=== PATIENT | male | born 1955 | race Caucasian/White ===

== ENCOUNTER → 2018-03-03 | Outpatient (CLI) | payer OTHER ==
[2013-07-25 18:42] VITALS: BP 174/81
[~2018-03-03] MED LIST: AMLO10TA6 PO; ASCO100T4 PO; CARV12.52 PO; EPOE20002 IJ; HYDR-2868 PO; INSU100C4 SQ; INSU100V8 SQ; LEVO300T2 PO; LOSA100T2 PO
--- NOTE | 2018-03-04 12:01 | RAD ---
Three-phase bone scan, 03/03/2018: HISTORY: Left great toe wound Imaging of the feet was performed following IV injection of 24.5 mCi of technetium 99m MDP. The image presentation's are suboptimal due to technical difficulties. The dynamic flow study was not recorded properly. The blood pool image does demonstrate mild hyperemia at the level of the left great toe. The delayed images do not demonstrate significant abnormal left great toe activity to suggest osteomyelitis. The delayed images do demonstrate abnormal activity in the region of the right second toe and MTP joint. This is a nonspecific appearance which could be due to trauma, arthritis or infection. Correlation with right foot radiographs is suggested, if clinically indicated. IMPRESSION: 1. Mild hyperemia at the level of the left great toe without evidence of osteomyelitis. 2. Abnormal findings at the level of the right second toe as described above. Electronically signed by: Ganesh Castro MD (03/04/2018 11:58 AM) [facility]
== END | disposition home or self-care (01) ==
LOC: NM 09:38
PROVIDERS: ATTEND Family Medicine
DX: R68.89 Other general symptoms and signs (principal); R93.6 Abnormal findings on diagnostic imaging of limbs
CPT/HCPCS: 78315; 96374; A9503

== ENCOUNTER 2018-10-19 15:31 | Inpatient (IN) | payer MEDICARE, OTHER ==
[~2018-10-19] VITALS: Ht 188 cm; Wt 86.2 kg
[~2018-10-19 15:31] MED LIST changes: -AMLO10TA6 PO; +AMLO10TA8 PO; +CARV12.511 PO; -CARV12.52 PO
[2018-10-19] MEDS ORDERED: PIP/TAZO PER PHARMACY MC PRN (15:45)
[2018-10-19] MEDS ORDERED: IV NORMAL SALINE 250ML 250 ML IV ONE (15:45)
[2018-10-19] MEDS ORDERED: ACETAMINOPHEN 500 MG TABLET PO ONE (15:45)
--- NOTE | 2018-10-19 15:53 | PHYS DOC ---
Past Medical History Past Medical History: Diabetes-Type II, Renal Failure Adult General Chief Complaint Chief Complaint: FEVER HPI HPI Patient is a 62-year-old male who presents to the emergency department via EMS. He states he just hasn't felt well for the past 2 days and was noted to be running a fever at dialysis today. He states he had what he thinks is a full dialysis session. He states that he thinks he took off too much fluid because he feels weak and fatigued when too much fluid is taken off. He has not had any shortness of breath, but reports a mild cough at times. He has not had any fevers or chills. There are no alleviating or exacerbating factors to his symptoms. Review of Systems Review of Systems Constitutional: Reports fever[] Eyes: Denies change in visual acuity, redness, or eye pain [] HENT: Denies nasal congestion or sore throat [] Respiratory: Denies shortness of breath [] Cardiovascular: No additional information not addressed in HPI [] GI: Denies abdominal pain, nausea, vomiting, bloody stools or diarrhea [] : Patient does not make any urine[] Musculoskeletal: Denies back pain or joint pain [] Integument: Denies rash or skin lesions [] Neurologic: Denies headache, focal weakness or sensory changes [] Endocrine: Denies polyuria or polydipsia [] All other systems were reviewed and found to be within normal limits, except as documented in this note. Current Medications Current Medications Current Medications Medications (Trade) Dose Ordered Sig/Diana Start Time Stop Time Status Last Admin Dose Admin Acetaminophen (Tylenol) 500 mg PRN Q6HRS PRN 10/19/18 17:15 Acetaminophen/ Codeine Phosphate (Tylenol #3) 1 tab PRN Q6HRS PRN 10/19/18 17:15 Amlodipine Besylate (Norvasc) 10 mg HS 10/19/18 21:00 Ascorbic Acid (Vitamin C) 500 mg DAILY 10/20/18 09:00 UNV Carvedilol (Coreg) 12.5 mg BIDWMEALS 10/19/18 17:00 Clonidine HCl (Catapres) 0.1 mg PRN Q1HR PRN 10/19/18 17:15 Dextrose (Dextrose 50%-Water Syringe) 12.5 gm PRN Q15MIN PRN 10/19/18 17:15 Hydralazine HCl (Apresoline) 25 mg TID 10/19/18 21:00 UNV Insulin Human Lispro (HumaLOG) 0-9 UNITS TIDWMEALS 10/20/18 08:00 UNV Non-Formulary Medication (Epoetin Huang (Epogen)) 3X/WEEK 10/21/18 09:00 UNV Non-Formulary Medication (Insulin Glargine,Hum.rec.anlog (Lantus)) 16 unit HS 10/19/18 21:00 UNV Non-Formulary Medication (Levothyroxine Sodium (Synthroid)) 300 mcg DAILY 10/20/18 09:00 UNV Non-Formulary Medication (Losartan Potassium (Cozaar)) 100 mg DAILY06 10/20/18 06:00 UNV Piperacillin Sod/ Tazobactam Sod (Zosyn Per Pharmacy) 1 each PRN DAILY PRN 10/19/18 15:45 UNV Piperacillin Sod/ Tazobactam Sod 2.25 gm/Sodium Chloride 50 ml @ 100 mls/hr 1X ONCE 10/19/18 16:00 10/19/18 16:29 DC 10/19/18 16:18 100 MLS/HR Sodium Chloride 250 ml @ 250 mls/hr 1X ONCE 10/19/18 15:45 10/19/18 16:44 DC 10/19/18 16:15 250 MLS/HR Vancomycin HCl (Vanco Per Pharmacy) 1 each PRN DAILY PRN 10/19/18 15:45 UNV Vancomycin HCl 2 gm/Sodium Chloride 500 ml @ 250 mls/hr 1X ONCE 10/19/18 16:15 10/19/18 18:14 Allergies Allergies Allergies Coded Allergies Type Severity Reaction Last Updated Verified influenza virus vaccine, specific Allergy Intermediate UNKWOWN 03/03/18 Yes levofloxacin Allergy Intermediate Unknown 03/03/18 Yes pneumococcal 23-jovanni p-sac vac Allergy Intermediate UNKWOWN 03/03/18 Yes urokinase Allergy Intermediate rash 10/19/18 Yes NSAIDS (Non-Steroidal Anti-Inflamma Adverse Reaction Intermediate 03/03/18 Yes Physical Exam Physical Exam PHYSICAL EXAM: CONSTITUTIONAL: Weak appearing HEENT: PERRL, EOMI. Conjunctivae normal color, sclerae non-icteric; moist mucous membranes. NECK: Supple, non-tender; no meningismus. LUNGS: Lungs CTA, breathing even and unlabored. Normal air movement. HEART: Regular rate and rhythm, no murmur CHEST: No deformity; non-tender ABDOMEN: The abdomen is soft, and non-tender, no masses or bruits. EXTREM: Normal ROM; no deformity, no calf tenderness. Normal pulses palpable in all extremities. There is no pedal edema. There is an AV fistula in the left upp er extremity. There is a small ulcer on the lateral aspect of the left foot, without any surrounding erythema, or any exudate. There is, however, a foul smell at the wound. SKIN: No rash; no diaphoresis NEURO: Alert; normal speech and cognition; CN's grossly intact; strength grossly intact without focal deficit. BACK: No CVA TTP. Current Patient Data Vital Signs Vital Signs Date Time Temp Pulse Resp B/P (MAP) Pulse Ox O2 Delivery O2 Flow Rate FiO2 10/19/18 16:40 86 18 163/72 (102) 89 Room Air 10/19/18 15:31 101.4 101.4 Lab Values Laboratory Tests Test 10/19/18 15:45 White Blood Count 2.6 x10^3/uL (4.0-11.0) L Red Blood Count 2.30 x10^6/uL (4.30-5.70) L Hemoglobin 7.8 g/dL (13.0-17.5) L Hematocrit 23.8 % (39.0-53.0) L Mean Corpuscular Volume 104 fL (79-100) H Mean Corpuscular Hemoglobin 34 pg (25-35) Mean Corpuscular Hemoglobin Concent 33 g/dL (31-37) Red Cell Distribution Width 15.3 % (11.5-14.5) H Platelet Count 134 x10^3/uL (140-400) L Neutrophils (%) (Auto) 91 % (31-73) H Lymphocytes (%) (Auto) 5 % (24-48) L Monocytes (%) (Auto) 1 % (0-9) Eosinophils (%) (Auto) 3 % (0-3) Basophils (%) (Auto) 0 % (0-3) Neutrophils # (Auto) 2.4 x10^3uL (1.8-7.7) Lymphocytes # (Auto) 0.1 x10^3/uL (1.0-4.8) L Monocytes # (Auto) 0.0 x10^3/uL (0.0-1.1) Eosinophils # (Auto) 0.1 x10^3/uL (0.0-0.7) Basophils # (Auto) 0.0 x10^3/uL (0.0-0.2) Platelet Estimate Pending Prothrombin Time 15.4 SEC (11.7-14.0) H Prothrombin Time INR 1.3 (0.8-1.1) H Sodium Level 139 mmol/L (136-145) Potassium Level 3.9 mmol/L (3.5-5.1) Chloride Level 104 mmol/L (98-107) Carbon Dioxide Level 23 mmol/L (21-32) Anion Gap 12 (6-14) Blood Urea Nitrogen 23 mg/dL (8-26) Creatinine 2.7 mg/dL (0.7-1.3) H Estimated GFR (Cockcroft-Gault) 24.0 BUN/Creatinine Ratio 9 (6-20) Glucose Level 100 mg/dL (70-99) H Lactic Acid Level 1.1 mmol/L (0.4-2.0) Calcium Level 8.9 mg/dL (8.5-10.1) Total Bilirubin 0.8 mg/dL (0.2-1.0) Aspartate Amino Transferase (AST) 25 U/L (15-37) Alanine Aminotransferase (ALT) 20 U/L (16-63) Alkaline Phosphatase 153 U/L (46-116) H Troponin I Quantitative 0.055 ng/mL (0.000-0.055) Total Protein 7.4 g/dL (6.4-8.2) Albumin 3.4 g/dL (3.4-5.0) Albumin/Globulin Ratio 0.9 (1.0-1.7) L Laboratory Tests 10/19/18 15:45 Laboratory Tests 10/19/18 15:45 EKG EKG Normal sinus rhythm at a rate of 92 beats for minute, left axis deviation, normal intervals, lateral T wave inversion without acute ischemic ST/T change s.[] Radiology/Procedures Radiology/Procedures [PROCEDURE: PORTABLE CHEST 1V PORTABLE CHEST 1V History: Fever Comparison: November 30, 2016 Findings: Single view of the chest is submitted. Pericardial cardiac silhouette is again enlarged. There is atherosclerotic calcification near aortic arch. Tip of the left costophrenic sulcus was not entirely included on this exam, otherwise no significant pleural fluid identified. There is no pneumothorax. There is no new lobar consolidation. Impression: 1. There is no lobar consolidation. Pericardial cardiac silhouette is again enlarged. ] Course & Med Decision Making Course & Med Decision Making Pertinent Labs and Imaging studies reviewed. (See chart for details) [] 5:10 PM:The patient's condition remains stable. I spoke with the hospitalist, who accepted the patient to the hospital for further evaluation and treatment. Dragon Disclaimer Dragon Disclaimer This electronic medical record was generated, in whole or in part, using a voice recognition dictation system. Departure Departure Impression: Primary Impression: Fever Additional Impressions: Weakness ESRD (end stage renal disease) Disposition: 09 ADMITTED INPATIENT Condition: STABLE Referrals: KAILYN SMITH MD (PCP) Problem Qualifiers BRITTNEY SEARS MD October 19, 2018 15:53
[2018-10-19] MEDS ORDERED: PIPERACILLIN/TAZOBACTAM 2.25 GM in IV NORMAL SALINE 50ML 50 ML IV ONE (16:00)
[2018-10-19 16:04] LABS: BASO % 0 % (0-3); EOS # 0.1 x10^3/uL (0.0-0.7); EOS % 3 % (0-3); HEMATOCRIT 23.8 % (39.0-53.0); HEMOGLOBIN 7.8 g/dL (13.0-17.5); LYMPH # 0.1 x10^3/uL (1.0-4.8); LYMPH % 5 % (24-48); MEAN CORPUSCULAR HEMOGLOBIN 34 pg (25-35); MEAN CORPUSCULAR HGB CONC 33 g/dL (31-37); MEAN CORPUSCULAR VOLUME 104 fL (79-100); MONO % 1 % (0-9); NEUT # 2.4 x10^3uL (1.8-7.7); NEUT % 91 % (31-73); PLATELET COUNT 134 x10^3/uL (140-400); RED CELL DISTRIBUTION WIDTH 15.3 % (11.5-14.5); WHITE BLOOD COUNT 2.6 x10^3/uL (4.0-11.0)
--- NOTE | 2018-10-19 16:10 | RAD ---
PORTABLE CHEST 1V History: Fever Comparison: November 30, 2016 Findings: Single view of the chest is submitted. Pericardial cardiac silhouette is again enlarged. There is atherosclerotic calcification near aortic arch. Tip of the left costophrenic sulcus was not entirely included on this exam, otherwise no significant pleural fluid identified. There is no pneumothorax. There is no new lobar consolidation. Impression: 1. There is no lobar consolidation. Pericardial cardiac silhouette is again enlarged. Electronically signed by: Christiano Cleveland MD (10/19/2018 4:07 PM) [id number]
[2018-10-19 16:12] LABS: PROTHROMBIN TIME PATIENT 15.4 SEC (11.7-14.0)
[2018-10-19 16:13] LABS: CALCIUM 8.9 mg/dL (8.5-10.1); CREATININE 2.7 mg/dL (0.7-1.3); POTASSIUM 3.9 mmol/L (3.5-5.1)
[2018-10-19] MEDS ORDERED: VANCOMYCIN 2 GM in IV NORMAL SALINE 500ML BAG 500 ML IV ONE (16:15)
--- NOTE | 2018-10-19 16:16 | EKG ---
[facility] [address] [place] [address] Test Date: 2018-10-19 Test Time: 15:38:22 Pat Name: MARY FLORES Department: Room: Gender: M Instructional Design Specialist: : [id number] Requested By: BRITTNEY SEARS Order Number: [id number] Reading MD: Measurements Intervals [place] Rate: 92 P: 0 MA: 166 QRS: -15 QRSD: 104 T: 134 QT: 344 QTc: 430 Interpretive Statements SINUS RHYTHM LEFTWARD AXIS LVH WITH REPOLARIZATION ABNORMALITY QRS(T) CONTOUR ABNORMALITY CONSIDER ANTEROSEPTAL MYOCARDIAL DAMAGE ABNORMAL ECG RI6.01 Unconfirmed report No previous ECG available for comparison
[2018-10-19 16:26] LABS: ALBUMIN 3.4 g/dL (3.4-5.0); ALBUMIN/GLOBULIN RATIO 0.9 (1.0-1.7); TOTAL BILIRUBIN 0.8 mg/dL (0.2-1.0); TOTAL PROTEIN 7.4 g/dL (6.4-8.2)
[2018-10-19] MEDS: CARVEDILOL 12.5 MG TABLET. PO SCH (17:00)
[2018-10-19] MEDS ORDERED: cloNIDine HCL 0.1 MG TABLET PO PRN (17:15)
[2018-10-19] MEDS ORDERED: ACETAMINOPHEN 500 MG TABLET PO PRN (17:15)
[2018-10-19] MEDS ORDERED: ACETAMINOPHEN/CODEINE 300/30MG TABLET. PO PRN (17:15)
--- NOTE | 2018-10-19 17:19 | PDOC1 ---
History and Physical Date of Admission Date of Admission DATE: 10/19/18 TIME: 17:14 Identification/Chief Complaint Chief Complaint Fevers at home Source Source: Caregiver, Chart review, Patient History of Present Illness History of Present Illness Pt is a very poor historian, he is alone at the ER. 61 yo white male came from home, lives at home with , came in via EMS. Generalized weakness for a while went to dialysis today and he felt "they took too much fluid off". Lethargic but alert and denies diarrhea, chest pain, abdominal pain or flulike symptoms or URI symptoms. Chest x-ray is actually read as normal. Febrile 101.4 with high blood pressure. With creatinine 2.7, WBC 2.6 with hemoglobin 7.8 and platelets 134. Got blood cultures, empiric vancomycin. We will consult ID regarding this fever with unknown source. Cannot get a urine sample-anuric Does not know his NovoLog mealtime dose Full code He denies any body rash, denies recent travel or sick contacts He has a left AV fistula and no external catheters Past Medical History Cardiovascular: HTN Endocrine: Diabetes, Hypothyroidism Past Surgical History Past Surgical History: Other (AV fistulam, left arm) Family History Family History: Family History Unknown Social History Smoke: No ALCOHOL: none Drugs: None Current Medications Current Medications Current Medications Sodium Chloride 250 ml @ 250 mls/hr 1X ONCE IV Last administered on 10/19/18at 16:15; Start 10/19/18 at 15:45; Stop 10/19/18 at 16:44; Status DC Acetaminophen (Tylenol) 1,000 mg 1X ONCE PO Last administered on 10/19/18at 16:12; Start 10/19/18 at 15:45; Stop 10/19/18 at 15:50; Status DC Piperacillin Sod/ Tazobactam Sod (Zosyn Per Pharmacy) 1 each PRN DAILY PRN MC SEE COMMENTS; Start 10/19/18 at 15:45; Status UNV Vancomycin HCl (Vanco Per Pharmacy) 1 each PRN DAILY PRN MC SEE COMMENTS; Start 10/19/18 at 15:45; Status UNV Piperacillin Sod/ Tazobactam Sod 2.25 gm/Sodium Chloride 50 ml @ 100 mls/hr 1X ONCE IV Last administered on 10/19/18at 16:18; Start 10/19/18 at 16:00; Stop at 16:29; Status DC Vancomycin HCl 2 gm/Sodium Chloride 500 ml @ 250 mls/hr 1X ONCE IV ; Start 10/19/18 at 16:15; Stop 10/19/18 at 18:14 Acetaminophen (Tylenol) 500 mg PRN Q6HRS PRN PO MILD PAIN / TEMP; Start 10/19/18 at 17:15 Acetaminophen/ Codeine Phosphate (Tylenol #3) 1 tab PRN Q6HRS PRN PO MODERATE PAIN; Start 10/19/18 at 17:15 Amlodipine Besylate (Norvasc) 10 mg HS PO ; Start 10/19/18 at 21:00 Carvedilol (Coreg) 12.5 mg BIDWMEALS PO ; Start 10/19/18 at 17:00 Non-Formulary Medication (Ascorbic Acid (Vitamin C)) 100 mg DAILY PO ; Start 10/20/18 at 09:00; Status UNV Non-Formulary Medication (Epoetin Huang (Epogen)) 3X/WEEK IJ ; Start 10/21/18 at 09:00; Status UNV Non-Formulary Medication (Hydralazine Hcl ) 25 mg TID PO ; Start 10/19/18 at 21: 00; Status UNV Non-Formulary Medication (Insulin Glargine,Hum.rec.anlog (Lantus)) 16 unit HS SQ ; Start 10/19/18 at 21:00; Status UNV Non-Formulary Medication (Levothyroxine Sodium (Synthroid)) 300 mcg DAILY PO ; Start 10/20/18 at 09:00; Status UNV Non-Formulary Medication (Losartan Potassium (Cozaar)) 100 mg DAILY06 PO ; Start 10/20/18 at 06:00; Status UNV Insulin Human Lispro (HumaLOG) 0-9 UNITS TIDWMEALS SQ ; Start 10/20/18 at 08:00; Status UNV Dextrose (Dextrose 50%-Water Syringe) 12.5 gm PRN Q15MIN PRN IV SEE COMMENTS; Start 10/19/18 at 17:15 Clonidine HCl (Catapres) 0.1 mg PRN Q1HR PRN PO HYPERTENSION; Start 10/19/18 at 17:15; Status UNV Active Scripts Active Reported Epogen (Epoetin Huang) 2,000 Unit/1 Ml Vial 0 IJ 3X/WEEK Vitamin C (Ascorbic Acid) 100 Mg Tablet 100 Mg PO DAILY Novolog (Insulin Aspart) 100 Unit/1 Ml Cartridge 0 SQ 5XDAY Lantus (Insulin Glargine,Hum.rec.anlog) 100 Unit/1 Ml Vial 16 Unit SQ HS Amlodipine Besylate 10 Mg Tablet 10 Mg PO HS Synthroid (Levothyroxine Sodium) 300 Mcg Tablet 300 Mcg PO DAILY Hydralazine Hcl 25 Mg Tablet 25 Mg PO TID Carvedilol (Carvedilol) 12.5 Mg Tablet 12.5 Mg PO BID Cozaar (Losartan Potassium) 100 Mg Tablet 100 Mg PO DAILY06 Allergies Allergies: Coded Allergies: influenza virus vaccine, specific (Verified Allergy, Intermediate, UNKWOWN, 03/03/18) levofloxacin (Verified Allergy, Intermediate, Unknown, 03/03/18) pneumococcal 23-jovanni p-sac vac (Verified Allergy, Intermediate, UNKWOWN, 03/03/18) urokinase (Verified Allergy, Intermediate, rash, 10/19/18) NSAIDS (Non-Steroidal Anti-Inflamma (Verified Adverse Reaction, Intermediate, 03/03/18) RAGE ROS Review of System As per history of present illness, the rest of ROS 14 point negative although poor historian, he doses off to sleep Physical Exam General: Alert, Oriented X3, Cooperative, No acute distress HEENT: Atraumatic, PERRLA, EOMI Lungs: Clear to auscultation, Normal air movement Heart: S1S2, RRR, no thrills, no rubs, no gallops, no murmurs Cardiovascular: S1, S2 Abdomen: Normal bowel sounds, Soft, No tenderness, No hepatosplenomegaly, No masses Male Genitals Exam: normal genitalia, normal prostate Rectal Exam: not examined PELVIC: Nml ext genitalia Extremities: No clubbing, No cyanosis, No edema, Normal pulses, No tenderness/swelling Skin: No rashes, No breakdown, No significant lesion, Other (AV fistula with good bruit, distant pulses palpable good plus 2) Neuro: Normal gait, Normal speech, Strength at 5/5 X4 ext, Normal tone, Sensation intact, Cranial nerves 3-12 NL, Reflexes 2+ Psych/Mental Status: Mental status NL, Mood NL Vitals Vitals Vital Signs Date Time Temp Pulse Resp B/P (MAP) Pulse Ox O2 Delivery O2 Flow Rate FiO2 10/19/18 16:40 86 18 163/72 (102) 89 Room Air 10/19/18 15:31 101.4 101.4 Labs Labs Laboratory Tests Test 10/19/18 15:45 White Blood Count 2.6 x10^3/uL (4.0-11.0) Red Blood Count 2.30 x10^6/uL (4.30-5.70) Hemoglobin 7.8 g/dL (13.0-17.5) Hematocrit 23.8 % (39.0-53.0) Mean Corpuscular Volume 104 fL (79-100) Mean Corpuscular Hemoglobin 34 pg (25-35) Mean Corpuscular Hemoglobin Concent 33 g/dL (31-37) Red Cell Distribution Width 15.3 % (11.5-14.5) Platelet Count 134 x10^3/uL (140-400) Neutrophils (%) (Auto) 91 % (31-73) Lymphocytes (%) (Auto) 5 % (24-48) Monocytes (%) (Auto) 1 % (0-9) Eosinophils (%) (Auto) 3 % (0-3) Basophils (%) (Auto) 0 % (0-3) Neutrophils # (Auto) 2.4 x10^3uL (1.8-7.7) Lymphocytes # (Auto) 0.1 x10^3/uL (1.0-4.8) Monocytes # (Auto) 0.0 x10^3/uL (0.0-1.1) Eosinophils # (Auto) 0.1 x10^3/uL (0.0-0.7) Basophils # (Auto) 0.0 x10^3/uL (0.0-0.2) Prothrombin Time 15.4 SEC (11.7-14.0) Prothromb Time International Ratio 1.3 (0.8-1.1) Sodium Level 139 mmol/L (136-145) Potassium Level 3.9 mmol/L (3.5-5.1) Chloride Level 104 mmol/L (98-107) Carbon Dioxide Level 23 mmol/L (21-32) Anion Gap 12 (6-14) Blood Urea Nitrogen 23 mg/dL (8-26) Creatinine 2.7 mg/dL (0.7-1.3) Estimated GFR (Cockcroft-Gault) 24.0 BUN/Creatinine Ratio 9 (6-20) Glucose Level 100 mg/dL (70-99) Lactic Acid Level 1.1 mmol/L (0.4-2.0) Calcium Level 8.9 mg/dL (8.5-10.1) Total Bilirubin 0.8 mg/dL (0.2-1.0) Aspartate Amino Transf (AST/SGOT) 25 U/L (15-37) Alanine Aminotransferase (ALT/SGPT) 20 U/L (16-63) Alkaline Phosphatase 153 U/L (46-116) Troponin I Quantitative 0.055 ng/mL (0.000-0.055) Total Protein 7.4 g/dL (6.4-8.2) Albumin 3.4 g/dL (3.4-5.0) Albumin/Globulin Ratio 0.9 (1.0-1.7) Laboratory Tests Test 10/19/18 15:45 White Blood Count 2.6 x10^3/uL (4.0-11.0) Red Blood Count 2.30 x10^6/uL (4.30-5.70) Hemoglobin 7.8 g/dL (13.0-17.5) Hematocrit 23.8 % (39.0-53.0) Mean Corpuscular Volume 104 fL (79-100) Mean Corpuscular Hemoglobin 34 pg (25-35) Mean Corpuscular Hemoglobin Concent 33 g/dL (31-37) Red Cell Distribution Width 15.3 % (11.5-14.5) Platelet Count 134 x10^3/uL (140-400) Neutrophils (%) (Auto) 91 % (31-73) Lymphocytes (%) (Auto) 5 % (24-48) Monocytes (%) (Auto) 1 % (0-9) Eosinophils (%) (Auto) 3 % (0-3) Basophils (%) (Auto) 0 % (0-3) Neutrophils # (Auto) 2.4 x10^3uL (1.8-7.7) Lymphocytes # (Auto) 0.1 x10^3/uL (1.0-4.8) Monocytes # (Auto) 0.0 x10^3/uL (0.0-1.1) Eosinophils # (Auto) 0.1 x10^3/uL (0.0-0.7) Basophils # (Auto) 0.0 x10^3/uL (0.0-0.2) Prothrombin Time 15.4 SEC (11.7-14.0) Prothromb Time International Ratio 1.3 (0.8-1.1) Sodium Level 139 mmol/L (136-145) Potassium Level 3.9 mmol/L (3.5-5.1) Chloride Level 104 mmol/L (98-107) Carbon Dioxide Level 23 mmol/L (21-32) Anion Gap 12 (6-14) Blood Urea Nitrogen 23 mg/dL (8-26) Creatinine 2.7 mg/dL (0.7-1.3) Estimated GFR (Cockcroft-Gault) 24.0 BUN/Creatinine Ratio 9 (6-20) Glucose Level 100 mg/dL (70-99) Lactic Acid Level 1.1 mmol/L (0.4-2.0) Calcium Level 8.9 mg/dL (8.5-10.1) Total Bilirubin 0.8 mg/dL (0.2-1.0) Aspartate Amino Transf (AST/SGOT) 25 U/L (15-37) Alanine Aminotransferase (ALT/SGPT) 20 U/L (16-63) Alkaline Phosphatase 153 U/L (46-116) Troponin I Quantitative 0.055 ng/mL (0.000-0.055) Total Protein 7.4 g/dL (6.4-8.2) Albumin 3.4 g/dL (3.4-5.0) Albumin/Globulin Ratio 0.9 (1.0-1.7) VTE Prophylaxis Ordered VTE Prophylaxis Devices: Yes VTE Pharmacological Prophylaxi: Yes Assessment/Plan Assessment/Plan Fevers with unknown source ESRD on dialysis Anemia of ESRD Hypothyroidism on Synthroid Hypertension-accelerated POA Thrombocytopenia, platelets 134 Leukopenia WBC 2.6 This is not sepsis for now as these are his baseline numbers Plan: admit 2 MN, got blood cultures empiric vanc Zosyn by ER Consult ID regarding fevers, unknown source Anuric No external catheters Consult renal regarding dialysis I ahve reconciled home meds PT OT FUll code Other supportive meds SSI Seen at ER ANGY KAPOOR MD October 19, 2018 17:19
[2018-10-19 17:53] LABS: % BANDS 11 % (0-9); % BASOS 1 % (0-3); % EOS 4 % (0-5); % LYMPHS 5 % (24-48); % MONOS 2 % (0-10); % SEGS 77 % (35-66); PLT ESTIMATE ADEQUATE (ADEQUATE)
[2018-10-19] MEDS: VANCOMYCIN PER PHARMACY MC PRN (18:43)
[2018-10-19] MEDS: DEXTROSE 50% 25 GM / 50ML DISP.SYRIN. IV PRN (19:42)
[2018-10-19 20:29] VITALS: BP 121/35
[2018-10-19] MEDS: hydrALAZINE 25 MG TABLET PO SCH (21:00)
[2018-10-19] MEDS: amLODIPine BESYLATE 10 MG TABLET PO SCH (21:00)
[2018-10-19] MEDS: INSULIN GLARGINE 300 UNITS/3 ML INSULN.PEN. SQ SCH (21:00)
--- NOTE | 2018-10-19 22:16 | NUR ---
The patient, MARY FLORES, 62 y/o, M admitted by ANGY KAPOOR MD, was given written information regarding hospital policies, unit procedures and contact persons. Valuables were checked and left with patient.
--- NOTE | 2018-10-19 22:17 | NUR ---
At 1899 pt was in ER with a blood sugar of 58, gave 3 apple juice. At 1934 BS was 59. ER nurse gave dextrose. When pt arrived on the unit at 1957 pt BS was 93. At 2129 BS was 89, holding lantus due to pts BS being low.
[2018-10-19] MEDS: PIPERACILLIN/TAZOBACTAM 2.25 GM in IV NORMAL SALINE 50ML 50 ML IV SCH (22:37)
[2018-10-19] MEDS ORDERED: IV NORMAL SALINE 1000ML BAG 1,000 ML IV ONE (23:15)
[2018-10-19 23:45] VITALS: BP 109/34
[2018-10-20 03:42] VITALS: BP 148/49
[2018-10-20] MEDS: LEVOTHYROXINE 150 MCG TABLET PO SCH (05:54)
[2018-10-20] MEDS: PIPERACILLIN/TAZOBACTAM 2.25 GM in IV NORMAL SALINE 50ML 50 ML IV SCH (06:17)
[2018-10-20 07:55] VITALS: BP 156/52
[2018-10-20] MEDS: INSULIN LISPRO 300 UNITS/3 ML INSULN.PEN. SQ SCH ×3 (08:00→17:21)
[2018-10-20] MEDS: hydrALAZINE 25 MG TABLET PO SCH ×3 (09:00→22:01)
[2018-10-20] MEDS: CARVEDILOL 12.5 MG TABLET. PO SCH ×2 (09:23→16:24)
[2018-10-20] MEDS: LOSARTAN POTASSIUM 50 MG TABLET. PO SCH (09:24)
[2018-10-20] MEDS: ASCORBIC ACID 500 MG TABLET PO SCH (09:24)
[2018-10-20 11:29] VITALS: BP 130/34
--- NOTE | 2018-10-20 11:49 | PDOC ---
[employer] PROGRESS NOTE Chief Complaint Chief Complaint Fevers with unknown source ESRD on dialysis Anemia of ESRD Hypothyroidism on Synthroid Hypertension-accelerated POA Thrombocytopenia, platelets 134 Leukopenia WBC 2.6 History of Present Illness History of Present Illness Patient seen and examined this morning He appears septic and is tachypneic Discussed with RN and sure enough he has 2 out 2 blood culture bottles coming back positive I told her was consult infectious disease and give him IV antibiotics Patient also has a left leg lesion were checking for clot Overall the patient appears quite ill Vitals Vitals Vital Signs Date Time Temp Pulse Resp B/P (MAP) Pulse Ox O2 Delivery O2 Flow Rate FiO2 10/20/18 11:29 98.5 67 20 130/34 (66) 97 Room Air 98.5 Physical Exam General: moderate distress Heart: Other (tachycardic) Lungs: Wheezing Abdomen: Normal bowel sounds, Soft, No tenderness, No hepatosplenomegaly, No masses Skin: Other (AV fistula with good bruit, distant pulses palpable good plus 2) Labs Labs: Laboratory Tests Test 10/19/18 15:45 10/19/18 19:00 10/19/18 19:35 10/19/18 19:58 White Blood Count 2.6 x10^3/uL (4.0-11.0) Red Blood Count 2.30 x10^6/uL (4.30-5.70) Hemoglobin 7.8 g/dL (13.0-17.5) Hematocrit 23.8 % (39.0-53.0) Mean Corpuscular Volume 104 fL (79-100) Mean Corpuscular Hemoglobin 34 pg (25-35) Mean Corpuscular Hemoglobin Concent 33 g/dL (31-37) Red Cell Distribution Width 15.3 % (11.5-14.5) Platelet Count 134 x10^3/uL (140-400) Neutrophils (%) (Auto) 91 % (31-73) Lymphocytes (%) (Auto) 5 % (24-48) Monocytes (%) (Auto) 1 % (0-9) Eosinophils (%) (Auto) 3 % (0-3) Basophils (%) (Auto) 0 % (0-3) Neutrophils # (Auto) 2.4 x10^3uL (1.8-7.7) Lymphocytes # (Auto) 0.1 x10^3/uL (1.0-4.8) Monocytes # (Auto) 0.0 x10^3/uL (0.0-1.1) Eosinophils # (Auto) 0.1 x10^3/uL (0.0-0.7) Basophils # (Auto) 0.0 x10^3/uL (0.0-0.2) Segmented Neutrophils % 77 % (35-66) Band Neutrophils % 11 % (0-9) Lymphocytes % 5 % (24-48) Monocytes % 2 % (0-10) Eosinophils % 4 % (0-5) Basophils % 1 % (0-3) Platelet Estimate Adequate (ADEQUATE) Erythrocyte Sedimentation Rate 22 (0-15) Prothrombin Time 15.4 SEC (11.7-14.0) Prothromb Time International Ratio 1.3 (0.8-1.1) Sodium Level 139 mmol/L (136-145) Potassium Level 3.9 mmol/L (3.5-5.1) Chloride Level 104 mmol/L (98-107) Carbon Dioxide Level 23 mmol/L (21-32) Anion Gap 12 (6-14) Blood Urea Nitrogen 23 mg/dL (8-26) Creatinine 2.7 mg/dL (0.7-1.3) Estimated GFR (Cockcroft-Gault) 24.0 BUN/Creatinine Ratio 9 (6-20) Glucose Level 100 mg/dL (70-99) Lactic Acid Level 1.1 mmol/L (0.4-2.0) Calcium Level 8.9 mg/dL (8.5-10.1) Total Bilirubin 0.8 mg/dL (0.2-1.0) Aspartate Amino Transf (AST/SGOT) 25 U/L (15-37) Alanine Aminotransferase (ALT/SGPT) 20 U/L (16-63) Alkaline Phosphatase 153 U/L (46-116) Troponin I Quantitative 0.055 ng/mL (0.000-0.055) Total Protein 7.4 g/dL (6.4-8.2) Albumin 3.4 g/dL (3.4-5.0) Albumin/Globulin Ratio 0.9 (1.0-1.7) Glucose (Fingerstick) 58 mg/dL (70-99) 59 mg/dL (70-99) 93 mg/dL (70-99) Test 5/29/19 21:30 10/20/18 07:53 Glucose (Fingerstick) 89 mg/dL (70-99) 114 mg/dL (70-99) Review of Systems Review of Systems Complains of left leg pain Complains of tachypnea Complains of severe weakness Assessment and Plan Assessmemt and Plan Problems Medical Problems: (1) ESRD (end stage renal disease) Status: Acute (2) Fever Status: Acute (3) Weakness Status: Acute Fevers with unknown source ESRD on dialysis Anemia of ESRD Hypothyroidism on Synthroid Hypertension-accelerated POA Thrombocytopenia, platelets 134 Leukopenia WBC 2.6 Plan Left lower extremities ultrasound to rule out DVT IV hydration Consult infectious disease When necessary Tylenol Home meds Frequent labs PT OT if possible Total time 33 minutes Comment Review of Relevant I have reviewed the following items kit (where applicable) has been applied. Labs Laboratory Tests Test 10/19/18 15:45 10/19/18 19:00 10/19/18 19:35 10/19/18 19:58 White Blood Count 2.6 x10^3/uL (4.0-11.0) Red Blood Count 2.30 x10^6/uL (4.30-5.70) Hemoglobin 7.8 g/dL (13.0-17.5) Hematocrit 23.8 % (39.0-53.0) Mean Corpuscular Volume 104 fL (79-100) Mean Corpuscular Hemoglobin 34 pg (25-35) Mean Corpuscular Hemoglobin Concent 33 g/dL (31-37) Red Cell Distribution Width 15.3 % (11.5-14.5) Platelet Count 134 x10^3/uL (140-400) Neutrophils (%) (Auto) 91 % (31-73) Lymphocytes (%) (Auto) 5 % (24-48) Monocytes (%) (Auto) 1 % (0-9) Eosinophils (%) (Auto) 3 % (0-3) Basophils (%) (Auto) 0 % (0-3) Neutrophils # (Auto) 2.4 x10^3uL (1.8-7.7) Lymphocytes # (Auto) 0.1 x10^3/uL (1.0-4.8) Monocytes # (Auto) 0.0 x10^3/uL (0.0-1.1) Eosinophils # (Auto) 0.1 x10^3/uL (0.0-0.7) Basophils # (Auto) 0.0 x10^3/uL (0.0-0.2) Segmented Neutrophils % 77 % (35-66) Band Neutrophils % 11 % (0-9) Lymphocytes % 5 % (24-48) Monocytes % 2 % (0-10) Eosinophils % 4 % (0-5) Basophils % 1 % (0-3) Platelet Estimate Adequate (ADEQUATE) Erythrocyte Sedimentation Rate 22 (0-15) Prothrombin Time 15.4 SEC (11.7-14.0) Prothromb Time International Ratio 1.3 (0.8-1.1) Sodium Level 139 mmol/L (136-145) Potassium Level 3.9 mmol/L (3.5-5.1) Chloride Level 104 mmol/L (98-107) Carbon Dioxide Level 23 mmol/L (21-32) Anion Gap 12 (6-14) Blood Urea Nitrogen 23 mg/dL (8-26) Creatinine 2.7 mg/dL (0.7-1.3) Estimated GFR (Cockcroft-Gault) 24.0 BUN/Creatinine Ratio 9 (6-20) Glucose Level 100 mg/dL (70-99) Lactic Acid Level 1.1 mmol/L (0.4-2.0) Calcium Level 8.9 mg/dL (8.5-10.1) Total Bilirubin 0.8 mg/dL (0.2-1.0) Aspartate Amino Transf (AST/SGOT) 25 U/L (15-37) Alanine Aminotransferase (ALT/SGPT) 20 U/L (16-63) Alkaline Phosphatase 153 U/L (46-116) Troponin I Quantitative 0.055 ng/mL (0.000-0.055) Total Protein 7.4 g/dL (6.4-8.2) Albumin 3.4 g/dL (3.4-5.0) Albumin/Globulin Ratio 0.9 (1.0-1.7) Glucose (Fingerstick) 58 mg/dL (70-99) 59 mg/dL (70-99) 93 mg/dL (70-99) Test 10/19/18 21:30 10/20/18 07:53 Glucose (Fingerstick) 89 mg/dL (70-99) 114 mg/dL (70-99) Laboratory Tests Test 10/19/18 15:45 10/19/18 19:00 10/19/18 19:35 10/19/18 19:58 White Blood Count 2.6 x10^3/uL (4.0-11.0) Red Blood Count 2.30 x10^6/uL (4.30-5.70) Hemoglobin 7.8 g/dL (13.0-17.5) Hematocrit 23.8 % (39.0-53.0) Mean Corpuscular Volume 104 fL (79-100) Mean Corpuscular Hemoglobin 34 pg (25-35) Mean Corpuscular Hemoglobin Concent 33 g/dL (31-37) Red Cell Distribution Width 15.3 % (11.5-14.5) Platelet Count 134 x10^3/uL (140-400) Neutrophils (%) (Auto) 91 % (31-73) Lymphocytes (%) (Auto) 5 % (24-48) Monocytes (%) (Auto) 1 % (0-9) Eosinophils (%) (Auto) 3 % (0-3) Basophils (%) (Auto) 0 % (0-3) Neutrophils # (Auto) 2.4 x10^3uL (1.8-7.7) Lymphocytes # (Auto) 0.1 x10^3/uL (1.0-4.8) Monocytes # (Auto) 0.0 x10^3/uL (0.0-1.1) Eosinophils # (Auto) 0.1 x10^3/uL (0.0-0.7) Basophils # (Auto) 0.0 x10^3/uL (0.0-0.2) Segmented Neutrophils % 77 % (35-66) Band Neutrophils % 11 % (0-9) Lymphocytes % 5 % (24-48) Monocytes % 2 % (0-10) Eosinophils % 4 % (0-5) Basophils % 1 % (0-3) Platelet Estimate Adequate (ADEQUATE) Erythrocyte Sedimentation Rate 22 (0-15) Prothrombin Time 15.4 SEC (11.7-14.0) Prothromb Time International Ratio 1.3 (0.8-1.1) Sodium Level 139 mmol/L (136-145) Potassium Level 3.9 mmol/L (3.5-5.1) Chloride Level 104 mmol/L (98-107) Carbon Dioxide Level 23 mmol/L (21-32) Anion Gap 12 (6-14) Blood Urea Nitrogen 23 mg/dL (8-26) Creatinine 2.7 mg/dL (0.7-1.3) Estimated GFR (Cockcroft-Gault) 24.0 BUN/Creatinine Ratio 9 (6-20) Glucose Level 100 mg/dL (70-99) Lactic Acid Level 1.1 mmol/L (0.4-2.0) Calcium Level 8.9 mg/dL (8.5-10.1) Total Bilirubin 0.8 mg/dL (0.2-1.0) Aspartate Amino Transf (AST/SGOT) 25 U/L (15-37) Alanine Aminotransferase (ALT/SGPT) 20 U/L (16-63) Alkaline Phosphatase 153 U/L (46-116) Troponin I Quantitative 0.055 ng/mL (0.000-0.055) Total Protein 7.4 g/dL (6.4-8.2) Albumin 3.4 g/dL (3.4-5.0) Albumin/Globulin Ratio 0.9 (1.0-1.7) Glucose (Fingerstick) 58 mg/dL (70-99) 59 mg/dL (70-99) 93 mg/dL (70-99) Test 10/19/18 21:30 10/20/18 07:53 Glucose (Fingerstick) 89 mg/dL (70-99) 114 mg/dL (70-99) Microbiology 10/19/18 Blood Culture - Final, Complete Medications Current Medications Sodium Chloride 250 ml @ 250 mls/hr 1X ONCE IV Last administered on 10/19/18at 16:15; Start 10/19/18 at 15:45; Stop 10/19/18 at 16:44; Status DC Acetaminophen (Tylenol) 1,000 mg 1X ONCE PO Last administered on 10/19/18at 16:12; Start 10/19/18 at 15:45; Stop 10/19/18 at 15:50; Status DC Piperacillin Sod/ Tazobactam Sod (Zosyn Per Pharmacy) 1 each PRN DAILY PRN MC SEE COMMENTS; Start 10/19/18 at 15:45 Vancomycin HCl (Vanco Per Pharmacy) 1 each PRN DAILY PRN MC SEE COMMENTS Last administered on 10/19/18at 18:43; Start 10/19/18 at 15:45 Piperacillin Sod/ Tazobactam Sod 2.25 gm/Sodium Chloride 50 ml @ 100 mls/hr 1X ONCE IV Last administered on 10/19/18at 16:18; Start 10/19/18 at 16:00; Stop 10/19/18 at 16:29; Status DC Vancomycin HCl 2 gm/Sodium Chloride 500 ml @ 250 mls/hr 1X ONCE IV Last administered on 10/19/18at 17:21; Start 10/19/18 at 16:15; Stop 10/19/18 at 18:14; Status DC Acetaminophen (Tylenol) 500 mg PRN Q6HRS PRN PO MILD PAIN / TEMP; Start 10/19/18 at 17:15 Acetaminophen/ Codeine Phosphate (Tylenol #3) 1 tab PRN Q6HRS PRN PO MODERATE PAIN; Start 10/19/18 at 17:15 Amlodipine Besylate (Norvasc) 10 mg HS PO ; Start 10/19/18 at 21:00 Carvedilol (Coreg) 12.5 mg BIDWMEALS PO Last administered on 10/20/18at 09:23; Start 10/19/18 at 17:00 Ascorbic Acid (Vitamin C) 500 mg DAILY PO Last administered on 10/20/18at 09:24; Start 10/20/18 at 09:00 Darbepoetin Huang (Aranesp) 25 mcg WEEKLYHS SQ ; Start 10/21/18 at 21:00 Hydralazine HCl (Apresoline) 25 mg TID PO ; Start 10/19/18 at 21:00 Insulin Glargine (Lantus) 16 units QHS SQ ; Start 10/19/18 at 21:00 Levothyroxine Sodium (Synthroid) 300 mcg DAILY06 PO Last administered on 10/20/18at 05:54; Start 10/20/18 at 06:00 Losartan Potassium (Cozaar) 100 mg DAILY PO Last administered on 10/20/18at 09:24; Start 10/20/18 at 09:00 Insulin Human Lispro (HumaLOG) 0-9 UNITS TIDWMEALS SQ ; Start 10/20/18 at 08:00 Dextrose (Dextrose 50%-Water Syringe) 12.5 gm PRN Q15MIN PRN IV SEE COMMENTS Last administered on 10/19/18at 19:42; Start 10/19/18 at 17:15 Clonidine HCl (Catapres) 0.1 mg PRN Q1HR PRN PO HYPERTENSION; Start 10/19/18 at 17:15 Piperacillin Sod/ Tazobactam Sod 2.25 gm/Sodium Chloride 50 ml @ 100 mls/hr Q8HRS IV Last administered on 10/20/18at 06:17; Start 10/19/18 at 22:00 Vancomycin HCl (Vancomycin Random Level) 1 each 1X ONCE MC ; Start 10/21/18 at 06:00; Stop 10/21/18 at 06:01 Sodium Chloride 1,000 ml @ 100 mls/hr 1X ONCE IV Last administered on 10/19/18at 23:15; Start 10/19/18 at 23:15; Stop 10/20/18 at 09:14; Status DC Multivitamins (Thera M Plus) 1 tab DAILY PO ; Start 10/20/18 at 12:00 Active Scripts Active Reported Epogen (Epoetin Huang) 2,000 Unit/1 Ml Vial 0 IJ 3X/WEEK Vitamin C (Ascorbic Acid) 100 Mg Tablet 100 Mg PO DAILY Novolog (Insulin Aspart) 100 Unit/1 Ml Cartridge 0 SQ 5XDAY Lantus (Insulin Glargine,Hum.rec.anlog) 100 Unit/1 Ml Vial 16 Unit SQ HS Amlodipine Besylate 10 Mg Tablet 10 Mg PO HS Synthroid (Levothyroxine Sodium) 300 Mcg Tablet 300 Mcg PO DAILY Hydralazine Hcl 25 Mg Tablet 25 Mg PO TID Carvedilol (Carvedilol) 12.5 Mg Tablet 12.5 Mg PO BID Cozaar (Losartan Potassium) 100 Mg Tablet 100 Mg PO DAILY06 Vitals/I & O Vital Sign - Last 24 Hours 10/19/18 10/19/18 10/19/18 10/19/18 15:31 16:10 16:40 17:10 Temp 101.4 101.4 Pulse 93 88 86 84 Resp 20 18 18 18 B/P (MAP) 195/82 (119) 166/71 (102) 163/72 (102) 142/63 (89) Pulse Ox 94 91 89 89 O2 Delivery Room Air Room Air Room Air Room Air 10/19/18 10/19/18 10/19/18 10/19/18 17:40 18:40 19:10 19:22 Temp 100.0 100.0 Pulse 82 82 80 Resp 18 B/P (MAP) 141/63 (89) 153/68 (96) 155/71 (99) Pulse Ox 88 95 92 O2 Delivery Room Air Room Air Room Air 10/19/18 10/19/18 10/20/18 10/20/18 20:29 23:45 02:19 03:42 Temp 99.8 98.6 98.4 99.8 98.6 98.4 Pulse 77 69 69 Resp 16 16 16 B/P (MAP) 121/35 (63) 109/34 (59) 148/49 (82) Pulse Ox 92 95 94 O2 Delivery Room Air Room Air Room Air Room Air 10/20/18 10/20/18 10/20/18 10/20/18 07:55 09:23 09:24 11:29 Temp 98.7 98.5 98.7 98.5 Pulse 68 68 68 67 Resp 22 20 B/P (MAP) 156/52 (86) 156/52 156/52 130/34 (66) Pulse Ox 93 97 O2 Delivery Room Air Room Air Intake and Output 10/19/18 10/19/18 10/20/18 15:00 23:00 07:00 Intake Total 350 ml 340 ml Balance 350 ml 340 ml MADDY TINOCO K III DO October 20, 2018 11:49
--- NOTE | 2018-10-20 11:50 | PDOC2 ---
CONSULT Date of Consult Date of Consult DATE: 10/20/18 TIME: 11:43 Reason for Consult Reason for Consult: ESRD Referring Physician Referring Physician: ANTWON Identification/Chief Complaint Chief Complaint FEVERS AND WEAKNESS Source Source: Chart review, Patient History of Present Illness Reason for Visit: THIS IS A 62 YR OLD WITH ESRD AND ON OP HD ON MWF. LAST WENT YESTERDAY AND STATES THAT HE FELT VERY TIRED AFTERWARDS AND ALSO FELT FEVERISH AND HAD SOME CHILLS. ADMITTED AND NOTED TO HAVE PANCYTOPENIA WHICH APPEARS TO BE CHRONIC AND POSSIBLY MDS. STATES THAT THEY HAVE BEEN TRYING TO LOWER HIS DW AT THE DIALYSIS [facility]IT AND THAT HE FEELS BETTER WITH A HIGHER DW. ESRD IS DUE TO HTN AND DM II. HE WAS ON PD INITIALLY FOR SEVERAL YEARS AND NOW FOR THE PAST 10 YEARS HAS BEEN ON HD. HE HAS A LEFT ARM BC AVF WHICH HAS BEEN FUNCTIONING WELL. NO ERYTHEMA, WARMTH OR DRAINAGE FROM HIS AVF SITE NOTED. LABS ARE C/W HIS ESRD STATUS Past Medical History Cardiovascular: HTN GI: Constipation Heme/Onc: Anemia NOS Renal/: Chronic renal failure Endocrine: Diabetes, Hypothyroidism Past Surgical History Past Surgical History HX OF PD CATHETER AND REMOVAL IN THE PAST. HX OF LEFT ARM BRACHIO-CEPHALIC AVF Past Surgical History: Other (AV fistulam, left arm) Family History Family History: Hypertension, Family History Unknown Social History No ALCOHOL: none Drugs: None Current Problem List Problem List Problems Medical Problems: (1) ESRD (end stage renal disease) Status: Acute (2) Fever Status: Acute (3) Weakness Status: Acute Current Medications Current Medications Current Medications Sodium Chloride 250 ml @ 250 mls/hr 1X ONCE IV Last administered on 10/19/18at 16:15; Start 10/19/18 at 15:45; Stop 10/19/18 at 16:44; Status DC Acetaminophen (Tylenol) 1,000 mg 1X ONCE PO Last administered on 10/19/18at 16:12; Start 10/19/18 at 15:45; Stop 10/19/18 at 15:50; Status DC Piperacillin Sod/ Tazobactam Sod (Zosyn Per Pharmacy) 1 each PRN DAILY PRN MC SEE COMMENTS; Start 10/19/18 at 15:45 Vancomycin HCl (Vanco Per Pharmacy) 1 each PRN DAILY PRN MC SEE COMMENTS Last administered on 10/19/18at 18:43; Start 10/19/18 at 15:45 Piperacillin Sod/ Tazobactam Sod 2.25 gm/Sodium Chloride 50 ml @ 100 mls/hr 1X ONCE IV Last administered on 10/19/18at 16:18; Start 10/19/18 at 16:00; Stop 10/19/18 at 16:29; Status DC Vancomycin HCl 2 gm/Sodium Chloride 500 ml @ 250 mls/hr 1X ONCE IV Last administered on 10/19/18at 17:21; Start 10/19/18 at 16:15; Stop 10/19/18 at 18:14; Status DC Acetaminophen (Tylenol) 500 mg PRN Q6HRS PRN PO MILD PAIN / TEMP; Start 10/19/18 at 17:15 Acetaminophen/ Codeine Phosphate (Tylenol #3) 1 tab PRN Q6HRS PRN PO MODERATE PAIN; Start 10/19/18 at 17:15 Amlodipine Besylate (Norvasc) 10 mg HS PO ; Start 10/19/18 at 21:00 Carvedilol (Coreg) 12.5 mg BIDWMEALS PO Last administered on 10/20/18at 09:23; Start 10/19/18 at 17:00 Ascorbic Acid (Vitamin C) 500 mg DAILY PO Last administered on 10/20/18at 09:24; Start 10/20/18 at 09:00 Darbepoetin Huang (Aranesp) 25 mcg WEEKLYHS SQ ; Start 10/21/18 at 21:00 Hydralazine HCl (Apresoline) 25 mg TID PO ; Start 10/19/18 at 21:00 Insulin Glargine (Lantus) 16 units QHS SQ ; Start 10/19/18 at 21:00 Levothyroxine Sodium (Synthroid) 300 mcg DAILY06 PO Last administered on 10/20/18at 05:54; Start 10/20/18 at 06:00 Losartan Potassium (Cozaar) 100 mg DAILY PO Last administered on 10/20/18at 09:24; Start 10/20/18 at 09:00 Insulin Human Lispro (HumaLOG) 0-9 UNITS TIDWMEALS SQ ; Start 10/20/18 at 08:00 Dextrose (Dextrose 50%-Water Syringe) 12.5 gm PRN Q15MIN PRN IV SEE COMMENTS Last administered on 10/19/18at 19:42; Start 10/19/18 at 17:15 Clonidine HCl (Catapres) 0.1 mg PRN Q1HR PRN PO HYPERTENSION; Start 10/19/18 at 17:15 Piperacillin Sod/ Tazobactam Sod 2.25 gm/Sodium Chloride 50 ml @ 100 mls/hr Q8HRS IV Last administered on 10/20/18at 06:17; Start 10/19/18 at 22:00 Vancomycin HCl (Vancomycin Random Level) 1 each 1X ONCE MC ; Start 10/21/18 at 06:00; Stop 10/21/18 at 06:01 Sodium Chloride 1,000 ml @ 100 mls/hr 1X ONCE IV Last administered on 10/19/18at 23:15; Start 10/19/18 at 23:15; Stop 10/20/18 at 09:14; Status DC Multivitamins (Thera M Plus) 1 tab DAILY PO ; Start 10/20/18 at 12:00 Active Scripts Active Reported Epogen (Epoetin Huang) 2,000 Unit/1 Ml Vial 0 IJ 3X/WEEK Vitamin C (Ascorbic Acid) 100 Mg Tablet 100 Mg PO DAILY Novolog (Insulin Aspart) 100 Unit/1 Ml Cartridge 0 SQ 5XDAY Lantus (Insulin Glargine,Hum.rec.anlog) 100 Unit/1 Ml Vial 16 Unit SQ HS Amlodipine Besylate 10 Mg Tablet 10 Mg PO HS Synthroid (Levothyroxine Sodium) 300 Mcg Tablet 300 Mcg PO DAILY Hydralazine Hcl 25 Mg Tablet 25 Mg PO TID Carvedilol (Carvedilol) 12.5 Mg Tablet 12.5 Mg PO BID Cozaar (Losartan Potassium) 100 Mg Tablet 100 Mg PO DAILY06 Allergies Allergies: Coded Allergies: influenza virus vaccine, specific (Verified Allergy, Intermediate, UNKWOWN, 03/03/18) levofloxacin (Verified Allergy, Intermediate, Unknown, 03/03/18) pneumococcal 23-jovanni p-sac vac (Verified Allergy, Intermediate, UNKWOWN, 03/03/18) urokinase (Verified Allergy, Intermediate, rash, 10/19/18) NSAIDS (Non-Steroidal Anti-Inflamma (Verified Adverse Reaction, Intermediate, 03/03/18) RAGE ROS General: YES: Chills, Fatigue PSYCHOLOGICAL ROS: YES: Anxiety Eyes: Yes Decreased vision HEENT: YES: Heacaches ALLERGY AND IMMUNOLOGY: YES: Seasonal Allergies Respiratory: YES: Cough, Shortness of breath Gastrointestinal: Yes Constipation Genitourinary: YES Other (ANURIA) Musculoskeletal: Yes Muscular Weakness Neurological: Yes Weakness Skin: Yes Dry Skin Physical Exam Physical Exam LEFT ARM AVF WITH A GOOD THRILL AND BRUIT BUT SLIGHTLY PULSATILE General: Alert, Oriented X3, Cooperative, No acute distress HEENT: Atraumatic, PERRLA Lungs: Clear to auscultation Heart: Regular rate, Normal S1, Normal S2 Abdomen: Normal bowel sounds, Soft, No tenderness Extremities: No clubbing, No cyanosis Skin: No breakdown Neuro: Normal speech, Sensation intact Psych/Mental Status: Mental status NL, Mood NL MUSCULOSKELETAL: No joint tenderness, No deformity Vitals VITALS Vital Signs Date Time Temp Pulse Resp B/P (MAP) Pulse Ox O2 Delivery O2 Flow Rate FiO2 10/20/18 11:29 98.5 67 20 130/34 (66) 97 Room Air 98.5 Labs Labs Laboratory Tests Test 10/19/18 15:45 10/19/18 19:00 10/19/18 19:35 10/19/18 19:58 White Blood Count 2.6 x10^3/uL (4.0-11.0) Red Blood Count 2.30 x10^6/uL (4.30-5.70) Hemoglobin 7.8 g/dL (13.0-17.5) Hematocrit 23.8 % (39.0-53.0) Mean Corpuscular Volume 104 fL (79-100) Mean Corpuscular Hemoglobin 34 pg (25-35) Mean Corpuscular Hemoglobin Concent 33 g/dL (31-37) Red Cell Distribution Width 15.3 % (11.5-14.5) Platelet Count 134 x10^3/uL (140-400) Neutrophils (%) (Auto) 91 % (31-73) Lymphocytes (%) (Auto) 5 % (24-48) Monocytes (%) (Auto) 1 % (0-9) Eosinophils (%) (Auto) 3 % (0-3) Basophils (%) (Auto) 0 % (0-3) Neutrophils # (Auto) 2.4 x10^3uL (1.8-7.7) Lymphocytes # (Auto) 0.1 x10^3/uL (1.0-4.8) Monocytes # (Auto) 0.0 x10^3/uL (0.0-1.1) Eosinophils # (Auto) 0.1 x10^3/uL (0.0-0.7) Basophils # (Auto) 0.0 x10^3/uL (0.0-0.2) Segmented Neutrophils % 77 % (35-66) Band Neutrophils % 11 % (0-9) Lymphocytes % 5 % (24-48) Monocytes % 2 % (0-10) Eosinophils % 4 % (0-5) Basophils % 1 % (0-3) Platelet Estimate Adequate (ADEQUATE) Erythrocyte Sedimentation Rate 22 (0-15) Prothrombin Time 15.4 SEC (11.7-14.0) Prothromb Time International Ratio 1.3 (0.8-1.1) Sodium Level 139 mmol/L (136-145) Potassium Level 3.9 mmol/L (3.5-5.1) Chloride Level 104 mmol/L (98-107) Carbon Dioxide Level 23 mmol/L (21-32) Anion Gap 12 (6-14) Blood Urea Nitrogen 23 mg/dL (8-26) Creatinine 2.7 mg/dL (0.7-1.3) Estimated GFR (Cockcroft-Gault) 24.0 BUN/Creatinine Ratio 9 (6-20) Glucose Level 100 mg/dL (70-99) Lactic Acid Level 1.1 mmol/L (0.4-2.0) Calcium Level 8.9 mg/dL (8.5-10.1) Total Bilirubin 0.8 mg/dL (0.2-1.0) Aspartate Amino Transf (AST/SGOT) 25 U/L (15-37) Alanine Aminotransferase (ALT/SGPT) 20 U/L (16-63) Alkaline Phosphatase 153 U/L (46-116) Troponin I Quantitative 0.055 ng/mL (0.000-0.055) Total Protein 7.4 g/dL (6.4-8.2) Albumin 3.4 g/dL (3.4-5.0) Albumin/Globulin Ratio 0.9 (1.0-1.7) Glucose (Fingerstick) 58 mg/dL (70-99) 59 mg/dL (70-99) 93 mg/dL (70-99) Test 10/19/18 21:30 10/20/18 07:53 Glucose (Fingerstick) 89 mg/dL (70-99) 114 mg/dL (70-99) Laboratory Tests Test 10/19/18 15:45 10/19/18 19:00 10/19/18 19:35 10/19/18 19:58 White Blood Count 2.6 x10^3/uL (4.0-11.0) Red Blood Count 2.30 x10^6/uL (4.30-5.70) Hemoglobin 7.8 g/dL (13.0-17.5) Hematocrit 23.8 % (39.0-53.0) Mean Corpuscular Volume 104 fL (79-100) Mean Corpuscular Hemoglobin 34 pg (25-35) Mean Corpuscular Hemoglobin Concent 33 g/dL (31-37) Red Cell Distribution Width 15.3 % (11.5-14.5) Platelet Count 134 x10^3/uL (140-400) Neutrophils (%) (Auto) 91 % (31-73) Lymphocytes (%) (Auto) 5 % (24-48) Monocytes (%) (Auto) 1 % (0-9) Eosinophils (%) (Auto) 3 % (0-3) Basophils (%) (Auto) 0 % (0-3) Neutrophils # (Auto) 2.4 x10^3uL (1.8-7.7) Lymphocytes # (Auto) 0.1 x10^3/uL (1.0-4.8) Monocytes # (Auto) 0.0 x10^3/uL (0.0-1.1) Eosinophils # (Auto) 0.1 x10^3/uL (0.0-0.7) Basophils # (Auto) 0.0 x10^3/uL (0.0-0.2) Segmented Neutrophils % 77 % (35-66) Band Neutrophils % 11 % (0-9) Lymphocytes % 5 % (24-48) Monocytes % 2 % (0-10) Eosinophils % 4 % (0-5) Basophils % 1 % (0-3) Platelet Estimate Adequate (ADEQUATE) Erythrocyte Sedimentation Rate 22 (0-15) Prothrombin Time 15.4 SEC (11.7-14.0) Prothromb Time International Ratio 1.3 (0.8-1.1) Sodium Level 139 mmol/L (136-145) Potassium Level 3.9 mmol/L (3.5-5.1) Chloride Level 104 mmol/L (98-107) Carbon Dioxide Level 23 mmol/L (21-32) Anion Gap 12 (6-14) Blood Urea Nitrogen 23 mg/dL (8-26) Creatinine 2.7 mg/dL (0.7-1.3) Estimated GFR (Cockcroft-Gault) 24.0 BUN/Creatinine Ratio 9 (6-20) Glucose Level 100 mg/dL (70-99) Lactic Acid Level 1.1 mmol/L (0.4-2.0) Calcium Level 8.9 mg/dL (8.5-10.1) Total Bilirubin 0.8 mg/dL (0.2-1.0) Aspartate Amino Transf (AST/SGOT) 25 U/L (15-37) Alanine Aminotransferase (ALT/SGPT) 20 U/L (16-63) Alkaline Phosphatase 153 U/L (46-116) Troponin I Quantitative 0.055 ng/mL (0.000-0.055) Total Protein 7.4 g/dL (6.4-8.2) Albumin 3.4 g/dL (3.4-5.0) Albumin/Globulin Ratio 0.9 (1.0-1.7) Glucose (Fingerstick) 58 mg/dL (70-99) 59 mg/dL (70-99) 93 mg/dL (70-99) Test 10/19/18 21:30 10/20/18 07:53 Glucose (Fingerstick) 89 mg/dL (70-99) 114 mg/dL (70-99) Assessment/Plan Assessment/Plan IMP FEVERS POSSIBLE SEPSIS ESRD-MWF VIA LEFT ARM AVF HTN HX DM II PANCYTOPENIA PLAN ANTIBIOTICS ID EVAL AND TX HD MWF ABELINO WADDELL MD October 20, 2018 11:49
[2018-10-20] MEDS: MULTIVITAMIN with MINERAL TABLET. PO SCH (12:00)
--- NOTE | 2018-10-20 12:31 | PDOC ---
Infectious Disease Note Vital Signs: Vital Signs Vital Signs Date Time Temp Pulse Resp B/P (MAP) Pulse Ox O2 Delivery O2 Flow Rate FiO2 10/20/18 11:29 98.5 67 20 130/34 (66) 97 Room Air 98.5 Medications: Inpatient Meds: Current Medications Medications (Trade) Dose Ordered Sig/Diana Start Time Stop Time Status Last Admin Dose Admin Acetaminophen (Tylenol) 500 mg PRN Q6HRS PRN 10/19/18 17:15 Acetaminophen/ Codeine Phosphate (Tylenol #3) 1 tab PRN Q6HRS PRN 10/19/18 17:15 Amlodipine Besylate (Norvasc) 10 mg HS 10/19/18 21:00 Ascorbic Acid (Vitamin C) 500 mg DAILY 10/20/18 09:00 10/20/18 09:24 500 MG Carvedilol (Coreg) 12.5 mg BIDWMEALS 10/19/18 17:00 10/20/18 09:23 12.5 MG Clonidine HCl (Catapres) 0.1 mg PRN Q1HR PRN 10/19/18 17:15 Darbepoetin Huang (Aranesp) 60 mcg WEEKLYHS 10/20/18 21:00 Dextrose (Dextrose 50%-Water Syringe) 12.5 gm PRN Q15MIN PRN 10/19/18 17:15 10/19/18 19:42 12.5 GM Hydralazine HCl (Apresoline) 25 mg TID 10/19/18 21:00 Insulin Glargine (Lantus) 16 units QHS 10/19/18 21:00 Insulin Human Lispro (HumaLOG) 0-9 UNITS TIDWMEALS 10/20/18 08:00 Levothyroxine Sodium (Synthroid) 300 mcg DAILY06 10/20/18 06:00 10/20/18 05:54 300 MCG Losartan Potassium (Cozaar) 100 mg DAILY 10/20/18 09:00 10/20/18 09:24 100 MG Multivitamins (Thera M Plus) 1 tab DAILY 10/20/18 12:00 Piperacillin Sod/ Tazobactam Sod (Zosyn Per Pharmacy) 1 each PRN DAILY PRN 10/19/18 15:45 Piperacillin Sod/ Tazobactam Sod 2.25 gm/Sodium Chloride 50 ml @ 100 mls/hr Q8HRS 10/19/18 22:00 10/20/18 06:17 100 MLS/HR Sodium Chloride 1,000 ml @ 100 mls/hr 1X ONCE 10/19/18 23:15 10/20/18 09:14 DC 10/19/18 23:15 100 MLS/HR Vancomycin HCl (Vanco Per Pharmacy) 1 each PRN DAILY PRN 10/19/18 15:45 10/19/18 18:43 1 EACH Vancomycin HCl (Vancomycin Random Level) 1 each 1X ONCE 10/21/18 06:00 10/21/18 06:01 Vancomycin HCl 2 gm/Sodium Chloride 500 ml @ 250 mls/hr 1X ONCE 10/19/18 16:15 10/19/18 18:14 DC 10/19/18 17:21 250 MLS/HR Labs: Lab Laboratory Tests Test 10/19/18 15:45 10/19/18 19:00 10/19/18 19:35 10/19/18 19:58 White Blood Count 2.6 x10^3/uL (4.0-11.0) Red Blood Count 2.30 x10^6/uL (4.30-5.70) Hemoglobin 7.8 g/dL (13.0-17.5) Hematocrit 23.8 % (39.0-53.0) Mean Corpuscular Volume 104 fL (79-100) Mean Corpuscular Hemoglobin 34 pg (25-35) Mean Corpuscular Hemoglobin Concent 33 g/dL (31-37) Red Cell Distribution Width 15.3 % (11.5-14.5) Platelet Count 134 x10^3/uL (140-400) Neutrophils (%) (Auto) 91 % (31-73) Lymphocytes (%) (Auto) 5 % (24-48) Monocytes (%) (Auto) 1 % (0-9) Eosinophils (%) (Auto) 3 % (0-3) Basophils (%) (Auto) 0 % (0-3) Neutrophils # (Auto) 2.4 x10^3uL (1.8-7.7) Lymphocytes # (Auto) 0.1 x10^3/uL (1.0-4.8) Monocytes # (Auto) 0.0 x10^3/uL (0.0-1.1) Eosinophils # (Auto) 0.1 x10^3/uL (0.0-0.7) Basophils # (Auto) 0.0 x10^3/uL (0.0-0.2) Segmented Neutrophils % 77 % (35-66) Band Neutrophils % 11 % (0-9) Lymphocytes % 5 % (24-48) Monocytes % 2 % (0-10) Eosinophils % 4 % (0-5) Basophils % 1 % (0-3) Platelet Estimate Adequate (ADEQUATE) Erythrocyte Sedimentation Rate 22 (0-15) Prothrombin Time 15.4 SEC (11.7-14.0) Prothromb Time International Ratio 1.3 (0.8-1.1) Sodium Level 139 mmol/L (136-145) Potassium Level 3.9 mmol/L (3.5-5.1) Chloride Level 104 mmol/L (98-107) Carbon Dioxide Level 23 mmol/L (21-32) Anion Gap 12 (6-14) Blood Urea Nitrogen 23 mg/dL (8-26) Creatinine 2.7 mg/dL (0.7-1.3) Estimated GFR (Cockcroft-Gault) 24.0 BUN/Creatinine Ratio 9 (6-20) Glucose Level 100 mg/dL (70-99) Lactic Acid Level 1.1 mmol/L (0.4-2.0) Calcium Level 8.9 mg/dL (8.5-10.1) Total Bilirubin 0.8 mg/dL (0.2-1.0) Aspartate Amino Transf (AST/SGOT) 25 U/L (15-37) Alanine Aminotransferase (ALT/SGPT) 20 U/L (16-63) Alkaline Phosphatase 153 U/L (46-116) Troponin I Quantitative 0.055 ng/mL (0.000-0.055) Total Protein 7.4 g/dL (6.4-8.2) Albumin 3.4 g/dL (3.4-5.0) Albumin/Globulin Ratio 0.9 (1.0-1.7) Glucose (Fingerstick) 58 mg/dL (70-99) 59 mg/dL (70-99) 93 mg/dL (70-99) Test 10/19/18 21:30 10/20/18 07:53 10/20/18 11:41 Glucose (Fingerstick) 89 mg/dL (70-99) 114 mg/dL (70-99) 147 mg/dL (70-99) Objective: Assessment: fever gram neg sepsis leucopenia mild thrombocytopenia esrd on hd nausea and vomiting Plan: Plan of Care merrem f/u flu screen repeat bc f/u if of gnr in bc f/u labs in am and cults d/w rn thank you [phone] NORTH BATRES MD October 20, 2018 12:31
--- NOTE | 2018-10-20 12:39 | NUR ---
Wound Care: Consult to eval and treat multiple DFUs to L foot. Maria Antonia Huang APRN at bedside for consultation. PENNY to L foot 0.71. Pt states he is receiving wound care through [facility] wound clinic. See detailed assessments. Wounds are well granulated with minimal drainage, periwound skin healthy and intact. Skin prep to periwounds, xeroform and telfa island dressings applied. No other open areas noted on head to toe assessment. Pt educated on pressure ulcer prevention. No concerns. Follow up 10/26/18 Addendum: 10/20/18 at 1244 by TRU LOZANO RN Hematoma noted to buttocks from reported fall. Swelling, warmth and bruising noted to posterior L thigh. Per pt he was told his hamstring is bruised. Maria Antonia Huang APRN recommending U/S of L post. thigh to r/o DVT. Notified HAKAN Mccray
--- NOTE | 2018-10-20 12:42 | RAD ---
Left lower extremity venous ultrasound, 10/20/2018 : History: Leg pain Duplex evaluation including grayscale, color flow and spectral Doppler analysis was performed. The femoral and popliteal veins show no filling defects to suggest DVT. The visualized calf veins are unremarkable. An enlarged lymph node is noted at the left groin measuring 3.7 x 1.5 cm. IMPRESSION: 1. There is no sonographic evidence of deep vein thrombosis in the left lower extremity. 2. Mildly enlarged lymph node at the left groin. Electronically signed by: Ganesh Castro MD (10/20/2018 12:39 PM) [facility]
--- NOTE | 2018-10-20 13:19 | PDOC ---
Progress Note-Wound Care SUBJECTIVE Wound care consult due to left foot DFUs. Pt with 30+ year hx of DM, insulin dependent, and 10+ years of BLE neuropathy with associated foot-drop. Pt states current wounds occurred due to brace in shoe and old diabetic footwear and have been present for several months. Wounds have been followed by [facility] prior to admission. Brace removed and shoes adapted. Pt states most recent wound orders included Santyl. Pt states hx of DFUs, including osteomyelitis in both great toes. Pt estimates left foot osteomyelitis 7 years ago, successfully treated with IV abx and aggressive wound care. OBJECTIVE Vital Signs Vital Signs Date Time Temp Pulse Resp B/P (MAP) Pulse Ox O2 Delivery O2 Flow Rate FiO2 10/19/18 15:31 101.4 93 20 195/82 (119) 94 Room Air 101.4 Vital Signs Date Time Temp Pulse Resp B/P (MAP) Pulse Ox O2 Delivery O2 Flow Rate FiO2 10/20/18 11:29 98.5 67 20 130/34 (66) 97 Room Air 98.5 Physical Exam: Pt awake and alert. NAD. VSS. Afebrile. Resp even and unlabored. Pt on RA, not requiring supplemental O2. Abdomen soft, nondistended, and nontender. BLE without edema. Eccymosis noted to right buttock and right posterior thigh. Right posterior thigh with mild erythema and warmth, no overlying eccymosis. Left great toe with open ulceration. Measurements and pictures documented by nursing staff. Wound bed pink and moist, shallow. Edges attached and not rolling. Surrounding tissue without edema or erythema. Left lateral foot with open ulceration. Wound bed pink and moist, shallow. Edges attached and not rolling. Surrounding tissue without edema or erythema. No drainage present. No odor present. ASSESSMENT PENNY Left: 0.71 PLAN Sepsis - PCP and ID following pt DFU, left great toe - [place] 0.71 - Followed by [facility] prior to admission - Appears non infected at this time, however has hx, 6yo, of osteomyelitis of the affected toe - Cleanse and pat dry, apply skin prep to surrounding tissue, apply Xeroform and cover with bordered gauze. Change every other day or prn - Ensure area is offloaded. Shoes have been cut out to ensure offloading with ambulation. DFU, left lateral foot - [place] 0.71 - Followed by [facility] prior to admission - Appears non infected at this time. - Cleanse and pat dry, apply skin prep to surrounding tissue, apply Xeroform and cover with bordered gauze. Change every other day or prn - Ensure area is offloaded. Brace for foot-drop has been removed. Our wound care team will continue to follow the pt throughout the patients [facility] team DREW GUEVARA APRN October 20, 2018 13:19
--- NOTE | 2018-10-20 13:49 | RAD ---
CT Abdomen and Pelvis without contrast History: Gram-negative sepsis Technique: Noncontrast CT imaging was performed of the abdomen and pelvis. Multiplanar images are reviewed. Exposure: One or more of the following individualized dose reduction techniques were utilized for this examination: 1. Automated exposure control 2. Adjustment of the mA and/or kV according to patient size 3. Use of iterative reconstruction technique. Comparison: None Findings: There is trace right pleural fluid. Heart is somewhat enlarged. There is some mitral annular calcification and coronary calcification. There is diffuse prominent body wall edema. Gallbladder is distended likely with degree of mild pericholecystic fluid without obvious intraluminal abnormality by CT. Accurate evaluation of the abdominal visceral organs is limited without intravenous contrast, no obvious focal abnormality of the liver. Pancreas is poorly distinguished. There is a focus of hypodensity in expected region of pancreatic head about 3 cm transverse by 2.4 cm AP, possible density about region of expected pancreatic body although otherwise difficult to distinguish as there appears to be some nonorganized fluid type density. There is also diffuse mesenteric edema. There is mild the scattered free fluid. There is no hydronephrosis of either kidney. There is no renal calculus. Despite no contrast given for this exam, there is apparently some enhancement of lateral kidneys. There is no adrenal nodularity. Evaluation of bowel is limited due to the paucity of intra-abdominal and intrapelvic fat in combination with lack of oral contrast. There is a greater degree of stool distention of the rectosigmoid colon. Small bowel is not significantly dilated. Bowel wall thickening cannot be accurately assessed on this exam. Appendix cannot be clearly identified. No obvious free air is identified. There is scattered calcified plaque of abdominal aorta, also some plaque of iliac arteries. There is advanced degenerative disc disease L3-4, to lesser degree other levels other than L1-2. There is also degenerative disc disease of visualized thoracic levels. There is multilevel facet degenerative change. There is mild S-shaped scoliosis of the lumbar spine. There is mild left lateral subluxation L3 relative to L4 and mild right lateral subluxation L2 relative to L3. Impression: 1. There is diffuse anasarca and mesenteric edema. Evaluation of bowel is very limited. There is very minimal scattered free fluid. 2. There is a hypodense cystic lesion in the region of the head pancreas concerning for pancreatic fluid collection or cystic mass, poor definition of the pancreas. There could be a degree of inflammatory change about the pancreas as may be seen with pancreatitis in the appropriate clinical setting although otherwise difficult to characterize. There is distention of the gallbladder with mild pericholecystic fluid. 3. There is appearance enhance of the renal parenchyma although no contrast given at this facility recently. 4. There is mild enlargement of heart. There is some coronary calcification. Electronically signed by: Christiano Cleveland MD (10/20/2018 1:46 PM) [id number]
[2018-10-20] MEDS: VANCOMYCIN PER PHARMACY MC PRN ×2 (14:37→21:41)
--- NOTE | 2018-10-20 16:13 | NUR ---
SW following pt for anticipated dc needs. Chart reviewed and DW RN. Pt lives at home with spouse and has OP HD at [facility] on MWF. Discussed with pt's regarding PT/OT recommendation for rehab and pt's reported she wants to see if pt will get better first as this is not his baseline. She reported pt is independent at home and would not want to go to rehab. SW provided contact information incase she changes her mind. RN aware.
[2018-10-20 19:49] VITALS: BP 170/68
[2018-10-20] MEDS ORDERED: DARBEPOETIN ALFA 60 MCG/0.3 ML DISP.SYRIN. SQ SCH (21:00)
[2018-10-20] MEDS: LACTOBACILLUS RHAMNOSUS GG 1 CAPSULE. PO SCH (21:57)
[2018-10-20] MEDS: amLODIPine BESYLATE 10 MG TABLET PO SCH (22:00)
[2018-10-20] MEDS: INSULIN GLARGINE 300 UNITS/3 ML INSULN.PEN. SQ SCH (22:07)
[2018-10-20 23:51] VITALS: BP 154/63
[2018-10-21 03:51] VITALS: BP 115/49
[2018-10-21] MEDS ORDERED: VANCOMYCIN RANDOM LEVEL. MC ONE (05:00)
--- NOTE | 2018-10-21 05:20 | CONS ---
DATE OF CONSULTATION: 10/20/2018 REFERRING PHYSICIAN: Dr. Roper. REASON FOR CONSULTATION: Gram-negative sepsis. HISTORY OF PRESENT ILLNESS: A 62-year-old male with end-stage renal disease on hemodialysis, presented to the ER on 10/19/2018 with not feeling well 2 days prior to admission with him running a fever at dialysis session yesterday. He has been feeling very weak, tired, some cough, some shortness of breath, some nausea and vomiting. No abdominal pain. Denies any recent antibiotic treatment. We had blood cultures done, 2/2 bottles are positive for Gram-negative rods. ID and KIANA is pending at this time. His white count was low, which is attributed to him having chronic low blood count due to possible MDS. Lactate was normal at 1.1. Platelet was 134, hemoglobin of 7.8, ESR was 22. He had a chest x-ray done, which showed no lobar consolidation. The patient has lower extremity ultrasound, which is pending at this time. Influenza screen is pending. ID consult has been requested for antibiotic management. PAST MEDICAL HISTORY: Pseudoaneurysm of femoral artery, obesity, hypothyroidism, end-stage renal disease on dialysis, coronary artery disease, ANDER, hyperlipidemia, retinopathy, depression, COPD, gastroparesis, Charcot neuroarthropathy, peripheral neuropathy, peripheral venous insufficiency, footdrop syndrome. CURRENT MEDICATIONS: Zosyn. Other medications reviewed in medication list. ALLERGIES: INFLUENZA VIRUS, LEVOFLOXACIN, PNEUMOCOCCAL VACCINE, NONSTEROIDALS. REVIEW OF SYSTEMS: Negative except for above in HPI. The patient has fatigue, malaise, fevers, chills, nausea, cough, anuric. SOCIAL HISTORY: No alcohol. No EtOH. No illicit drug use. , lives with . FAMILY HISTORY: As per HPI. PHYSICAL EXAMINATION: VITAL SIGNS: Temperature 98.5, T-max 101.4, pulse 67, respiratory rate 20, blood pressure 130/34, oxygen saturation 97% on room air. GENERAL: Alert, awake, lethargic male, lying in bed, slow in answering questions, cooperative, in no acute distress. HEENT: Normocephalic, atraumatic, anicteric. No thrush. Oral mucosa moist. NECK: Supple. No JVD. LUNGS: Clear bilaterally. No wheezing. HEART: S1, S2. No gallops or murmurs. ABDOMEN: Soft, nontender, nondistended. No rebound, no guarding. EXTREMITIES: No edema, no cyanosis. Wears braces for both legs. NEUROLOGIC: Alert and oriented. MUSCULOSKELETAL: No joint swelling, no decreased range of motion. DERMATOLOGIC: Warm, dry. No generalized rash. LABORATORY DATA: WBC 2.6, hemoglobin 7.8, hematocrit 23.8, platelets 134, segments 77, bands 11. Sodium 135, potassium 4.0, chloride 102, bicarbonate 23, BUN 31, creatinine 4.3, glucose 122, calcium 9.0. IMPRESSION: 1. Febrile illness. 2. Gram-negative sepsis, source unclear, likely gastrointestinal or genitourinary. 3. End-stage renal disease, on hemodialysis via left arm arteriovenous fistula. 4. Hypertension. 5. Diabetes. 6. Pancytopenia. 7. Coronary artery disease. 8. History of chronic obstructive pulmonary disease. 9. History of peripheral neuropathy with footdrop syndrome. RECOMMENDATIONS: 1. Discontinue Zosyn. 2. Start Merrem. 3. Follow up influenza screen. 4. Obtain a CT abdomen and pelvis without. 5. Follow up blood cultures and lab. 6. Repeat blood cultures. 7. Continue supportive care. 8. Discussed with RN. Thank you for consulting Infectious Disease to participate in this patient's care. If you have any questions, do not hesitate to contact me. NORTH BATRES MD DR: ANA/bernardo JOB#: [id number] / [id number] TIMI
[2018-10-21] MEDS: LEVOTHYROXINE 150 MCG TABLET PO SCH (06:17)
[2018-10-21 06:42] LABS: HEMATOCRIT 23.7 % (39.0-53.0); HEMOGLOBIN 7.9 g/dL (13.0-17.5); RED BLOOD COUNT 2.28 x10^6/uL (4.30-5.70); RED CELL DISTRIBUTION WIDTH 15.5 % (11.5-14.5)
[2018-10-21 06:56] LABS: CALCIUM 8.7 mg/dL (8.5-10.1); CREATININE 4.5 mg/dL (0.7-1.3); GFR 13.3; POTASSIUM 4.9 mmol/L (3.5-5.1)
[2018-10-21 07:00] VITALS: BP 125/47
[2018-10-21] MEDS: DEXTROSE 50% 25 GM / 50ML DISP.SYRIN. IV PRN (07:07)
[2018-10-21] MEDS: CARVEDILOL 12.5 MG TABLET. PO SCH ×2 (08:00→16:58)
[2018-10-21] MEDS: INSULIN LISPRO 300 UNITS/3 ML INSULN.PEN. SQ SCH ×3 (08:00→16:52)
[2018-10-21] MEDS: VANCOMYCIN PER PHARMACY MC PRN (08:48)
--- NOTE | 2018-10-21 08:48 | NUR ---
Pharmacy Vancomycin Dosing Note S:Consulted to monitor and dose vancomycin started 10/19/18. O:MARY FLORES is a 62 year old M with Bacteremia Sepsis Empiric FEVER . Height: 6 feet, 2 inches Weight: 102.806947 kg [place] Body Weight: 82.20 Adjusted Body Weight: 90.32 Dosing Weight: Actual Other Antibiotics: MEROPENEM LABS: Last BUN: 54 Last Creatinine: 2.5 HD Creatinine Clearance: MD MWF mL/min Last WBC: 15 Last Procalcitonin: Tmax (past 24 hours): 98.7 Microbiology: 10/19 BLOOD: GNR 2 OF 4 I/O: 1018/2 Drug Levels: Last Random level: 12.3 on 10/21/18 at 0555 Last dose given 10/19/18 at 1721 Vancomycin Dosing: Loading Dose: 750 mg x1 Dosing Weight: Actual Target Trough: 15-20 A: Based on: TROUGH GOAL/SEVERITY OF ILLNESS, HD SCHEDULE, P: 1. GIVE 750 MG VANCOMYCIN IV AFTER HD SESSION TODAY THEN Vancomycin 500 mg IV AFTER HD SESSIONS MWF THEREAFTER 2. Follow up Random level NEEDED 3. Pharmacy will continue to monitor, follow and adjust therapy as needed. HOLLY MULLIGAN RPH, 10/21/18 0845
[2018-10-21] MEDS ORDERED: MEROPENEM 1 GM in IV NORMAL SALINE 100ML 100 ML IV SCH (09:00)
[2018-10-21] MEDS: hydrALAZINE 25 MG TABLET PO SCH ×3 (09:00→21:04)
[2018-10-21] MEDS: LACTOBACILLUS RHAMNOSUS GG 1 CAPSULE. PO SCH ×2 (09:00→21:04)
--- NOTE | 2018-10-21 09:50 | PDOC ---
Infectious Disease Note Subjective: Subjective pt had attack of hypoglycemia this a.m. Now feels much better. walking with PT in the hallway denies any fever, chills, nausea, vomiting, diarrhea ROS: ROS Negative except for above. Vital Signs: Vital Signs Vital Signs Date Time Temp Pulse Resp B/P (MAP) Pulse Ox O2 Delivery O2 Flow Rate FiO2 10/21/18 07:00 98.5 56 15 125/47 (73) 97 Room Air 98.5 Physical Exam: PHYSICAL EXAM GENERAL: Alert, awake, male, x3 cooperative, in no acute distress. HEENT: Normocephalic, atraumatic, anicteric. No thrush. Oral mucosa moist. NECK: Supple. No JVD. LUNGS: Clear bilaterally. No wheezing. HEART: S1, S2. No gallops or murmurs. ABDOMEN: Soft, nontender, nondistended. No rebound, no guarding. EXTREMITIES: No edema, no cyanosis. Wears braces for both legs. NEUROLOGIC: Alert and oriented. MUSCULOSKELETAL: No joint swelling, no decreased range of motion. DERMATOLOGIC: Warm, dry. No generalized rash. Medications: Inpatient Meds: Current Medications Medications (Trade) Dose Ordered Sig/Diana Start Time Stop Time Status Last Admin Dose Admin Acetaminophen (Tylenol) 500 mg PRN Q6HRS PRN 10/19/18 17:15 Acetaminophen/ Codeine Phosphate (Tylenol #3) 1 tab PRN Q6HRS PRN 10/19/18 17:15 Amlodipine Besylate (Norvasc) 10 mg HS 10/19/18 21:00 10/20/18 22:00 10 MG Ascorbic Acid (Vitamin C) 500 mg DAILY 10/20/18 09:00 10/20/18 09:24 500 MG Carvedilol (Coreg) 12.5 mg BIDWMEALS 10/19/18 17:00 10/20/18 09:23 12.5 MG Clonidine HCl (Catapres) 0.1 mg PRN Q1HR PRN 10/19/18 17:15 Darbepoetin Huang (Aranesp) 60 mcg WEEKLYHS 10/20/18 21:00 10/21/18 00:06 60 MCG Dextrose (Dextrose 50%-Water Syringe) 12.5 gm PRN Q15MIN PRN 10/19/18 17:15 10/21/18 07:07 25 GM Hydralazine HCl (Apresoline) 25 mg TID 10/19/18 21:00 10/20/18 22:01 25 MG Insulin Glargine (Lantus) 16 units QHS 10/19/18 21:00 10/20/18 22:07 16 UNITS Insulin Human Lispro (HumaLOG) 0-9 UNITS TIDWMEALS 10/20/18 08:00 10/20/18 17:21 3 UNITS Lactobacillus Rhamnosus (Culturelle) 1 cap BID 10/20/18 21:00 10/20/18 21:57 1 CAP Levothyroxine Sodium (Synthroid) 300 mcg DAILY06 10/20/18 06:00 10/21/18 06:17 300 MCG Losartan Potassium (Cozaar) 100 mg DAILY 10/20/18 09:00 10/20/18 09:24 100 MG Meropenem 1 gm/ Sodium Chloride 100 ml @ 200 mls/hr DAILY 10/21/18 09:00 Multivitamins (Thera M Plus) 1 tab DAILY 10/20/18 12:00 Piperacillin Sod/ Tazobactam Sod (Zosyn Per Pharmacy) 1 each PRN DAILY PRN 10/19/18 15:45 10/20/18 14:34 DC Piperacillin Sod/ Tazobactam Sod 2.25 gm/Sodium Chloride 50 ml @ 100 mls/hr Q8HRS 10/19/18 22:00 10/20/18 12:31 DC 10/20/18 06:17 100 MLS/HR Sodium Chloride 1,000 ml @ 100 mls/hr 1X ONCE 10/19/18 23:15 10/20/18 09:14 DC 10/19/18 23:15 100 MLS/HR Vancomycin HCl (Vanco Per Pharmacy) 1 each PRN DAILY PRN 10/19/18 15:45 10/21/18 09:30 DC 10/21/18 08:48 1 EACH Vancomycin HCl (Vancomycin Random Level) 1 each 1X ONCE 10/21/18 05:00 10/21/18 05:01 DC 10/21/18 05:00 1 EACH Vancomycin HCl 500 mg/Sodium Chloride 100 ml @ 100 mls/hr QMWF 10/24/18 16:00 10/24/18 16:00 DC Vancomycin HCl 750 mg/Sodium Chloride 250 ml @ 250 mls/hr ONCE ONCE 10/21/18 16:00 10/21/18 16:59 Cancel Vancomycin HCl 2 gm/Sodium Chloride 500 ml @ 250 mls/hr 1X ONCE 10/19/18 16:15 10/19/18 18:14 DC 10/19/18 17:21 250 MLS/HR Labs: Lab Laboratory Tests Test 10/20/18 11:41 10/20/18 15:12 10/20/18 16:59 10/20/18 21:57 Glucose (Fingerstick) 147 mg/dL (70-99) 164 mg/dL (70-99) 229 mg/dL (70-99) 195 mg/dL (70-99) Test 10/21/18 05:55 10/21/18 06:39 10/21/18 07:03 10/21/18 07:19 White Blood Count 15.0 x10^3/uL (4.0-11.0) Red Blood Count 2.28 x10^6/uL (4.30-5.70) Hemoglobin 7.9 g/dL (13.0-17.5) Hematocrit 23.7 % (39.0-53.0) Mean Corpuscular Volume 104 fL (79-100) Mean Corpuscular Hemoglobin 35 pg (25-35) Mean Corpuscular Hemoglobin Concent 33 g/dL (31-37) Red Cell Distribution Width 15.5 % (11.5-14.5) Platelet Count 147 x10^3/uL (140-400) Sodium Level 137 mmol/L (136-145) Potassium Level 4.9 mmol/L (3.5-5.1) Chloride Level 103 mmol/L (98-107) Carbon Dioxide Level 21 mmol/L (21-32) Anion Gap 13 (6-14) Blood Urea Nitrogen 54 mg/dL (8-26) Creatinine 4.5 mg/dL (0.7-1.3) Estimated GFR (Cockcroft-Gault) 13.3 Glucose Level 53 mg/dL (70-99) Calcium Level 8.7 mg/dL (8.5-10.1) Random Vancomycin Level 12.3 mcg/mL Glucose (Fingerstick) 32 mg/dL (70-99) 34 mg/dL (70-99) 43 mg/dL (70-99) Test 10/21/18 07:28 10/21/18 08:00 Glucose (Fingerstick) 48 mg/dL (70-99) 61 mg/dL (70-99) Objective: Assessment: fever gram neg sepsis source GI leucopenia mild thrombocytopenia esrd on hd hypoglycemia this am nausea and vomiting resolved Hypertension. Diabetes. Coronary artery disease. history of chronic obstructive pulmonary disease. History of peripheral neuropathy with footdrop syndrome. Plan: Plan of Care Merrem. Follow up blood cultures and lab. Continue supportive care. Discussed with HAKAN. NORTH BATRES MD October 21, 2018 09:50
[2018-10-21] MEDS ORDERED: IV NORMAL SALINE 1000ML BAG 1,000 ML IV PRN ×2 (10:02)
[2018-10-21] MEDS ORDERED: DIALYSIS PATIENT. MC PRN (10:15)
[2018-10-21] MEDS ORDERED: diphenhydrAMINE 50 MG/ML VIAL IV PRN ×2 (10:15)
--- NOTE | 2018-10-21 10:23 | PDOC ---
[employer] PROGRESS NOTE Chief Complaint Chief Complaint Severe sepsis Fevers with unknown source ESRD on dialysis Anemia of ESRD Hypothyroidism on Synthroid Hypertension-accelerated POA Thrombocytopenia, platelets 134 Leukopenia WBC 2.6 History of Present Illness History of Present Illness Patient seen and examined this morning He is resting with no apparent distress appears well-controlled and yesterday I woke him He doesn't really open his eyes but he does talk Discussed with RN Vitals Vitals Vital Signs Date Time Temp Pulse Resp B/P (MAP) Pulse Ox O2 Delivery O2 Flow Rate FiO2 10/21/18 07:00 98.5 56 15 125/47 (73) 97 Room Air 98.5 Physical Exam Physical Exam GENERAL: Sleeping but awakens HEENT: Normocephalic, atraumatic, anicteric. No thrush. Oral mucosa moist. NECK: Supple. No JVD. LUNGS: Clear bilaterally. No wheezing. HEART: S1, S2. No gallops or murmurs. ABDOMEN: Soft, nontender, nondistended. No rebound, no guarding. EXTREMITIES: No edema, no cyanosis. Wears braces for both legs. NEUROLOGIC: Groggy MUSCULOSKELETAL: No joint swelling, no decreased range of motion. DERMATOLOGIC: Warm, dry. No generalized rash. General: Alert, Oriented X3, Cooperative, No acute distress Heart: Regular rate, Normal S1, Normal S2 Lungs: Wheezing Abdomen: Normal bowel sounds, Soft, No tenderness Extremities: No clubbing, No cyanosis Skin: No breakdown Labs Labs: Laboratory Tests Test 10/20/18 11:41 10/20/18 15:12 10/20/18 16:59 10/20/18 21:57 Glucose (Fingerstick) 147 mg/dL (70-99) 164 mg/dL (70-99) 229 mg/dL (70-99) 195 mg/dL (70-99) Test 10/21/18 05:55 10/21/18 06:39 10/21/18 07:03 10/21/18 07:19 White Blood Count 15.0 x10^3/uL (4.0-11.0) Red Blood Count 2.28 x10^6/uL (4.30-5.70) Hemoglobin 7.9 g/dL (13.0-17.5) Hematocrit 23.7 % (39.0-53.0) Mean Corpuscular Volume 104 fL (79-100) Mean Corpuscular Hemoglobin 35 pg (25-35) Mean Corpuscular Hemoglobin Concent 33 g/dL (31-37) Red Cell Distribution Width 15.5 % (11.5-14.5) Platelet Count 147 x10^3/uL (140-400) Sodium Level 137 mmol/L (136-145) Potassium Level 4.9 mmol/L (3.5-5.1) Chloride Level 103 mmol/L (98-107) Carbon Dioxide Level 21 mmol/L (21-32) Anion Gap 13 (6-14) Blood Urea Nitrogen 54 mg/dL (8-26) Creatinine 4.5 mg/dL (0.7-1.3) Estimated GFR (Cockcroft-Gault) 13.3 Glucose Level 53 mg/dL (70-99) Calcium Level 8.7 mg/dL (8.5-10.1) Random Vancomycin Level 12.3 mcg/mL Glucose (Fingerstick) 32 mg/dL (70-99) 34 mg/dL (70-99) 43 mg/dL (70-99) Test 10/21/18 07:28 10/21/18 08:00 Glucose (Fingerstick) 48 mg/dL (70-99) 61 mg/dL (70-99) Review of Systems Review of Systems Complains of weakness Complains of leg pain Assessment and Plan Assessmemt and Plan Problems Medical Problems: (1) ESRD (end stage renal disease) Status: Acute (2) Fever Status: Acute (3) Weakness Status: Acute Severe sepsis Fevers with unknown source ESRD on dialysis Anemia of ESRD Hypothyroidism on Synthroid Hypertension-accelerated POA Thrombocytopenia, platelets 134 Leukopenia WBC 2.6 Plan IV antibiotics IV fluids Wednesday dialysis Home meds Frequent labs Await further subspecialist input Comment Review of Relevant I have reviewed the following items kit (where applicable) has been applied. Labs Laboratory Tests Test 10/19/18 15:45 10/19/18 19:00 10/19/18 19:35 10/19/18 19:58 White Blood Count 2.6 x10^3/uL (4.0-11.0) Red Blood Count 2.30 x10^6/uL (4.30-5.70) Hemoglobin 7.8 g/dL (13.0-17.5) Hematocrit 23.8 % (39.0-53.0) Mean Corpuscular Volume 104 fL (79-100) Mean Corpuscular Hemoglobin 34 pg (25-35) Mean Corpuscular Hemoglobin Concent 33 g/dL (31-37) Red Cell Distribution Width 15.3 % (11.5-14.5) Platelet Count 134 x10^3/uL (140-400) Neutrophils (%) (Auto) 91 % (31-73) Lymphocytes (%) (Auto) 5 % (24-48) Monocytes (%) (Auto) 1 % (0-9) Eosinophils (%) (Auto) 3 % (0-3) Basophils (%) (Auto) 0 % (0-3) Neutrophils # (Auto) 2.4 x10^3uL (1.8-7.7) Lymphocytes # (Auto) 0.1 x10^3/uL (1.0-4.8) Monocytes # (Auto) 0.0 x10^3/uL (0.0-1.1) Eosinophils # (Auto) 0.1 x10^3/uL (0.0-0.7) Basophils # (Auto) 0.0 x10^3/uL (0.0-0.2) Segmented Neutrophils % 77 % (35-66) Band Neutrophils % 11 % (0-9) Lymphocytes % 5 % (24-48) Monocytes % 2 % (0-10) Eosinophils % 4 % (0-5) Basophils % 1 % (0-3) Platelet Estimate Adequate (ADEQUATE) Erythrocyte Sedimentation Rate 22 (0-15) Prothrombin Time 15.4 SEC (11.7-14.0) Prothromb Time International Ratio 1.3 (0.8-1.1) Sodium Level 139 mmol/L (136-145) Potassium Level 3.9 mmol/L (3.5-5.1) Chloride Level 104 mmol/L (98-107) Carbon Dioxide Level 23 mmol/L (21-32) Anion Gap 12 (6-14) Blood Urea Nitrogen 23 mg/dL (8-26) Creatinine 2.7 mg/dL (0.7-1.3) Estimated GFR (Cockcroft-Gault) 24.0 BUN/Creatinine Ratio 9 (6-20) Glucose Level 100 mg/dL (70-99) Lactic Acid Level 1.1 mmol/L (0.4-2.0) Calcium Level 8.9 mg/dL (8.5-10.1) Total Bilirubin 0.8 mg/dL (0.2-1.0) Aspartate Amino Transf (AST/SGOT) 25 U/L (15-37) Alanine Aminotransferase (ALT/SGPT) 20 U/L (16-63) Alkaline Phosphatase 153 U/L (46-116) Troponin I Quantitative 0.055 ng/mL (0.000-0.055) Total Protein 7.4 g/dL (6.4-8.2) Albumin 3.4 g/dL (3.4-5.0) Albumin/Globulin Ratio 0.9 (1.0-1.7) Glucose (Fingerstick) 58 mg/dL (70-99) 59 mg/dL (70-99) 93 mg/dL (70-99) Test 10/19/18 21:30 10/20/18 07:53 10/20/18 11:41 10/20/18 15:12 Glucose (Fingerstick) 89 mg/dL (70-99) 114 mg/dL (70-99) 147 mg/dL (70-99) 164 mg/dL (70-99) Test 10/20/18 16:59 10/20/18 21:57 10/21/18 05:55 10/21/18 06:39 Glucose (Fingerstick) 229 mg/dL (70-99) 195 mg/dL (70-99) 32 mg/dL (70-99) White Blood Count 15.0 x10^3/uL (4.0-11.0) Red Blood Count 2.28 x10^6/uL (4.30-5.70) Hemoglobin 7.9 g/dL (13.0-17.5) Hematocrit 23.7 % (39.0-53.0) Mean Corpuscular Volume 104 fL (79-100) Mean Corpuscular Hemoglobin 35 pg (25-35) Mean Corpuscular Hemoglobin Concent 33 g/dL (31-37) Red Cell Distribution Width 15.5 % (11.5-14.5) Platelet Count 147 x10^3/uL (140-400) Sodium Level 137 mmol/L (136-145) Potassium Level 4.9 mmol/L (3.5-5.1) Chloride Level 103 mmol/L (98-107) Carbon Dioxide Level 21 mmol/L (21-32) Anion Gap 13 (6-14) Blood Urea Nitrogen 54 mg/dL (8-26) Creatinine 4.5 mg/dL (0.7-1.3) Estimated GFR (Cockcroft-Gault) 13.3 Glucose Level 53 mg/dL (70-99) Calcium Level 8.7 mg/dL (8.5-10.1) Random Vancomycin Level 12.3 mcg/mL Test 10/21/18 07:03 10/21/18 07:19 10/21/18 07:28 10/21/18 08:00 Glucose (Fingerstick) 34 mg/dL (70-99) 43 mg/dL (70-99) 48 mg/dL (70-99) 61 mg/dL (70-99) Laboratory Tests Test 10/20/18 11:41 10/20/18 15:12 10/20/18 16:59 10/20/18 21:57 Glucose (Fingerstick) 147 mg/dL (70-99) 164 mg/dL (70-99) 229 mg/dL (70-99) 195 mg/dL (70-99) Test 10/21/18 05:55 10/21/18 06:39 10/21/18 07:03 10/21/18 07:19 White Blood Count 15.0 x10^3/uL (4.0-11.0) Red Blood Count 2.28 x10^6/uL (4.30-5.70) Hemoglobin 7.9 g/dL (13.0-17.5) Hematocrit 23.7 % (39.0-53.0) Mean Corpuscular Volume 104 fL (79-100) Mean Corpuscular Hemoglobin 35 pg (25-35) Mean Corpuscular Hemoglobin Concent 33 g/dL (31-37) Red Cell Distribution Width 15.5 % (11.5-14.5) Platelet Count 147 x10^3/uL (140-400) Sodium Level 137 mmol/L (136-145) Potassium Level 4.9 mmol/L (3.5-5.1) Chloride Level 103 mmol/L (98-107) Carbon Dioxide Level 21 mmol/L (21-32) Anion Gap 13 (6-14) Blood Urea Nitrogen 54 mg/dL (8-26) Creatinine 4.5 mg/dL (0.7-1.3) Estimated GFR (Cockcroft-Gault) 13.3 Glucose Level 53 mg/dL (70-99) Calcium Level 8.7 mg/dL (8.5-10.1) Random Vancomycin Level 12.3 mcg/mL Glucose (Fingerstick) 32 mg/dL (70-99) 34 mg/dL (70-99) 43 mg/dL (70-99) Test 10/21/18 07:28 10/21/18 08:00 Glucose (Fingerstick) 48 mg/dL (70-99) 61 mg/dL (70-99) Microbiology 10/19/18 Blood Culture - Preliminary, Resulted NO GROWTH AFTER 1 DAY 10/19/18 Anaerobic/Aerobic Culture, Resulted Pending 10/19/18 Anaerobic Culture Result 1 (KIANA), Resulted Pending 10/19/18 Aerobic Culture, Resulted Pending 10/19/18 Aerobic Culture Result 1 (KIANA), Resulted Pending 10/19/18 Gram Stain - Final, Resulted 10/19/18 Gram Stain Result 1 (KIANA) - Final, Resulted 10/19/18 Gram Stain Result 2 (KIANA) - Final, Resulted Medications Current Medications Sodium Chloride 250 ml @ 250 mls/hr 1X ONCE IV Last administered on 10/19/18at 16:15; Start 10/19/18 at 15:45; Stop 10/19/18 at 16:44; Status DC Acetaminophen (Tylenol) 1,000 mg 1X ONCE PO Last administered on 10/19/18at 16:12; Start 10/19/18 at 15:45; Stop 10/19/18 at 15:50; Status DC Piperacillin Sod/ Tazobactam Sod (Zosyn Per Pharmacy) 1 each PRN DAILY PRN MC SEE COMMENTS; Start 10/19/18 at 15:45; Stop 10/20/18 at 14:34; Status DC Vancomycin HCl (Vanco Per Pharmacy) 1 each PRN DAILY PRN MC SEE COMMENTS Last administered on 10/21/18at 08:48; Start 10/19/18 at 15:45; Stop 10/21/18 at 09 :30; Status DC Piperacillin Sod/ Tazobactam Sod 2.25 gm/Sodium Chloride 50 ml @ 100 mls/hr 1X ONCE IV Last administered on 10/19/18at 16:18; Start 10/19/18 at 16:00; Stop 10/19/18 at 16:29; Status DC Vancomycin HCl 2 gm/Sodium Chloride 500 ml @ 250 mls/hr 1X ONCE IV Last administered on 10/19/18at 17:21; Start 10/19/18 at 16:15; Stop 10/19/18 at 18:14; Status DC Acetaminophen (Tylenol) 500 mg PRN Q6HRS PRN PO MILD PAIN / TEMP; Start 10/19/18 at 17:15 Acetaminophen/ Codeine Phosphate (Tylenol #3) 1 tab PRN Q6HRS PRN PO MODERATE PAIN; Start 10/19/18 at 17:15 Amlodipine Besylate (Norvasc) 10 mg HS PO Last administered on 10/20/18at 22:00; Start 10/19/18 at 21:00 Carvedilol (Coreg) 12.5 mg BIDWMEALS PO Last administered on 10/20/18at 09:23; Start 10/19/18 at 17:00 Ascorbic Acid (Vitamin C) 500 mg DAILY PO Last administered on 10/20/18at 09:24; Start 10/20/18 at 09:00 Darbepoetin Huang (Aranesp) 25 mcg WEEKLYHS SQ ; Start 10/21/18 at 21:00; Stop 10/21/18 at 21:00; Status DC Hydralazine HCl (Apresoline) 25 mg TID PO Last administered on 10/20/18at 22:01; Start 10/19/18 at 21:00 Insulin Glargine (Lantus) 16 units QHS SQ Last administered on 10/20/18at 22:07; Start 10/19/18 at 21:00 Levothyroxine Sodium (Synthroid) 300 mcg DAILY06 PO Last administered on 09/23 06:17; Start 10/20/18 at 06:00 Losartan Potassium (Cozaar) 100 mg DAILY PO Last administered on 10/20/18at 09:24; Start 10/20/18 at 09:00 Insulin Human Lispro (HumaLOG) 0-9 UNITS TIDWMEALS SQ Last administered on 10/20/18at 17:21; Start 10/20/18 at 08:00 Dextrose (Dextrose 50%-Water Syringe) 12.5 gm PRN Q15MIN PRN IV SEE COMMENTS Last administered on 10/21/18at 07:07; Start 10/19/18 at 17:15 Clonidine HCl (Catapres) 0.1 mg PRN Q1HR PRN PO HYPERTENSION; Start 10/19/18 at 17:15 Piperacillin Sod/ Tazobactam Sod 2.25 gm/Sodium Chloride 50 ml @ 100 mls/hr Q8HRS IV Last administered on 10/20/18at 06:17; Start 10/19/18 at 22:00; Stop 10/20/18 at 12:31; Status DC Vancomycin HCl (Vancomycin Random Level) 1 each 1X ONCE MC Last administered on 10/21/18at 05:00; Start 10/21/18 at 05:00; Stop 10/21/18 at 05:01; Status DC Sodium Chloride 1,000 ml @ 100 mls/hr 1X ONCE IV Last administered on 10/19/18at 23:15; Start 10/19/18 at 23:15; Stop 10/20/18 at 09:14; Status DC Multivitamins (Thera M Plus) 1 tab DAILY PO ; Start 10/20/18 at 12:00 Darbepoetin Huang (Aranesp) 60 mcg WEEKLYHS SQ Last administered on 10/21/18at 00:06; Start 10/20/18 at 21:00 Meropenem 1 gm/ Sodium Chloride 100 ml @ 200 mls/hr DAILY IV ; Start 10/21/18 at 09:00 Lactobacillus Rhamnosus (Culturelle) 1 cap BID PO Last administered on 10/20/18at 21:57; Start 10/20/18 at 21:00 Vancomycin HCl 750 mg/Sodium Chloride 250 ml @ 250 mls/hr ONCE ONCE IV ; Start 10/21/18 at 16:00; Stop 10/21/18 at 16:59; Status Cancel Vancomycin HCl 500 mg/Sodium Chloride 100 ml @ 100 mls/hr QMWF IV ; Start 10/24/18 at 16:00; Stop 10/24/18 at 16:00; Status DC Sodium Chloride 1,000 ml @ 1,000 mls/hr Q1H PRN IV hypotension; Start 10/21/18 at 10:02; Stop 10/21/18 at 16:01 Diphenhydramine HCl (Benadryl) 25 mg 1X PRN PRN IV ITCHING; Start 10/21/18 at 10:15; Stop 10/22/18 at 10:14 Diphenhydramine HCl (Benadryl) 25 mg 1X PRN PRN IV ITCHING; Start 10/21/18 at 10:15; Stop 10/22/18 at 10:14 Sodium Chloride 1,000 ml @ 400 mls/hr Q2H30M PRN IV PATENCY; Start 10/21/18 at 10:02; Stop 10/21/18 at 22:01 Info (PHARMACY MONITORING -- do not chart) 1 each PRN DAILY PRN MC SEE COMMENTS; Start 10/21/18 at 10:15 Active Scripts Active Reported Epogen (Epoetin Huang) 2,000 Unit/1 Ml Vial 0 IJ 3X/WEEK Vitamin C (Ascorbic Acid) 100 Mg Tablet 100 Mg PO DAILY Novolog (Insulin Aspart) 100 Unit/1 Ml Cartridge 0 SQ 5XDAY Lantus (Insulin Glargine,Hum.rec.anlog) 100 Unit/1 Ml Vial 16 Unit SQ HS Amlodipine Besylate 10 Mg Tablet 10 Mg PO HS Synthroid (Levothyroxine Sodium) 300 Mcg Tablet 300 Mcg PO DAILY Hydralazine Hcl 25 Mg Tablet 25 Mg PO TID Carvedilol (Carvedilol) 12.5 Mg Tablet 12.5 Mg PO BID Cozaar (Losartan Potassium) 100 Mg Tablet 100 Mg PO DAILY06 Vitals/I & O Vital Sign - Last 24 Hours 10/20/18 10/20/18 10/20/18 10/20/18 11:29 14:00 15:34 16:24 Temp 98.5 99.2 98.5 99.2 Pulse 67 65 65 62 Resp 20 18 B/P (MAP) 130/34 (66) 130/34 Pulse Ox 97 95 O2 Delivery Room Air Room Air 10/20/18 10/20/18 10/20/18 10/20/18 19:49 22:00 22:01 23:51 Temp 97.7 97.6 97.7 97.6 Pulse 67 75 67 69 Resp 18 B/P (MAP) 170/68 (102) 170/86 170/68 154/63 (93) Pulse Ox 99 99 O2 Delivery Room Air Room Air 10/21/18 10/21/18 03:51 07:00 Temp 97.7 98.5 97.7 98.5 Pulse 61 56 Resp 20 15 B/P (MAP) 115/49 (71) 125/47 (73) Pulse Ox 98 97 O2 Delivery Room Air Room Air Intake and Output 10/20/18 10/20/18 10/21/18 14:59 22:59 06:59 Intake Total 118 ml 700 ml 200 ml Balance 118 ml 700 ml 200 ml CAROL TINOCOL K III DO October 21, 2018 10:23
--- NOTE | 2018-10-21 12:06 | PDOC ---
Renal-Progress Notes Subjective Notes Notes FEELS COLD History of Present Illness Hx of present illness STABLE Vitals Vitals Vital Signs Date Time Temp Pulse Resp B/P (MAP) Pulse Ox O2 Delivery O2 Flow Rate FiO2 10/21/18 08:00 56 125/47 10/21/18 07:00 98.5 15 97 Room Air 98.5 Weight Weight [ ] I.O. Intake and Output Intake and Output 10/21/18 07:00 Intake Total 1018 ml Balance 1018 ml Intake Oral 1018 ml # Voids 2 # Bowel Movements 1 Labs Labs Laboratory Tests Test 10/20/18 15:12 10/20/18 16:59 10/20/18 21:57 10/21/18 05:55 Glucose (Fingerstick) 164 mg/dL (70-99) 229 mg/dL (70-99) 195 mg/dL (70-99) White Blood Count 15.0 x10^3/uL (4.0-11.0) Red Blood Count 2.28 x10^6/uL (4.30-5.70) Hemoglobin 7.9 g/dL (13.0-17.5) Hematocrit 23.7 % (39.0-53.0) Mean Corpuscular Volume 104 fL (79-100) Mean Corpuscular Hemoglobin 35 pg (25-35) Mean Corpuscular Hemoglobin Concent 33 g/dL (31-37) Red Cell Distribution Width 15.5 % (11.5-14.5) Platelet Count 147 x10^3/uL (140-400) Sodium Level 137 mmol/L (136-145) Potassium Level 4.9 mmol/L (3.5-5.1) Chloride Level 103 mmol/L (98-107) Carbon Dioxide Level 21 mmol/L (21-32) Anion Gap 13 (6-14) Blood Urea Nitrogen 54 mg/dL (8-26) Creatinine 4.5 mg/dL (0.7-1.3) Estimated GFR (Cockcroft-Gault) 13.3 Glucose Level 53 mg/dL (70-99) Calcium Level 8.7 mg/dL (8.5-10.1) Random Vancomycin Level 12.3 mcg/mL Test 10/21/18 06:39 10/21/18 07:03 10/21/18 07:19 10/21/18 07:28 Glucose (Fingerstick) 32 mg/dL (70-99) 34 mg/dL (70-99) 43 mg/dL (70-99) 48 mg/dL (70-99) Test 10/21/18 08:00 Glucose (Fingerstick) 61 mg/dL (70-99) Micro Micro Microbiology 10/19/18 Blood Culture - Preliminary, Resulted NO GROWTH AFTER 1 DAY 10/19/18 Anaerobic/Aerobic Culture, Resulted Pending 10/19/18 Anaerobic Culture Result 1 (KIAAN), Resulted Pending 10/19/18 Aerobic Culture, Resulted Pending 10/19/18 Aerobic Culture Result 1 (KIANA), Resulted Pending 10/19/18 Gram Stain - Final, Resulted 10/19/18 Gram Stain Result 1 (KIANA) - Final, Resulted 10/19/18 Gram Stain Result 2 (KIANA) - Final, Resulted Review of Systems Constitutional: yes: chills, fever, alert, oriented Ears/Nose/Throat: Yes: no symptom reported Eyes: Yes: no symptom reported Pulmonary: Yes no symptom reported Cardiovascular: Yes no symptom reported Gastrointestional: Yes: no symptom reported Genitourinary: Yes: no symptom reported Musculoskeletal: Yes: no symptom reported Skin: Yes no symptom reported Psychiatric/Neurological: Yes: no symptom reported Endocrine: Yes: no symptom reported Physical Exam General Appearance: no apparent distress Skin: warm Respiratory: bilateral CTA Heart: S1S2 Abdomen: soft, bowel sounds present Genitourinary: bladder flat Extremities: pulses present Neurology: alert Assessment Assessment IMP FEVERS G NEG SEPSIS ESRD-MWF VIA LEFT ARM AVF HTN HX DM II PANCYTOPENIA PLAN ANTIBIOTICS ID EVAL AND TX HD TODAY UF TO ABELINO COOK MD October 21, 2018 12:06
[2018-10-21 15:00] VITALS: BP 178/57
[2018-10-21] MEDS ORDERED: VANCOMYCIN 750 MG in IV NORMAL SALINE 250ML 250 ML IV ONE (16:00)
[2018-10-21] MEDS: LOSARTAN POTASSIUM 50 MG TABLET. PO SCH (16:59)
[2018-10-21] MEDS: MULTIVITAMIN with MINERAL TABLET. PO SCH (17:00)
[2018-10-21] MEDS: ASCORBIC ACID 500 MG TABLET PO SCH (17:00)
[2018-10-21 19:05] VITALS: BP 140/49
--- NOTE | 2018-10-21 20:32 | NUR ---
Pt HS glucose is 228- pt requests no insulin at this time. Pt is brittle diabetic per - agreed via telephone to no insulin.
[2018-10-21] MEDS: INSULIN GLARGINE 300 UNITS/3 ML INSULN.PEN. SQ SCH (20:38)
[2018-10-21] MEDS ORDERED: DARBEPOETIN ALFA 25 MCG/0.42 ML DISP.SYRIN. SQ SCH (21:00)
[2018-10-21] MEDS: amLODIPine BESYLATE 10 MG TABLET PO SCH (21:04)
[2018-10-21 23:48] VITALS: BP 148/54
[2018-10-22 03:46] VITALS: BP 149/54
[2018-10-22] MEDS: LEVOTHYROXINE 150 MCG TABLET PO SCH (05:46)
[2018-10-22 07:00] VITALS: BP 129/41
--- NOTE | 2018-10-22 07:45 | NUR ---
Notified Dr. Kidd of blood sugar being 425. Discussed with Dr. Kidd at the bedside his recommendation of a one time dose of 20 units of humalog. Pt refused to do this, stated "that's a heavy shot doc" and patient then requested "recheck me in thirty minutes." Will continue to monitor.
[2018-10-22] MEDS: LACTOBACILLUS RHAMNOSUS GG 1 CAPSULE. PO SCH ×2 (08:16→21:23)
[2018-10-22] MEDS: ASCORBIC ACID 500 MG TABLET PO SCH (08:16)
[2018-10-22] MEDS: MULTIVITAMIN with MINERAL TABLET. PO SCH (08:16)
[2018-10-22] MEDS: LOSARTAN POTASSIUM 50 MG TABLET. PO SCH (08:16)
[2018-10-22] MEDS: CARVEDILOL 12.5 MG TABLET. PO SCH ×2 (08:17→17:23)
[2018-10-22] MEDS: hydrALAZINE 25 MG TABLET PO SCH ×3 (08:18→19:34)
[2018-10-22] MEDS: INSULIN LISPRO 300 UNITS/3 ML INSULN.PEN. SQ SCH ×3 (08:28→18:11)
--- NOTE | 2018-10-22 09:14 | PDOC ---
[employer] PROGRESS NOTE Chief Complaint Chief Complaint Severe sepsis Fevers with unknown source ESRD on dialysis Anemia of ESRD Hypothyroidism on Synthroid Hypertension-accelerated POA Thrombocytopenia, platelets 134 Leukopenia WBC 2.6 History of Present Illness History of Present Illness Patient seen and examined this morning He is resting on edge of the bed with no apparent distress. Glucose is high <400 but he is refusing the Novolog I recommended. Getting ready for a shower Discussed with RN Vitals Vitals Vital Signs Date Time Temp Pulse Resp B/P (MAP) Pulse Ox O2 Delivery O2 Flow Rate FiO2 10/22/18 08:18 63 129/41 10/22/18 07:00 98.1 16 92 Room Air 98.1 Physical Exam Physical Exam GENERAL: Awake HEENT: Normocephalic, atraumatic, anicteric. No thrush. Oral mucosa moist. NECK: Supple. No JVD. LUNGS: Clear bilaterally. No wheezing. HEART: S1, S2. No gallops or murmurs. ABDOMEN: Soft, nontender, nondistended. No rebound, no guarding. EXTREMITIES: No edema, no cyanosis. Wears braces for both legs. NEUROLOGIC: Approaching baseline MUSCULOSKELETAL: No joint swelling, no decreased range of motion. DERMATOLOGIC: Warm, dry. No generalized rash. General: Alert, Oriented X3, Cooperative, No acute distress Heart: Regular rate, Normal S1, Normal S2 Lungs: Wheezing Abdomen: Normal bowel sounds, Soft, No tenderness Extremities: No clubbing, No cyanosis Skin: No breakdown Labs Labs: Laboratory Tests Test 10/21/18 15:07 10/21/18 20:31 10/22/18 00:31 10/22/18 07:08 Glucose (Fingerstick) 107 mg/dL (70-99) 228 mg/dL (70-99) 303 mg/dL (70-99) 425 mg/dL (70-99) Test 10/22/18 08:53 Glucose (Fingerstick) 405 mg/dL (70-99) Review of Systems Review of Systems no new co Assessment and Plan Assessmemt and Plan Problems Medical Problems: (1) ESRD (end stage renal disease) Status: Acute (2) Fever Status: Acute (3) Weakness Status: Acute Severe sepsis Fevers with unknown source ESRD on dialysis Anemia of ESRD Hypothyroidism on Synthroid Hypertension-accelerated POA Thrombocytopenia, platelets 134 Leukopenia WBC 2.6 Plan I gave orders for Insulin, he refused IV antibx IV fluids Labs PTOT DVT proph Home meds Comment Review of Relevant I have reviewed the following items kit (where applicable) has been applied. Labs Laboratory Tests Test 10/20/18 11:41 10/20/18 15:12 10/20/18 16:59 10/20/18 21:57 Glucose (Fingerstick) 147 mg/dL (70-99) 164 mg/dL (70-99) 229 mg/dL (70-99) 195 mg/dL (70-99) Test 10/21/18 05:55 10/21/18 06:39 10/21/18 07:03 10/21/18 07:19 White Blood Count 15.0 x10^3/uL (4.0-11.0) Red Blood Count 2.28 x10^6/uL (4.30-5.70) Hemoglobin 7.9 g/dL (13.0-17.5) Hematocrit 23.7 % (39.0-53.0) Mean Corpuscular Volume 104 fL (79-100) Mean Corpuscular Hemoglobin 35 pg (25-35) Mean Corpuscular Hemoglobin Concent 33 g/dL (31-37) Red Cell Distribution Width 15.5 % (11.5-14.5) Platelet Count 147 x10^3/uL (140-400) Sodium Level 137 mmol/L (136-145) Potassium Level 4.9 mmol/L (3.5-5.1) Chloride Level 103 mmol/L (98-107) Carbon Dioxide Level 21 mmol/L (21-32) Anion Gap 13 (6-14) Blood Urea Nitrogen 54 mg/dL (8-26) Creatinine 4.5 mg/dL (0.7-1.3) Estimated GFR (Cockcroft-Gault) 13.3 Glucose Level 53 mg/dL (70-99) Calcium Level 8.7 mg/dL (8.5-10.1) Random Vancomycin Level 12.3 mcg/mL Glucose (Fingerstick) 32 mg/dL (70-99) 34 mg/dL (70-99) 43 mg/dL (70-99) Test 10/21/18 07:28 10/21/18 08:00 10/21/18 15:07 10/21/18 20:31 Glucose (Fingerstick) 48 mg/dL (70-99) 61 mg/dL (70-99) 107 mg/dL (70-99) 228 mg/dL (70-99) Test 10/22/18 00:31 10/22/18 07:08 10/22/18 08:53 Glucose (Fingerstick) 303 mg/dL (70-99) 425 mg/dL (70-99) 405 mg/dL (70-99) Laboratory Tests Test 10/21/18 15:07 10/21/18 20:31 10/22/18 00:31 10/22/18 07:08 Glucose (Fingerstick) 107 mg/dL (70-99) 228 mg/dL (70-99) 303 mg/dL (70-99) 425 mg/dL (70-99) Test 10/22/18 08:53 Glucose (Fingerstick) 405 mg/dL (70-99) Microbiology 10/21/18 Blood Culture - Preliminary, Resulted NO GROWTH AFTER 1 DAY 10/19/18 Anaerobic/Aerobic Culture, Resulted Pending 10/19/18 Anaerobic Culture Result 1 (KIANA), Resulted Pending 10/19/18 Aerobic Culture - Preliminary, Resulted 10/19/18 Aerobic Culture Result 1 (KIANA) - Preliminary, Resulted 10/19/18 Aerobic Culture Result 2 (KIANA) - Preliminary, Resulted 10/19/18 Gram Stain - Final, Resulted 10/19/18 Gram Stain Result 1 (KIANA) - Final, Resulted 10/19/18 Gram Stain Result 2 (KIANA) - Final, Resulted Medications Current Medications Sodium Chloride 250 ml @ 250 mls/hr 1X ONCE IV Last administered on 10/19/18at 16:15; Start 10/19/18 at 15:45; Stop 10/19/18 at 16:44; Status DC Acetaminophen (Tylenol) 1,000 mg 1X ONCE PO Last administered on 10/19/18at 16:12; Start 10/19/18 at 15:45; Stop 10/19/18 at 15:50; Status DC Piperacillin Sod/ Tazobactam Sod (Zosyn Per Pharmacy) 1 each PRN DAILY PRN MC SEE COMMENTS; Start 10/19/18 at 15:45; Stop 10/20/18 at 14:34; Status DC Vancomycin HCl (Vanco Per Pharmacy) 1 each PRN DAILY PRN MC SEE COMMENTS Last administered on 10/21/18at 08:48; Start 10/19/18 at 15:45; Stop 10/21/18 at 09:30; Status DC Piperacillin Sod/ Tazobactam Sod 2.25 gm/Sodium Chloride 50 ml @ 100 mls/hr 1X ONCE IV Last administered on 10/19/18at 16:18; Start 10/19/18 at 16:00; Stop 10/19/18 at 16:29; Status DC Vancomycin HCl 2 gm/Sodium Chloride 500 ml @ 250 mls/hr 1X ONCE IV Last administered on 10/19/18at 17:21; Start 10/19/18 at 16:15; Stop 10/19/18 at 18:14; Status DC Acetaminophen (Tylenol) 500 mg PRN Q6HRS PRN PO MILD PAIN / TEMP; Start 10/19/18 at 17:15 Acetaminophen/ Codeine Phosphate (Tylenol #3) 1 tab PRN Q6HRS PRN PO MODERATE PAIN; Start 10/19/18 at 17:15 Amlodipine Besylate (Norvasc) 10 mg HS PO Last administered on 10/21/18at 21:04; Start 10/19/18 at 21:00 Carvedilol (Coreg) 12.5 mg BIDWMEALS PO Last administered on 10/22/18at 08:17; Start 10/19/18 at 17:00 Ascorbic Acid (Vitamin C) 500 mg DAILY PO Last administered on 10/22/18at 08:16; Start 10/20/18 at 09:00 Darbepoetin Huang (Aranesp) 25 mcg WEEKLYHS SQ ; Start 10/21/18 at 21:00; Stop 10/21/18 at 21:00; Status DC Hydralazine HCl (Apresoline) 25 mg TID PO Last administered on 10/21/18at 21:04; Start 10/19/18 at 21:00 Insulin Glargine (Lantus) 16 units QHS SQ Last administered on 10/20/18at 22:07; Start 10/19/18 at 21:00 Levothyroxine Sodium (Synthroid) 300 mcg DAILY06 PO Last administered on 10/22/18at 05:46; Start 10/20/18 at 06:00 Losartan Potassium (Cozaar) 100 mg DAILY PO Last administered on 10/22/18 08:16; Start 10/20/18 at 09:00 Insulin Human Lispro (HumaLOG) 0-9 UNITS TIDWMEALS SQ Last administered on 10/22/18at 08:28; Start 10/20/18 at 08:00 Dextrose (Dextrose 50%-Water Syringe) 12.5 gm PRN Q15MIN PRN IV SEE COMMENTS Last administered on 10/21/18at 07:07; Start 10/19/18 at 17:15 Clonidine HCl (Catapres) 0.1 mg PRN Q1HR PRN PO HYPERTENSION; Start 10/19/18 at 17:15 Piperacillin Sod/ Tazobactam Sod 2.25 gm/Sodium Chloride 50 ml @ 100 mls/hr Q8HRS IV Last administered on 10/20/18at 06:17; Start 10/19/18 at 22:00; Stop 10/20/18 at 12:31; Status DC Vancomycin HCl (Vancomycin Random Level) 1 each 1X ONCE MC Last administered on 10/21/18at 05:00; Start 10/21/18 at 05:00; Stop 10/21/18 at 05:01; Status DC Sodium Chloride 1,000 ml @ 100 mls/hr 1X ONCE IV Last administered on 10/19/18at 23:15; Start 10/19/18 at 23:15; Stop 10/20/18 at 09:14; Status DC Multivitamins (Thera M Plus) 1 tab DAILY PO Last administered on 10/22/18at 08:16; Start 10/20/18 at 12:00 Darbepoetin Huang (Aranesp) 60 mcg WEEKLYHS SQ Last administered on 10/21/18at 00:06; Start 10/20/18 at 21:00 Meropenem 1 gm/ Sodium Chloride 100 ml @ 200 mls/hr DAILY IV Last administered on 10/21/18at 16:57; Start 10/21/18 at 09:00; Stop 10/21/18 at 19:25; Status DC Lactobacillus Rhamnosus (Culturelle) 1 cap BID PO Last administered on 10/22/18at 08:16; Start 10/20/18 at 21:00 Vancomycin HCl 750 mg/Sodium Chloride 250 ml @ 250 mls/hr ONCE ONCE IV ; Start 10/21/18 at 16:00; Stop 10/21/18 at 16:59; Status Cancel Vancomycin HCl 500 mg/Sodium Chloride 100 ml @ 100 mls/hr QMWF IV ; Start 10/24/18 at 16:00; Stop 10/24/18 at 16:00; Status DC Sodium Chloride 1,000 ml @ 1,000 mls/hr Q1H PRN IV hypotension; Start 10/21/18 at 10:02; Stop 10/21/18 at 16:01; Status DC Diphenhydramine HCl (Benadryl) 25 mg 1X PRN PRN IV ITCHING; Start 10/21/18 at 10:15; Stop 10/22/18 at 10:14 Diphenhydramine HCl (Benadryl) 25 mg 1X PRN PRN IV ITCHING; Start 10/21/18 at 10:15; Stop 10/22/18 at 10:14 Sodium Chloride 1,000 ml @ 400 mls/hr Q2H30M PRN IV PATENCY; Start 10/21/18 at 10:02; Stop 10/21/18 at 22:01; Status DC Info (PHARMACY MONITORING -- do not chart) 1 each PRN DAILY PRN MC SEE COMMENTS; Start 10/21/18 at 10:15 Meropenem 1 gm/ Sodium Chloride 100 ml @ 200 mls/hr Q24H IV ; Start 10/22/18 at 17:00 Active Scripts Active Reported Epogen (Epoetin Huang) 2,000 Unit/1 Ml Vial 0 IJ 3X/WEEK Vitamin C (Ascorbic Acid) 100 Mg Tablet 100 Mg PO DAILY Novolog (Insulin Aspart) 100 Unit/1 Ml Cartridge 0 SQ 5XDAY Lantus (Insulin Glargine,Hum.rec.anlog) 100 Unit/1 Ml Vial 16 Unit SQ HS Amlodipine Besylate 10 Mg Tablet 10 Mg PO HS Synthroid (Levothyroxine Sodium) 300 Mcg Tablet 300 Mcg PO DAILY Hydralazine Hcl 25 Mg Tablet 25 Mg PO TID Carvedilol (Carvedilol) 12.5 Mg Tablet 12.5 Mg PO BID Cozaar (Losartan Potassium) 100 Mg Tablet 100 Mg PO DAILY06 Vitals/I & O Vital Sign - Last 24 Hours 10/21/18 10/21/18 10/21/18 10/21/18 15:00 16:58 16:59 19:05 Temp 98.2 98.3 98.2 98.3 Pulse 65 65 65 64 Resp 21 16 B/P (MAP) 178/57 (97) 178/57 178/57 140/49 (79) Pulse Ox 96 96 O2 Delivery Room Air Room Air 10/21/18 10/21/18 10/21/18 10/21/18 20:00 21:04 21:04 23:48 Temp 98.9 98.9 Pulse 64 64 66 Resp 16 B/P (MAP) 140/49 140/49 148/54 (85) Pulse Ox 99 O2 Delivery Room Air Room Air 10/22/18 10/22/18 10/22/18 10/22/18 03:46 07:00 08:16 08:17 Temp 98.4 98.1 98.4 98.1 Pulse 59 63 63 63 Resp 16 16 B/P (MAP) 149/54 (85) 129/41 (70) 129/41 129/41 Pulse Ox 95 92 O2 Delivery Room Air Room Air 10/22/18 08:18 Pulse 63 B/P (MAP) 129/41 Intake and Output 10/21/18 10/21/18 10/22/18 14:59 22:59 06:59 Intake Total 0 ml 300 ml Output Total 0 ml 0 ml 0 ml Balance 0 ml 0 ml 300 ml MADDY TINOCO III DO Oct 22, 2018 09:14
[2018-10-22 11:00] VITALS: BP 168/70
[2018-10-22] MEDS ORDERED: INSULIN LISPRO 300 UNITS/3 ML INSULN.PEN. SQ ONE ×2 (11:00→14:45)
--- NOTE | 2018-10-22 11:45 | NUR ---
Rechecked patient blood sugar after giving 10 units humalog x1. Pt blood sugar 385. Pt only willing to take 6 units of humalog per sliding scale. Will continue to monitor.
--- NOTE | 2018-10-22 12:09 | PDOC ---
Infectious Disease Note Subjective Subjective Feeling alright No fevers last 24 hours Vital Sign Vital Signs Vital Signs Date Time Temp Pulse Resp B/P (MAP) Pulse Ox O2 Delivery O2 Flow Rate FiO2 10/22/18 11:00 97.5 65 16 168/70 (102) 99 Room Air 97.5 Physical Exam PHYSICAL EXAM GENERAL: Sitting in the chair, alert, joking HEENT: Pupils equal, oral mucosa moist. NECK: Supple. LUNGS: Clear bilaterally. No wheezing. HEART: S1, S2. + murmur ABDOMEN: Soft, nontender, nondistended. No rebound, no guarding. EXTREMITIES: No edema, no cyanosis. LUE-AVF unremarkable NEUROLOGIC: Alert, responding appropriately SKIN: Warm, dry. No generalized rash. Left great toe and left lateral foot wounds bandaged. Labs Lab Laboratory Tests Test 10/21/18 15:07 10/21/18 20:31 10/22/18 00:31 10/22/18 07:08 Glucose (Fingerstick) 107 mg/dL (70-99) 228 mg/dL (70-99) 303 mg/dL (70-99) 425 mg/dL (70-99) Test 10/22/18 08:53 10/22/18 10:43 Glucose (Fingerstick) 405 mg/dL (70-99) 416 mg/dL (70-99) Micro Acinetobacter baumannii 4+ AEROBIC RES 2 Preliminary Comment Coagulase negative Staphylococcus species. 1+ Based on susceptibility to oxacillin this isolate would be susceptible to: *Penicillinase-stable penicillins, such as: Cloxacillin, Dicloxacillin, Nafcillin *Beta-lactam combination agents, such as: Amoxicillin-clavulanic acid, Ampicillin-sulbactam, Piperacillin-tazobactam *Oral cephems, such as: Cefaclor, Cefdinir, Cefpodoxime, Cefprozil, Cefuroxime, Cephalexin, Loracarbef *Parenteral cephems, such as: Cefazolin, Cefepime, Cefotaxime, Cefotetan, Ceftaroline, Ceftizoxime, Ceftriaxone, Cefuroxime *Carbapenems, such as: Doripenem, Ertapenem, Imipenem, Meropenem CONTINUED ON NEXT PAGE RUN DATE: 10/22/18 PAGE 2 RUN TIME: 1417 [facility] [id number] [facility] [place] [address] Roderick Cody M.D., [employer] SPEC: [id number] PATIENT: MARY FLORES [id number] (Continued) --- Procedure Result Foot AEROBIC RES 3 Preliminary Gram negative rods 1+ ANTIMICROBIAL SUSCEPTIBILITY Preliminary Comment S = Susceptible; I = Intermediate; R = Resistant P = Positive; N = Negative MICS are expressed in micrograms per mL Antibiotic RSLT#1 RSLT#2 RSLT#3 RSLT#4 Ampicillin/Sulbactam S<=2 Cefepime S<=1 Cefotaxime S =4 Ceftazidime S<=1 Ceftriaxone S =8 Ciprofloxacin S<=0.25 S<=0.5 Clindamycin S<=0.25 Erythromycin S =0.5 Gentamicin S<=1 S<=0.5 Imipenem S<=1 Levofloxacin S<=0.12 S<=0.12 Meropenem S<=0.25 Oxacillin S<=0.25 Penicillin R>=0.5 Piperacillin S<=4 Rifampin S<=0.5 Tetracycline S<=1 S<=1 Tobramycin S<=1 Trimethoprim/Sulfa S<=20 S<=10 Vancomycin S =1 ANAEROBIC RES 1 PENDING AEROBIC RES 1 Preliminary Gram negative rods AEROBIC RES 2 Preliminary Staphylococcus species 10/19. BLOOD CULTURE Final GRAM NEGATIVE RODS IN 1 OF 4 BOTTLES (2 SETS COLLECTED). CALLED TO JAMAAL LITTLEJOHN ON 6S 10/20/18 AT 0832 BY Twyla CARRANZA. CULTURE HAS BEEN SENT TO [facility] FOR FURTHER IDENTIFCATION. AMENDED REPORT: BOTH BOTTLES OF THIS SET ARE NOW POSITIVE FOR GRAM NEGATIVE RODS. JUANITO SALAZAR NOTIFIED AT 1422 10/20/18 BY Twyla CARRANZA. 10/21. BLOOD CULTURE Preliminary NO GROWTH AFTER 1 DAY Objective Assessment Fever, better GNR sepsis POA, 10/19 ID pending Leucopenia now leukocytosis Left foot wounds lateral aspect and great toe - clean - charcot fooe Mild thrombocytopenia ESRD on HD via AV fistula Hypertension. Diabetes with peripheral neuropathy and footdrop syndrome. Coronary artery disease. History of chronic obstructive pulmonary disease. Plan Plan of Care Merrem Probiotics Follow up blood cultures and lab. CBC in am Continue supportive care Cont local wound care . D/w family Attending Co-Sign Attending Co-Sign The patient was seen and interviewed as well as examined at the bedside. The chart was reviewed. The case was discussed. Agree with the plan of care. JACOBY CURRIE APRN Oct 22, 2018 12:09 CLARISA RUIZ MD Oct 22, 2018 18:20
[2018-10-22 15:00] VITALS: BP 179/72
--- NOTE | 2018-10-22 16:11 | PDOC ---
SUBJECTIVE ROS No complaints OBJECTIVE Vital Signs Vital Signs Date Time Temp Pulse Resp B/P (MAP) Pulse Ox O2 Delivery O2 Flow Rate FiO2 10/22/18 11:00 97.5 65 16 168/70 (102) 99 Room Air 97.5 I & 0 Intake and Output 10/22/18 06:59 Intake Total 300 ml Output Total 0 ml Balance 300 ml Intake Oral 300 ml Output Urine Total 0 ml # Voids 1 PHYSICAL EXAM Physical Exam GENERAL: Sitting in the chair,NAD HEENT: oral mucosa moist. NECK: Supple. LUNGS: Clear bilaterally. Nonlabored HEART: S1, S2. + murmur ABDOMEN: Soft, nontender, EXTREMITIES: No edema, LUE-AVF unremarkable NEUROLOGIC: Alert, grossly normal SKIN: No rash. Left great toe and left lateral foot wounds bandaged. DIAGNOSIS/ASSESSMENT Assessment & Plan ESRD- MWF , was on PD for 3 years, On HD for 10 yrs per Pt Currently stable, No indication today, continue per schedule Access Lt AVF G neg sepsis- Per ID HTN - stable DM II Anemia- On MICHA COMMENT/RELEVANT DATA Meds Current Medications Medications (Trade) Dose Ordered Sig/Diana Start Time Stop Time Status Last Admin Dose Admin Acetaminophen (Tylenol) 500 mg PRN Q6HRS PRN 10/19/18 17:15 Acetaminophen/ Codeine Phosphate (Tylenol #3) 1 tab PRN Q6HRS PRN 10/19/18 17:15 Amlodipine Besylate (Norvasc) 10 mg HS 10/19/18 21:00 10/21/18 21:04 10 MG Ascorbic Acid (Vitamin C) 500 mg DAILY 10/20/18 09:00 10/22/18 08:16 500 MG Carvedilol (Coreg) 12.5 mg BIDWMEALS 10/19/18 17:00 10/22/18 08:17 12.5 MG Clonidine HCl (Catapres) 0.1 mg PRN Q1HR PRN 10/19/18 17:15 Darbepoetin Huang (Aranesp) 60 mcg WEEKLYHS 10/20/18 21:00 10/21/18 00:06 60 MCG Dextrose (Dextrose 50%-Water Syringe) 12.5 gm PRN Q15MIN PRN 10/19/18 17:15 10/21/18 07:07 25 GM Diphenhydramine HCl (Benadryl) 25 mg 1X PRN PRN 10/21/18 10:15 10/22/18 10:14 DC Hydralazine HCl (Apresoline) 25 mg TID 10/19/18 21:00 10/21/18 21:04 25 MG Info (PHARMACY MONITORING -- do not chart) 1 each PRN DAILY PRN 10/21/18 10:15 Insulin Glargine (Lantus) 16 units QHS 10/19/18 21:00 10/20/18 22:07 16 UNITS Insulin Human Lispro (HumaLOG) 6 units 1X ONCE 10/22/18 14:45 10/22/18 14:46 DC 10/22/18 14:50 6 UNITS Lactobacillus Rhamnosus (Culturelle) 1 cap BID 10/20/18 21:00 10/22/18 08:16 1 CAP Levothyroxine Sodium (Synthroid) 300 mcg DAILY06 10/20/18 06:00 10/22/18 05:46 300 MCG Losartan Potassium (Cozaar) 100 mg DAILY 10/20/18 09:00 10/22/18 08:16 100 MG Meropenem 1 gm/ Sodium Chloride 100 ml @ 200 mls/hr Q24H 10/22/18 17:00 Multivitamins (Thera M Plus) 1 tab DAILY 10/20/18 12:00 10/22/18 08:16 1 TAB Piperacillin Sod/ Tazobactam Sod (Zosyn Per Pharmacy) 1 each PRN DAILY PRN 10/19/18 15:45 10/20/18 14:34 DC Piperacillin Sod/ Tazobactam Sod 2.25 gm/Sodium Chloride 50 ml @ 100 mls/hr Q8HRS 10/19/18 22:00 10/20/18 12:31 DC 10/20/18 06:17 100 MLS/HR Sodium Chloride 1,000 ml @ 400 mls/hr Q2H30M PRN 10/21/18 10:02 10/21/18 22:01 DC Vancomycin HCl (Vanco Per Pharmacy) 1 each PRN DAILY PRN 10/19/18 15:45 10/21/18 09:30 DC 10/21/18 08:48 1 EACH Vancomycin HCl (Vancomycin Random Level) 1 each 1X ONCE 10/21/18 05:00 10/21/18 05:01 DC 10/21/18 05:00 1 EACH Vancomycin HCl 500 mg/Sodium Chloride 100 ml @ 100 mls/hr QMWF 10/24/18 16:00 10/24/18 16:00 DC Vancomycin HCl 750 mg/Sodium Chloride 250 ml @ 250 mls/hr ONCE ONCE 10/21/18 16:00 10/21/18 16:59 Cancel Vancomycin HCl 2 gm/Sodium Chloride 500 ml @ 250 mls/hr 1X ONCE 10/19/18 16:15 10/19/18 18:14 DC 10/19/18 17:21 250 MLS/HR Lab Laboratory Tests Test 10/21/18 20:31 10/22/18 00:31 10/22/18 07:08 10/22/18 08:53 Glucose (Fingerstick) 228 mg/dL (70-99) 303 mg/dL (70-99) 425 mg/dL (70-99) 405 mg/dL (70-99) Test 10/22/18 10:43 10/22/18 12:00 10/22/18 14:21 Glucose (Fingerstick) 416 mg/dL (70-99) 385 mg/dL (70-99) 328 mg/dL (70-99) Results All relevant outside records, renal labs, imaging studies, telemetry/EKG's were reviewed. GOLD WILKES MD Oct 22, 2018 16:11
--- NOTE | 2018-10-22 17:15 | NUR ---
Pt requested that he eat dinner and re-check blood sugar before giving sliding scale dose of insulin. Pt stated "I just don't want what happened the other night to happen again." Will continue to monitor. Addendum: 10/22/18 at 1741 by GEORGE CONRAD RN Pt refusing to take PRN clonidine for high BP. Patient states "Oh no, I take clonidine only when the upper number is above 200." "That will put me to sleep."
[2018-10-22] MEDS: MEROPENEM 1 GM in IV NORMAL SALINE 100ML 100 ML IV SCH ×2 (17:23→23:50)
[2018-10-22 19:15] VITALS: BP 133/76
[2018-10-22] MEDS: amLODIPine BESYLATE 10 MG TABLET PO SCH (21:23)
[2018-10-22] MEDS: INSULIN GLARGINE 300 UNITS/3 ML INSULN.PEN. SQ SCH (21:26)
[2018-10-22 23:40] VITALS: BP 145/64
[2018-10-23 03:50] VITALS: BP 149/72
[2018-10-23] MEDS: LEVOTHYROXINE 150 MCG TABLET PO SCH (05:46)
--- NOTE | 2018-10-23 05:50 | NUR ---
Pt requests frequent BG checks- last check at 0545 BG is 54- patient has/is refusing D50; says he drinks "dark pop" (coke) at home when he feels his sugar is low. Pt has consumed x1 can of coke- BG aroldo from 56 to 74 and is 54 on recheck an hour later. Pt states he will consume another can of coke at this time.
[2018-10-23 07:00] VITALS: BP 143/46
[2018-10-23] MEDS: INSULIN LISPRO 300 UNITS/3 ML INSULN.PEN. SQ SCH ×3 (08:00→17:49)
[2018-10-23] MEDS: CARVEDILOL 12.5 MG TABLET. PO SCH ×2 (08:00→17:00)
[2018-10-23 08:29] LABS: BASO # 0.1 x10^3/uL (0.0-0.2); BASO % 1 % (0-3); EOS # 0.4 x10^3/uL (0.0-0.7); EOS % 4 % (0-3); HEMATOCRIT 24.1 % (39.0-53.0); HEMOGLOBIN 7.9 g/dL (13.0-17.5); LYMPH # 0.9 x10^3/uL (1.0-4.8); LYMPH % 10 % (24-48); MEAN CORPUSCULAR HEMOGLOBIN 34 pg (25-35); MEAN CORPUSCULAR HGB CONC 33 g/dL (31-37); MEAN CORPUSCULAR VOLUME 104 fL (79-100); MONO # 0.7 x10^3/uL (0.0-1.1); MONO % 8 % (0-9); NEUT # 6.7 x10^3uL (1.8-7.7); NEUT % 76 % (31-73); PLATELET COUNT 156 x10^3/uL (140-400); RED BLOOD COUNT 2.32 x10^6/uL (4.30-5.70); RED CELL DISTRIBUTION WIDTH 15.1 % (11.5-14.5); WHITE BLOOD COUNT 8.8 x10^3/uL (4.0-11.0)
[2018-10-23] MEDS: hydrALAZINE 25 MG TABLET PO SCH ×3 (08:33→21:27)
[2018-10-23] MEDS: LACTOBACILLUS RHAMNOSUS GG 1 CAPSULE. PO SCH ×2 (08:33→21:27)
[2018-10-23] MEDS: ASCORBIC ACID 500 MG TABLET PO SCH (08:33)
[2018-10-23] MEDS: MULTIVITAMIN with MINERAL TABLET. PO SCH (08:33)
[2018-10-23] MEDS: LOSARTAN POTASSIUM 50 MG TABLET. PO SCH (08:33)
--- NOTE | 2018-10-23 09:00 | NUR ---
Pt refusing to take hydralazine PO. Pt states that "I only take that as needed, not scheduled." Will continue to monitor.
[2018-10-23 11:00] VITALS: BP 103/67
--- NOTE | 2018-10-23 11:15 | NUR ---
Pt stated he only takes clonidine when his pressure is "above 200." Also stated that clonidine "will put me to sleep." Pt stated he takes minoxidil 0.1mg as needed for his blood pressure at home. This medication was not on his home medication list, and this RN called his preferred pharmacy and they do not have this medication on file. Pt stated his will bring the bottle of medication when she visits so this RN can verify it. Pt also stated "my pressure isn't in the 200's, I'm not gonna worry about it." Will continue to monitor.
--- NOTE | 2018-10-23 11:23 | PDOC ---
[facility] PROGRESS NOTE Chief Complaint Chief Complaint Severe sepsis Fevers with unknown source ESRD on dialysis Anemia of ESRD Hypothyroidism on Synthroid Hypertension-accelerated POA Thrombocytopenia, platelets 134 Leukopenia WBC 2.6 History of Present Illness History of Present Illness Patient seen and examined this morning He is resting on edge of the bed with no apparent distress. Neighbor is present Glucose is fluctuating between 50 and 400 , he is a brittle diabetic Discussed with RN Reviewed nephrology notes Vitals Vitals Vital Signs Date Time Temp Pulse Resp B/P (MAP) Pulse Ox O2 Delivery O2 Flow Rate FiO2 10/23/18 08:33 52 143/46 10/23/18 08:00 Room Air 10/23/18 07:00 97.9 20 96 97.9 Physical Exam Physical Exam GENERAL: Sitting in bed alert, joking HEENT: Pupils equal, oral mucosa moist. NECK: Supple. LUNGS: Clear bilaterally. No wheezing. HEART: S1, S2. + murmur ABDOMEN: Soft, nontender, nondistended. No rebound, no guarding. EXTREMITIES: No edema, no cyanosis. LUE-AVF unremarkable NEUROLOGIC: Alert, responding appropriately SKIN: Warm, dry. No generalized rash. Left great toe and left lateral foot wounds bandaged. General: Alert, Oriented X3, Cooperative, No acute distress Heart: Regular rate, Normal S1, Normal S2 Lungs: Wheezing Abdomen: Normal bowel sounds, Soft, No tenderness Extremities: No clubbing, No cyanosis Skin: No breakdown Labs Labs: Laboratory Tests Test 10/22/18 12:00 10/22/18 14:21 10/22/18 16:24 10/22/18 18:08 Glucose (Fingerstick) 385 mg/dL (70-99) 328 mg/dL (70-99) 232 mg/dL (70-99) 186 mg/dL (70-99) Test 10/22/18 20:53 10/22/18 23:48 10/23/18 03:36 10/23/18 04:00 Glucose (Fingerstick) 141 mg/dL (70-99) 106 mg/dL (70-99) 56 mg/dL (70-99) 74 mg/dL (70-99) Test 10/23/18 05:48 10/23/18 07:03 10/23/18 07:43 10/23/18 07:45 Glucose (Fingerstick) 54 mg/dL (70-99) 83 mg/dL (70-99) 81 mg/dL (70-99) White Blood Count 8.8 x10^3/uL (4.0-11.0) Red Blood Count 2.32 x10^6/uL (4.30-5.70) Hemoglobin 7.9 g/dL (13.0-17.5) Hematocrit 24.1 % (39.0-53.0) Mean Corpuscular Volume 104 fL (79-100) Mean Corpuscular Hemoglobin 34 pg (25-35) Mean Corpuscular Hemoglobin Concent 33 g/dL (31-37) Red Cell Distribution Width 15.1 % (11.5-14.5) Platelet Count 156 x10^3/uL (140-400) Neutrophils (%) (Auto) 76 % (31-73) Lymphocytes (%) (Auto) 10 % (24-48) Monocytes (%) (Auto) 8 % (0-9) Eosinophils (%) (Auto) 4 % (0-3) Basophils (%) (Auto) 1 % (0-3) Neutrophils # (Auto) 6.7 x10^3uL (1.8-7.7) Lymphocytes # (Auto) 0.9 x10^3/uL (1.0-4.8) Monocytes # (Auto) 0.7 x10^3/uL (0.0-1.1) Eosinophils # (Auto) 0.4 x10^3/uL (0.0-0.7) Basophils # (Auto) 0.1 x10^3/uL (0.0-0.2) Review of Systems Review of Systems Complains of weakness Complains of hunger Assessment and Plan Assessmemt and Plan Problems Medical Problems: (1) ESRD (end stage renal disease) Status: Acute (2) Fever Status: Acute (3) Weakness Status: Acute Severe sepsis Fevers with unknown source ESRD on dialysis Anemia of ESRD Hypothyroidism on Synthroid Hypertension-accelerated POA Thrombocytopenia, platelets 134 Leukopenia WBC 2.6 ESRD- MWF , was on PD for 3 years, On HD for 10 yrs per Pt Currently stable, No indication today, continue per schedule Access Lt AVF G neg sepsis- Per ID HTN - stable DM II, sliding scale insulin Anemia- On MICHA DVT prophylaxis Full code Home meds Hope to discharge the next day or 2 Comment Review of Relevant I have reviewed the following items kit (where applicable) has been applied. Labs Laboratory Tests Test 10/21/18 15:07 10/21/18 20:31 10/22/18 00:31 10/22/18 07:08 Glucose (Fingerstick) 107 mg/dL (70-99) 228 mg/dL (70-99) 303 mg/dL (70-99) 425 mg/dL (70-99) Test 10/22/18 08:53 10/22/18 10:43 10/22/18 12:00 10/22/18 14:21 Glucose (Fingerstick) 405 mg/dL (70-99) 416 mg/dL (70-99) 385 mg/dL (70-99) 328 mg/dL (70-99) Test 10/22/18 16:24 10/22/18 18:08 10/22/18 20:53 10/22/18 23:48 Glucose (Fingerstick) 232 mg/dL (70-99) 186 mg/dL (70-99) 141 mg/dL (70-99) 106 mg/dL (70-99) Test 10/23/18 03:36 10/23/18 04:00 10/23/18 05:48 10/23/18 07:03 Glucose (Fingerstick) 56 mg/dL (70-99) 74 mg/dL (70-99) 54 mg/dL (70-99) 83 mg/dL (70-99) Test 10/23/18 07:43 10/23/18 07:45 Glucose (Fingerstick) 81 mg/dL (70-99) White Blood Count 8.8 x10^3/uL (4.0-11.0) Red Blood Count 2.32 x10^6/uL (4.30-5.70) Hemoglobin 7.9 g/dL (13.0-17.5) Hematocrit 24.1 % (39.0-53.0) Mean Corpuscular Volume 104 fL (79-100) Mean Corpuscular Hemoglobin 34 pg (25-35) Mean Corpuscular Hemoglobin Concent 33 g/dL (31-37) Red Cell Distribution Width 15.1 % (11.5-14.5) Platelet Count 156 x10^3/uL (140-400) Neutrophils (%) (Auto) 76 % (31-73) Lymphocytes (%) (Auto) 10 % (24-48) Monocytes (%) (Auto) 8 % (0-9) Eosinophils (%) (Auto) 4 % (0-3) Basophils (%) (Auto) 1 % (0-3) Neutrophils # (Auto) 6.7 x10^3uL (1.8-7.7) Lymphocytes # (Auto) 0.9 x10^3/uL (1.0-4.8) Monocytes # (Auto) 0.7 x10^3/uL (0.0-1.1) Eosinophils # (Auto) 0.4 x10^3/uL (0.0-0.7) Basophils # (Auto) 0.1 x10^3/uL (0.0-0.2) Laboratory Tests Test 10/22/18 12:00 10/22/18 14:21 10/22/18 16:24 10/22/18 18:08 Glucose (Fingerstick) 385 mg/dL (70-99) 328 mg/dL (70-99) 232 mg/dL (70-99) 186 mg/dL (70-99) Test 10/22/18 20:53 10/22/18 23:48 10/23/18 03:36 10/23/18 04:00 Glucose (Fingerstick) 141 mg/dL (70-99) 106 mg/dL (70-99) 56 mg/dL (70-99) 74 mg/dL (70-99) Test 10/23/18 05:48 10/23/18 07:03 10/23/18 07:43 10/23/18 07:45 Glucose (Fingerstick) 54 mg/dL (70-99) 83 mg/dL (70-99) 81 mg/dL (70-99) White Blood Count 8.8 x10^3/uL (4.0-11.0) Red Blood Count 2.32 x10^6/uL (4.30-5.70) Hemoglobin 7.9 g/dL (13.0-17.5) Hematocrit 24.1 % (39.0-53.0) Mean Corpuscular Volume 104 fL (79-100) Mean Corpuscular Hemoglobin 34 pg (25-35) Mean Corpuscular Hemoglobin Concent 33 g/dL (31-37) Red Cell Distribution Width 15.1 % (11.5-14.5) Platelet Count 156 x10^3/uL (140-400) Neutrophils (%) (Auto) 76 % (31-73) Lymphocytes (%) (Auto) 10 % (24-48) Monocytes (%) (Auto) 8 % (0-9) Eosinophils (%) (Auto) 4 % (0-3) Basophils (%) (Auto) 1 % (0-3) Neutrophils # (Auto) 6.7 x10^3uL (1.8-7.7) Lymphocytes # (Auto) 0.9 x10^3/uL (1.0-4.8) Monocytes # (Auto) 0.7 x10^3/uL (0.0-1.1) Eosinophils # (Auto) 0.4 x10^3/uL (0.0-0.7) Basophils # (Auto) 0.1 x10^3/uL (0.0-0.2) Microbiology 10/21/18 Blood Culture - Preliminary, Resulted NO GROWTH AFTER 2 DAYS 10/19/18 Anaerobic/Aerobic Culture, Resulted Pending 10/19/18 Anaerobic Culture Result 1 (KIANA), Resulted Pending 10/19/18 Aerobic Culture - Preliminary, Resulted 10/19/18 Aerobic Culture Result 1 (KIANA) - Preliminary, Resulted 10/19/18 Aerobic Culture Result 2 (KIANA) - Preliminary, Resulted 10/19/18 Aerobic Culture Result 3 (KIANA) - Preliminary, Resulted 10/19/18 Antimicrobic Susceptibility - Preliminary, Resulted 10/19/18 Gram Stain - Final, Resulted 10/19/18 Gram Stain Result 1 (KIANA) - Final, Resulted 10/19/18 Gram Stain Result 2 (KIANA) - Final, Resulted Medications Current Medications Sodium Chloride 250 ml @ 250 mls/hr 1X ONCE IV Last administered on 10/19/18at 16:15; Start 10/19/18 at 15:45; Stop 10/19/18 at 16:44; Status DC Acetaminophen (Tylenol) 1,000 mg 1X ONCE PO Last administered on 10/19/18at 16:12; Start 10/19/18 at 15:45; Stop 10/19/18 at 15:50; Status DC Piperacillin Sod/ Tazobactam Sod (Zosyn Per Pharmacy) 1 each PRN DAILY PRN MC SEE COMMENTS; Start 10/19/18 at 15:45; Stop 10/20/18 at 14:34; Status DC Vancomycin HCl (Vanco Per Pharmacy) 1 each PRN DAILY PRN MC SEE COMMENTS Last administered on 10/21/18at 08:48; Start 10/19/18 at 15:45; Stop 10/21/18 at 09:30; Status DC Piperacillin Sod/ Tazobactam Sod 2.25 gm/Sodium Chloride 50 ml @ 100 mls/hr 1X ONCE IV Last administered on 10/19/18at 16:18; Start 10/19/18 at 16:00; Stop 10/19/18 at 16:29; Status DC Vancomycin HCl 2 gm/Sodium Chloride 500 ml @ 250 mls/hr 1X ONCE IV Last administered on 10/19/18at 17:21; Start 10/19/18 at 16:15; Stop 10/19/18 at 18:14; Status DC Acetaminophen (Tylenol) 500 mg PRN Q6HRS PRN PO MILD PAIN / TEMP; Start 10/19/18 at 17:15 Acetaminophen/ Codeine Phosphate (Tylenol #3) 1 tab PRN Q6HRS PRN PO MODERATE PAIN; Start 10/19/18 at 17:15 Amlodipine Besylate (Norvasc) 10 mg HS PO Last administered on 10/22/18at 21:23; Start 10/19/18 at 21:00 Carvedilol (Coreg) 12.5 mg BIDWMEALS PO Last administered on 10/22/18at 17:23; Start 10/19/18 at 17:00 Ascorbic Acid (Vitamin C) 500 mg DAILY PO Last administered on 10/23/18at 08:33; Start 10/20/18 at 09:00 Darbepoetin Huang (Aranesp) 25 mcg WEEKLYHS SQ ; Start 10/21/18 at 21:00; Stop 10/21/18 at 21:00; Status DC Hydralazine HCl (Apresoline) 25 mg TID PO Last administered on 10/21/18at 21:04; Start 10/19/18 at 21:00 Insulin Glargine (Lantus) 16 units QHS SQ Last administered on 10/22/18 21:26; Start 10/19/18 at 21:00 Levothyroxine Sodium (Synthroid) 300 mcg DAILY06 PO Last administered on 10/23/18 05:46; Start 10/20/18 at 06:00 Losartan Potassium (Cozaar) 100 mg DAILY PO Last administered on 10/23/18 08:33; Start 10/20/18 at 09:00 Insulin Human Lispro (HumaLOG) 0-9 UNITS TIDWMEALS SQ Last administered on 18:11; Start 10/20/18 at 08:00 Dextrose (Dextrose 50%-Water Syringe) 12.5 gm PRN Q15MIN PRN IV SEE COMMENTS Last administered on 10/21/18at 07:07; Start 10/19/18 at 17:15 Clonidine HCl (Catapres) 0.1 mg PRN Q1HR PRN PO HYPERTENSION; Start 10/19/18 at 17:15 Piperacillin Sod/ Tazobactam Sod 2.25 gm/Sodium Chloride 50 ml @ 100 mls/hr Q8HRS IV Last administered on 10/20/18 06:17; Start 10/19/18 at 22:00; Stop 10/20/18 at 12:31; Status DC Vancomycin HCl (Vancomycin Random Level) 1 each 1X ONCE MC Last administered on 10/21/18 05:00; Start 10/21/18 at 05:00; Stop 10/21/18 at 05:01; Status DC Sodium Chloride 1,000 ml @ 100 mls/hr 1X ONCE IV Last administered on 10/19/18at 23:15; Start 10/19/18 at 23:15; Stop 10/20/18 at 09:14; Status DC Multivitamins (Thera M Plus) 1 tab DAILY PO Last administered on 10/23/18 08:33; Start 10/20/18 at 12:00 Darbepoetin Huang (Aranesp) 60 mcg WEEKLYHS SQ Last administered on 10/21/18at 00:06; Start 10/20/18 at 21:00 Meropenem 1 gm/ Sodium Chloride 100 ml @ 200 mls/hr DAILY IV Last administered on 10/21/18 16:57; Start 10/21/18 at 09:00; Stop 10/21/18 at 19:25; Status DC Lactobacillus Rhamnosus (Culturelle) 1 cap BID PO Last administered on 10/23/18at 08:33; Start 10/20/18 at 21:00 Vancomycin HCl 750 mg/Sodium Chloride 250 ml @ 250 mls/hr ONCE ONCE IV ; Start 10/21/18 at 16:00; Stop 10/21/18 at 16:59; Status Cancel Vancomycin HCl 500 mg/Sodium Chloride 100 ml @ 100 mls/hr QMWF IV ; Start 10/24/18 at 16:00; Stop 10/24/18 at 16:00; Status DC Sodium Chloride 1,000 ml @ 1,000 mls/hr Q1H PRN IV hypotension; Start 10/21/18 at 10:02; Stop 10/21/18 at 16:01; Status DC Diphenhydramine HCl (Benadryl) 25 mg 1X PRN PRN IV ITCHING; Start 10/21/18 at 10:15; Stop 10/22/18 at 10:14; Status DC Diphenhydramine HCl (Benadryl) 25 mg 1X PRN PRN IV ITCHING; Start 10/21/18 at 10:15; Stop 10/22/18 at 10:14; Status DC Sodium Chloride 1,000 ml @ 400 mls/hr Q2H30M PRN IV PATENCY; Start 10/21/18 at 10:02; Stop 10/21/18 at 22:01; Status DC Info (PHARMACY MONITORING -- do not chart) 1 each PRN DAILY PRN MC SEE COMMENTS; Start 10/21/18 at 10:15 Meropenem 1 gm/ Sodium Chloride 100 ml @ 200 mls/hr Q24H IV Last administered on 10/22/18at 17:23; Start 10/22/18 at 17:00 Insulin Human Lispro (HumaLOG) 10 units 1X ONCE SQ Last administered on 10/22/18at 11:10; Start 10/22/18 at 11:00; Stop 10/22/18 at 11:03; Status DC Insulin Human Lispro (HumaLOG) 6 units 1X ONCE SQ Last administered on 10/22/18at 14:50; Start 10/22/18 at 14:45; Stop 10/22/18 at 14:46; Status DC Active Scripts Active Reported Epogen (Epoetin Huang) 2,000 Unit/1 Ml Vial 0 IJ 3X/WEEK Vitamin C (Ascorbic Acid) 100 Mg Tablet 100 Mg PO DAILY Novolog (Insulin Aspart) 100 Unit/1 Ml Cartridge 0 SQ 5XDAY Lantus (Insulin Glargine,Hum.rec.anlog) 100 Unit/1 Ml Vial 16 Unit SQ HS Amlodipine Besylate 10 Mg Tablet 10 Mg PO HS Synthroid (Levothyroxine Sodium) 300 Mcg Tablet 300 Mcg PO DAILY Hydralazine Hcl 25 Mg Tablet 25 Mg PO TID Carvedilol (Carvedilol) 12.5 Mg Tablet 12.5 Mg PO BID Cozaar (Losartan Potassium) 100 Mg Tablet 100 Mg PO DAILY06 Vitals/I & O Vital Sign - Last 24 Hours 10/22/18 10/22/18 10/22/18 10/22/18 15:00 17:23 19:15 20:00 Temp 98.3 98.2 98.3 98.2 Pulse 61 61 63 Resp 16 18 B/P (MAP) 179/72 (107) 179/72 133/76 (95) Pulse Ox 99 96 O2 Delivery Room Air Room Air Room Air 10/22/18 10/22/18 10/23/18 10/23/18 21:23 23:40 03:50 07:00 Temp 98.1 98.0 97.9 98.1 98.0 97.9 Pulse 63 56 57 52 Resp 18 20 20 B/P (MAP) 133/76 145/64 (91) 149/72 (97) 143/46 (78) Pulse Ox 95 98 96 O2 Delivery Room Air Room Air Room Air 10/23/18 10/23/18 10/23/18 08:00 08:00 08:33 Pulse 52 52 B/P (MAP) 143/46 143/46 O2 Delivery Room Air Intake and Output 10/22/18 10/22/18 10/23/18 15:00 23:00 07:00 Intake Total 220 ml 250 ml 180 ml Balance 220 ml 250 ml 180 ml MADDY TINOCO III DO Oct 23, 2018 11:23
--- NOTE | 2018-10-23 11:53 | PDOC ---
Infectious Disease Note Subjective Subjective No complaints voiced Feeling pretty good Enjoying visit from a friend No F/C/pain/N/V/D/SOA ROS ROS per HPI Vital Sign Vital Signs Vital Signs Date Time Temp Pulse Resp B/P (MAP) Pulse Ox O2 Delivery O2 Flow Rate FiO2 10/23/18 08:33 52 143/46 10/23/18 08:00 Room Air 10/23/18 07:00 97.9 20 96 97.9 Physical Exam PHYSICAL EXAM GENERAL: Sitting on the side of the bed, alert, joking HEENT: Pupils equal, oral mucosa moist. NECK: Supple. LUNGS: Clear bilaterally. No wheezing. HEART: S1, S2. + murmur ABDOMEN: Soft, nontender EXTREMITIES: No edema, no cyanosis. LUE-AVF unremarkable NEUROLOGIC: Alert, responding appropriately SKIN: Warm, dry. No generalized rash. Left great toe and left lateral foot wounds, clean Labs Lab Laboratory Tests Test 10/22/18 12:00 10/22/18 14:21 10/22/18 16:24 10/22/18 18:08 Glucose (Fingerstick) 385 mg/dL (70-99) 328 mg/dL (70-99) 232 mg/dL (70-99) 186 mg/dL (70-99) Test 10/22/18 20:53 10/22/18 23:48 10/23/18 03:36 10/23/18 04:00 Glucose (Fingerstick) 141 mg/dL (70-99) 106 mg/dL (70-99) 56 mg/dL (70-99) 74 mg/dL (70-99) Test 10/23/18 05:48 10/23/18 07:03 10/23/18 07:43 10/23/18 07:45 Glucose (Fingerstick) 54 mg/dL (70-99) 83 mg/dL (70-99) 81 mg/dL (70-99) White Blood Count 8.8 x10^3/uL (4.0-11.0) Red Blood Count 2.32 x10^6/uL (4.30-5.70) Hemoglobin 7.9 g/dL (13.0-17.5) Hematocrit 24.1 % (39.0-53.0) Mean Corpuscular Volume 104 fL (79-100) Mean Corpuscular Hemoglobin 34 pg (25-35) Mean Corpuscular Hemoglobin Concent 33 g/dL (31-37) Red Cell Distribution Width 15.1 % (11.5-14.5) Platelet Count 156 x10^3/uL (140-400) Neutrophils (%) (Auto) 76 % (31-73) Lymphocytes (%) (Auto) 10 % (24-48) Monocytes (%) (Auto) 8 % (0-9) Eosinophils (%) (Auto) 4 % (0-3) Basophils (%) (Auto) 1 % (0-3) Neutrophils # (Auto) 6.7 x10^3uL (1.8-7.7) Lymphocytes # (Auto) 0.9 x10^3/uL (1.0-4.8) Monocytes # (Auto) 0.7 x10^3/uL (0.0-1.1) Eosinophils # (Auto) 0.4 x10^3/uL (0.0-0.7) Basophils # (Auto) 0.1 x10^3/uL (0.0-0.2) Micro AEROBIC RES 1 Preliminary Acinetobacter baumannii AEROBIC RES 2 Preliminary Coagulase negative Staphylococcus species. AEROBIC RES 3 Preliminary Gram negative rods MICS are expressed in micrograms per mL Antibiotic RSLT#1 RSLT#2 RSLT#3 Ampicillin/Sulbactam S<=2 Cefepime S<=1 Cefotaxime S =4 Ceftazidime S<=1 Ceftriaxone S =8 Ciprofloxacin S<=0.25 S<=0.5 Clindamycin S<=0.25 Erythromycin S =0.5 Gentamicin S<=1 S<=0.5 Imipenem S<=1 Levofloxacin S<=0.12 S<=0.12 Meropenem S<=0.25 Oxacillin S<=0.25 Penicillin R>=0.5 Piperacillin S<=4 Rifampin S<=0.5 Tetracycline S<=1 S<=1 Tobramycin S<=1 Trimethoprim/Sulfa S<=20 S<=10 Vancomycin S =1 10/19. BLOOD CULTURE Final GRAM NEGATIVE RODS IN 1 OF 4 BOTTLES (2 SETS COLLECTED). CALLED TO JAMAAL LITTLEJOHN ON 6S 10/20/18 AT 0832 BY Twyla CARRANZA. CULTURE HAS BEEN SENT TO [facility] FOR FURTHER IDENTIFCATION. AMENDED REPORT: BOTH BOTTLES OF THIS SET ARE NOW POSITIVE FOR GRAM NEGATIVE RODS. JUANITO SALAZAR NOTIFIED AT 1422 10/20/18 BY Twyla CARRANZA. 10/21. BLOOD CULTURE Preliminary NO GROWTH AFTER 1 DAY Objective Assessment Fever, better GNR sepsis POA, 10/19 ID pending Leucopenia now leukocytosis, better Left foot wounds lateral aspect and great toe - clean - Charcot foot; Acinetobacter (matias-S), MRSE and GNR Mild thrombocytopenia, better ESRD on HD via AV fistula Hypertension. Diabetes with peripheral neuropathy and footdrop syndrome. Coronary artery disease. History of chronic obstructive pulmonary disease. Plan Plan of Care Merrem Probiotics f/u cultures Cont local wound care . Attending Co-Sign Attending Co-Sign The patient was seen and interviewed as well as examined at the bedside. The chart was reviewed. The case was discussed. Agree with the plan of care. JACOBY CURRIE APRN Oct 23, 2018 11:53 CLARISA RUIZ MD Oct 23, 2018 15:12
[2018-10-23 15:00] VITALS: BP 178/59
[2018-10-23] MEDS ORDERED: MINO2.5T12 PO (15:20)
[2018-10-23] MEDS: MINOXIDIL 2.5 MG TABLET PO SCH ×2 (15:43→21:28)
--- NOTE | 2018-10-23 18:00 | NUR ---
Pt lost peripheral IV access, anesthesia was called to attempt to start a peripheral line due to swelling in R arm and being limited to that arm only because of fistula. Anesthesiologist was unsuccessful with starting a peripheral line and recommended a central or mid-line. Dr. Epstein notified, and he stated pt still needs IV merrem due to gram negative rods in blood, and he is okay with inserting a midline if it is cleared by nephrology. Dr. Acuna paged, and she stated that the patient needs to understand the risks and benefits of getting the line but she also understands the need for IV antibiotics and is leaving it up to the patient to decide. Patient discussed with over the phone. Pt agreed to continue on with the midline insertion. Will notify nursing equipment operator/laborer/supervisor.
[2018-10-23 19:11] LABS: CALCIUM 8.9 mg/dL (8.5-10.1); CREATININE 5.2 mg/dL (0.7-1.3); GFR 11.3; POTASSIUM 4.7 mmol/L (3.5-5.1)
[2018-10-23 19:15] VITALS: BP 159/55
[2018-10-23] MEDS: amLODIPine BESYLATE 10 MG TABLET PO SCH (21:28)
[2018-10-23] MEDS: INSULIN GLARGINE 300 UNITS/3 ML INSULN.PEN. SQ SCH (21:30)
[2018-10-23 23:29] VITALS: BP 152/46
[2018-10-24 03:52] VITALS: BP 142/47
[2018-10-24] MEDS: LEVOTHYROXINE 150 MCG TABLET PO SCH (06:00)
[2018-10-24] MEDS ORDERED: IV NORMAL SALINE 1000ML BAG 1,000 ML IV PRN ×2 (06:37)
[2018-10-24] MEDS ORDERED: DIALYSIS PATIENT. MC PRN (06:45)
[2018-10-24] MEDS ORDERED: diphenhydrAMINE 50 MG/ML VIAL IV PRN ×2 (06:45)
[2018-10-24] MEDS: CARVEDILOL 12.5 MG TABLET. PO SCH ×2 (07:28→17:00)
[2018-10-24] MEDS: INSULIN LISPRO 300 UNITS/3 ML INSULN.PEN. SQ SCH ×3 (07:28→17:53)
[2018-10-24] MEDS: MINOXIDIL 2.5 MG TABLET PO SCH ×3 (07:29→20:02)
[2018-10-24] MEDS: LOSARTAN POTASSIUM 50 MG TABLET. PO SCH (07:29)
[2018-10-24] MEDS: hydrALAZINE 25 MG TABLET PO SCH ×3 (07:29→20:00)
[2018-10-24] MEDS: LACTOBACILLUS RHAMNOSUS GG 1 CAPSULE. PO SCH ×2 (07:29→20:00)
[2018-10-24] MEDS: ASCORBIC ACID 500 MG TABLET PO SCH (07:30)
[2018-10-24] MEDS: MULTIVITAMIN with MINERAL TABLET. PO SCH (07:30)
--- NOTE | 2018-10-24 09:13 | PDOC ---
Infectious Disease Note Subjective Subjective No complaints voiced Feeling pretty good Enjoying visit from a friend No F/C/pain/N/V/D/SOA ROS ROS o/w neg Vital Sign Vital Signs Vital Signs Date Time Temp Pulse Resp B/P (MAP) Pulse Ox O2 Delivery O2 Flow Rate FiO2 10/24/18 07:28 54 10/24/18 03:52 98.4 18 142/47 (78) 97 Room Air 98.4 Physical Exam PHYSICAL EXAM GENERAL: In bed in HD, alert, joking HEENT: Pupils equal, oral mucosa moist. NECK: Supple. LUNGS: Clear bilaterally. No wheezing. HEART: S1, S2. + murmur ABDOMEN: Soft, nontender EXTREMITIES: No edema, no cyanosis. LUE-AVF unremarkable NEUROLOGIC: Alert, responding appropriately SKIN: Warm, dry. No generalized rash. Left great toe and left lateral foot wounds, clean with less erythema RUE midline is clean Labs Lab Laboratory Tests Test 10/23/18 12:06 10/23/18 16:47 10/23/18 18:55 10/23/18 20:47 Glucose (Fingerstick) 182 mg/dL (70-99) 288 mg/dL (70-99) 288 mg/dL (70-99) Sodium Level 129 mmol/L (136-145) Potassium Level 4.7 mmol/L (3.5-5.1) Chloride Level 95 mmol/L (98-107) Carbon Dioxide Level 23 mmol/L (21-32) Anion Gap 11 (6-14) Blood Urea Nitrogen 77 mg/dL (8-26) Creatinine 5.2 mg/dL (0.7-1.3) Estimated GFR (Cockcroft-Gault) 11.3 Glucose Level 350 mg/dL (70-99) Calcium Level 8.9 mg/dL (8.5-10.1) Test 10/24/18 02:59 10/24/18 06:03 Glucose (Fingerstick) 258 mg/dL (70-99) 263 mg/dL (70-99) Micro Acinetobacter baumannii 4+ AEROBIC RES 2 Preliminary Comment Coagulase negative Staphylococcus species. 1+ Based on susceptibility to oxacillin this isolate would be susceptible to: *Penicillinase-stable penicillins, such as: Cloxacillin, Dicloxacillin, Nafcillin *Beta-lactam combination agents, such as: Amoxicillin-clavulanic acid, Ampicillin-sulbactam, Piperacillin-tazobactam *Oral cephems, such as: Cefaclor, Cefdinir, Cefpodoxime, Cefprozil, Cefuroxime, Cephalexin, Loracarbef *Parenteral cephems, such as: Cefazolin, Cefepime, Cefotaxime, Cefotetan, Ceftaroline, Ceftizoxime, Ceftriaxone, Cefuroxime *Carbapenems, such as: Doripenem, Ertapenem, Imipenem, Meropenem CONTINUED ON NEXT PAGE RUN DATE: 10/22/18 PAGE 2 RUN TIME: 1417 [facility] [address] [place] [address] Roderick Cody M.D., Barn Worker SPEC: [id number] PATIENT: MARKMARY [id number] (Continued) -------- Procedure Result Foot AEROBIC RES 3 Preliminary Gram negative rods 1+ ANTIMICROBIAL SUSCEPTIBILITY Preliminary Comment S = Susceptible; I = Intermediate; R = Resistant P = Positive; N = Negative MICS are expressed in micrograms per mL Antibiotic RSLT#1 RSLT#2 RSLT#3 RSLT#4 Ampicillin/Sulbactam S<=2 Cefepime S<=1 Cefotaxime S =4 Ceftazidime S<=1 Ceftriaxone S =8 Ciprofloxacin S<=0.25 S<=0.5 Clindamycin S<=0.25 Erythromycin S =0.5 Gentamicin S<=1 S<=0.5 Imipenem S<=1 Levofloxacin S<=0.12 S<=0.12 Meropenem S<=0.25 Oxacillin S<=0.25 Penicillin R>=0.5 Piperacillin S<=4 Rifampin S<=0.5 Tetracycline S<=1 S<=1 Tobramycin S<=1 Trimethoprim/Sulfa S<=20 S<=10 Vancomycin S =1 ANAEROBIC RES 1 PENDING AEROBIC RES 1 Preliminary Gram negative rods AEROBIC RES 2 Preliminary Staphylococcus species 10/19. BLOOD CULTURE Final GRAM NEGATIVE RODS IN 1 OF 4 BOTTLES (2 SETS COLLECTED). CALLED TO JAMAAL LITTLEJOHN ON 6S 10/20/18 AT 0832 BY Twyla CARRANZA. CULTURE HAS BEEN SENT TO [facility] FOR FURTHER IDENTIFCATION. AMENDED REPORT: BOTH BOTTLES OF THIS SET ARE NOW POSITIVE FOR GRAM NEGATIVE RODS. JUANITO MARIE NOTIFIED AT 1422 10/20/18 BY Twyla CARRANZA. 10/21. BLOOD CULTURE Preliminary NO GROWTH AFTER 1 DAY Objective Assessment Fever, better Pastuerella sepsis POA, 10/19 ID pending Leukopenia now leukocytosis - improved Left foot wounds lateral aspect and great toe - clean - charcot foot - Acinetobacter/Enterobacter/MSSE Mild thrombocytopenia ESRD on HD via AV fistula Hypertension. Diabetes with peripheral neuropathy and footdrop syndrome. Coronary artery disease. History of chronic obstructive pulmonary disease. Plan Plan of Care Merrem since 10/20 previous Zosyn Load Gent today and then 130 mg with each HD starting 10/25 will next renal help last dose 610 Po Doxy at discharge rx written Probiotics f/u cultures Cont local wound care D/w nursing and Pharmacy CLARISA RUIZ MD Oct 24, 2018 09:13
--- NOTE | 2018-10-24 10:34 | PDOC ---
[employer] PROGRESS NOTE Chief Complaint Chief Complaint Severe sepsis Fevers with unknown source ESRD on dialysis Anemia of ESRD Hypothyroidism on Synthroid Hypertension-accelerated POA Thrombocytopenia, platelets 134 Leukopenia WBC 2.6 History of Present Illness History of Present Illness Patient seen and examined this morning He is currently on dialysis resting comfortably Discussed with RN Reviewed nephrology notes Vitals Vitals Vital Signs Date Time Temp Pulse Resp B/P (MAP) Pulse Ox O2 Delivery O2 Flow Rate FiO2 10/24/18 07:28 54 10/24/18 03:52 98.4 18 142/47 (78) 97 Room Air 98.4 Physical Exam Physical Exam GENERAL: On dialysis sleeping HEENT: Pupils equal, oral mucosa moist. NECK: Supple. LUNGS: Clear bilaterally. No wheezing. HEART: S1, S2. + murmur ABDOMEN: Soft, nontender EXTREMITIES: No edema, no cyanosis. LUE-AVF unremarkable NEUROLOGIC: Sleeping SKIN: Warm, dry. No generalized rash. Left great toe and left lateral foot wounds, clean General: Alert, Oriented X3, Cooperative, No acute distress Heart: Regular rate, Normal S1, Normal S2 Lungs: Wheezing Abdomen: Normal bowel sounds, Soft, No tenderness Extremities: No clubbing, No cyanosis Skin: No breakdown Labs Labs: Laboratory Tests Test 10/23/18 12:06 10/23/18 16:47 10/23/18 18:55 10/23/18 20:47 Glucose (Fingerstick) 182 mg/dL (70-99) 288 mg/dL (70-99) 288 mg/dL (70-99) Sodium Level 129 mmol/L (136-145) Potassium Level 4.7 mmol/L (3.5-5.1) Chloride Level 95 mmol/L (98-107) Carbon Dioxide Level 23 mmol/L (21-32) Anion Gap 11 (6-14) Blood Urea Nitrogen 77 mg/dL (8-26) Creatinine 5.2 mg/dL (0.7-1.3) Estimated GFR (Cockcroft-Gault) 11.3 Glucose Level 350 mg/dL (70-99) Calcium Level 8.9 mg/dL (8.5-10.1) Test 10/24/18 02:59 10/24/18 06:03 Glucose (Fingerstick) 258 mg/dL (70-99) 263 mg/dL (70-99) Assessment and Plan Assessmemt and Plan Problems Medical Problems: (1) ESRD (end stage renal disease) Status: Acute (2) Fever Status: Acute (3) Weakness Status: Acute Fevers with unknown source ESRD on dialysis Anemia of ESRD Hypothyroidism on Synthroid Hypertension-accelerated POA Thrombocytopenia, platelets 134 Leukopenia WBC 2.6 ESRD- MWF , was on PD for 3 years, On HD for 10 yrs per Pt Currently stable, No indication today, continue per schedule Access Lt AVF G neg sepsis- Per ID HTN - stable DM II, sliding scale insulin Anemia- On MICHA DVT prophylaxis Full code Home meds Hope to discharge the next day or 2 Comment Review of Relevant I have reviewed the following items kit (where applicable) has been applied. Labs Laboratory Tests Test 10/22/18 10:43 10/22/18 12:00 10/22/18 14:21 10/22/18 16:24 Glucose (Fingerstick) 416 mg/dL (70-99) 385 mg/dL (70-99) 328 mg/dL (70-99) 232 mg/dL (70-99) Test 10/22/18 18:08 10/22/18 20:53 10/22/18 23:48 10/23/18 03:36 Glucose (Fingerstick) 186 mg/dL (70-99) 141 mg/dL (70-99) 106 mg/dL (70-99) 56 mg/dL (70-99) Test 10/23/18 04:00 10/23/18 05:48 10/23/18 07:03 10/23/18 07:43 Glucose (Fingerstick) 74 mg/dL (70-99) 54 mg/dL (70-99) 83 mg/dL (70-99) 81 mg/dL (70-99) Test 10/23/18 07:45 10/23/18 12:06 10/23/18 16:47 10/23/18 18:55 White Blood Count 8.8 x10^3/uL (4.0-11.0) Red Blood Count 2.32 x10^6/uL (4.30-5.70) Hemoglobin 7.9 g/dL (13.0-17.5) Hematocrit 24.1 % (39.0-53.0) Mean Corpuscular Volume 104 fL (79-100) Mean Corpuscular Hemoglobin 34 pg (25-35) Mean Corpuscular Hemoglobin Concent 33 g/dL (31-37) Red Cell Distribution Width 15.1 % (11.5-14.5) Platelet Count 156 x10^3/uL (140-400) Neutrophils (%) (Auto) 76 % (31-73) Lymphocytes (%) (Auto) 10 % (24-48) Monocytes (%) (Auto) 8 % (0-9) Eosinophils (%) (Auto) 4 % (0-3) Basophils (%) (Auto) 1 % (0-3) Neutrophils # (Auto) 6.7 x10^3uL (1.8-7.7) Lymphocytes # (Auto) 0.9 x10^3/uL (1.0-4.8) Monocytes # (Auto) 0.7 x10^3/uL (0.0-1.1) Eosinophils # (Auto) 0.4 x10^3/uL (0.0-0.7) Basophils # (Auto) 0.1 x10^3/uL (0.0-0.2) Glucose (Fingerstick) 182 mg/dL (70-99) 288 mg/dL (70-99) Sodium Level 129 mmol/L (136-145) Potassium Level 4.7 mmol/L (3.5-5.1) Chloride Level 95 mmol/L (98-107) Carbon Dioxide Level 23 mmol/L (21-32) Anion Gap 11 (6-14) Blood Urea Nitrogen 77 mg/dL (8-26) Creatinine 5.2 mg/dL (0.7-1.3) Estimated GFR (Cockcroft-Gault) 11.3 Glucose Level 350 mg/dL (70-99) Calcium Level 8.9 mg/dL (8.5-10.1) Test 10/23/18 20:47 10/24/18 02:59 10/24/18 06:03 Glucose (Fingerstick) 288 mg/dL (70-99) 258 mg/dL (70-99) 263 mg/dL (70-99) Laboratory Tests Test 10/23/18 12:06 10/23/18 16:47 10/23/18 18:55 10/23/18 20:47 Glucose (Fingerstick) 182 mg/dL (70-99) 288 mg/dL (70-99) 288 mg/dL (70-99) Sodium Level 129 mmol/L (136-145) Potassium Level 4.7 mmol/L (3.5-5.1) Chloride Level 95 mmol/L (98-107) Carbon Dioxide Level 23 mmol/L (21-32) Anion Gap 11 (6-14) Blood Urea Nitrogen 77 mg/dL (8-26) Creatinine 5.2 mg/dL (0.7-1.3) Estimated GFR (Cockcroft-Gault) 11.3 Glucose Level 350 mg/dL (70-99) Calcium Level 8.9 mg/dL (8.5-10.1) Test 10/24/18 02:59 10/24/18 06:03 Glucose (Fingerstick) 258 mg/dL (70-99) 263 mg/dL (70-99) Microbiology 10/21/18 Blood Culture - Preliminary, Resulted NO GROWTH AFTER 3 DAYS 10/19/18 Anaerobic/Aerobic Culture, Resulted Pending 10/19/18 Anaerobic Culture Result 1 (KIANA), Resulted Pending 10/19/18 Aerobic Culture - Final, Resulted 10/19/18 Aerobic Culture Result 1 (KIANA) - Final, Resulted 10/19/18 Aerobic Culture Result 2 (KIANA) - Final, Resulted 10/19/18 Aerobic Culture Result 3 (KIANA) - Final, Resulted 10/19/18 Antimicrobic Susceptibility - Final, Resulted 10/19/18 Gram Stain - Final, Resulted 10/19/18 Gram Stain Result 1 (KIANA) - Final, Resulted 10/19/18 Gram Stain Result 2 (KIANA) - Final, Resulted Medications Current Medications Sodium Chloride 250 ml @ 250 mls/hr 1X ONCE IV Last administered on 10/19/18at 16:15; Start 10/19/18 at 15:45; Stop 10/19/18 at 16:44; Status DC Acetaminophen (Tylenol) 1,000 mg 1X ONCE PO Last administered on 10/19/18at 16:12; Start 10/19/18 at 15:45; Stop 10/19/18 at 15:50; Status DC Piperacillin Sod/ Tazobactam Sod (Zosyn Per Pharmacy) 1 each PRN DAILY PRN MC SEE COMMENTS; Start 10/19/18 at 15:45; Stop 10/20/18 at 14:34; Status DC Vancomycin HCl (Vanco Per Pharmacy) 1 each PRN DAILY PRN MC SEE COMMENTS Last administered on 10/21/18at 08:48; Start 10/19/18 at 15:45; Stop 10/21/18 at 09:30; Status DC Piperacillin Sod/ Tazobactam Sod 2.25 gm/Sodium Chloride 50 ml @ 100 mls/hr 1X ONCE IV Last administered on 10/19/18at 16:18; Start 10/19/18 at 16:00; Stop 10/19/18 at 16:29; Status DC Vancomycin HCl 2 gm/Sodium Chloride 500 ml @ 250 mls/hr 1X ONCE IV Last administered on 10/19/18at 17:21; Start 10/19/18 at 16:15; Stop 10/19/18 at 18:14; Status DC Acetaminophen (Tylenol) 500 mg PRN Q6HRS PRN PO MILD PAIN / TEMP; Start 10/19/18 at 17:15 Acetaminophen/ Codeine Phosphate (Tylenol #3) 1 tab PRN Q6HRS PRN PO MODERATE PAIN; Start 10/19/18 at 17:15 Amlodipine Besylate (Norvasc) 10 mg HS PO Last administered on 10/23/18 21:28; Start 10/19/18 at 21:00 Carvedilol (Coreg) 12.5 mg BIDWMEALS PO Last administered on 10/23/18at 17:00; Start 10/19/18 at 17:00 Ascorbic Acid (Vitamin C) 500 mg DAILY PO Last administered on 10/23/18at 08:33; Start 10/20/18 at 09:00 Darbepoetin Huang (Aranesp) 25 mcg WEEKLYHS SQ ; Start 10/21/18 at 21:00; Stop 10/21/18 at 21:00; Status DC Hydralazine HCl (Apresoline) 25 mg TID PO Last administered on 10/23/18 21:27; Start 10/19/18 at 21:00 Insulin Glargine (Lantus) 16 units QHS SQ Last administered on 10/23/18 21:30; Start 10/19/18 at 21:00 Levothyroxine Sodium (Synthroid) 300 mcg DAILY06 PO Last administered on 6/3/19at 06:00; Start 10/20/18 at 06:00 Losartan Potassium (Cozaar) 100 mg DAILY PO Last administered on 10/23/18at 08:33; Start 10/20/18 at 09:00 Insulin Human Lispro (HumaLOG) 0-9 UNITS TIDWMEALS SQ Last administered on 10/23/18at 17:49; Start 10/20/18 at 08:00 Dextrose (Dextrose 50%-Water Syringe) 12.5 gm PRN Q15MIN PRN IV SEE COMMENTS Last administered on 10/21/18at 07:07; Start 10/19/18 at 17:15 Clonidine HCl (Catapres) 0.1 mg PRN Q1HR PRN PO HYPERTENSION; Start 10/19/18 at 17:15 Piperacillin Sod/ Tazobactam Sod 2.25 gm/Sodium Chloride 50 ml @ 100 mls/hr Q8HRS IV Last administered on 10/20/18at 06:17; Start 10/19/18 at 22:00; Stop 10/20/18 at 12:31; Status DC Vancomycin HCl (Vancomycin Random Level) 1 each 1X ONCE MC Last administered on 10/21/18at 05:00; Start 10/21/18 at 05:00; Stop 10/21/18 at 05:01; Status DC Sodium Chloride 1,000 ml @ 100 mls/hr 1X ONCE IV Last administered on 10/19/18at 23:15; Start 10/19/18 at 23:15; Stop 10/20/18 at 09:14; Status DC Multivitamins (Thera M Plus) 1 tab DAILY PO Last administered on 10/23/18at 08:33; Start 10/20/18 at 12:00 Darbepoetin Huang (Aranesp) 60 mcg WEEKLYHS SQ Last administered on 10/21/18at 00:06; Start 10/20/18 at 21:00 Meropenem 1 gm/ Sodium Chloride 100 ml @ 200 mls/hr DAILY IV Last administered on 10/21/18at 16:57; Start 10/21/18 at 09:00; Stop 10/21/18 at 19:25; Status DC Lactobacillus Rhamnosus (Culturelle) 1 cap BID PO Last administered on 10/23/18at 21:27; Start 10/20/18 at 21:00 Vancomycin HCl 750 mg/Sodium Chloride 250 ml @ 250 mls/hr ONCE ONCE IV ; Start 10/21/18 at 16:00; Stop 10/21/18 at 16:59; Status Cancel Vancomycin HCl 500 mg/Sodium Chloride 100 ml @ 100 mls/hr QMWF IV ; Start 10/24/18 at 16:00; Stop 10/24/18 at 16:00; Status DC Sodium Chloride 1,000 ml @ 1,000 mls/hr Q1H PRN IV hypotension; Start 10/21/18 at 10:02; Stop 10/21/18 at 16:01; Status DC Diphenhydramine HCl (Benadryl) 25 mg 1X PRN PRN IV ITCHING; Start 10/21/18 at 10:15; Stop 10/22/18 at 10:14; Status DC Diphenhydramine HCl (Benadryl) 25 mg 1X PRN PRN IV ITCHING; Start 10/21/18 at 10:15; Stop 10/22/18 at 10:14; Status DC Sodium Chloride 1,000 ml @ 400 mls/hr Q2H30M PRN IV PATENCY; Start 10/21/18 at 10:02; Stop 10/21/18 at 22:01; Status DC Info (PHARMACY MONITORING -- do not chart) 1 each PRN DAILY PRN MC SEE COMMENTS; Start 10/21/18 at 10:15 Meropenem 1 gm/ Sodium Chloride 100 ml @ 200 mls/hr Q24H IV Last administered on 10/22/18at 23:50; Start 10/22/18 at 17:00 Insulin Human Lispro (HumaLOG) 10 units 1X ONCE SQ Last administered on 10/22/18at 11:10; Start 10/22/18 at 11:00; Stop 10/22/18 at 11:03; Status DC Insulin Human Lispro (HumaLOG) 6 units 1X ONCE SQ Last administered on 10/22/18at 14:50; Start 10/22/18 at 14:45; Stop 10/22/18 at 14:46; Status DC Minoxidil (Loniten) 5 mg TID PO Last administered on 10/23/18at 21:28; Start 10/23/18 at 15:30 Sodium Chloride 1,000 ml @ 1,000 mls/hr Q1H PRN IV hypotension; Start 10/24/18 at 06:37; Stop 10/24/18 at 12:36 Diphenhydramine HCl (Benadryl) 25 mg 1X PRN PRN IV ITCHING; Start 10/24/18 at 06:45; Stop 10/25/18 at 06:44 Diphenhydramine HCl (Benadryl) 25 mg 1X PRN PRN IV ITCHING; Start 10/24/18 at 06:45; Stop 10/25/18 at 06:44 Sodium Chloride 1,000 ml @ 400 mls/hr Q2H30M PRN IV PATENCY; Start 10/24/18 at 06:37; Stop 10/24/18 at 18:36 Info (PHARMACY MONITORING -- do not chart) 1 each PRN DAILY PRN MC SEE COMMENTS; Start 10/24/18 at 06:45 Active Scripts Active Reported Minoxidil 2.5 Mg Tablet 2 Tab PO TID Epogen (Epoetin Huang) 2,000 Unit/1 Ml Vial 0 IJ 3X/WEEK Vitamin C (Ascorbic Acid) 100 Mg Tablet 100 Mg PO DAILY Novolog (Insulin Aspart) 100 Unit/1 Ml Cartridge 0 SQ 5XDAY Lantus (Insulin Glargine,Hum.rec.anlog) 100 Unit/1 Ml Vial 16 Unit SQ HS Amlodipine Besylate 10 Mg Tablet 10 Mg PO HS Synthroid (Levothyroxine Sodium) 300 Mcg Tablet 300 Mcg PO DAILY Carvedilol (Carvedilol) 12.5 Mg Tablet 12.5 Mg PO BID Cozaar (Losartan Potassium) 100 Mg Tablet 100 Mg PO DAILY06 Vitals/I & O Vital Sign - Last 24 Hours 10/23/18 10/23/18 10/23/18 10/23/18 11:00 15:00 15:43 17:00 Temp 98.3 98.3 98.3 98.3 Pulse 59 61 61 61 Resp 20 20 B/P (MAP) 103/67 (79) 178/59 (98) 178/59 178/59 Pulse Ox 99 98 O2 Delivery Room Air Room Air 10/23/18 10/23/18 10/23/18 10/23/18 19:15 20:00 21:27 21:28 Temp 98.4 98.4 Pulse 61 61 61 Resp 16 B/P (MAP) 159/55 (89) 159/55 159/55 Pulse Ox 96 O2 Delivery Room Air Room Air 10/23/18 10/23/18 10/24/18 10/24/18 21:28 23:29 03:52 07:28 Temp 98.0 98.4 98.0 98.4 Pulse 61 55 56 54 Resp 18 18 B/P (MAP) 159/55 152/46 (81) 142/47 (78) Pulse Ox 96 97 O2 Delivery Room Air Room Air Intake and Output 10/23/18 10/23/18 10/24/18 14:59 22:59 06:59 Intake Total 400 ml 450 ml 450 ml Balance 400 ml 450 ml 450 ml MADDY TINOCO III DO Oct 24, 2018 10:34
[2018-10-24] MEDS ORDERED: GENTAMICIN PER PHARMACY. MC PRN (11:15)
--- NOTE | 2018-10-24 11:22 | NUR ---
SW following for discharge planning. Discussed with RN, pt is from home with . PT/OT recommending home health. SW contacted pt's , Alyssa Abel Shah advised SW to discuss with pt, pt currently in dialysis. SW to follow up. RN notified.
[2018-10-24] MEDS ORDERED: DEXTROSE 5% IV ONE (13:00)
[2018-10-24] MEDS ORDERED: GENTAMICIN SULFATE IV ONE (13:00)
[2018-10-24 13:40] VITALS: BP 189/79
--- NOTE | 2018-10-24 14:28 | PDOC ---
SUBJECTIVE ROS No complaints OBJECTIVE Vital Signs Vital Signs Date Time Temp Pulse Resp B/P (MAP) Pulse Ox O2 Delivery O2 Flow Rate FiO2 10/24/18 13:42 189/79 10/24/18 07:28 54 10/24/18 03:52 98.4 18 97 Room Air 98.4 I & 0 Intake and Output 10/24/18 07:00 Intake Total 1300 ml Balance 1300 ml Intake Oral 1300 ml PHYSICAL EXAM Physical Exam GENERAL: Sitting in the chair,NAD HEENT: oral mucosa moist. NECK: Supple. LUNGS: Clear bilaterally. Nonlabored HEART: S1, S2. + murmur ABDOMEN: Soft, nontender, EXTREMITIES: No edema, LUE-AVF unremarkable NEUROLOGIC: Alert, grossly normal SKIN: No rash. Left great toe and left lateral foot wounds bandaged. DIAGNOSIS/ASSESSMENT Assessment & Plan ESRD- MWF , was on PD for 3 years, On HD for 10 yrs per Pt Seen on HD , tolerating well, Continue as ordered , Minh DRdarby Access Lt AVF G neg sepsis- Per ID Mid line for Abx HTN - stable DM II Anemia- On MICHA COMMENT/RELEVANT DATA Meds Current Medications Medications (Trade) Dose Ordered Sig/Diana Start Time Stop Time Status Last Admin Dose Admin Acetaminophen (Tylenol) 500 mg PRN Q6HRS PRN 10/19/18 17:15 Acetaminophen/ Codeine Phosphate (Tylenol #3) 1 tab PRN Q6HRS PRN 10/19/18 17:15 Amlodipine Besylate (Norvasc) 10 mg HS 10/19/18 21:00 10/23/18 21:28 10 MG Ascorbic Acid (Vitamin C) 500 mg DAILY 10/20/18 09:00 10/23/18 08:33 500 MG Carvedilol (Coreg) 12.5 mg BIDWMEALS 10/19/18 17:00 10/23/18 17:00 12.5 MG Clonidine HCl (Catapres) 0.1 mg PRN Q1HR PRN 10/19/18 17:15 Darbepoetin Huang (Aranesp) 60 mcg WEEKLYHS 10/20/18 21:00 10/21/18 00:06 60 MCG Dextrose (Dextrose 50%-Water Syringe) 12.5 gm PRN Q15MIN PRN 10/19/18 17:15 10/21/18 07:07 25 GM Diphenhydramine HCl (Benadryl) 25 mg 1X PRN PRN 10/24/18 06:45 10/25/18 06:44 Gentamicin Sulfate 170 mg/ Dextrose 104.25 ml @ 104.25 mls/hr 1X ONCE 10/24/18 13:00 10/24/18 13:59 DC 10/24/18 13:42 104.25 MLS/HR Gentamicin Sulfate 1 each PRN DAILY PRN 10/24/18 11:15 Hydralazine HCl (Apresoline) 25 mg TID 10/19/18 21:00 10/24/18 13:42 25 MG Info (PHARMACY MONITORING -- do not chart) 1 each PRN DAILY PRN 10/24/18 06:45 Insulin Glargine (Lantus) 16 units QHS 10/19/18 21:00 10/23/18 21:30 16 UNITS Insulin Human Lispro (HumaLOG) 6 units 1X ONCE 10/22/18 14:45 10/22/18 14:46 DC 10/22/18 14:50 6 UNITS Lactobacillus Rhamnosus (Culturelle) 1 cap BID 10/20/18 21:00 10/23/18 21:27 1 CAP Levothyroxine Sodium (Synthroid) 300 mcg DAILY06 10/20/18 06:00 10/24/18 06:00 300 MCG Losartan Potassium (Cozaar) 100 mg DAILY 10/20/18 09:00 10/23/18 08:33 100 MG Meropenem 1 gm/ Sodium Chloride 100 ml @ 200 mls/hr Q24H 10/22/18 17:00 10/22/18 23:50 200 MLS/HR Minoxidil (Loniten) 5 mg TID 10/23/18 15:30 10/24/18 13:41 5 MG Multivitamins (Thera M Plus) 1 tab DAILY 10/20/18 12:00 10/23/18 08:33 1 TAB Piperacillin Sod/ Tazobactam Sod (Zosyn Per Pharmacy) 1 each PRN DAILY PRN 10/19/18 15:45 10/20/18 14:34 DC Piperacillin Sod/ Tazobactam Sod 2.25 gm/Sodium Chloride 50 ml @ 100 mls/hr Q8HRS 10/19/18 22:00 10/20/18 12:31 DC 10/20/18 06:17 100 MLS/HR Sodium Chloride 1,000 ml @ 400 mls/hr Q2H30M PRN 10/24/18 06:37 10/24/18 18:36 Vancomycin HCl (Vanco Per Pharmacy) 1 each PRN DAILY PRN 10/19/18 15:45 10/21/18 09:30 DC 10/21/18 08:48 1 EACH Vancomycin HCl (Vancomycin Random Level) 1 each 1X ONCE 10/21/18 05:00 10/21/18 05:01 DC 10/21/18 05:00 1 EACH Vancomycin HCl 500 mg/Sodium Chloride 100 ml @ 100 mls/hr QMWF 10/24/18 16:00 10/24/18 16:00 DC Vancomycin HCl 750 mg/Sodium Chloride 250 ml @ 250 mls/hr ONCE ONCE 10/21/18 16:00 10/21/18 16:59 Cancel Vancomycin HCl 2 gm/Sodium Chloride 500 ml @ 250 mls/hr 1X ONCE 10/19/18 16:15 10/19/18 18:14 DC 10/19/18 17:21 250 MLS/HR Lab Laboratory Tests Test 10/23/18 16:47 10/23/18 18:55 10/23/18 20:47 10/24/18 02:59 Glucose (Fingerstick) 288 mg/dL (70-99) 288 mg/dL (70-99) 258 mg/dL (70-99) Sodium Level 129 mmol/L (136-145) Potassium Level 4.7 mmol/L (3.5-5.1) Chloride Level 95 mmol/L (98-107) Carbon Dioxide Level 23 mmol/L (21-32) Anion Gap 11 (6-14) Blood Urea Nitrogen 77 mg/dL (8-26) Creatinine 5.2 mg/dL (0.7-1.3) Estimated GFR (Cockcroft-Gault) 11.3 Glucose Level 350 mg/dL (70-99) Calcium Level 8.9 mg/dL (8.5-10.1) Test 10/24/18 06:03 10/24/18 11:48 Glucose (Fingerstick) 263 mg/dL (70-99) 182 mg/dL (70-99) Results All relevant outside records, renal labs, imaging studies, telemetry/EKG's were reviewed. GOLD WILKES MD Oct 24, 2018 14:28
[2018-10-24 15:00] VITALS: BP 186/81
--- NOTE | 2018-10-24 15:33 | NUR ---
SW met with pt and pt's at bedside. Pt is not agreeable to SNU and does not want home health either. Pt was possibly agreeable to have the home health assessment but then changed his mind. Pt needing abx with dialysis three times a week. SW will continue to follow.
[2018-10-24] MEDS ORDERED: VANCOMYCIN 500 MG in IV NORMAL SALINE 100ML 100 ML IV SCH (16:00)
[2018-10-24] MEDS: MEROPENEM 1 GM in IV NORMAL SALINE 100ML 100 ML IV SCH (17:39)
[2018-10-24 19:00] VITALS: BP 188/66
[2018-10-24] MEDS: amLODIPine BESYLATE 10 MG TABLET PO SCH (20:02)
[2018-10-24] MEDS: INSULIN GLARGINE 300 UNITS/3 ML INSULN.PEN. SQ SCH (20:06)
[2018-10-24 22:56] VITALS: BP 132/59
[2018-10-25 02:59] VITALS: BP 101/58
[2018-10-25] MEDS: LEVOTHYROXINE 150 MCG TABLET PO SCH (06:23)
[2018-10-25 07:00] VITALS: BP 153/64
[2018-10-25] MEDS: INSULIN LISPRO 300 UNITS/3 ML INSULN.PEN. SQ SCH ×2 (08:00→12:30)
[2018-10-25] MEDS: LACTOBACILLUS RHAMNOSUS GG 1 CAPSULE. PO SCH (08:31)
[2018-10-25] MEDS: MINOXIDIL 2.5 MG TABLET PO SCH ×2 (08:32→14:47)
[2018-10-25] MEDS: MULTIVITAMIN with MINERAL TABLET. PO SCH (08:32)
[2018-10-25] MEDS: ASCORBIC ACID 500 MG TABLET PO SCH (08:32)
[2018-10-25] MEDS: CARVEDILOL 12.5 MG TABLET. PO SCH (08:33)
[2018-10-25] MEDS: LOSARTAN POTASSIUM 50 MG TABLET. PO SCH (08:34)
--- NOTE | 2018-10-25 08:47 | PDOC ---
Infectious Disease Note Subjective Subjective No complaints voiced- toelrating abx No F/C/pain/N/V/D/SOA ROS ROS o/w neg Vital Sign Vital Signs Vital Signs Date Time Temp Pulse Resp B/P (MAP) Pulse Ox O2 Delivery O2 Flow Rate FiO2 10/25/18 08:34 92 153/64 10/25/18 07:00 97.8 18 98 Room Air 97.8 Physical Exam PHYSICAL EXAM GENERAL: Sitting on side of bed, alert, joking HEENT: Pupils equal, oral mucosa moist. NECK: Supple. LUNGS: Clear bilaterally. No wheezing. HEART: S1, S2. + murmur ABDOMEN: Soft, nontender EXTREMITIES: No edema, no cyanosis. LUE-AVF unremarkable NEUROLOGIC: Alert, responding appropriately SKIN: Warm, dry. No generalized rash. Wounds are dressed RUE midline is clean Labs Lab Laboratory Tests Test 10/24/18 11:48 10/24/18 17:09 10/24/18 19:44 10/25/18 02:12 Glucose (Fingerstick) 182 mg/dL (70-99) 313 mg/dL (70-99) 282 mg/dL (70-99) 234 mg/dL (70-99) Micro Acinetobacter baumannii 4+ AEROBIC RES 2 Preliminary Comment Coagulase negative Staphylococcus species. 1+ Based on susceptibility to oxacillin this isolate would be susceptible to: *Penicillinase-stable penicillins, such as: Cloxacillin, Dicloxacillin, Nafcillin *Beta-lactam combination agents, such as: Amoxicillin-clavulanic acid, Ampicillin-sulbactam, Piperacillin-tazobactam *Oral cephems, such as: Cefaclor, Cefdinir, Cefpodoxime, Cefprozil, Cefuroxime, Cephalexin, Loracarbef *Parenteral cephems, such as: Cefazolin, Cefepime, Cefotaxime, Cefotetan, Ceftaroline, Ceftizoxime, Ceftriaxone, Cefuroxime *Carbapenems, such as: Doripenem, Ertapenem, Imipenem, Meropenem CONTINUED ON NEXT PAGE RUN DATE: 10/22/18 PAGE 2 RUN TIME: 1417 [facility] [address] [place] [address] Roderick Cody M.D., [employer] SPEC: [id number] PATIENT: MARY FLORES [id number] (Continued) Procedure Result Foot AEROBIC RES 3 Preliminary Gram negative rods 1+ ANTIMICROBIAL SUSCEPTIBILITY Preliminary Comment S = Susceptible; I = Intermediate; R = Resistant P = Positive; N = Negative MICS are expressed in micrograms per mL Antibiotic RSLT#1 RSLT#2 RSLT#3 RSLT#4 Ampicillin/Sulbactam S<=2 Cefepime S<=1 Cefotaxime S =4 Ceftazidime S<=1 Ceftriaxone S =8 Ciprofloxacin S<=0.25 S<=0.5 Clindamycin S<=0.25 Erythromycin S =0.5 Gentamicin S<=1 S<=0.5 Imipenem S<=1 Levofloxacin S<=0.12 S<=0.12 Meropenem S<=0.25 Oxacillin S<=0.25 Penicillin R>=0.5 Piperacillin S<=4 Rifampin S<=0.5 Tetracycline S<=1 S<=1 Tobramycin S<=1 Trimethoprim/Sulfa S<=20 S<=10 Vancomycin S =1 ANAEROBIC RES 1 PENDING AEROBIC RES 1 Preliminary Gram negative rods AEROBIC RES 2 Preliminary Staphylococcus species 10/19. BLOOD CULTURE Final GRAM NEGATIVE RODS IN 1 OF 4 BOTTLES (2 SETS COLLECTED). CALLED TO JAMAAL LITTLEJOHN ON 610/20/18 AT 0832 BY Twyla CARRANZA. CULTURE HAS BEEN SENT TO [facility] FOR FURTHER IDENTIFCATION. AMENDED REPORT: BOTH BOTTLES OF THIS SET ARE NOW POSITIVE FOR GRAM NEGATIVE RODS. JUANITO SALAZAR NOTIFIED AT 1422 10/20/18 BY Twyla CARRANZA. 10/21. BLOOD CULTURE Preliminary NO GROWTH AFTER 1 DAY Objective Assessment Fever, better Pastuerella sepsis POA, 10/19 ID pending Leukopenia now leukocytosis - improved Left foot wounds lateral aspect and great toe - clean - charcot foot - Acinetobacter/Enterobacter/MSSE Mild thrombocytopenia ESRD on HD via AV fistula Hypertension. Diabetes with peripheral neuropathy and footdrop syndrome. Coronary artery disease. History of chronic obstructive pulmonary disease. Plan Plan of Care Merrem since 10/20 will d/c after today Loaded Gent 10/24 and then [id number] mg with each HD starting 10/26 will need renal h elp last dose 10/31 Rx in chart Po Doxy at discharge rx written in chart Cont local wound care at Wound care D/w nursing this am and Pharmacy 10/24 CLARISA RUIZ MD Oct 25, 2018 08:47
[2018-10-25] MEDS: hydrALAZINE 25 MG TABLET PO SCH ×2 (09:00→14:46)
[2018-10-25] MEDS ORDERED: MEROPENEM 500 MG in IV NORMAL SALINE 50ML 50 ML IV ONE (10:00)
--- NOTE | 2018-10-25 10:31 | PDOC ---
[facility] PROGRESS NOTE Chief Complaint Chief Complaint Severe Pasteurella sepsis Fevers with unknown source ESRD on dialysis Anemia of ESRD Hypothyroidism on Synthroid Hypertension-accelerated POA Thrombocytopenia, platelets 134 Leukopenia WBC 2.6 History of Present Illness History of Present Illness Patient seen and examined this morning Seems to be at his baseline is requesting discharge I discussed the case with case management we hope to discharge on antibiotics as recommended by ID and he will be getting this while he is on dialysis as well as by mouth Doxy Discussed with RN Reviewed nephrology notes Vitals Vitals Vital Signs Date Time Temp Pulse Resp B/P (MAP) Pulse Ox O2 Delivery O2 Flow Rate FiO2 10/25/18 08:34 92 153/64 10/25/18 08:00 Room Air 10/25/18 07:00 97.8 18 98 97.8 Physical Exam Physical Exam GENERAL: Sitting on side of bed, alert, joking HEENT: Pupils equal, oral mucosa moist. NECK: Supple. LUNGS: Clear bilaterally. No wheezing. HEART: S1, S2. + murmur ABDOMEN: Soft, nontender EXTREMITIES: No edema, no cyanosis. LUE-AVF unremarkable NEUROLOGIC: Alert, responding appropriately SKIN: Warm, dry. No generalized rash. Wounds are dressed RUE midline is clean General: Alert, Oriented X3, Cooperative, No acute distress Heart: Regular rate, Normal S1, Normal S2 Lungs: Wheezing Abdomen: Normal bowel sounds, Soft, No tenderness Extremities: No clubbing, No cyanosis Skin: No breakdown Labs Labs: Laboratory Tests Test 10/24/18 11:48 10/24/18 17:09 10/24/18 19:44 10/25/18 02:12 Glucose (Fingerstick) 182 mg/dL (70-99) 313 mg/dL (70-99) 282 mg/dL (70-99) 234 mg/dL (70-99) Test 10/25/18 07:20 Glucose (Fingerstick) 172 mg/dL (70-99) Assessment and Plan Assessmemt and Plan Problems Medical Problems: (1) ESRD (end stage renal disease) Status: Acute (2) Fever Status: Acute (3) Weakness Status: Acute As per ID see below and see discharge dictation Fever, better Pastuerella sepsis POA, 10/19 ID pending Leukopenia now leukocytosis - improved Left foot wounds lateral aspect and great toe - clean - charcot foot - Acinetobacter/Enterobacter/MSSE Mild thrombocytopenia ESRD on HD via AV fistula Hypertension. Diabetes with peripheral neuropathy and footdrop syndrome. Coronary artery disease. History of chronic obstructive pulmonary disease. Plan Plan of Care Merrem since 10/20 will d/c after today Loaded Gent 10/24 and then mg with each HD starting 10/26 will need renal help last dose 10/31 Rx in chart Po Doxy at discharge rx written in chart Comment Review of Relevant I have reviewed the following items kit (where applicable) has been applied. Labs Laboratory Tests Test 10/23/18 12:06 10/23/18 16:47 10/23/18 18:55 10/23/18 20:47 Glucose (Fingerstick) 182 mg/dL (70-99) 288 mg/dL (70-99) 288 mg/dL (70-99) Sodium Level 129 mmol/L (136-145) Potassium Level 4.7 mmol/L (3.5-5.1) Chloride Level 95 mmol/L (98-107) Carbon Dioxide Level 23 mmol/L (21-32) Anion Gap 11 (6-14) Blood Urea Nitrogen 77 mg/dL (8-26) Creatinine 5.2 mg/dL (0.7-1.3) Estimated GFR (Cockcroft-Gault) 11.3 Glucose Level 350 mg/dL (70-99) Calcium Level 8.9 mg/dL (8.5-10.1) Test 10/24/18 02:59 10/24/18 06:03 10/24/18 11:48 10/24/18 17:09 Glucose (Fingerstick) 258 mg/dL (70-99) 263 mg/dL (70-99) 182 mg/dL (70-99) 313 mg/dL (70-99) Test 10/24/18 19:44 10/25/18 02:12 10/25/18 07:20 Glucose (Fingerstick) 282 mg/dL (70-99) 234 mg/dL (70-99) 172 mg/dL (70-99) Laboratory Tests Test 10/24/18 11:48 10/24/18 17:09 10/24/18 19:44 10/25/18 02:12 Glucose (Fingerstick) 182 mg/dL (70-99) 313 mg/dL (70-99) 282 mg/dL (70-99) 234 mg/dL (70-99) Test 10/25/18 07:20 Glucose (Fingerstick) 172 mg/dL (70-99) Microbiology 10/21/18 Blood Culture - Preliminary, Resulted NO GROWTH AFTER 4 DAYS 10/19/18 Anaerobic/Aerobic Culture - Final, Complete 10/19/18 Anaerobic Culture Result 1 (KIANA) - Final, Complete 10/19/18 Aerobic Culture - Final, Complete 10/19/18 Aerobic Culture Result 1 (KIANA) - Final, Complete 10/19/18 Aerobic Culture Result 2 (KIANA) - Final, Complete 10/19/18 Aerobic Culture Result 3 (KIANA) - Final, Complete 10/19/18 Antimicrobic Susceptibility - Final, Complete 10/19/18 Gram Stain - Final, Complete 10/19/18 Gram Stain Result 1 (KIANA) - Final, Complete 10/19/18 Gram Stain Result 2 (KIANA) - Final, Complete Medications Current Medications Sodium Chloride 250 ml @ 250 mls/hr 1X ONCE IV Last administered on 10/19/18at 16:15; Start 10/19/18 at 15:45; Stop 10/19/18 at 16:44; Status DC Acetaminophen (Tylenol) 1,000 mg 1X ONCE PO Last administered on 10/19/18at 16 :12; Start 10/19/18 at 15:45; Stop 10/19/18 at 15:50; Status DC Piperacillin Sod/ Tazobactam Sod (Zosyn Per Pharmacy) 1 each PRN DAILY PRN MC SEE COMMENTS; Start 10/19/18 at 15:45; Stop 10/20/18 at 14:34; Status DC Vancomycin HCl (Vanco Per Pharmacy) 1 each PRN DAILY PRN MC SEE COMMENTS Last administered on 10/21/18at 08:48; Start 10/19/18 at 15:45; Stop 10/21/18 at 09:30; Status DC Piperacillin Sod/ Tazobactam Sod 2.25 gm/Sodium Chloride 50 ml @ 100 mls/hr 1X ONCE IV Last administered on 10/19/18at 16:18; Start 10/19/18 at 16:00; Stop 10/19/18 at 16:29; Status DC Vancomycin HCl 2 gm/Sodium Chloride 500 ml @ 250 mls/hr 1X ONCE IV Last administered on 10/19/18 17:21; Start 10/19/18 at 16:15; Stop 10/19/18 at 18:14; Status DC Acetaminophen (Tylenol) 500 mg PRN Q6HRS PRN PO MILD PAIN / TEMP; Start 10/19/18 at 17:15 Acetaminophen/ Codeine Phosphate (Tylenol #3) 1 tab PRN Q6HRS PRN PO MODERATE PAIN; Start 10/19/18 at 17:15 Amlodipine Besylate (Norvasc) 10 mg HS PO Last administered on 10/24/18 20:02; Start 10/19/18 at 21:00 Carvedilol (Coreg) 12.5 mg BIDWMEALS PO Last administered on 10/25/18 08:33; Start 10/19/18 at 17:00 Ascorbic Acid (Vitamin C) 500 mg DAILY PO Last administered on 10/25/18 08:32; Start 10/20/18 at 09:00 Darbepoetin Huang (Aranesp) 25 mcg WEEKLYHS SQ ; Start 10/21/18 at 21:00; Stop 10/21/18 at 21:00; Status DC Hydralazine HCl (Apresoline) 25 mg TID PO Last administered on 10/24/18 20:00; Start 10/19/18 at 21:00 Insulin Glargine (Lantus) 16 units QHS SQ Last administered on 10/24/18 20:06; Start 10/19/18 at 21:00 Levothyroxine Sodium (Synthroid) 300 mcg DAILY06 PO Last administered on 10/25/18 06:23; Start 10/20/18 at 06:00 Losartan Potassium (Cozaar) 100 mg DAILY PO Last administered on 10/25/18 08:34; Start 10/20/18 at 09:00 Insulin Human Lispro (HumaLOG) 0-9 UNITS TIDWMEALS SQ Last administered on 10/24/18 17:53; Start 10/20/18 at 08:00 Dextrose (Dextrose 50%-Water Syringe) 12.5 gm PRN Q15MIN PRN IV SEE COMMENTS Last administered on 10/21/18 07:07; Start 10/19/18 at 17:15 Clonidine HCl (Catapres) 0.1 mg PRN Q1HR PRN PO HYPERTENSION; Start 10/19/18 at 17:15 Piperacillin Sod/ Tazobactam Sod 2.25 gm/Sodium Chloride 50 ml @ 100 mls/hr Q8HRS IV Last administered on 10/20/18at 06:17; Start 10/19/18 at 22:00; Stop 10/20/18 at 12:31; Status DC Vancomycin HCl (Vancomycin Random Level) 1 each 1X ONCE MC Last administered on 10/21/18at 05:00; Start 10/21/18 at 05:00; Stop 10/21/18 at 05:01; Status DC Sodium Chloride 1,000 ml @ 100 mls/hr 1X ONCE IV Last administered on 10/19/18at 23:15; Start 10/19/18 at 23:15; Stop 10/20/18 at 09:14; Status DC Multivitamins (Thera M Plus) 1 tab DAILY PO Last administered on 10/25/18at 08:32; Start 10/20/18 at 12:00 Darbepoetin Huang (Aranesp) 60 mcg WEEKLYHS SQ Last administered on 10/21/18at 00:06; Start 10/20/18 at 21:00 Meropenem 1 gm/ Sodium Chloride 100 ml @ 200 mls/hr DAILY IV Last administered on 10/21/18at 16:57; Start 10/21/18 at 09:00; Stop 10/21/18 at 19:25; Status DC Lactobacillus Rhamnosus (Culturelle) 1 cap BID PO Last administered on 10/25/18at 08:31; Start 10/20/18 at 21:00 Vancomycin HCl 750 mg/Sodium Chloride 250 ml @ 250 mls/hr ONCE ONCE IV ; Start 10/21/18 at 16:00; Stop 10/21/18 at 16:59; Status Cancel Vancomycin HCl 500 mg/Sodium Chloride 100 ml @ 100 mls/hr QMWF IV ; Start 10/24/18 at 16:00; Stop 10/24/18 at 16:00; Status DC Sodium Chloride 1,000 ml @ 1,000 mls/hr Q1H PRN IV hypotension; Start 10/21/18 at 10:02; Stop 10/21/18 at 16:01; Status DC Diphenhydramine HCl (Benadryl) 25 mg 1X PRN PRN IV ITCHING; Start 10/21/18 at 10:15; Stop 10/22/18 at 10:14; Status DC Diphenhydramine HCl (Benadryl) 25 mg 1X PRN PRN IV ITCHING; Start 10/21/18 at 10:15; Stop 10/22/18 at 10:14; Status DC Sodium Chloride 1,000 ml @ 400 mls/hr Q2H30M PRN IV PATENCY; Start 10/21/18 at 10:02; Stop 10/21/18 at 22:01; Status DC Info (PHARMACY MONITORING -- do not chart) 1 each PRN DAILY PRN MC SEE COMMENTS; Start 10/21/18 at 10:15; Stop 10/24/18 at 16:06; Status DC Meropenem 1 gm/ Sodium Chloride 100 ml @ 200 mls/hr Q24H IV Last administered on 10/24/18at 17:39; Start 10/22/18 at 17:00; Stop 10/25/18 at 09:23; Status DC Insulin Human Lispro (HumaLOG) 10 units 1X ONCE SQ Last administered on 10/22/18at 11:10; Start 10/22/18 at 11:00; Stop 10/22/18 at 11:03; Status DC Insulin Human Lispro (HumaLOG) 6 units 1X ONCE SQ Last administered on 10/22/18at 14:50; Start 10/22/18 at 14:45; Stop 10/22/18 at 14:46; Status DC Minoxidil (Loniten) 5 mg TID PO Last administered on 10/25/18at 08:32; Start 10/23/18 at 15:30 Sodium Chloride 1,000 ml @ 1,000 mls/hr Q1H PRN IV hypotension; Start 10/24/18 at 06:37; Stop 10/24/18 at 12:36; Status DC Diphenhydramine HCl (Benadryl) 25 mg 1X PRN PRN IV ITCHING; Start 10/24/18 at 06:45; Stop 10/25/18 at 06:44; Status DC Diphenhydramine HCl (Benadryl) 25 mg 1X PRN PRN IV ITCHING; Start 10/24/18 at 06:45; Stop 10/25/18 at 06:44; Status DC Sodium Chloride 1,000 ml @ 400 mls/hr Q2H30M PRN IV PATENCY; Start 10/24/18 at 06:37; Stop 10/24/18 at 18:36; Status DC Info (PHARMACY MONITORING -- do not chart) 1 each PRN DAILY PRN MC SEE COMMENTS; Start 10/24/18 at 06:45 Gentamicin Sulfate 1 each PRN DAILY PRN MC SEE COMMENTS; Start 10/24/18 at 11:15 Gentamicin Sulfate 170 mg/ Dextrose 104.25 ml @ 104.25 mls/hr 1X ONCE IV Last administered on 10/24/18at 13:42; Start 10/24/18 at 13:00; Stop 10/24/18 at 13:59; Status DC Gentamicin Sulfate 1 each 1X ONCE MC ; Start 10/26/18 at 08:00; Stop 10/26/18 at 08:01 Meropenem 500 mg/ Sodium Chloride 50 ml @ 100 mls/hr 1X ONCE IV ; Start 10/25/18 at 10:00; Stop 10/25/18 at 10:29 Active Scripts Active Reported Minoxidil 2.5 Mg Tablet 2 Tab PO TID Epogen (Epoetin Huang) 2,000 Unit/1 Ml Vial 0 IJ 3X/WEEK Vitamin C (Ascorbic Acid) 100 Mg Tablet 100 Mg PO DAILY Novolog (Insulin Aspart) 100 Unit/1 Ml Cartridge 0 SQ 5XDAY Lantus (Insulin Glargine,Hum.rec.anlog) 100 Unit/1 Ml Vial 16 Unit SQ HS Amlodipine Besylate 10 Mg Tablet 10 Mg PO HS Synthroid (Levothyroxine Sodium) 300 Mcg Tablet 300 Mcg PO DAILY Carvedilol (Carvedilol) 12.5 Mg Tablet 12.5 Mg PO BID Cozaar (Losartan Potassium) 100 Mg Tablet 100 Mg PO DAILY06 Vitals/I & O Vital Sign - Last 24 Hours 10/24/18 10/24/18 10/24/18 10/24/18 13:40 13:41 13:42 15:00 Temp 98.5 98.5 Pulse 61 Resp 20 B/P (MAP) 189/79 (115) 189/79 189/79 186/81 (116) O2 Delivery Room Air 10/24/18 10/24/18 10/24/18 10/24/18 17:00 19:00 20:00 20:02 Temp 98.2 98.2 Pulse 59 63 63 63 Resp 18 B/P (MAP) 188/66 (106) 188/66 188/66 Pulse Ox 96 O2 Delivery Room Air 10/24/18 10/24/18 10/24/18 10/25/18 20:02 20:05 22:56 02:59 Temp 98.1 98.3 98.1 98.3 Pulse 63 63 57 Resp 18 18 B/P (MAP) 188/66 132/59 (83) 101/58 (72) Pulse Ox 99 99 O2 Delivery Room Air Room Air Room Air 10/25/18 10/25/18 10/25/18 10/25/18 07:00 08:00 08:32 08:33 Temp 97.8 97.8 Pulse 92 92 92 Resp 18 B/P (MAP) 153/64 (93) 153/64 153/64 Pulse Ox 98 O2 Delivery Room Air Room Air 10/25/18 08:34 Pulse 92 B/P (MAP) 153/64 Intake and Output 10/24/18 10/24/18 10/25/18 15:00 23:00 07:00 Intake Total 250 ml 720 ml Balance 250 ml 720 ml MADDY ITNOCO III DO Oct 25, 2018 10:31
--- NOTE | 2018-10-25 10:35 | PDOC3 ---
[facility]-Dis[facility] Summary Date of Admission: Date of Admission: October 19, 2018 Date of Discharge: Date of Discharge: Oct 25, 2018 Admission Diagnosis: Admitting Diagnosis: Fevers with unknown source ESRD on dialysis Anemia of ESRD Hypothyroidism on Synthroid Hypertension-accelerated POA Thrombocytopenia, platelets 134 Leukopenia WBC 2.6 Discharge Diagnosis: Discharge Diagnosis: Severe pasteurella sepsis resolving Left foot wound ESRD on dialysis Anemia of ESRD Hypothyroidism Hypertension-accelerated POA Thrombocytopenia Consults: Consults: Infectious disease and nephrology Procedures: Procedures: Hemodialysis Hospital Course: Hospital Course: Patient is a pleasant elderly male who basically presented with severe sepsis Blood cultures eventually confirmed Pasteurella We did consult infectious disease and nephrology and we've been giving IV meropenem He had several dialysis treatments as well Today I saw and examined him his heart tones are normal his lungs were clear is requesting discharge I discussed case with case management Plan is to discharge him with outpatient IV Avelox on dialysis and by mouth doxycycline Disposition: Disposition/Orders: D/C to Home Activity: Activity: Resume previous activity Diet: Diet: Renal Medications: Home Meds Reported Medications Minoxidil (MINOXIDIL) 2.5 Mg Tablet, 2 TAB PO TID for HTN, #180 TAB 1 Refill 10/23/18 Epoetin Huang (EPOGEN) 2,000 Unit/1 Ml Vial, 0 IJ 3X/WEEK, VIAL 07/25/13 Ascorbic Acid (VITAMIN C) 100 Mg Tablet, 100 MG PO DAILY 07/25/13 Insulin Aspart (NOVOLOG) 100 Unit/1 Ml Cartridge, 0 SQ 5XDAY 07/25/13 Insulin Glargine,Hum.rec.anlog (LANTUS) 100 Unit/1 Ml Vial, 16 UNIT SQ HS, VIAL 07/25/13 Amlodipine Besylate (AMLODIPINE BESYLATE) 10 Mg Tablet, 10 MG PO HS 07/25/13 Levothyroxine Sodium (SYNTHROID) 300 Mcg Tablet, 300 MCG PO DAILY 07/25/13 Carvedilol (CARVEDILOL ) 12.5 Mg Tablet, 12.5 MG PO BID 07/25/13 Losartan Potassium (COZAAR) 100 Mg Tablet, 100 MG PO DAILY06 07/25/13 Scheduled Amlodipine Besylate (Amlodipine Besylate), 10 MG PO HS, (Reported) Ascorbic Acid (Vitamin C), 100 MG PO DAILY, (Reported) Carvedilol (Carvedilol ), 12.5 MG PO BID, (Reported) Epoetin Huang (Epogen), 0 IJ 3X/WEEK, (Reported) Insulin Aspart (Novolog), 0 SQ 5XDAY, (Reported) Insulin Glargine,Hum.rec.anlog (Lantus), 16 UNIT SQ HS, (Reported) Levothyroxine Sodium (Synthroid), 300 MCG PO DAILY, (Reported) Losartan Potassium (Cozaar), 100 MG PO DAILY06, (Reported) Minoxidil (Minoxidil), 2 TAB PO TID, (Reported) Total Time: Total Time: 31 minutes MADDY TINOCO III DO Oct 25, 2018 10:35
--- NOTE | 2018-10-25 10:36 | SNU/HH DC ---
DISCHARGE WITH HOME HEALTH DISCHARGE INFORMATION: Final Diagnosis: Problems Medical Problems: (1) ESRD (end stage renal disease) Status: Acute (2) Fever Status: Acute (3) Weakness Status: Acute Condition on Discharge: Stable CODE STATUS: Code Status: Full HOME HEALTH: Face to Face: I certify this patient is under my care and that I, or a nurse practitioner or physician's nutritional assistant working with me, had a face to face encounter that meets the physician face to face encounter requirements with this patient on []. Medical Complications: Other RN For Eval/Treatment: Yes Physical Therapy For: Evalulation/Treatment Occupational Therapy For: Evaluation/Treatment Home Health Aide For: Self-care [employer] For: Community Resources Pt Meets Homebound Status: Unsteady balance w/ amb, POST DISCHARGE ORDERS: DIET AFTER DISCHARGE: Renal CERTIFICATION STATEMENT: Certification Statement: Certification Statement: Based on the above finding, I certify that this patient is confined to the home and needs intermittent usp care, physical therapy and/or speech therapy, or continues to need occupational therapy.~ This patient is under my care, and I have initiated the establishment of the plan of care.~ This patient will be followed by myself or a community physician who will periodically review the plan of care. Home Meds Reported Medications Minoxidil (MINOXIDIL) 2.5 Mg Tablet, 2 TAB PO TID for HTN, #180 TAB 1 Refill 10/23/18 Epoetin Huang (EPOGEN) 2,000 Unit/1 Ml Vial, 0 IJ 3X/WEEK, VIAL 07/25/13 Ascorbic Acid (VITAMIN C) 100 Mg Tablet, 100 MG PO DAILY 07/25/13 Insulin Aspart (NOVOLOG) 100 Unit/1 Ml Cartridge, 0 SQ 5XDAY 07/25/13 Insulin Glargine,Hum.rec.anlog (LANTUS) 100 Unit/1 Ml Vial, 16 UNIT SQ HS, VIAL 07/25/13 Amlodipine Besylate (AMLODIPINE BESYLATE) 10 Mg Tablet, 10 MG PO HS 07/25/13 Levothyroxine Sodium (SYNTHROID) 300 Mcg Tablet, 300 MCG PO DAILY 07/25/13 Carvedilol (CARVEDILOL ) 12.5 Mg Tablet, 12.5 MG PO BID 07/25/13 Losartan Potassium (COZAAR) 100 Mg Tablet, 100 MG PO DAILY06 07/25/13 MADDY TINOCO III DO Oct 25, 2018 10:36
--- NOTE | 2018-10-25 11:00 | NUR ---
BHAVIN following Pt. BHAVIN faxed orders for IV abx orders to [facility] n[facility]ul. Awaiting on approval. Addendum: 10/25/18 at 1326 by TASHA DELCID BHAVIN spoke with Dahiana at [facility] and they are able to accommodate IV abx. Pt declined services and reported his is able to pick him. RN notified.
--- NOTE | 2018-10-25 11:03 | PDOC ---
SUBJECTIVE ROS No complaints, OBJECTIVE Vital Signs Vital Signs Date Time Temp Pulse Resp B/P (MAP) Pulse Ox O2 Delivery O2 Flow Rate FiO2 10/25/18 08:34 92 153/64 10/25/18 08:00 Room Air 10/25/18 07:00 97.8 18 98 97.8 I & 0 Intake and Output 10/25/18 07:00 Intake Total 970 ml Balance 970 ml Intake Oral 970 ml # Voids 3 PHYSICAL EXAM Physical Exam GENERAL: Sitting in the chair,NAD HEENT: oral mucosa moist. NECK: Supple. LUNGS: Clear bilaterally. Nonlabored HEART: S1, S2. + murmur ABDOMEN: Soft, nontender, EXTREMITIES: No edema, LUE-AVF unremarkable NEUROLOGIC: Alert, grossly normal SKIN: No rash. Left great toe and left lateral foot wounds bandaged. DIAGNOSIS/ASSESSMENT Assessment & Plan ESRD- MWF , was on PD for 3 years, On HD for 10 yrs per Pt No indication for HD currently Access Lt AVF G neg sepsis- Per ID Mid line was placed for Abx-per ID Loaded Gent 10/24 and then [id number] mg with each HD starting 10/26 and last dose 10/31 Po Doxy at discharge HTN - stable DM II Anemia- On MICHA COMMENT/RELEVANT DATA Meds Current Medications Medications (Trade) Dose Ordered Sig/Diana Start Time Stop Time Status Last Admin Dose Admin Acetaminophen (Tylenol) 500 mg PRN Q6HRS PRN 10/19/18 17:15 Acetaminophen/ Codeine Phosphate (Tylenol #3) 1 tab PRN Q6HRS PRN 10/19/18 17:15 Amlodipine Besylate (Norvasc) 10 mg HS 10/19/18 21:00 10/24/18 20:02 10 MG Ascorbic Acid (Vitamin C) 500 mg DAILY 10/20/18 09:00 10/25/18 08:32 500 MG Carvedilol (Coreg) 12.5 mg BIDWMEALS 10/19/18 17:00 10/25/18 08:33 12.5 MG Clonidine HCl (Catapres) 0.1 mg PRN Q1HR PRN 10/19/18 17:15 Darbepoetin Huang (Aranesp) 60 mcg WEEKLYHS 10/20/18 21:00 10/21/18 00:06 60 MCG Dextrose (Dextrose 50%-Water Syringe) 12.5 gm PRN Q15MIN PRN 10/19/18 17:15 10/21/18 07:07 25 GM Diphenhydramine HCl (Benadryl) 25 mg 1X PRN PRN 10/24/18 06:45 10/25/18 06:44 DC Gentamicin Sulfate 170 mg/ Dextrose 104.25 ml @ 104.25 mls/hr 1X ONCE 10/24/18 13:00 10/24/18 13:59 DC 10/24/18 13:42 104.25 MLS/HR Gentamicin Sulfate 1 each 1X ONCE 10/26/18 08:00 10/26/18 08:01 Hydralazine HCl (Apresoline) 25 mg TID 10/19/18 21:00 10/24/18 20:00 25 MG Info (PHARMACY MONITORING -- do not chart) 1 each PRN DAILY PRN 10/24/18 06:45 Insulin Glargine (Lantus) 16 units QHS 10/19/18 21:00 10/24/18 20:06 14 UNITS Insulin Human Lispro (HumaLOG) 6 units 1X ONCE 10/22/18 14:45 10/22/18 14:46 DC 10/22/18 14:50 6 UNITS Lactobacillus Rhamnosus (Culturelle) 1 cap BID 10/20/18 21:00 10/25/18 08:31 1 CAP Levothyroxine Sodium (Synthroid) 300 mcg DAILY06 10/20/18 06:00 10/25/18 06:23 300 MCG Losartan Potassium (Cozaar) 100 mg DAILY 10/20/18 09:00 10/25/18 08:34 100 MG Meropenem 1 gm/ Sodium Chloride 100 ml @ 200 mls/hr Q24H 10/22/18 17:00 10/25/18 09:23 DC 10/24/18 17:39 200 MLS/HR Meropenem 500 mg/ Sodium Chloride 50 ml @ 100 mls/hr 1X ONCE 10/25/18 10:00 10/25/18 10:29 DC 10/25/18 10:28 100 MLS/HR Minoxidil (Loniten) 5 mg TID 10/23/18 15:30 10/25/18 08:32 5 MG Multivitamins (Thera M Plus) 1 tab DAILY 10/20/18 12:00 10/25/18 08:32 1 TAB Piperacillin Sod/ Tazobactam Sod (Zosyn Per Pharmacy) 1 each PRN DAILY PRN 10/19/18 15:45 10/20/18 14:34 DC Piperacillin Sod/ Tazobactam Sod 2.25 gm/Sodium Chloride 50 ml @ 100 mls/hr Q8HRS 10/19/18 22:00 10/20/18 12:31 DC 10/20/18 06:17 100 MLS/HR Sodium Chloride 1,000 ml @ 400 mls/hr Q2H30M PRN 10/24/18 06:37 10/24/18 18:36 DC Vancomycin HCl (Vanco Per Pharmacy) 1 each PRN DAILY PRN 10/19/18 15:45 10/21/18 09:30 DC 10/21/18 08:48 1 EACH Vancomycin HCl (Vancomycin Random Level) 1 each 1X ONCE 10/21/18 05:00 10/21/18 05:01 DC 10/21/18 05:00 1 EACH Vancomycin HCl 500 mg/Sodium Chloride 100 ml @ 100 mls/hr QMWF 10/24/18 16:00 10/24/18 16:00 DC Vancomycin HCl 750 mg/Sodium Chloride 250 ml @ 250 mls/hr ONCE ONCE 10/21/18 16:00 10/21/18 16:59 Cancel Vancomycin HCl 2 gm/Sodium Chloride 500 ml @ 250 mls/hr 1X ONCE 10/19/18 16:15 10/19/18 18:14 DC 10/19/18 17:21 250 MLS/HR Lab Laboratory Tests Test 10/24/18 11:48 10/24/18 17:09 10/24/18 19:44 10/25/18 02:12 Glucose (Fingerstick) 182 mg/dL (70-99) 313 mg/dL (70-99) 282 mg/dL (70-99) 234 mg/dL (70-99) Test 10/25/18 07:20 Glucose (Fingerstick) 172 mg/dL (70-99) Results All relevant outside records, renal labs, imaging studies, telemetry/EKG's were reviewed. GOLD WILKES MD Oct 25, 2018 11:03
[2018-10-25 11:09] VITALS: BP 150/51
--- NOTE | 2018-10-25 12:40 | NUR ---
Patient's blood glucose prelunch was 249, 2 units of humalog given per patient request.
[2018-10-25 15:00] VITALS: BP 160/55
--- NOTE | 2018-10-25 16:43 | NUR ---
Discharge Note: MARY FLORES [address] Discharge instructions and discharge home medications reviewed with patient and a copy given. All questions have been answered and understanding verbalized. The following instructions and handouts were given: Hemodialysis tomorrow as scheduled. Patient to receive gentamicin antibiotic during dialysis with last dose on October 31. Patient to take doxycyline 100 mg Po 2x a day for 7 days. Called in prescription to [facility] pharmacy in [place]. Patient to follow up at wound care clinic ([facility]. Watch out for fever, N/V, worsening of symptoms. Diabetic foot care handout given. Discontinued lines and drains: midline catheter tip intact, patient tolerated removal, no complications noted. Patient discharged to home with self-care via wheelchair accompanied by family member at 1600.
[2018-10-26] MEDS ORDERED: GENTAMICIN TROUGH LEVEL. MC ONE (08:00)
[2018-10-26] MEDS ORDERED: GENTAMICIN RANDOM LEVEL. MC ONE (08:00)
== END 2018-10-25 16:00 | disposition home or self-care (01) | DRG 867 ==
LOC: ER 15:31 → 6 SOUTH 17:30
PROVIDERS: ADMIT Internal Medicine; ATTEND Internal Medicine
PROC: 5A1D70Z Performance of Urinary Filtration, Intermittent, Less than 6 Hours Per Day (ICD-10-PCS; principal; 2018-10-21)
PROC: 5A1D70Z Performance of Urinary Filtration, Intermittent, Less than 6 Hours Per Day (ICD-10-PCS; 2018-10-24)
PROC: 05HY33Z Insertion of Infusion Device into Upper Vein, Percutaneous Approach (ICD-10-PCS; 2018-10-24)
DX: A28.0 Pasteurellosis (principal); N18.6 End stage renal disease; R65.20 Severe sepsis without septic shock; I12.0 Hypertensive chronic kidney disease with stage 5 chronic kidney disease or end stage renal disease; D61.818 Other pancytopenia; D63.1 Anemia in chronic kidney disease; E11.22 Type 2 diabetes mellitus with diabetic chronic kidney disease; Z99.2 Dependence on renal dialysis; Z88.6 Allergy status to analgesic agent; Z88.1 Allergy status to other antibiotic agents; Z88.7 Allergy status to serum and vaccine; Z88.8 Allergy status to other drugs, medicaments and biological substances; E03.9 Hypothyroidism, unspecified; Z79.4 Long term (current) use of insulin; Z82.49 Family history of ischemic heart disease and other diseases of the circulatory system; I25.10 Atherosclerotic heart disease of native coronary artery without angina pectoris; G47.33 Obstructive sleep apnea (adult) (pediatric); E78.5 Hyperlipidemia, unspecified; E11.42 Type 2 diabetes mellitus with diabetic polyneuropathy; J44.9 Chronic obstructive pulmonary disease, unspecified; M21.379 Foot drop, unspecified foot; E11.649 Type 2 diabetes mellitus with hypoglycemia without coma; E11.610 Type 2 diabetes mellitus with diabetic neuropathic arthropathy; E11.319 Type 2 diabetes mellitus with unspecified diabetic retinopathy without macular edema; I87.2 Venous insufficiency (chronic) (peripheral)
CPT/HCPCS: 36415; 36569; 71045; 74176; 80048; 80053; 80202; 82962; 83605; 84484; 85007; 85025; 85027; 85610; 85651; 87040; 87071; 87075; 87077; 87186; 87205; 93005; 93971; 96365; 96367; 96375; J0881; J1580; J1815; J2185; J2543; J3370; J7030; J7040; J7042; J7050; 97116; 97530; 97535; 99285-25

== ENCOUNTER 2019-06-15 08:51 | Inpatient (IN) | payer MEDICARE, OTHER ==
[~2019-06-15] VITALS: Ht 188 cm; Wt 104.3 kg
[~2019-06-15 08:51] MED LIST changes: +MINO2.5T12 PO
[2019-06-15 09:30] VITALS: BP 170/64
--- NOTE | 2019-06-15 09:57 | NUR ---
Wound care Wound care assessment of patient this morning at [facility]. Left great toe is swollen, macerated, and blanched with necrotic area at tip of toe. Cleansed area and dressed with aquacel ag and foam, recommend to change daily and PRN for drainage. [facility] will follow up with Dr Dorantes for further assessment. No other wounds noted.
[2019-06-15] MEDS ORDERED: CALC667T4 PO (09:59)
[2019-06-15] MEDS ORDERED: ACET500T68 PO (09:59)
[2019-06-15] MEDS ORDERED: DULO30CA2 PO (10:07)
[2019-06-15] MEDS ORDERED: TRAM50TA PO (10:07)
[2019-06-15] MEDS ORDERED: ZOLP5TAB PO (10:07)
[2019-06-15] MEDS ORDERED: INSU100V6 SQ (10:07)
[2019-06-15] MEDS ORDERED: LACT1CAP19 PO (10:07)
--- NOTE | 2019-06-15 10:50 | PDOC ---
Infectious Disease Note Objective Assessment Left great toe infection CKD on HD Levofloxacin allergy - rash H/o Pasturella and Acinetobacter?Enterobacter DM COPD CAD Charcot foot Plan Plan of Care Vanc Meropenem Micafungin F/u labs and cults D/c MRSA screen as on Vanc for 2 days and will be irrelevant in neg Thank you # [id number] CLARISA RUIZ MD Jun 15, 2019 10:50
[2019-06-15 11:00] VITALS: BP 120/49
[2019-06-15] MEDS ORDERED: MEROPENEM 500 MG in IV NORMAL SALINE 50ML 50 ML IV SCH (11:00)
--- NOTE | 2019-06-15 11:07 | HP ---
ADMIT DATE: 06/15/2019 HISTORY OF PRESENT ILLNESS: The patient is a 63-year-old male patient who was admitted to [facility] with cellulitis of his right lower extremity and infected necrotic right big toe. CT scan did not show any sign of osteomyelitis, but just severe cellulitis. He apparently was initially admitted to [facility] where he was evaluated and has had a CT scan of the right lower extremity, which showed that there is shallow ulceration at the plantar aspect of the distal great toe subjacent to the distal phalanx measuring up to 5 mm in depth, no sinus tract is identified or soft tissue gas, no CT manifestation of osteomyelitis at this location or elsewhere. No acute fracture. He has marked subcutaneous edema throughout the foot extending up to the ankle and involving the visualized lower leg, this is nonspecific for bland edema or cellulitis would be better differentiated clinically, multifocal degenerative changes in the background of osteopenia and extensive vascular calcification. Given that he requires dialysis, wound care and IV antibiotic. A decision was made to transfer him to [facility] to consult the Nephrology team, Infectious Disease team and Wound care team. PAST MEDICAL HISTORY: Significant for longstanding type 2 diabetes mellitus with multiple complications including diabetic proliferative retinopathy, diabetic nephropathy and diabetic polyneuropathy. He has hypertension, hyperlipidemia, end-stage renal disease, for which he was on peritoneal dialysis for 3-1/2 years and switched to hemodialysis about 11 years ago. He has also generalized osteoarthritis. PAST SURGICAL HISTORY: Significant for bilateral cataract extraction and lens implant. He has a laser photocoagulation for both eyes. He actually underwent 70 laser treatments. He has had also tonsillectomy. Arteriovenous fistula, first one was in the left forearm that has failed. The second was in the left arm and has been successful. He has also a peritoneal dialysis catheter placement and colonoscopy. ALLERGIES: HE IS ALLERGIC TO NONSTEROIDAL ANTI-INFLAMMATORY MEDICATION, LEVOFLOXACIN AND FLU VACCINE. MEDICATIONS: He is currently on following medications: He is on minoxidil 2.5 mg twice a day, carvedilol 6.25 mg once a day and carvedilol 12.5 mg daily, amlodipine besylate 10 mg once a day, losartan potassium 100 mg once a day, duloxetine 30 mg once a day, calcium acetate 667 mg 3 times a day with meals. He is also on NovoLog insulin and insulin sliding scale before meals and Lantus 14 units at bedtime. FAMILY HISTORY: He has 4 older brothers, one of them is a 68-year-old and has multiple medical problems including coronary artery disease, COPD and multiple back surgeries. The others are seemingly healthy. His father at the age of 60 because of esophageal cancer. Mother at the age of 84 because of severe peripheral vascular disease. SOCIAL HISTORY: He is . He has 1 daughter and 2 sons. He is a former smoker, quit in 1980. He was also be heavy alcohol drinker, quit in 1984. He used to smoke marijuana at younger age. He has worked in multiple jobs including [employer] in [employer] department. He apparently was disabled since the age of 48 because of poor vision. REVIEW OF SYSTEMS: As per history of present illness. PHYSICAL EXAMINATION GENERAL: When I examined him, he looked somewhat pale, not jaundiced, cyanosis or thyromegaly. No jugular venous distention. Has mild bilateral limb edema, more so on the left than right. VITAL SIGNS: His heart rate was 62, blood pressure was 164/78, temperature was 98.1, respiratory rate 20, and oxygen saturation was 98%. HEAD, EYES, EARS, NOSE AND THROAT: Showed normocephalic, atraumatic. NECK: Supple. HEART: Showed normal first and second heart sounds. No gallop or murmur. CHEST: Clear to auscultation. No crepitation or rhonchi. ABDOMEN: Distended, soft, nontender. NEUROLOGIC: He is awake, alert, responding appropriately. All cranial nerves intact. EXTREMITIES: He moves extremities without difficulty. He has arteriovenous fistula on the left arm and his left foot is swollen and erythematous with the tip of the left big toe seems to be infected with purulent fluid under the skin. LABORATORY DATA: This morning done at [facility] showed a white cell count 7200, hemoglobin 10, hematocrit 32, MCV 105 and platelet count of 116,000. His chemistry showed a serum sodium 137, potassium 4.8, chloride 106, bicarbonate 20, anion gap of 11, BUN 45, creatinine 5.4, estimated GFR was 10.7. His blood glucose was 96, calcium was 8.2. IMPRESSION: In summary, this is a 63-year-old male patient who came in with infected left big toe and left lower extremity cellulitis and has multiple other medical problems including: A. Longstanding type 2 diabetes mellitus with triopathy. B. Hypertension. C. Hyperlipidemia. D. End-stage renal disease, on hemodialysis and generalized osteoarthritis. PLAN: To continue with IV vancomycin with the pharmacy to dose. Continue the hemodialysis as per Nephrology team. We will consult the Infectious Disease, Wound care team and Nephrology team. PIEDAD LAND MD DR: HOUST[place]/bernardo JOB#: [id number] / [id number]
--- NOTE | 2019-06-15 11:11 | CONS ---
DATE OF CONSULTATION: 06/15/2019 LOCATION: The patient's room is 46. REQUESTING PHYSICIAN: Dr. Florence REASON FOR CONSULTATION: Toe infection. HISTORY OF PRESENT ILLNESS: The patient is a pleasant 63-year-old gentleman with history of diabetes as well as chronic kidney disease. He did have a previous cellulitis in the past with Enterobacter as well as Acinetobacter and additionally had sepsis with Pasteurella. He states he had had a wound on his left great toe, but it had healed over and been doing fairly well. He does walk around his house without shoes, and his left great toe tends to bend forward causing him to catch his nail or his toe on the carpet sometimes and he ends up with a "trail of blood." This happened several days ago and his left toe began to swell. He presented to [facility]. At that time, on 06/13/2019, he had a white count of 10.3 with 85% segs and sedimentation rate was 18 with a CRP of 52.9. He was placed on IV vancomycin. His white blood cell count improved to 7.2 on 06/14/2019. Blood cultures obtained on 06/13/2019 thus far have been negative. He did undergo an x-ray that did not show any acute osteomyelitis, but he was transferred to [facility] for further care and evaluation. He has not had any fevers, chills, or sweats. He states that he has been eating okay. No headaches, sore throat, or cough. No nausea or vomiting. No diarrhea. He normally goes under dialysis on Wednesday, Wednesday, and Wednesday. Currently, we evaluated the wound with Dr. Dorantes and he did some debridement of a macerated area and removed the nailbed. He is status post debridement and the area underneath appeared to be clean with no gross pus. He did have some erythema tracking up his left leg, but appears to be improved based on the outline. PAST MEDICAL HISTORY: Positive for the Pasteurella sepsis in 07/2018. He had left foot wounds that were positive for Acinetobacter, Enterobacter, and MSSE. He has a history of leukopenia; thrombocytopenia; Charcot foot; chronic kidney disease, on hemodialysis; hypertension; and diabetes with peripheral neuropathy. He has foot drop, coronary artery disease, history of COPD, venous insufficiency, hypothyroidism, history of pseudoaneurysm of the femoral artery, and history of obesity. PAST SURGICAL HISTORY: Positive for cardiac catheterization and history of fistulous shunt placement in his left upper extremity. REVIEW OF SYSTEMS: Otherwise negative except for what is mentioned above. ALLERGIES: LISTED LEVAQUIN WHICH CAUSES A RASH, NSAIDS, INFLUENZA VACCINE, PNEUMOCOCCAL VACCINE, AND UROKINASE. SOCIAL HISTORY: No alcohol. He is . He does have a dog at home still. FAMILY HISTORY: Noncontributory. CURRENT MEDICATIONS: He had received vancomycin. He has received previously insulin and levothyroxine. Other meds per chart. PHYSICAL EXAMINATION: VITAL SIGNS: He is afebrile with temperature 98.4. Pulse 61, respirations 16, blood pressure 170/64, and satting 95% on room air. CONSTITUTIONAL: He is a pleasant gentleman. He is cooperative. He is sitting upright in bed. HEENT: Pupils are equal and reactive. Normal conjunctivae. Oral cavity, pharynx is clear. NECK: Supple. No JVD. LUNGS: Clear to auscultation bilaterally. HEART: S1, S2 with a soft murmur. ABDOMEN: Soft and nontender. No guarding or rebound. EXTREMITIES: Without clubbing or cyanosis. He has left upper extremity fistula that is unremarkable. Left great toe had an area of blanched macerated tissue that has now been removed at the bedside by wound care. Underlying tissue appeared to be healthy at the wound bed. There is a dark what appears to be more of a blood clot type thing. He does have a Charcot joint. SKIN: Warm to touch without generalized rash. He has a little bit of erythema just below his knee on the left side. NEUROLOGIC: He is alert and responding to questions appropriately. PSYCHIATRIC: Affect is pleasant. LABORATORY DATA: Laboratory values from [facility] reviewed in history of present illness. No new radiological studies. IMPRESSION: 1. Left great toe infection. 2. Chronic kidney disease, on hemodialysis. 3. Levofloxacin allergy, causes rash. 4. History of Pasteurella, Acinetobacter, and Enterobacter. 5. Diabetes. 6. Chronic obstructive pulmonary disease. 7. Coronary artery disease. 8. Charcot foot. RECOMMENDATIONS: At this point, we will continue vancomycin dose, meropenem, and micafungin. Follow up labs and cultures. We will discontinue the MRSA screen that has been ordered, as he has been on vancomycin for 2 days and will be irrelevant if negative. Thank you for opportunity to participate in this patient's care. If you have any questions, please do not hesitate to contact me. CLARISA RUIZ MD DR: Demar JOB#: [id number] / [id number] TIMI
--- NOTE | 2019-06-15 11:41 | PDOC2 ---
CONSULT Date of Consult Date of Consult DATE: 06/15/19 TIME: 11:27 Reason for Consult Reason for Consult: ESRD Source Source: Chart review, Patient History of Present Illness Reason for Visit: Pt is a a 63-year-old CM with history of diabetes , ESRD , past Hx of cellulitis admitted with c/o swelling of lt great toe (walks without footwear) He presented to [facility]. on 06/13/2019, and was started on IV vancomycin. Blood cultures obtained on 06/13/2019 have been negative. Denies any fevers, chills No headaches, sore throat, or cough. No nausea or vomiting. No diarrhea. He has been on HD on MWF under Dr. Metz's care but was switching to TTS today at [facility] under my care . He thinks his lastHD was on wednesday as he was making the switch today Past Medical History Cardiovascular: HTN GI: Constipation Heme/Onc: Anemia NOS Renal/: Chronic renal failure Endocrine: Diabetes, Hypothyroidism Past Surgical History Past Surgical History: Other Family History Family History FAMILY HISTORY: He has 4 older brothers, one of them is a 68-year-old and has multiple medical problems including coronary artery disease, COPD and multiple back surgeries. The others are seemingly healthy. His father at the age of 60 because of esophageal cancer. Mother at the age of 84 because of severe peripheral vascular disease. Family History: Hypertension, Family History Unknown Social History Social History He is . He has 1 daughter and 2 sons. He is a former smoker, quit in 1980. He was also be heavy alcohol drinker, quit in 1984. He used to smoke marijuana at younger age. 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 He apparently was disabled since the age of 48 because of poor vision. ALCOHOL: none Drugs: None Current Medications Current Medications Current Medications Meropenem 500 mg/ Sodium Chloride 50 ml @ 100 mls/hr DAILY IV ; Start 06/15/19 at 11:00; Stop 06/15/19 at 10:49; Status DC Vancomycin HCl (Vanco Per Pharmacy) 1 each PRN DAILY PRN MC SEE COMMENTS; Start 06/15/19 at 10:45 Micafungin Sodium 100 mg/Dextrose 100 ml @ 100 mls/hr Q24H IV ; Start 1/23/20 at 12:00 Meropenem 1000 mg/ Sodium Chloride 100 ml @ 200 mls/hr DAILY IV ; Start 06/15/19 at 10:45 Active Scripts Active Reported Tramadol Hcl 50 Mg Tablet 50 Mg PO PRN Q12HR PRN Ambien (Zolpidem Tartrate) 5 Mg Tablet 5 Mg PO PRN QHS PRN Culturelle (Lactobacillus Rhamnosus Gg) 1 Each Cap.sprink 1 Cap PO BID 30 Days Humalog (Insulin Lispro) 100 Unit/1 Ml Vial 0 SQ TIDAC Cymbalta (Duloxetine Hcl) 30 Mg Capsule.dr 1 Cap PO DAILY Calcium Acetate 667 Mg Tablet 1 Tab PO TID 30 Days Acetaminophen 500 Mg Tablet 1 Tab PO PRN Q6HRS PRN 15 Days Minoxidil 2.5 Mg Tablet 1 Tab PO BID Lantus (Insulin Glargine,Hum.rec.anlog) 100 Unit/1 Ml Vial 14 Unit SQ HS Amlodipine Besylate 10 Mg Tablet 10 Mg PO HS Carvedilol (Carvedilol) 12.5 Mg Tablet 12.5 Mg PO DAILY Cozaar (Losartan Potassium) 100 Mg Tablet 100 Mg PO DAILY06 Allergies Allergies: Coded Allergies: influenza virus vaccine, specific (Verified Allergy, Intermediate, UNKWOWN, 03/03/18) levofloxacin (Verified Allergy, Intermediate, Unknown, 03/03/18) pneumococcal 23-jovanni p-sac vac (Verified Allergy, Intermediate, UNKWOWN, 03/03/18) urokinase (Verified Allergy, Intermediate, rash, 10/19/18) NSAIDS (Non-Steroidal Anti-Inflamma (Verified Adverse Reaction, Intermediate, 03/03/18) RAGE ROS Review of System Per HPI Physical Exam Physical Exam General- sitting up in bed, NAD HEENT: OM moist, On RA NECK: Supple. LUNGS: Clear to auscultation bilaterally. HEART: S1, S2 with a soft murmur. ABDOMEN: Soft and nontender, obese EXTREMITIES: No clubbing or cyanosis. He has left upper extremity AVF with thrill/Bruit SKIN: No rash NEUROLOGIC: He is alert and responding to questions appropriately. PSYCHIATRIC: Affect is pleasant. No caceres, No CVA or SP tenderness Vital Signs Vital Signs Date Time Temp Pulse Resp B/P (MAP) Pulse Ox O2 Delivery O2 Flow Rate FiO2 06/15/19 10:36 Room Air 06/15/19 09:30 98.4 61 16 170/64 (99) 95 98.4 Assessment & Plan ESRD - Has been on HD MWF under Dr. Metz Was switching to TTS at [facility] today under my care (last HD 06/12) Dialysis today as ordered , Min[facility] , clinically stable and euvolemic He was on PD for 3 years, On HD for 10 yrs per Pt Access Lt AVF Left great toe infection Coronary artery disease. Charcot foot. HTN - Home antihypertensives DM II Anemia- On MICHA Labs Review All relevant outside records, renal labs, imaging studies, telemetry/EKG's were reviewed. GOLD WILKES MD Jun 15, 2019 11:41
[2019-06-15] MEDS ORDERED: IV NORMAL SALINE 1000ML BAG 1,000 ML IV PRN ×2 (11:46)
--- NOTE | 2019-06-15 11:56 | PDOC2 ---
CONSULT Date of Consult Date of Consult DATE: 06/15/19 TIME: 11:44 Reason for Consult Reason for Consult: Left great toe diabetic ulceration and wound Referring Physician Referring Physician: Dr. Florence Identification/Chief Complaint Chief Complaint Left great toe redness, swelling and discoloration demonstrating active infection requiring hospitalization Source Source: Chart review, Patient History of Present Illness Reason for Visit: This is a pleasant 63-year-old patient transferred from [facility] for care of the left forefoot diabetic ulceration. Patient describes a relatively chronic trauma due to toe drop. Recently he developed loss of toenail and clinical signs of infection. Evaluation at [facility] demonstrated a sedimentation rate of 18 and a CRP of 52.9. A CT performed 2 days ago demonstrated no evidence of osteomyelitis or soft tissue gas. Marked subcutaneous edema was noted. Patient describes long history of diabetic ulcerations sometimes requiring hospitalization. Past Medical History Cardiovascular: HTN GI: Constipation Heme/Onc: Anemia NOS Renal/: Chronic renal failure Endocrine: Diabetes, Hypothyroidism Past Surgical History Past Surgical History: Other (cardiac catheter and left upper extremity fistula placement) Family History Family History: Hypertension, Family History Unknown Social History ALCOHOL: none Drugs: None Current Problem List Problem List Diabetic ulcer of the left forefoot with active infection, chronic kidney disease currently on dialysis, COPD, coronary artery disease Current Medications Current Medications Current Medications Meropenem 500 mg/ Sodium Chloride 50 ml @ 100 mls/hr DAILY IV ; Start 06/15/19 at 11:00; Stop 06/15/19 at 10:49; Status DC Vancomycin HCl (Vanco Per Pharmacy) 1 each PRN DAILY PRN MC SEE COMMENTS; Start 06/15/19 at 10:45 Micafungin Sodium 100 mg/Dextrose 100 ml @ 100 mls/hr Q24H IV ; Start 06/15/19 at 12:00 Meropenem 1000 mg/ Sodium Chloride 100 ml @ 200 mls/hr DAILY IV ; Start 06/15/19 at 10:45 Darbepoetin Huang (ARANESP for DIALYSIS PTS) 60 mcg WEEKLYHS SQ ; Start 06/15/19 at 21:00 Active Scripts Active Reported Tramadol Hcl 50 Mg Tablet 50 Mg PO PRN Q12HR PRN Ambien (Zolpidem Tartrate) 5 Mg Tablet 5 Mg PO PRN QHS PRN Culturelle (Lactobacillus Rhamnosus Gg) 1 Each Cap.sprink 1 Cap PO BID 30 Days Humalog (Insulin Lispro) 100 Unit/1 Ml Vial 0 SQ TIDAC Cymbalta (Duloxetine Hcl) 30 Mg Capsule.dr 1 Cap PO DAILY Calcium Acetate 667 Mg Tablet 1 Tab PO TID 30 Days Acetaminophen 500 Mg Tablet 1 Tab PO PRN Q6HRS PRN 15 Days Minoxidil 2.5 Mg Tablet 1 Tab PO BID Lantus (Insulin Glargine,Hum.rec.anlog) 100 Unit/1 Ml Vial 14 Unit SQ HS Amlodipine Besylate 10 Mg Tablet 10 Mg PO HS Carvedilol (Carvedilol) 12.5 Mg Tablet 12.5 Mg PO DAILY Cozaar (Losartan Potassium) 100 Mg Tablet 100 Mg PO DAILY06 Allergies Allergies: Coded Allergies: influenza virus vaccine, specific (Verified Allergy, Intermediate, UNKWOWN, 03/03/18) levofloxacin (Verified Allergy, Intermediate, Unknown, 03/03/18) pneumococcal 23-jovanni p-sac vac (Verified Allergy, Intermediate, UNKWOWN, 03/03/18) urokinase (Verified Allergy, Intermediate, rash, 10/19/18) NSAIDS (Non-Steroidal Anti-Inflamma (Verified Adverse Reaction, Intermediate, 03/03/18) RAGE ROS Review of System Otherwise negative except as reported below Neurological: Yes Gait Disturbance, Yes Numbness/Tingling Skin: Yes Dry Skin Physical Exam General: Alert, Oriented X3, Cooperative HEENT: Atraumatic, PERRLA, EOMI Lungs: Clear to auscultation, Normal air movement Heart: Regular rate, Other (Quant of flow is 0.77) Abdomen: Soft, No tenderness Extremities: Other (moderate edema identified lower extremities with pedal edema evident on the left.) Skin: Other (left great toe demonstrating discoloration and loss of toenail. Dorsal ulcer is evident at the site of the nail bed. Superficially of the skin was elevated above at wrist tissue in the great toe. This underwent debridement and a diabetic ulcer with roughly 3 mm of depth was identified in the total surface area of roughly 20 cm.) Neuro: Normal speech, Other (filament testing identified loss of sensation over 5 points plantar surface) Psych/Mental Status: Mental status NL, Mood NL MUSCULOSKELETAL: Not examined Vitals VITALS Vital Signs Date Time Temp Pulse Resp B/P (MAP) Pulse Ox O2 Delivery O2 Flow Rate FiO2 06/15/19 10:36 Room Air 06/15/19 09:30 98.4 61 16 170/64 (14) [address] from [facility] was reviewed and as noted above Assessment/Plan Assessment/Plan diabetic Yang 3 ulceration left forefoot with evidence of muscle necrosis adding of soft tissue infection. We'll go ahead and request arterial Doppler based on Quant of flow measurement of 0.77. Wound care recommendations made. ANU SCOTT DO Jun 15, 2019 11:55
[2019-06-15] MEDS ORDERED: DIALYSIS PATIENT. MC PRN ×2 (12:00)
[2019-06-15] MEDS ORDERED: ALBUMIN HUMAN 25% 200 ML IV PRN (12:00)
[2019-06-15 12:44] LABS: BASO # 0.1 x10^3/uL (0.0-0.2); BASO % 2 % (0-3); EOS # 0.2 x10^3/uL (0.0-0.7); EOS % 4 % (0-3); HEMOGLOBIN 9.8 g/dL (13.0-17.5); LYMPH # 0.7 x10^3/uL (1.0-4.8); LYMPH % 13 % (24-48); MEAN CORPUSCULAR HEMOGLOBIN 34 pg (25-35); MEAN CORPUSCULAR HGB CONC 33 g/dL (31-37); MEAN CORPUSCULAR VOLUME 103 fL (79-100); MONO # 0.7 x10^3/uL (0.0-1.1); MONO % 13 % (0-9); NEUT # 3.6 x10^3/uL (1.8-7.7); NEUT % 69 % (31-73); PLATELET COUNT 115 x10^3/uL (140-400); RED BLOOD COUNT 2.91 x10^6/uL (4.30-5.70); RED CELL DISTRIBUTION WIDTH 15.6 % (11.5-14.5); WHITE BLOOD COUNT 5.2 x10^3/uL (4.0-11.0)
[2019-06-15 12:57] LABS: ALBUMIN 3.3 g/dL (3.4-5.0); ALBUMIN/GLOBULIN RATIO 0.9 (1.0-1.7); CALCIUM 8.7 mg/dL (8.5-10.1); TOTAL BILIRUBIN 0.6 mg/dL (0.2-1.0); TOTAL PROTEIN 6.8 g/dL (6.4-8.2)
[2019-06-15 12:59] LABS: POTASSIUM 6.2 mmol/L (3.5-5.1)
[2019-06-15 15:00] VITALS: BP 136/51
--- NOTE | 2019-06-15 16:02 | RAD ---
Bilateral lower extremity arterial ultrasound History: Left great toe wound Findings: Multiple grayscale, color, and duplex spectral analysis sonographic images were acquired of the lower extremity arteries bilaterally. There are no previous similar exams. Velocities in cm/sec: LEFT: Common femoral artery 201 Profunda femoris artery 127 Proximal SFA 181 Mid SFA 169 Distal SFA 142 Popliteal artery 185 Anterior tibial artery 103 Dorsalis pedis artery 207 Posterior tibial artery 25 Peroneal artery 94 Calcific arteries are identified involving the distal left lower extremity. These are especially evident at the popliteal artery and dorsalis pedis artery. Triphasic flow is identified involving the left lower extremity from the common femoral artery to the proximal posterior to artery. Biphasic flow involves the posterior tibial artery distally. Triphasic flow involves the peroneal and anterior tibial artery. Monophasic flow involves the dorsalis pedis artery. Diffuse atheromatous involvement of the left posterior tibial artery noted. Impression: Elevated flow velocity involving the dorsalis pedis artery which is of concern for proximal stenosis. Mildly elevated flow velocity involving the anterior tibial artery noted. Diminished flow of the distal posterior tibial artery with atheromatous involvement noted. Electronically signed by: Heriberto Ventura MD (06/15/2019 3:59 PM) [facility]
[2019-06-15] MEDS ORDERED: SODIUM POLYSTYRENE SULFON/SORB 15 GM/60 ML ORAL.SUSP PO ONE (16:30)
[2019-06-15] MEDS: NORMAL SALINE IV SCH (16:31)
[2019-06-15] MEDS: MEROPENEM IV SCH (16:31)
[2019-06-15] MEDS: VANCOMYCIN PER PHARMACY MC PRN (17:17)
--- NOTE | 2019-06-15 17:18 | NUR ---
Pharmacy Vancomycin Dosing Note S:Consulted to monitor and dose vancomycin started 06/15/19. O:MARY FLORES is a 63 year old M with osteomyelitis. Height: 6 feet, 2 inches Weight: 104 kg Dosing Weight: Actual Other Antibiotics: ZOSYN 2.25G IV Q8HRS LABS: Last BUN: 70 Last Creatinine: 7 Creatinine Clearance: ESRD on HD Last WBC: 5.2 Tmax (past 24 hours): 98.4 Microbiology: N/A Drug Levels: Last Random level: 13.8 on 06/15/19 at 1000 Last dose given 06/13/19 at 1523 Vancomycin Dosing: Loading Dose: 2000 mg x1 Dosing Weight: Actual Target Trough: 15-20 A: Patient is receiving vancomycin for osteo. He received vancomycin 2000 mg IV x 1 at [facility] on 06/13. Patient to have HD today. A pre-HD random level was 13.8 mcg/ml. Initiate the following: P: 1. Initiate Vancomycin 750 mg IV after HD sessions 2. Follow up levels in 5 days 3. Pharmacy will continue to monitor, follow and adjust therapy as needed. DON DAMIAN [facility], 06/15/19 [id number]
[2019-06-15] MEDS: MICAFUNGIN 100 MG in IV DEXTROSE 5% 100ML 100 ML IV SCH (17:22)
[2019-06-15] MEDS ORDERED: traMADol 50 MG TABLET PO PRN (17:30)
[2019-06-15] MEDS ORDERED: ZOLPIDEM 5 MG TABLET. PO PRN (17:30)
[2019-06-15] MEDS ORDERED: DEXTROSE 50% 25 GM / 50ML DISP.SYRIN. IV PRN (17:30)
[2019-06-15] MEDS ORDERED: IV DEXTROSE 5% 250 ML BAG. IV PRN (17:30)
[2019-06-15] MEDS ORDERED: ACETAMINOPHEN 500 MG TABLET PO PRN (17:30)
[2019-06-15] MEDS: INSULIN LISPRO 300 UNITS/3 ML VIAL. SQ SCH (18:00)
[2019-06-15] MEDS: CALCIUM ACETATE 667 MG CAPSULE PO SCH (18:22)
[2019-06-15] MEDS: VANCOMYCIN 750 MG in IV NORMAL SALINE 250ML 250 ML IV SCH (18:24)
[2019-06-15 19:00] VITALS: BP 150/54
[2019-06-15] MEDS: MINOXIDIL 2.5 MG TABLET PO SCH (21:00)
[2019-06-15] MEDS ORDERED: DARBEPOETIN ALFA 60 MCG/0.3 ML DISP.SYRIN. SQ SCH (21:00)
[2019-06-15] MEDS: LACTOBACILLUS RHAMNOSUS GG 1 CAPSULE. PO SCH (22:31)
[2019-06-15] MEDS: amLODIPine BESYLATE 10 MG TABLET PO SCH (22:33)
[2019-06-15] MEDS: INSULIN GLARGINE SYRINGE. SQ SCH (22:40)
[2019-06-15 23:00] VITALS: BP 162/61
--- NOTE | 2019-06-16 02:07 | NUR ---
Patient's called nursing station for patient update. Per patient's she, "...woke up frantically screaming his name and he didn't answer the text I sent and he is a brittle diabetic so something must be wrong with him". This nurse checked on patient, who was resting calmly in bed, and informed that patient was sleeping. continued to express concern about his past history of low blood sugar. This nurse informed of most recent FSBG level of 326 which was assessed prior to bed. At this time, insisted a re-check of patient's FSBG level and request completed by this nurse. informed of updated blood glucose level of 316. Message from patient for to call him passed along to patient at this time.
[2019-06-16 03:00] VITALS: BP 148/70
[2019-06-16 07:00] VITALS: BP 163/71
[2019-06-16] MEDS ORDERED: IV NORMAL SALINE 1000ML BAG 1,000 ML IV PRN ×2 (07:18)
[2019-06-16] MEDS ORDERED: ALBUMIN HUMAN 25% 200 ML IV PRN (07:30)
[2019-06-16] MEDS ORDERED: DIALYSIS PATIENT. MC PRN (07:30)
[2019-06-16] MEDS ORDERED: ACETAMINOPHEN 500 MG TABLET PO PRN (07:30)
[2019-06-16] MEDS ORDERED: diphenhydrAMINE 50 MG/ML VIAL IV PRN ×2 (07:30)
[2019-06-16] MEDS ORDERED: INSULIN REGULAR 100 UNIT/ML 3ML VIAL. SQ SCH (07:30)
--- NOTE | 2019-06-16 07:42 | PDOC ---
Infectious Disease Note Subjective Subjective Doing ok. Had loose stool with med trying to control his "Phos" likely K No F/C/S/N/V/SOA/pain. leg ok ROS ROS o/w neg Vital Sign Vital Signs Vital Signs Date Time Temp Pulse Resp B/P (MAP) Pulse Ox O2 Delivery O2 Flow Rate FiO2 06/16/19 03:00 98.8 63 18 148/70 (96) 95 Room Air 98.8 Physical Exam PHYSICAL EXAM CONSTITUTIONAL: He is a pleasant gentleman. He is cooperative. He is sitting upright on side of bed and eating. HEENT: Pupils are equal and reactive. Normal conjunctivae. Oral cavity, pharynx is clear. NECK: Supple. No JVD. LUNGS: Clear to auscultation bilaterally. HEART: S1, S2 with a soft murmur. ABDOMEN: Soft and nontender. No guarding or rebound. EXTREMITIES: Without clubbing or cyanosis. He has left upper extremity fistula that is unremarkable. Left great toe dressed. He does have a Charcot joint. SKIN: Warm to touch without generalized rash. He has a little bit of erythema just below his knee on the left side improved to stable. NEUROLOGIC: He is alert and responding to questions appropriately. PSYCHIATRIC: Affect is pleasant. Labs Lab Laboratory Tests Test 06/15/19 11:15 06/15/19 11:55 06/15/19 16:49 06/15/19 20:37 Glucose (Fingerstick) 154 mg/dL (70-99) 239 mg/dL (70-99) 323 mg/dL (70-99) White Blood Count 5.2 x10^3/uL (4.0-11.0) Red Blood Count 2.91 x10^6/uL (4.30-5.70) Hemoglobin 9.8 g/dL (13.0-17.5) Hematocrit 30.0 % (39.0-53.0) Mean Corpuscular Volume 103 fL (79-100) Mean Corpuscular Hemoglobin 34 pg (25-35) Mean Corpuscular Hemoglobin Concent 33 g/dL (31-37) Red Cell Distribution Width 15.6 % (11.5-14.5) Platelet Count 115 x10^3/uL (140-400) Neutrophils (%) (Auto) 69 % (31-73) Lymphocytes (%) (Auto) 13 % (24-48) Monocytes (%) (Auto) 13 % (0-9) Eosinophils (%) (Auto) 4 % (0-3) Basophils (%) (Auto) 2 % (0-3) Neutrophils # (Auto) 3.6 x10^3/uL (1.8-7.7) Lymphocytes # (Auto) 0.7 x10^3/uL (1.0-4.8) Monocytes # (Auto) 0.7 x10^3/uL (0.0-1.1) Eosinophils # (Auto) 0.2 x10^3/uL (0.0-0.7) Basophils # (Auto) 0.1 x10^3/uL (0.0-0.2) Sodium Level 133 mmol/L (136-145) Potassium Level 6.2 mmol/L (3.5-5.1) Chloride Level 102 mmol/L (98-107) Carbon Dioxide Level 20 mmol/L (21-32) Anion Gap 11 (6-14) Blood Urea Nitrogen 70 mg/dL (8-26) Creatinine 7.0 mg/dL (0.7-1.3) Estimated GFR (Cockcroft-Gault) 8.0 BUN/Creatinine Ratio 10 (6-20) Glucose Level 156 mg/dL (70-99) Calcium Level 8.7 mg/dL (8.5-10.1) Total Bilirubin 0.6 mg/dL (0.2-1.0) Aspartate Amino Transf (AST/SGOT) 17 U/L (15-37) Alanine Aminotransferase (ALT/SGPT) 20 U/L (16-63) Alkaline Phosphatase 143 U/L (46-116) Total Protein 6.8 g/dL (6.4-8.2) Albumin 3.3 g/dL (3.4-5.0) Albumin/Globulin Ratio 0.9 (1.0-1.7) Random Vancomycin Level 13.8 mcg/mL Test 06/16/19 01:29 Glucose (Fingerstick) 316 mg/dL (70-99) Micro Arterial doppler LE 06/15 Impression: Elevated flow velocity involving the dorsalis pedis artery which is of concern for proximal stenosis. Mildly elevated flow velocity involving the anterior tibial artery noted. Diminished flow of the distal posterior tibial artery with atheromatous involvement noted. Objective Assessment Left great toe infection ? PAD CKD on HD Levofloxacin allergy - rash H/o Pasturella and Acinetobacter?Enterobacter DM COPD CAD Charcot foot Plan Plan of Care Vanc/Meropenem/Micafungin 06/15 Vascular eval F/u labs and cults D/c MRSA screen as on Vanc for 2 days and will be irrelevant in neg CLARISA RUIZ MD Jun 16, 2019 07:42
[2019-06-16] MEDS: DULoxetine HCL 30 MG CAPSULE.DR PO SCH (08:10)
[2019-06-16] MEDS: CALCIUM ACETATE 667 MG CAPSULE PO SCH ×3 (08:10→16:57)
[2019-06-16] MEDS: LACTOBACILLUS RHAMNOSUS GG 1 CAPSULE. PO SCH ×2 (08:10→22:08)
[2019-06-16] MEDS: INSULIN LISPRO 300 UNITS/3 ML VIAL. SQ SCH ×3 (08:12→16:57)
[2019-06-16] MEDS: NORMAL SALINE IV SCH (08:13)
[2019-06-16] MEDS: MEROPENEM IV SCH (08:13)
[2019-06-16] MEDS: CARVEDILOL 12.5 MG TABLET. PO SCH ×2 (08:14→15:07)
[2019-06-16] MEDS: MINOXIDIL 2.5 MG TABLET PO SCH ×3 (08:15→22:08)
--- NOTE | 2019-06-16 08:40 | NUR ---
IP: Will place patient in contact precautions due to hx of Acinetobacter in wounds. Pt with new toe wound. Unsure if cultured. Will continue to follow.
--- NOTE | 2019-06-16 09:25 | PDOC ---
SUBJECTIVE ROS No complaints on HD OBJECTIVE Vital Signs Vital Signs Date Time Temp Pulse Resp B/P (MAP) Pulse Ox O2 Delivery O2 Flow Rate FiO2 06/16/19 07:00 98.0 57 18 163/71 (101) 98 Room Air 98.0 I & 0 Intake and Output 06/16/19 07:00 Intake Total 925 ml Balance 925 ml Intake Oral 475 ml IV Total 450 ml # Voids 1 # Bowel Movements 2 PHYSICAL EXAM Physical Exam General- sitting up in bed, NAD HEENT: OM moist, On RA NECK: Supple. LUNGS: Clear to auscultation bilaterally. HEART: S1, S2 with a soft murmur. ABDOMEN: Soft and nontender, obese EXTREMITIES: No clubbing or cyanosis. He has left upper extremity AVF with thrill/Bruit SKIN: No rash NEUROLOGIC: He is alert and responding to questions appropriately. PSYCHIATRIC: Affect is pleasant. No caceres, No CVA or SP tenderness DIAGNOSIS/ASSESSMENT Assessment & Plan ESRD - Has been on HD MWF under Dr. Metz plan was to switch to TTS at [facility] on 06/15 Unable to dialyze yesterday Seen on HD today - tolerating well, continue as ordered, anneliese Cary He was on PD for 3 years, On HD for 10 yrs Access Lt AVF -r/o Stenosis, order US Left great toe infection Coronary artery disease. Charcot foot. HTN - Home antihypertensives DM II Anemia- On MICHA Labs Review All relevant outside records, renal labs, imaging studies, telemetry/EKG's were reviewed. COMMENT/RELEVANT DATA Meds Current Medications Medications (Trade) Dose Ordered Sig/Diana Start Time Stop Time Status Last Admin Dose Admin Acetaminophen (Tylenol) 500 mg 1X PRN PRN 06/16/19 07:30 06/17/19 07:29 Albumin Human 200 ml @ 200 mls/hr 1X PRN PRN 06/16/19 07:30 06/16/19 13:29 Amlodipine Besylate (Norvasc) 10 mg HS 06/15/19 21:00 06/15/19 22:33 10 MG Calcium Acetate (Phoslo) 667 mg TIDWMEALS 06/15/19 18:00 06/16/19 08:10 667 MG Carvedilol (Coreg) 12.5 mg DAILY 06/16/19 09:00 Darbepoetin Huang (ARANESP for DIALYSIS PTS) 60 mcg WEEKLYHS 06/15/19 21:00 06/15/19 22:32 60 MCG Dextrose (Dextrose 50%-Water Syringe) 12.5 gm PRN Q15MIN PRN 06/15/19 17:30 Dextrose (Iv Dextrose 5%) 250 ml PRN Q15MIN PRN 06/15/19 17:30 Diphenhydramine HCl (Benadryl) 25 mg 1X PRN PRN 06/16/19 07:30 06/17/19 07:29 Duloxetine HCl (Cymbalta) 30 mg DAILY 06/16/19 09:00 06/16/19 08:10 30 MG Info (PHARMACY MONITORING -- do not chart) 1 each PRN DAILY PRN 06/16/19 07:30 Insulin Glargine (Lantus Syringe) 14 unit HS 06/15/19 21:00 06/15/19 22:40 14 UNIT Insulin Human Lispro (HumaLOG) 0-5 UNITS TIDWMEALS 06/15/19 18:00 06/16/19 08:12 4 UNITS Insulin Human Regular (HumuLIN R VIAL) low sliding scale TIDAC 06/16/19 07:30 UNV Lactobacillus Rhamnosus (Culturelle) 1 cap BID 06/15/19 21:00 06/16/19 08:10 1 CAP Meropenem 1000 mg/ Sodium Chloride 100 ml @ 200 mls/hr DAILY 06/15/19 10:45 06/16/19 08:13 200 MLS/HR Meropenem 500 mg/ Sodium Chloride 50 ml @ 100 mls/hr DAILY 06/15/19 11:00 06/15/19 10:49 DC Micafungin Sodium 100 mg/Dextrose 100 ml @ 100 mls/hr Q24H 06/15/19 12:00 06/15/19 17:22 100 MLS/HR Minoxidil (Loniten) 2.5 mg BID 06/15/19 21:00 Sodium Polystyrene Sulfonate (Kayexalate) 30 gm 1X ONCE 06/15/19 16:30 06/15/19 16:31 DC 06/15/19 17:21 30 GM Sodium Chloride 1,000 ml @ 400 mls/hr Q2H30M PRN 06/16/19 07:18 06/16/19 19:17 Tramadol HCl (Ultram) 50 mg PRN Q12HR PRN 06/15/19 17:30 Vancomycin HCl (Vanco Per Pharmacy) 1 each PRN DAILY PRN 06/15/19 10:45 06/15/19 17:17 1 EACH Vancomycin HCl 750 mg/Sodium Chloride 250 ml @ 250 mls/hr QTUTHSA 06/15/19 16:00 06/15/19 18:24 250 MLS/HR Zolpidem Tartrate (Ambien) 5 mg PRN QHS PRN 06/15/19 17:30 Lab Laboratory Tests Test 06/15/19 11:15 06/15/19 11:55 06/15/19 16:49 06/15/19 20:37 Glucose (Fingerstick) 154 mg/dL (70-99) 239 mg/dL (70-99) 323 mg/dL (70-99) White Blood Count 5.2 x10^3/uL (4.0-11.0) Red Blood Count 2.91 x10^6/uL (4.30-5.70) Hemoglobin 9.8 g/dL (13.0-17.5) Hematocrit 30.0 % (39.0-53.0) Mean Corpuscular Volume 103 fL (79-100) Mean Corpuscular Hemoglobin 34 pg (25-35) Mean Corpuscular Hemoglobin Concent 33 g/dL (31-37) Red Cell Distribution Width 15.6 % (11.5-14.5) Platelet Count 115 x10^3/uL (140-400) Neutrophils (%) (Auto) 69 % (31-73) Lymphocytes (%) (Auto) 13 % (24-48) Monocytes (%) (Auto) 13 % (0-9) Eosinophils (%) (Auto) 4 % (0-3) Basophils (%) (Auto) 2 % (0-3) Neutrophils # (Auto) 3.6 x10^3/uL (1.8-7.7) Lymphocytes # (Auto) 0.7 x10^3/uL (1.0-4.8) Monocytes # (Auto) 0.7 x10^3/uL (0.0-1.1) Eosinophils # (Auto) 0.2 x10^3/uL (0.0-0.7) Basophils # (Auto) 0.1 x10^3/uL (0.0-0.2) Sodium Level 133 mmol/L (136-145) Potassium Level 6.2 mmol/L (3.5-5.1) Chloride Level 102 mmol/L (98-107) Carbon Dioxide Level 20 mmol/L (21-32) Anion Gap 11 (6-14) Blood Urea Nitrogen 70 mg/dL (8-26) Creatinine 7.0 mg/dL (0.7-1.3) Estimated GFR (Cockcroft-Gault) 8.0 BUN/Creatinine Ratio 10 (6-20) Glucose Level 156 mg/dL (70-99) Calcium Level 8.7 mg/dL (8.5-10.1) Total Bilirubin 0.6 mg/dL (0.2-1.0) Aspartate Amino Transf (AST/SGOT) 17 U/L (15-37) Alanine Aminotransferase (ALT/SGPT) 20 U/L (16-63) Alkaline Phosphatase 143 U/L (46-116) Total Protein 6.8 g/dL (6.4-8.2) Albumin 3.3 g/dL (3.4-5.0) Albumin/Globulin Ratio 0.9 (1.0-1.7) Random Vancomycin Level 13.8 mcg/mL Test 06/16/19 01:29 06/16/19 07:21 Glucose (Fingerstick) 316 mg/dL (70-99) 272 mg/dL (70-99) Results All relevant outside records, renal labs, imaging studies, telemetry/EKG's were reviewed. GOLD WILKES MD Jun 16, 2019 09:25
--- NOTE | 2019-06-16 09:38 | PDOC ---
PROGRESS NOTES Subjective Subjective covering for DR Bedoya. seen in dialysis unit,no complaints Objective Objective Vital Signs Date Time Temp Pulse Resp B/P (MAP) Pulse Ox O2 Delivery O2 Flow Rate FiO2 06/16/19 07:00 98.0 57 18 163/71 (101) 98 Room Air 98.0 Intake and Output 06/16/19 07:00 Intake Total 925 ml Balance 925 ml Intake Oral 475 ml IV Total 450 ml # Voids 1 # Bowel Movements 2 Physical Exam Abdomen: Soft, No tenderness Heart: Regular rate, Other (Quant of flow is 0.77) Extremities: Other (moderate edema identified lower extremities with pedal edema evident on the left.) General: Alert, Oriented X3, Cooperative HEENT: Atraumatic, PERRLA, EOMI Lungs: Clear to auscultation, Normal air movement MUSCULOSKELETAL: Not examined Neuro: Normal speech, Other (filament testing identified loss of sensation over 5 points plantar surface) Psych/Mental Status: Mental status NL, Mood NL Skin: Other (left great toe demonstrating discoloration and loss of toenail. Dorsal ulcer is evident at the site of the nail bed. Superficially of the skin was elevated above at wrist tissue in the great toe. This underwent debridement and a diabetic ulcer with roughly 3 mm of depth was identified in the total surface area of roughly 20 cm.) Assessment Assessment IMPRESSION: 1. infected left big toe and left lower extremity cellulitis and has multiple other medical problems. A. Longstanding type 2 diabetes mellitus with neuropathy. B. Hypertension. C. Hyperlipidemia. D. End-stage renal disease, on hemodialysis .. PLAN: wound care Dialysis today debridement of toe done at bedside 3 antibiotics vanco+meropenum+micofengin. Comment Review of Relevant I have reviewed the following items kit (where applicable) has been applied. Labs Laboratory Tests Test 06/15/19 11:15 06/15/19 11:55 06/15/19 16:49 06/15/19 20:37 Glucose (Fingerstick) 154 mg/dL (70-99) 239 mg/dL (70-99) 323 mg/dL (70-99) White Blood Count 5.2 x10^3/uL (4.0-11.0) Red Blood Count 2.91 x10^6/uL (4.30-5.70) Hemoglobin 9.8 g/dL (13.0-17.5) Hematocrit 30.0 % (39.0-53.0) Mean Corpuscular Volume 103 fL (79-100) Mean Corpuscular Hemoglobin 34 pg (25-35) Mean Corpuscular Hemoglobin Concent 33 g/dL (31-37) Red Cell Distribution Width 15.6 % (11.5-14.5) Platelet Count 115 x10^3/uL (140-400) Neutrophils (%) (Auto) 69 % (31-73) Lymphocytes (%) (Auto) 13 % (24-48) Monocytes (%) (Auto) 13 % (0-9) Eosinophils (%) (Auto) 4 % (0-3) Basophils (%) (Auto) 2 % (0-3) Neutrophils # (Auto) 3.6 x10^3/uL (1.8-7.7) Lymphocytes # (Auto) 0.7 x10^3/uL (1.0-4.8) Monocytes # (Auto) 0.7 x10^3/uL (0.0-1.1) Eosinophils # (Auto) 0.2 x10^3/uL (0.0-0.7) Basophils # (Auto) 0.1 x10^3/uL (0.0-0.2) Sodium Level 133 mmol/L (136-145) Potassium Level 6.2 mmol/L (3.5-5.1) Chloride Level 102 mmol/L (98-107) Carbon Dioxide Level 20 mmol/L (21-32) Anion Gap 11 (6-14) Blood Urea Nitrogen 70 mg/dL (8-26) Creatinine 7.0 mg/dL (0.7-1.3) Estimated GFR (Cockcroft-Gault) 8.0 BUN/Creatinine Ratio 10 (6-20) Glucose Level 156 mg/dL (70-99) Calcium Level 8.7 mg/dL (8.5-10.1) Total Bilirubin 0.6 mg/dL (0.2-1.0) Aspartate Amino Transf (AST/SGOT) 17 U/L (15-37) Alanine Aminotransferase (ALT/SGPT) 20 U/L (16-63) Alkaline Phosphatase 143 U/L (46-116) Total Protein 6.8 g/dL (6.4-8.2) Albumin 3.3 g/dL (3.4-5.0) Albumin/Globulin Ratio 0.9 (1.0-1.7) Random Vancomycin Level 13.8 mcg/mL Test 06/16/19 01:29 06/16/19 07:21 Glucose (Fingerstick) 316 mg/dL (70-99) 272 mg/dL (70-99) Medications Current Medications Acetaminophen (Tylenol) 500 mg 1X PRN PRN PO MILD PAIN / TEMP; Start 06/16/19 at 07:30; Stop 06/17/19 at 07:29 Acetaminophen (Tylenol) 500 mg PRN Q6HRS PRN PO MILD PAIN OR FEVER; Start at 17:30 Albumin Human 200 ml @ 200 mls/hr 1X PRN PRN IV Hypotension; Start 06/15/19 at 12:00; Stop 06/15/19 at 17:59; Status DC Albumin Human 200 ml @ 200 mls/hr 1X PRN PRN IV Hypotension; Start 06/16/19 at 07:30; Stop 06/16/19 at 13:29 Amlodipine Besylate (Norvasc) 10 mg HS PO Last administered on 06/15/19at 22:33; Start 06/15/19 at 21:00 Calcium Acetate (Phoslo) 667 mg TIDWMEALS PO Last administered on 06/16/19at 08:10; Start 06/15/19 at 18:00 Carvedilol (Coreg) 12.5 mg DAILY PO ; Start 06/16/19 at 09:00 Darbepoetin Huang (ARANESP for DIALYSIS PTS) 60 mcg WEEKLYHS SQ Last administered on 06/15/19at 22:32; Start 06/15/19 at 21:00 Dextrose (Dextrose 50%-Water Syringe) 12.5 gm PRN Q15MIN PRN IV SEE COMMENTS; Start 06/15/19 at 17:30 Dextrose (Iv Dextrose 5%) 250 ml PRN Q15MIN PRN IV SEE COMMENTS; Start 06/15/19 at 17:30 Diphenhydramine HCl (Benadryl) 25 mg 1X PRN PRN IV ITCHING; Start 06/16/19 at 07:30; Stop 06/17/19 at 07:29 Diphenhydramine HCl (Benadryl) 25 mg 1X PRN PRN IV ITCHING; Start 06/16/19 at 07:30; Stop 06/17/19 at 07:29 Duloxetine HCl (Cymbalta) 30 mg DAILY PO Last administered on 06/16/19at 08:10; Start 06/16/19 at 09:00 Info (PHARMACY MONITORING -- do not chart) 1 each PRN DAILY PRN MC SEE COMMENTS; Start 06/15/19 at 12:00 Info (PHARMACY MONITORING -- do not chart) 1 each PRN DAILY PRN MC SEE COMMENTS; Start 06/15/19 at 12:00; Status UNV Info (PHARMACY MONITORING -- do not chart) 1 each PRN DAILY PRN MC SEE COMMENTS; Start 06/16/19 at 07:30 Insulin Glargine (Lantus Syringe) 14 unit HS SQ Last administered on 06/15/19at 22:40; Start 06/15/19 at 21:00 Insulin Human Lispro (HumaLOG) 0-5 UNITS TIDWMEALS SQ Last administered on 06/16/19at 08:12; Start 06/15/19 at 18:00 Insulin Human Regular (HumuLIN R VIAL) low sliding scale TIDAC SQ ; Start 06/16/19 at 07:30; Status UNV Lactobacillus Rhamnosus (Culturelle) 1 cap BID PO Last administered on 06/16/19at 08:10; Start 06/15/19 at 21:00 Meropenem 1000 mg/ Sodium Chloride 100 ml @ 200 mls/hr DAILY IV Last administered on 06/16/19at 08:13; Start 06/15/19 at 10:45 Meropenem 500 mg/ Sodium Chloride 50 ml @ 100 mls/hr DAILY IV ; Start 06/15/19 at 11:00; Stop 06/15/19 at 10:49; Status DC Micafungin Sodium 100 mg/Dextrose 100 ml @ 100 mls/hr Q24H IV Last administered on 06/15/19at 17:22; Start 06/15/19 at 12:00 Minoxidil (Loniten) 2.5 mg BID PO ; Start 06/15/19 at 21:00 Sodium Polystyrene Sulfonate (Kayexalate) 30 gm 1X ONCE PO Last administered on 06/15/19at 17:21; Start 06/15/19 at 16:30; Stop 06/15/19 at 16:31; Status DC Sodium Chloride 1,000 ml @ 400 mls/hr Q2H30M PRN IV PATENCY; Start 06/15/19 at 11:46; Stop 06/15/19 at 23:45; Status DC Sodium Chloride 1,000 ml @ 400 mls/hr Q2H30M PRN IV PATENCY; Start 06/16/19 at 07:18; Stop 06/16/19 at 19:17 Sodium Chloride 1,000 ml @ 1,000 mls/hr Q1H PRN IV hypotension; Start 06/15/19 at 11:46; Stop 06/15/19 at 17:45; Status DC Sodium Chloride 1,000 ml @ 1,000 mls/hr Q1H PRN IV hypotension; Start 06/16/19 at 07:18; Stop 06/16/19 at 13:17 Tramadol HCl (Ultram) 50 mg PRN Q12HR PRN PO MODERATE - SEVERE PAIN; Start 06/15/19 at 17:30 Vancomycin HCl (Vanco Per Pharmacy) 1 each PRN DAILY PRN MC SEE COMMENTS Last administered on 06/15/19at 17:17; Start 06/15/19 at 10:45 Vancomycin HCl 750 mg/Sodium Chloride 250 ml @ 250 mls/hr QTUTHSA IV Last administered on 06/15/19at 18:24; Start 06/15/19 at 16:00 Zolpidem Tartrate (Ambien) 5 mg PRN QHS PRN PO INSOMNIA; Start 06/15/19 at 17:30 Vitals/I & O Vital Sign - Last 24 Hours 06/15/19 06/15/19 06/15/19 06/15/19 10:36 11:00 15:00 19:00 Temp 98.1 98.2 96.8 98.1 98.2 96.8 Pulse 64 66 66 Resp 16 18 18 B/P (MAP) 120/49 (72) 136/51 (79) 150/54 (86) Pulse Ox 93 94 96 O2 Delivery Room Air Room Air Room Air Room Air 06/15/19 06/15/19 06/15/19 06/16/19 20:20 22:33 23:00 03:00 Temp 98.5 98.8 98.5 98.8 Pulse 70 70 63 Resp 18 18 B/P (MAP) 162/63 162/61 (94) 148/70 (96) Pulse Ox 92 95 O2 Delivery Room Air Room Air Room Air 06/16/19 07:00 Temp 98.0 98.0 Pulse 57 Resp 18 B/P (MAP) 163/71 (101) Pulse Ox 98 O2 Delivery Room Air Intake and Output 06/15/19 06/15/19 06/16/19 15:00 23:00 07:00 Intake Total 100 ml 825 ml Balance 100 ml 825 ml FADY HASSAN MD Jun 16, 2019 09:38
[2019-06-16] MEDS: VANCOMYCIN PER PHARMACY MC PRN (11:09)
[2019-06-16 12:32] VITALS: BP 171/68
[2019-06-16] MEDS: MULTIVITAMIN with MINERAL TABLET. PO SCH (12:59)
[2019-06-16] MEDS: MICAFUNGIN 100 MG in IV DEXTROSE 5% 100ML 100 ML IV SCH (13:02)
--- NOTE | 2019-06-16 13:54 | PDOC2 ---
CONSULT Date of Consult Date of Consult DATE: 06/16/19 TIME: 13:47 History of Present Illness Reason for Visit: This a very pleasant 63-year-old male who we were asked to see for gangrene of the left first toe. He has severe peripheral neuropathy of his feet and states that when he walks the first toe tends to scrape the floor. He has dealt with this wound for quite some time with very diligent wound care. He presented with significant cellulitis related to this mal perforans ulcer. This was debrided at the bedside by the wound care team. The patient has end-stage renal disease and dialyzes through a left upper extremity radiocephalic fistula. This was placed by Dr. Paredes in the past. Past Medical History Cardiovascular: HTN GI: Constipation Heme/Onc: Anemia NOS Renal/: Chronic renal failure Endocrine: Diabetes, Hypothyroidism Past Surgical History Past Surgical History: Other (cardiac catheter and left upper extremity fistula placement) Family History Family History: Hypertension, Family History Unknown Social History ALCOHOL: none Drugs: None Current Medications Current Medications Current Medications Meropenem 500 mg/ Sodium Chloride 50 ml @ 100 mls/hr DAILY IV ; Start 06/15/19 at 11:00; Stop 06/15/19 at 10:49; Status DC Vancomycin HCl (Vanco Per Pharmacy) 1 each PRN DAILY PRN MC SEE COMMENTS Last administered on 06/16/19at 11:09; Start 06/15/19 at 10:45 Micafungin Sodium 100 mg/Dextrose 100 ml @ 100 mls/hr Q24H IV Last administered on 06/16/19at 13:02; Start 06/15/19 at 12:00 Meropenem 1000 mg/ Sodium Chloride 100 ml @ 200 mls/hr DAILY IV Last administered on 06/16/19at 08:13; Start 06/15/19 at 10:45 Darbepoetin Huang (ARANESP for DIALYSIS PTS) 60 mcg WEEKLYHS SQ Last administered on 06/15/19at 22:32; Start 06/15/19 at 21:00 Sodium Chloride 1,000 ml @ 1,000 mls/hr Q1H PRN IV hypotension; Start 06/15/19 at 11:46; Stop 06/15/19 at 17:45; Status DC Albumin Human 200 ml @ 200 mls/hr 1X PRN PRN IV Hypotension; Start 06/15/19 at 12:00; Stop 06/15/19 at 17:59; Status DC Sodium Chloride 1,000 ml @ 400 mls/hr Q2H30M PRN IV PATENCY; Start 06/15/19 at 11:46; Stop 06/15/19 at 23:45; Status DC Info (PHARMACY MONITORING -- do not chart) 1 each PRN DAILY PRN MC SEE COMMENTS; Start 06/15/19 at 12:00; Status UNV Info (PHARMACY MONITORING -- do not chart) 1 each PRN DAILY PRN MC SEE COMMENTS; Start 06/15/19 at 12:00; Status Cancel Vancomycin HCl 750 mg/Sodium Chloride 250 ml @ 250 mls/hr QTUTHSA IV Last administered on 06/15/19at 18:24; Start 06/15/19 at 16:00 Sodium Polystyrene Sulfonate (Kayexalate) 30 gm 1X ONCE PO Last administered on 06/15/19at 17:21; Start 06/15/19 at 16:30; Stop 06/15/19 at 16:31; Status DC Lactobacillus Rhamnosus (Culturelle) 1 cap BID PO Last administered on 06/16/19at 08:10; Start 06/15/19 at 21:00 Acetaminophen (Tylenol) 500 mg PRN Q6HRS PRN PO MILD PAIN OR FEVER; Start 06/15/19 at 17:30 Amlodipine Besylate (Norvasc) 10 mg HS PO Last administered on 06/15/19at 22:33; Start 06/15/19 at 21:00 Carvedilol (Coreg) 12.5 mg DAILY PO ; Start 06/16/19 at 09:00 Duloxetine HCl (Cymbalta) 30 mg DAILY PO Last administered on 06/16/19at 08:10; Start 06/16/19 at 09:00 Insulin Glargine (Lantus Syringe) 14 unit HS SQ Last administered on 06/15/19at 22:40; Start 06/15/19 at 21:00 Insulin Human Regular (HumuLIN R VIAL) low sliding scale TIDAC SQ ; Start at 07:30; Status UNV Minoxidil (Loniten) 2.5 mg BID PO ; Start 06/15/19 at 21:00 Tramadol HCl (Ultram) 50 mg PRN Q12HR PRN PO MODERATE - SEVERE PAIN; Start 06/15/19 at 17:30 Zolpidem Tartrate (Ambien) 5 mg PRN QHS PRN PO INSOMNIA; Start 06/15/19 at 17:30 Calcium Acetate (Phoslo) 667 mg TIDWMEALS PO Last administered on 06/16/19at 12:59; Start 06/15/19 at 18:00 Insulin Human Lispro (HumaLOG) 0-5 UNITS TIDWMEALS SQ Last administered on 06/16/19at 08:12; Start 06/15/19 at 18:00 Dextrose (Dextrose 50%-Water Syringe) 12.5 gm PRN Q15MIN PRN IV SEE COMMENTS; Start 06/15/19 at 17:30 Dextrose (Iv Dextrose 5%) 250 ml PRN Q15MIN PRN IV SEE COMMENTS; Start 06/15/19 at 17:30 Sodium Chloride 1,000 ml @ 1,000 mls/hr Q1H PRN IV hypotension; Start 06/16/19 at 07:18; Stop 06/16/19 at 13:17; Status DC Albumin Human 200 ml @ 200 mls/hr 1X PRN PRN IV Hypotension; Start 06/16/19 at 07:30; Stop 06/16/19 at 13:29; Status DC Acetaminophen (Tylenol) 500 mg 1X PRN PRN PO MILD PAIN / TEMP; Start 06/16/19 at 07:30; Stop 06/17/19 at 07:29 Diphenhydramine HCl (Benadryl) 25 mg 1X PRN PRN IV ITCHING; Start 06/16/19 at 07:30; Stop 06/17/19 at 07:29 Diphenhydramine HCl (Benadryl) 25 mg 1X PRN PRN IV ITCHING; Start 06/16/19 at 07:30; Stop 06/17/19 at 07:29 Sodium Chloride 1,000 ml @ 400 mls/hr Q2H30M PRN IV PATENCY; Start 06/16/19 at 07:18; Stop 06/16/19 at 19:17 Info (PHARMACY MONITORING -- do not chart) 1 each PRN DAILY PRN MC SEE COMMENTS; Start 06/16/19 at 07:30 Vancomycin HCl 500 mg/Sodium Chloride 100 ml @ 100 mls/hr 1X ONCE IV ; Start 06/16/19 at 16:00; Stop 06/16/19 at 16:59 Multivitamins (Thera M Plus) 1 tab DAILY PO Last administered on 06/16/19at 12:59; Start 06/16/19 at 13:00 Active Scripts Active Reported Tramadol Hcl 50 Mg Tablet 50 Mg PO PRN Q12HR PRN Ambien (Zolpidem Tartrate) 5 Mg Tablet 5 Mg PO PRN QHS PRN Culturelle (Lactobacillus Rhamnosus Gg) 1 Each Cap.sprink 1 Cap PO BID 30 Days Humalog (Insulin Lispro) 100 Unit/1 Ml Vial 0 SQ TIDAC Cymbalta (Duloxetine Hcl) 30 Mg Capsule.dr 1 Cap PO DAILY Calcium Acetate 667 Mg Tablet 1 Tab PO TID 30 Days Acetaminophen 500 Mg Tablet 1 Tab PO PRN Q6HRS PRN 15 Days Minoxidil 2.5 Mg Tablet 1 Tab PO BID Lantus (Insulin Glargine,Hum.rec.anlog) 100 Unit/1 Ml Vial 14 Unit SQ HS Amlodipine Besylate 10 Mg Tablet 10 Mg PO HS Carvedilol (Carvedilol) 12.5 Mg Tablet 12.5 Mg PO DAILY Cozaar (Losartan Potassium) 100 Mg Tablet 100 Mg PO DAILY06 Allergies Allergies: Coded Allergies: influenza virus vaccine, specific (Verified Allergy, Intermediate, UNKWOWN, 03/03/18) levofloxacin (Verified Allergy, Intermediate, Unknown, 03/03/18) pneumococcal 23-jovanni p-sac vac (Verified Allergy, Intermediate, UNKWOWN, 03/03/18) urokinase (Verified Allergy, Intermediate, rash, 10/19/18) NSAIDS (Non-Steroidal Anti-Inflamma (Verified Adverse Reaction, Intermediate, 03/03/18) RAGE ROS Skin: Yes Skin Lesion Changes (left first toe ulcer) Physical Exam General: Alert, Oriented X3, Cooperative, No acute distress HEENT: PERRLA, EOMI, Mucous membr. moist/pink Lungs: Clear to auscultation, Normal air movement Heart: Regular rate, Normal S1, Normal S2 Abdomen: Normal bowel sounds, Soft, No tenderness Extremities: No clubbing, No cyanosis, Other (palpable thrill in the left upper extremity fistula, palpable dorsalis pedis pulse in the left foot, palpable dorsalis pedis pulse in the right foot) Skin: Other (left first toe mal perforans ulcer with dry gangrene involving the distal tip of the toe to the level of the distal phalanx, resolving cellulitis involving the dorsal foot and ankle, no purulent drainage) Neuro: Normal speech, Strength at 5/5 X4 ext, Normal tone, Cranial nerves 3-12 NL Psych/Mental Status: Mental status NL, Mood NL MUSCULOSKELETAL: No muscular tenderness noted, Full range of motion without pain Vitals VITALS Vital Signs Date Time Temp Pulse Resp B/P (MAP) Pulse Ox O2 Delivery O2 Flow Rate FiO2 06/16/19 12:32 97.9 66 18 171/68 (102) 96 Room Air 97.9 Labs Labs Laboratory Tests Test 06/15/19 11:15 06/15/19 11:55 06/15/19 16:49 06/15/19 20:37 Glucose (Fingerstick) 154 mg/dL (70-99) 239 mg/dL (70-99) 323 mg/dL (70-99) White Blood Count 5.2 x10^3/uL (4.0-11.0) Red Blood Count 2.91 x10^6/uL (4.30-5.70) Hemoglobin 9.8 g/dL (13.0-17.5) Hematocrit 30.0 % (39.0-53.0) Mean Corpuscular Volume 103 fL (79-100) Mean Corpuscular Hemoglobin 34 pg (25-35) Mean Corpuscular Hemoglobin Concent 33 g/dL (31-37) Red Cell Distribution Width 15.6 % (11.5-14.5) Platelet Count 115 x10^3/uL (140-400) Neutrophils (%) (Auto) 69 % (31-73) Lymphocytes (%) (Auto) 13 % (24-48) Monocytes (%) (Auto) 13 % (0-9) Eosinophils (%) (Auto) 4 % (0-3) Basophils (%) (Auto) 2 % (0-3) Neutrophils # (Auto) 3.6 x10^3/uL (1.8-7.7) Lymphocytes # (Auto) 0.7 x10^3/uL (1.0-4.8) Monocytes # (Auto) 0.7 x10^3/uL (0.0-1.1) Eosinophils # (Auto) 0.2 x10^3/uL (0.0-0.7) Basophils # (Auto) 0.1 x10^3/uL (0.0-0.2) Sodium Level 133 mmol/L (136-145) Potassium Level 6.2 mmol/L (3.5-5.1) Chloride Level 102 mmol/L (98-107) Carbon Dioxide Level 20 mmol/L (21-32) Anion Gap 11 (6-14) Blood Urea Nitrogen 70 mg/dL (8-26) Creatinine 7.0 mg/dL (0.7-1.3) Estimated GFR (Cockcroft-Gault) 8.0 BUN/Creatinine Ratio 10 (6-20) Glucose Level 156 mg/dL (70-99) Calcium Level 8.7 mg/dL (8.5-10.1) Total Bilirubin 0.6 mg/dL (0.2-1.0) Aspartate Amino Transf (AST/SGOT) 17 U/L (15-37) Alanine Aminotransferase (ALT/SGPT) 20 U/L (16-63) Alkaline Phosphatase 143 U/L (46-116) Total Protein 6.8 g/dL (6.4-8.2) Albumin 3.3 g/dL (3.4-5.0) Albumin/Globulin Ratio 0.9 (1.0-1.7) Random Vancomycin Level 13.8 mcg/mL Test 06/16/19 01:29 06/16/19 07:21 06/16/19 12:40 Glucose (Fingerstick) 316 mg/dL (70-99) 272 mg/dL (70-99) 118 mg/dL (70-99) Laboratory Tests Test 06/15/19 16:49 06/15/19 20:37 06/16/19 01:29 06/16/19 07:21 Glucose (Fingerstick) 239 mg/dL (70-99) 323 mg/dL (70-99) 316 mg/dL (70-99) 272 mg/dL (70-99) Test 06/16/19 12:40 Glucose (Fingerstick) 118 mg/dL (70-99) Assessment/Plan Assessment/Plan Atherosclerosis with gangrene of the left first toe--patient has a mal perforans diabetic ulcer involving the left first toe to the level of the distal phalanx. There is no way to salvage this toe with local wound care. I recommended a left first toe amputation. The patient has intact arterial blood flow with a palpable pulse exam. I did review the patient's arterial duplex which does indicate chronic atherosclerotic occlusive disease however this is still non-flow limiting given a palpable exam. The details of the procedure were discussed with the patient and all risks, benefits, and alternatives were discussed. Patient is agreeable to proceed with surgery. We will make the patient nothing by mouth after midnight tonight with planned operation tomorrow. The patient will need a forefoot offloading shoe from [facility] orthoped[facility]. The plan was discussed with the nursing staff at the bedside. Shannan Dow DO, SHANNAN SAUCEDO DO Jun 16, 2019 13:54
--- NOTE | 2019-06-16 14:13 | NUR ---
SW following. Discussed with RN, pt from home, ID consulted, IV abx, wound care. Pt has dialysis at [facility], possibly trying to change to T, , SA. SW will continue to follow.
[2019-06-16 15:00] VITALS: BP 193/63
[2019-06-16] MEDS ORDERED: VANCOMYCIN 500 MG in IV NORMAL SALINE 100ML 100 ML IV ONE (16:00)
--- NOTE | 2019-06-16 17:22 | RAD ---
Examination: UPPER EXT ARTERIAL LEFT History: AV fistula assessment. End-stage renal disease. Comparison/Correlation: None Findings: Ultrasound examination of the left impression AV fistula was performed. Color and spectral Doppler performed. AV fistula is patent. Proximal cephalic venous anastomosis is identified have peak systolic velocity of 375 cm/s. Proximal AV fistula as well as a 199 cm/s. Mid AV fistula velocity of 288 cm/s noted. Distal AV fistula velocity of 101 cm/s noted. To-and-fro flow is evident at the antecubital fossa region. At the proximal forearm, AV fistula and has a peak systolic velocity 130 cm/s. Distally within the forearm, the fistula has peak systolic velocity of 224 cm/s. Inflow velocity of the radial artery of 153 cm/s is noted. Impression: No focal stenosis identified involving the left impression AV fistula. Electronically signed by: Heriberto Ventura MD (06/16/2019 5:20 PM) [facility]
[2019-06-16 19:00] VITALS: BP 179/72
[2019-06-16] MEDS: amLODIPine BESYLATE 10 MG TABLET PO SCH (22:08)
[2019-06-16] MEDS: INSULIN GLARGINE SYRINGE. SQ SCH (22:17)
--- NOTE | 2019-06-16 22:20 | NUR ---
Patient's CRYS=805 this evening, per patient instructions only 7 units of prescribed Lantus administered. Patient in bed, at bedside, and no other needs voiced at this time
[2019-06-16 23:00] VITALS: BP 150/45
[2019-06-17 03:00] VITALS: BP 109/64
[2019-06-17 07:00] VITALS: BP 141/55
[2019-06-17] MEDS ORDERED: IV RINGERS,LACTATED 1000ML 1,000 ML IV SCH (07:00)
[2019-06-17] MEDS ORDERED: PROCHLORPERAZINE 10 MG/2 ML VIAL. IV PRN (07:00)
[2019-06-17] MEDS ORDERED: ONDANSETRON PF 4 MG/2 ML VIAL. IV PRN (07:00)
[2019-06-17] MEDS ORDERED: LIDOCAINE 1% PF 2 ML VIAL. ID PRN (07:00)
[2019-06-17] MEDS ORDERED: fentaNYL PF VIAL 100 MCG/2 ML VIAL IV PRN ×2 (07:00)
[2019-06-17] MEDS ORDERED: HYDROmorphone 2 MG/ML VIAL IV PRN (07:00)
[2019-06-17] MEDS ORDERED: MORPHINE SULFATE 2 MG/ML VIAL. IV PRN (07:00)
--- NOTE | 2019-06-17 07:33 | PDOC ---
Infectious Disease Note Subjective Subjective Doing ok. Had less loose stool No F/C/S/N/V/SOA/pain. leg ok ROS ROS o/w neg Vital Sign Vital Signs Vital Signs Date Time Temp Pulse Resp B/P (MAP) Pulse Ox O2 Delivery O2 Flow Rate FiO2 06/17/19 03:00 98.0 64 18 109/64 (79) 95 Room Air 98.0 Physical Exam PHYSICAL EXAM CONSTITUTIONAL: He is a pleasant gentleman. He is cooperative. He is laying in bed HEENT: Pupils are equal and reactive. Normal conjunctivae. Oral cavity, pharynx is clear. NECK: Supple. No JVD. LUNGS: Clear to auscultation bilaterally. HEART: S1, S2 with a soft murmur. ABDOMEN: Soft and nontender. No guarding or rebound. EXTREMITIES: Without clubbing or cyanosis. He has left upper extremity fistula that is unremarkable. Left great toe dressed. He does have a Charcot joint. SKIN: Warm to touch without generalized rash. He has a little bit of erythema just below his knee on the left side improved to stable. NEUROLOGIC: He is alert and responding to questions appropriately. PSYCHIATRIC: Affect is pleasant. Labs Lab Laboratory Tests Test 06/16/19 07:21 06/16/19 12:40 06/16/19 16:53 06/16/19 20:32 Glucose (Fingerstick) 272 mg/dL (70-99) 118 mg/dL (70-99) 119 mg/dL (70-99) 145 mg/dL (70-99) Micro Arterial doppler LE 06/15 Impression: Elevated flow velocity involving the dorsalis pedis artery which is of concern for proximal stenosis. Mildly elevated flow velocity involving the anterior tibial artery noted. Diminished flow of the distal posterior tibial artery with atheromatous involvement noted. Objective Assessment Left great toe infection ? PAD CKD on HD Levofloxacin allergy - rash H/o Pasturella and Acinetobacter?Enterobacter DM COPD CAD Charcot foot Plan Plan of Care Await surgery Cont Vanc/Meropenem/Micafungin 06/15 F/u labs and cults D/w CLARISA RUIZ MD Jun 17, 2019 07:33
[2019-06-17] MEDS: CALCIUM ACETATE 667 MG CAPSULE PO SCH ×3 (08:00→17:33)
[2019-06-17] MEDS: INSULIN LISPRO 300 UNITS/3 ML VIAL. SQ SCH ×3 (08:00→17:00)
[2019-06-17] MEDS: NORMAL SALINE IV SCH (08:42)
[2019-06-17] MEDS: MEROPENEM IV SCH (08:42)
[2019-06-17] MEDS: MINOXIDIL 2.5 MG TABLET PO SCH ×2 (09:00→21:18)
[2019-06-17] MEDS: LACTOBACILLUS RHAMNOSUS GG 1 CAPSULE. PO SCH ×2 (09:00→21:18)
[2019-06-17] MEDS: CARVEDILOL 12.5 MG TABLET. PO SCH (09:00)
[2019-06-17] MEDS: MULTIVITAMIN with MINERAL TABLET. PO SCH (09:00)
[2019-06-17] MEDS ORDERED: PROPOFOL 20 ML IV ONE (11:01)
[2019-06-17] MEDS ORDERED: LIDOCAINE 2% PF 5 ML VIAL. ONE (11:01)
--- NOTE | 2019-06-17 11:28 | PDOC ---
Provider Note Provider Note Pt with left 1st toe ulcer with suspected osteomyelitis. Plan left 1st toe amputation. Discussed risks and benefits. He acknowledged and elected to proceed. Questions answered. ADIEL YORK MD Jun 17, 2019 11:28
[2019-06-17] MEDS ORDERED: IV NORMAL SALINE 1000ML BAG 1,000 ML IV PRN (11:52)
[2019-06-17] MEDS ORDERED: LIDOCAINE 1% 20 ML VIAL. ONE (11:57)
--- NOTE | 2019-06-17 11:59 | PDOC ---
PROGRESS NOTES Subjective Subjective TO OR for TOE amputation Objective Objective Vital Signs Date Time Temp Pulse Resp B/P (MAP) Pulse Ox O2 Delivery O2 Flow Rate FiO2 06/17/19 10:59 98.4 16 16 164/64 95 Room Air 98.4 Intake and Output 06/17/19 07:00 Intake Total 1150 ml Balance 1150 ml Intake Oral 850 ml IV Total 300 ml # Bowel Movements 2 Physical Exam Abdomen: Normal bowel sounds, Soft, No tenderness Heart: Regular rate, Normal S1, Normal S2 Extremities: No clubbing, No cyanosis, Other (palpable thrill in the left upper extremity fistula, palpable dorsalis pedis pulse in the left foot, palpable dorsalis pedis pulse in the right foot) General: Alert, Oriented X3, Cooperative, No acute distress HEENT: PERRLA, EOMI, Mucous membr. moist/pink Lungs: Clear to auscultation, Normal air movement MUSCULOSKELETAL: No muscular tenderness noted, Full range of motion without pain Neuro: Normal speech, Strength at 5/5 X4 ext, Normal tone, Cranial nerves 3-12 NL Psych/Mental Status: Mental status NL, Mood NL Skin: Other (left first toe mal perforans ulcer with dry gangrene involving the distal tip of the toe to the level of the distal phalanx, resolving cellulitis involving the dorsal foot and ankle, no purulent drainage) Assessment Assessment IMPRESSION: 1. Osteo left big toe and left lower extremity cellulitis and has multiple other medical problems. A. Longstanding type 2 diabetes mellitus with neuropathy. B. Hypertension. C. Hyperlipidemia. D. End-stage renal disease, on hemodialysis .. PLAN: Toe amputation today Dialysis late today spoke with RN 3 antibiotics vanco+meropenum+micofengin. Comment Review of Relevant I have reviewed the following items kit (where applicable) has been applied. Labs Laboratory Tests Test 06/16/19 12:40 06/16/19 16:53 06/16/19 20:32 06/17/19 08:00 Glucose (Fingerstick) 118 mg/dL (70-99) 119 mg/dL (70-99) 145 mg/dL (70-99) 120 mg/dL (70-99) Test 06/17/19 11:14 Glucose (Fingerstick) 91 mg/dL (70-99) Medications Current Medications Cefazolin Sodium 1 gm/Sodium Chloride 250 ml @ 250 mls/hr 1X ONCE IV ; Start 06/17/19 at 12:00; Stop 06/17/19 at 12:59 Fentanyl Citrate (Fentanyl 2ml Vial) 25 mcg PRN Q5MIN PRN IV MILD PAIN 1-3; Start 06/17/19 at 07:00; Stop 06/18/19 at 06:59 Fentanyl Citrate (Fentanyl 2ml Vial) 50 mcg PRN Q5MIN PRN IV MODERATE TO SEVERE PAIN; Start 06/17/19 at 07:00; Stop 06/18/19 at 06:59 Hydromorphone HCl (Dilaudid) 0.5 mg PRN Q10MIN PRN IV SEV PAIN, Second choice; Start 06/17/19 at 07:00; Stop 06/18/19 at 06:59 Lidocaine HCl (Lidocaine Pf 2% Vial) 5 ml STK-MED ONCE .ROUTE ; Start 06/17/19 at 11:01; Stop 06/17/19 at 11:01; Status DC Lidocaine HCl (Xylocaine-Mpf 1% 2ml Vial) 2 ml PRN 1X PRN ID PRIOR TO IV START; Start 06/17/19 at 07:00; Stop 06/18/19 at 06:59 Morphine Sulfate (Morphine Sulfate) 1 mg PRN Q10MIN PRN IV SEVERE PAIN 7-10; Start 06/17/19 at 07:00; Stop 06/18/19 at 06:59 Multivitamins (Thera M Plus) 1 tab DAILY PO Last administered on 06/16/19at 12:59; Start 06/16/19 at 13:00 Ondansetron HCl (Zofran) 4 mg PRN Q6HRS PRN IV NAUSEA/VOMITING; Start 06/17/19 at 07:00; Stop 06/18/19 at 06:59 Prochlorperazine Edisylate (Compazine) 5 mg PACU PRN PRN IV NAUSEA, MRX1; Start 06/17/19 at 07:00; Stop 06/18/19 at 06:59 Propofol 20 ml @ As Directed STK-MED ONCE IV ; Start 06/17/19 at 11:01; Stop 06/17/19 at 11:01; Status DC Ringer's Solution 1,000 ml @ 30 mls/hr Q24H IV ; Start 06/17/19 at 07:00; Stop 06/17/19 at 18:59 Vancomycin HCl 500 mg/Sodium Chloride 100 ml @ 100 mls/hr 1X ONCE IV Last administered on 06/16/19at 15:32; Start 06/16/19 at 16:00; Stop 06/16/19 at 16:59; Status DC Vitals/I & O Vital Sign - Last 24 Hours 06/16/19 06/16/19 06/16/19 06/16/19 12:32 15:00 15:07 15:07 Temp 97.9 98.0 97.9 98.0 Pulse 66 72 66 66 Resp 18 18 B/P (MAP) 171/68 (102) 193/63 (106) 171/68 171/68 Pulse Ox 96 98 O2 Delivery Room Air Room Air 06/16/19 06/16/19 06/16/19 06/16/19 19:00 19:30 22:08 22:08 Temp 98.1 98.1 Pulse 59 65 65 Resp 18 B/P (MAP) 179/72 (107) 169/74 169/74 Pulse Ox 94 O2 Delivery Room Air Room Air 06/16/19 06/17/19 06/17/19 06/17/19 23:00 03:00 07:00 08:00 Temp 98.5 98.0 98.1 98.5 98.0 98.1 Pulse 58 64 16 Resp 18 18 16 B/P (MAP) 150/45 (80) 109/64 (79) 141/55 (83) Pulse Ox 94 95 95 O2 Delivery Room Air Room Air Room Air Room Air 06/17/19 10:59 Temp 98.4 98.4 Pulse 16 Resp 16 B/P (MAP) 164/64 Pulse Ox 95 O2 Delivery Room Air Intake and Output 06/16/19 06/16/19 06/17/19 15:00 23:00 07:00 Intake Total 320 ml 180 ml 650 ml Balance 320 ml 180 ml 650 ml FADY HASSAN MD Jun 17, 2019 11:59
[2019-06-17] MEDS ORDERED: DIALYSIS PATIENT. MC PRN ×2 (12:00)
[2019-06-17] MEDS: VANCOMYCIN PER PHARMACY MC PRN (12:11)
--- NOTE | 2019-06-17 12:27 | PDOC ---
VASCULAR BRIEF OPERATIVE NOTE Pre-Op Diagnosis Left distal 1st toe ulcer/gangrene with suspected osteomyelitis ESRD on dialysis DM Post-Op Diagnosis same Procedure Performed Left 1st toe amputation Surgeon Reggie Anesthesia Type: MAC, Local Blood Loss 5ml Other Specimen of distal left 1st phalanx sent for C&S and remainder of amputation set to path. May start heel touch weight bearing on the left foot tomorrow with forefoot offloading shoe. ADIEL YORK MD Jun 17, 2019 12:27
[2019-06-17] MEDS ORDERED: HYDROcodone/APAP 5/325MG 1 TAB TABLET PO PRN (12:30)
[2019-06-17] MEDS: MICAFUNGIN 100 MG in IV DEXTROSE 5% 100ML 100 ML IV SCH (12:30)
--- NOTE | 2019-06-17 12:42 | OP ---
DATE OF SURGERY: 06/17/2019 PREOPERATIVE DIAGNOSES: 1. Left distal first toe ulcer with gangrenous tip and suspected osteomyelitis. 2. Peripheral neuropathy. 3. Chronic renal failure, on hemodialysis. POSTOPERATIVE DIAGNOSES: 1. Left distal first toe ulcer with gangrenous tip and suspected osteomyelitis. 2. Peripheral neuropathy. 3. Chronic renal failure, on hemodialysis. PROCEDURE: Left distal first toe amputation through proximal phalanx. SURGEON: Kemar York MD ANESTHESIA: Monitored anesthesia care, local. INDICATIONS: The patient is a 63-year-old male with diabetes; chronic renal failure, on hemodialysis; and peripheral neuropathy, who presents with a gangrenous ulcer at the distal tip of the left first toe. This extends down to the deep nail bed and there is suspected osteomyelitis. The distal aspect of the phalanx is exposed. He presents for distal toe amputation. FINDINGS: He underwent amputation of the distal left first toe through the distal portion of the proximal phalanx. There was good viability of the bone at the amputation site. Primary closure was performed. DESCRIPTION OF PROCEDURE: The patient was taken to the operating room and placed supine on the hospital bed. He was given IV sedation. His left foot and lower leg were prepped and draped in normal sterile fashion. A 1% lidocaine was infused as a digital block at the base of the left first toe using 1% plain lidocaine. An elliptical incision was made just distal to the distal interphalangeal joint. This was extended down to expose the distal portion of the proximal phalanx. The phalanx was divided with a bone cutter and the toe was passed to the backtable. The exposed tendons were excised. The bone was trimmed with a rongeur. Electrocautery used for hemostasis. The incision was copiously irrigated with saline irrigation. Skin was reapproximated with 3-0 nylon sutures. Xeroform followed by 4 x 4s, Kerlix, and an Dmitri wrap were applied. The patient tolerated the procedure well and there were no complications. A rongeur was used to take off the distal portion of the distal phalanx, which was sent for culture and sensitivity. The remainder of the amputated toe was sent to pathology. KEMAR YORK MD DR: KEVIN/bernardo JOB#: [id number] / [id number] GOLD Jiang MD, GLENN MD MADI, AHMED MD
--- NOTE | 2019-06-17 13:00 | PDOC ---
SUBJECTIVE ROS No complaints on HD OBJECTIVE Vital Signs Vital Signs Date Time Temp Pulse Resp B/P (MAP) Pulse Ox O2 Delivery O2 Flow Rate FiO2 06/17/19 12:45 98.1 16 16 156/64 95 Room Air 98.1 06/17/19 12:30 8 I & 0 Intake and Output 06/17/19 07:00 Intake Total 1150 ml Balance 1150 ml Intake Oral 850 ml IV Total 300 ml # Bowel Movements 2 PHYSICAL EXAM Physical Exam General- sitting up in bed, NAD HEENT: OM moist, On RA NECK: Supple. LUNGS: Clear to auscultation bilaterally. HEART: S1, S2 with a soft murmur. ABDOMEN: Soft and nontender, obese EXTREMITIES: No clubbing or cyanosis. He has left upper extremity AVF with thrill/Bruit SKIN: No rash NEUROLOGIC: He is alert and responding to questions appropriately. PSYCHIATRIC: Affect is pleasant. No caceres, No CVA or SP tenderness DIAGNOSIS/ASSESSMENT Assessment & Plan ESRD - Has been on HD MWF under Dr. Metz He was on PD for 3 years, On HD for 10 yrs switching to TTS at [facility] Dialysis today as ordered , anneliese [employer] Access Lt AVF patent on US 06/16/19 Left great toe infection- suspect OM, S/P amputation Coronary artery disease. Charcot foot. HTN - Home antihypertensives DM II Anemia- On MICHA COMMENT/RELEVANT DATA Meds Current Medications Medications (Trade) Dose Ordered Sig/Diana Start Time Stop Time Status Last Admin Dose Admin Acetaminophen (Tylenol) 500 mg 1X PRN PRN 06/16/19 07:30 06/17/19 07:29 DC Acetaminophen/ Hydrocodone Bitart (Lortab 5/325) 1 tab PRN Q4HRS PRN 06/17/19 12:30 Albumin Human 200 ml @ 200 mls/hr 1X PRN PRN 06/16/19 07:30 06/16/19 13:29 DC Amlodipine Besylate (Norvasc) 10 mg HS 06/15/19 21:00 06/16/19 22:08 10 MG Calcium Acetate (Phoslo) 667 mg TIDWMEALS 06/15/19 18:00 06/16/19 16:57 667 MG Carvedilol (Coreg) 12.5 mg DAILY 06/16/19 09:00 06/16/19 15:07 12.5 MG Cefazolin Sodium 1 gm/Sodium Chloride 250 ml @ 250 mls/hr 1X ONCE 06/17/19 12:00 06/17/19 12:59 06/17/19 11:58 Darbepoetin Huang (ARANESP for DIALYSIS PTS) 60 mcg WEEKLYHS 06/15/19 21:00 06/15/19 22:32 60 MCG Dextrose (Dextrose 50%-Water Syringe) 12.5 gm PRN Q15MIN PRN 06/15/19 17:30 Dextrose (Iv Dextrose 5%) 250 ml PRN Q15MIN PRN 06/15/19 17:30 Diphenhydramine HCl (Benadryl) 25 mg 1X PRN PRN 06/16/19 07:30 06/17/19 07:29 DC Duloxetine HCl (Cymbalta) 30 mg DAILY 06/16/19 09:00 06/16/19 08:10 30 MG Fentanyl Citrate (Fentanyl 2ml Vial) 50 mcg PRN Q5MIN PRN 06/17/19 07:00 06/18/19 06:59 Hydromorphone HCl (Dilaudid) 0.5 mg PRN Q10MIN PRN 06/17/19 07:00 06/18/19 06:59 Info (PHARMACY MONITORING -- do not chart) 1 each PRN DAILY PRN 06/17/19 12:00 Insulin Glargine (Lantus Syringe) 14 unit HS 06/15/19 21:00 06/16/19 22:17 7 UNIT Insulin Human Lispro (HumaLOG) 0-5 UNITS TIDWMEALS 06/15/19 18:00 06/16/19 08:12 4 UNITS Insulin Human Regular (HumuLIN R VIAL) low sliding scale TIDAC 06/16/19 07:30 UNV Lactobacillus Rhamnosus (Culturelle) 1 cap BID 06/15/19 21:00 06/16/19 22:08 1 CAP Lidocaine HCl 20 ml STK-MED ONCE 06/17/19 11:57 06/17/19 11:58 DC 06/17/19 11:58 20 ML Lidocaine HCl (Lidocaine Pf 2% Vial) 5 ml STK-MED ONCE 06/17/19 11:01 06/17/19 11:01 DC Lidocaine HCl (Xylocaine-Mpf 1% 2ml Vial) 2 ml PRN 1X PRN 06/17/19 07:00 06/18/19 06:59 Meropenem 1000 mg/ Sodium Chloride 100 ml @ 200 mls/hr DAILY 06/15/19 10:45 06/17/19 08:42 200 MLS/HR Meropenem 500 mg/ Sodium Chloride 50 ml @ 100 mls/hr DAILY 06/15/19 11:00 06/15/19 10:49 DC Micafungin Sodium 100 mg/Dextrose 100 ml @ 100 mls/hr Q24H 06/15/19 12:00 06/17/19 12:30 100 MLS/HR Minoxidil (Loniten) 2.5 mg BID 06/15/19 21:00 06/16/19 22:08 2.5 MG Morphine Sulfate (Morphine Sulfate) 1 mg PRN Q10MIN PRN 06/17/19 07:00 06/18/19 06:59 Multivitamins (Thera M Plus) 1 tab DAILY 06/16/19 13:00 06/16/19 12:59 1 TAB Ondansetron HCl (Zofran) 4 mg PRN Q6HRS PRN 06/17/19 07:00 06/18/19 06:59 Prochlorperazine Edisylate (Compazine) 5 mg PACU PRN PRN 06/17/19 07:00 06/18/19 06:59 Propofol 20 ml @ As Directed STK-MED ONCE 06/17/19 11:01 06/17/19 11:01 DC Ringer's Solution 1,000 ml @ 30 mls/hr Q24H 06/17/19 07:00 06/17/19 18:59 Sodium Polystyrene Sulfonate (Kayexalate) 30 gm 1X ONCE 06/15/19 16:30 06/15/19 16:31 DC 06/15/19 17:21 30 GM Sodium Chloride 1,000 ml @ 1,000 mls/hr Q1H PRN 06/17/19 11:52 06/17/19 17:51 Tramadol HCl (Ultram) 50 mg PRN Q12HR PRN 06/15/19 17:30 Vancomycin HCl (Vanco Per Pharmacy) 1 each PRN DAILY PRN 06/15/19 10:45 1/25/20 12:11 1 EACH Vancomycin HCl 500 mg/Sodium Chloride 100 ml @ 100 mls/hr 1X ONCE 06/16/19 16:00 06/16/19 16:59 DC 06/16/19 15:32 100 MLS/HR Vancomycin HCl 750 mg/Sodium Chloride 250 ml @ 250 mls/hr QTUTHSA 06/15/19 16:00 06/15/19 18:24 250 MLS/HR Zolpidem Tartrate (Ambien) 5 mg PRN QHS PRN 06/15/19 17:30 Lab Laboratory Tests Test 06/16/19 16:53 06/16/19 20:32 06/17/19 08:00 06/17/19 11:14 Glucose (Fingerstick) 119 mg/dL (70-99) 145 mg/dL (70-99) 120 mg/dL (70-99) 91 mg/dL (70-99) Results All relevant outside records, renal labs, imaging studies, telemetry/EKG's were reviewed. Other AV fistula is patent. Proximal cephalic venous anastomosis is identified have peak systolic velocity of 375 cm/s. Proximal AV fistula as well as a 199 cm/s. Mid AV fistula velocity of 288 cm/s noted. Distal AV fistula velocity of 101 cm/s noted. To-and-fro flow is evident at the antecubital fossa region. At the proximal forearm, AV fistula and has a peak systolic velocity 130 cm/s. Distally within the forearm, the fistula has peak systolic velocity of 224 cm/s. Inflow velocity of the radial artery of 153 cm/s is noted. Impression: No focal stenosis identified involving the left impression AV fistula. GOLD WILKES MD Jun 17, 2019 13:00
[2019-06-17 14:26] LABS: HEMATOCRIT 28.7 % (39.0-53.0); HEMOGLOBIN 9.6 g/dL (13.0-17.5); RED BLOOD COUNT 2.8 x10^6/uL (4.30-5.70); RED CELL DISTRIBUTION WIDTH 14.7 % (11.5-14.5); WHITE BLOOD COUNT 3.7 x10^3/uL (4.0-11.0)
[2019-06-17 14:34] LABS: CALCIUM 8.1 mg/dL (8.5-10.1); CREATININE 5.4 mg/dL (0.7-1.3); GFR 10.7; POTASSIUM 3.7 mmol/L (3.5-5.1)
[2019-06-17] MEDS: DULoxetine HCL 30 MG CAPSULE.DR PO SCH (17:34)
[2019-06-17] MEDS: VANCOMYCIN 750 MG in IV NORMAL SALINE 250ML 250 ML IV SCH (17:35)
[2019-06-17 19:00] VITALS: BP 163/60
[2019-06-17] MEDS: amLODIPine BESYLATE 10 MG TABLET PO SCH (21:18)
[2019-06-17] MEDS: INSULIN GLARGINE SYRINGE. SQ SCH (21:27)
[2019-06-17 23:00] VITALS: BP 150/62
[2019-06-18 03:00] VITALS: BP 180/80
[2019-06-18 05:02] LABS: BASO % 1 % (0-3); EOS # 0.2 x10^3/uL (0.0-0.7); EOS % 5 % (0-3); HEMATOCRIT 29.8 % (39.0-53.0); LYMPH # 0.4 x10^3/uL (1.0-4.8); LYMPH % 12 % (24-48); MEAN CORPUSCULAR HEMOGLOBIN 34 pg (25-35); MEAN CORPUSCULAR HGB CONC 34 g/dL (31-37); MEAN CORPUSCULAR VOLUME 102 fL (79-100); MONO # 0.7 x10^3/uL (0.0-1.1); MONO % 19 % (0-9); NEUT # 2.3 x10^3/uL (1.8-7.7); NEUT % 63 % (31-73); PLATELET COUNT 113 x10^3/uL (140-400); RED BLOOD COUNT 2.92 x10^6/uL (4.30-5.70); RED CELL DISTRIBUTION WIDTH 14.9 % (11.5-14.5); WHITE BLOOD COUNT 3.6 x10^3/uL (4.0-11.0)
[2019-06-18 05:19] LABS: CALCIUM 8.2 mg/dL (8.5-10.1); GFR 11.7; POTASSIUM 3.6 mmol/L (3.5-5.1)
--- NOTE | 2019-06-18 06:28 | PDOC ---
Infectious Disease Note Subjective Subjective Doing ok. Had less loose stool but still some. has no pain No F/C/S/N/V/SOA/pain. leg ok ROS ROS o/w neg Vital Sign Vital Signs Vital Signs Date Time Temp Pulse Resp B/P (MAP) Pulse Ox O2 Delivery O2 Flow Rate FiO2 06/18/19 03:00 98.0 60 18 180/80 (113) 100 Room Air 98.0 06/17/19 12:30 8 Physical Exam PHYSICAL EXAM CONSTITUTIONAL: He is a pleasant gentleman. He is cooperative. He is laying in bed HEENT: Pupils are equal and reactive. Normal conjunctivae. Oral cavity, pharynx is clear. NECK: Supple. No JVD. LUNGS: Clear to auscultation bilaterally. HEART: S1, S2 with a soft murmur. ABDOMEN: Soft and nontender. No guarding or rebound. EXTREMITIES: Without clubbing or cyanosis. He has left upper extremity fistula that is unremarkable. Left great toe dressed post op. erythema of leg much better. He does have a Charcot joint. SKIN: Warm to touch without generalized rash. NEUROLOGIC: He is alert and responding to questions appropriately. PSYCHIATRIC: Affect is pleasant. Labs Lab Laboratory Tests Test 06/17/19 08:00 06/17/19 11:14 06/17/19 14:00 06/17/19 17:28 Glucose (Fingerstick) 120 mg/dL (70-99) 91 mg/dL (70-99) 116 mg/dL (70-99) White Blood Count 3.7 x10^3/uL (4.0-11.0) Red Blood Count 2.80 x10^6/uL (4.30-5.70) Hemoglobin 9.6 g/dL (13.0-17.5) Hematocrit 28.7 % (39.0-53.0) Mean Corpuscular Volume 102 fL (79-100) Mean Corpuscular Hemoglobin 34 pg (25-35) Mean Corpuscular Hemoglobin Concent 34 g/dL (31-37) Red Cell Distribution Width 14.7 % (11.5-14.5) Platelet Count 112 x10^3/uL (140-400) Sodium Level 136 mmol/L (136-145) Potassium Level 3.7 mmol/L (3.5-5.1) Chloride Level 100 mmol/L (98-107) Carbon Dioxide Level 26 mmol/L (21-32) Anion Gap 10 (6-14) Blood Urea Nitrogen 41 mg/dL (8-26) Creatinine 5.4 mg/dL (0.7-1.3) Estimated GFR (Cockcroft-Gault) 10.7 Glucose Level 129 mg/dL (70-99) Calcium Level 8.1 mg/dL (8.5-10.1) Test 06/17/19 20:09 06/18/19 04:30 Glucose (Fingerstick) 153 mg/dL (70-99) White Blood Count 3.6 x10^3/uL (4.0-11.0) Red Blood Count 2.92 x10^6/uL (4.30-5.70) Hemoglobin 10.0 g/dL (13.0-17.5) Hematocrit 29.8 % (39.0-53.0) Mean Corpuscular Volume 102 fL (79-100) Mean Corpuscular Hemoglobin 34 pg (25-35) Mean Corpuscular Hemoglobin Concent 34 g/dL (31-37) Red Cell Distribution Width 14.9 % (11.5-14.5) Platelet Count 113 x10^3/uL (140-400) Neutrophils (%) (Auto) 63 % (31-73) Lymphocytes (%) (Auto) 12 % (24-48) Monocytes (%) (Auto) 19 % (0-9) Eosinophils (%) (Auto) 5 % (0-3) Basophils (%) (Auto) 1 % (0-3) Neutrophils # (Auto) 2.3 x10^3/uL (1.8-7.7) Lymphocytes # (Auto) 0.4 x10^3/uL (1.0-4.8) Monocytes # (Auto) 0.7 x10^3/uL (0.0-1.1) Eosinophils # (Auto) 0.2 x10^3/uL (0.0-0.7) Basophils # (Auto) 0.0 x10^3/uL (0.0-0.2) Sodium Level 136 mmol/L (136-145) Potassium Level 3.6 mmol/L (3.5-5.1) Chloride Level 100 mmol/L (98-107) Carbon Dioxide Level 28 mmol/L (21-32) Anion Gap 8 (6-14) Blood Urea Nitrogen 30 mg/dL (8-26) Creatinine 5.0 mg/dL (0.7-1.3) Estimated GFR (Cockcroft-Gault) 11.7 Glucose Level 133 mg/dL (70-99) Calcium Level 8.2 mg/dL (8.5-10.1) Micro Arterial doppler LE 06/15 Impression: Elevated flow velocity involving the dorsalis pedis artery which is of concern for proximal stenosis. Mildly elevated flow velocity involving the anterior tibial artery noted. Diminished flow of the distal posterior tibial artery with atheromatous involvement noted. Objective Assessment Left great toe infection - s/p Closed Left distal first toe amputation through proximal phalanx 06/17. Pancytopenia - ? reactive vs ? Vanc- clinically well ? PAD CKD on HD Levofloxacin allergy - rash H/o Pasturella and Acinetobacter?Enterobacter DM COPD CAD Charcot foot Plan Plan of Care Discont Vanc was dosed 06/17 Cont Meropenem/Micafungin 06/15 wean soon wait to see post op wound F/u labs in am and cults D/w CLARISA URIZ MD Jun 18, 2019 06:28
[2019-06-18 07:00] VITALS: BP 162/58
[2019-06-18 07:05] LABS: % EOS 3 % (0-5); % LYMPHS 8 % (24-48); % MONOS 16 % (0-10); % SEGS 73 % (35-66); PLT ESTIMATE ADEQUATE (ADEQUATE)
[2019-06-18] MEDS: INSULIN LISPRO 300 UNITS/3 ML VIAL. SQ SCH ×3 (08:00→17:20)
[2019-06-18] MEDS: NORMAL SALINE IV SCH (08:04)
[2019-06-18] MEDS: MEROPENEM IV SCH (08:04)
[2019-06-18] MEDS: CALCIUM ACETATE 667 MG CAPSULE PO SCH ×3 (08:05→17:17)
[2019-06-18] MEDS: MINOXIDIL 2.5 MG TABLET PO SCH ×2 (08:05→21:12)
[2019-06-18] MEDS: CARVEDILOL 12.5 MG TABLET. PO SCH (08:05)
[2019-06-18] MEDS: LACTOBACILLUS RHAMNOSUS GG 1 CAPSULE. PO SCH ×2 (08:05→21:10)
[2019-06-18] MEDS: MULTIVITAMIN with MINERAL TABLET. PO SCH (08:06)
[2019-06-18] MEDS: DULoxetine HCL 30 MG CAPSULE.DR PO SCH (08:06)
[2019-06-18 11:00] VITALS: BP 132/54
--- NOTE | 2019-06-18 11:12 | PDOC ---
PROGRESS NOTES Subjective Subjective feels ok ,no complaints Objective Objective Vital Signs Date Time Temp Pulse Resp B/P (MAP) Pulse Ox O2 Delivery O2 Flow Rate FiO2 06/18/19 08:05 60 180/80 06/18/19 08:00 Room Air 06/18/19 07:00 97.9 18 91 97.9 06/17/19 12:30 8 Intake and Output 06/18/19 07:00 Intake Total 350 ml Output Total 2 ml Balance 348 ml Intake Oral 150 ml IV Total 200 ml Output Estimated Blood Loss 2 ml # Bowel Movements 2 Physical Exam Abdomen: Normal bowel sounds, Soft, No tenderness Heart: Regular rate, Normal S1, Normal S2 Extremities: No clubbing, No cyanosis, Other (palpable thrill in the left upper extremity fistula, palpable dorsalis pedis pulse in the left foot, palpable dorsalis pedis pulse in the right foot) General: Alert, Oriented X3, Cooperative, No acute distress HEENT: PERRLA, EOMI, Mucous membr. moist/pink Lungs: Clear to auscultation, Normal air movement MUSCULOSKELETAL: No muscular tenderness noted, Full range of motion without pain Neuro: Normal speech, Strength at 5/5 X4 ext, Normal tone, Cranial nerves 3-12 NL Psych/Mental Status: Mental status NL, Mood NL Skin: Other (left first toe mal perforans ulcer with dry gangrene involving the distal tip of the toe to the level of the distal phalanx, resolving cellulitis involving the dorsal foot and ankle, no purulent drainage) Assessment Assessment IMPRESSION: 1. Osteo left big toe and left lower extremity cellulitis and has multiple other medical problems. A. Longstanding type 2 diabetes mellitus with neuropathy. B. Hypertension. C. Hyperlipidemia. D. End-stage renal disease, on hemodialysis .. PLAN: POD#1 PROCEDURE: Left distal first toe amputation through proximal phalanx. spoke with RN 3 antibiotics vanco+meropenum+micofengin. labs good Comment Review of Relevant I have reviewed the following items kit (where applicable) has been applied. Labs Laboratory Tests Test 06/17/19 11:14 06/17/19 14:00 06/17/19 17:28 06/17/19 20:09 Glucose (Fingerstick) 91 mg/dL (70-99) 116 mg/dL (70-99) 153 mg/dL (70-99) White Blood Count 3.7 x10^3/uL (4.0-11.0) Red Blood Count 2.80 x10^6/uL (4.30-5.70) Hemoglobin 9.6 g/dL (13.0-17.5) Hematocrit 28.7 % (39.0-53.0) Mean Corpuscular Volume 102 fL (79-100) Mean Corpuscular Hemoglobin 34 pg (25-35) Mean Corpuscular Hemoglobin Concent 34 g/dL (31-37) Red Cell Distribution Width 14.7 % (11.5-14.5) Platelet Count 112 x10^3/uL (140-400) Sodium Level 136 mmol/L (136-145) Potassium Level 3.7 mmol/L (3.5-5.1) Chloride Level 100 mmol/L (98-107) Carbon Dioxide Level 26 mmol/L (21-32) Anion Gap 10 (6-14) Blood Urea Nitrogen 41 mg/dL (8-26) Creatinine 5.4 mg/dL (0.7-1.3) Estimated GFR (Cockcroft-Gault) 10.7 Glucose Level 129 mg/dL (70-99) Calcium Level 8.1 mg/dL (8.5-10.1) Test 06/18/19 04:30 06/18/19 07:43 White Blood Count 3.6 x10^3/uL (4.0-11.0) Red Blood Count 2.92 x10^6/uL (4.30-5.70) Hemoglobin 10.0 g/dL (13.0-17.5) Hematocrit 29.8 % (39.0-53.0) Mean Corpuscular Volume 102 fL (79-100) Mean Corpuscular Hemoglobin 34 pg (25-35) Mean Corpuscular Hemoglobin Concent 34 g/dL (31-37) Red Cell Distribution Width 14.9 % (11.5-14.5) Platelet Count 113 x10^3/uL (140-400) Neutrophils (%) (Auto) 63 % (31-73) Lymphocytes (%) (Auto) 12 % (24-48) Monocytes (%) (Auto) 19 % (0-9) Eosinophils (%) (Auto) 5 % (0-3) Basophils (%) (Auto) 1 % (0-3) Neutrophils # (Auto) 2.3 x10^3/uL (1.8-7.7) Lymphocytes # (Auto) 0.4 x10^3/uL (1.0-4.8) Monocytes # (Auto) 0.7 x10^3/uL (0.0-1.1) Eosinophils # (Auto) 0.2 x10^3/uL (0.0-0.7) Basophils # (Auto) 0.0 x10^3/uL (0.0-0.2) Segmented Neutrophils % 73 % (35-66) Lymphocytes % 8 % (24-48) Monocytes % 16 % (0-10) Eosinophils % 3 % (0-5) Platelet Estimate Adequate (ADEQUATE) Sodium Level 136 mmol/L (136-145) Potassium Level 3.6 mmol/L (3.5-5.1) Chloride Level 100 mmol/L (98-107) Carbon Dioxide Level 28 mmol/L (21-32) Anion Gap 8 (6-14) Blood Urea Nitrogen 30 mg/dL (8-26) Creatinine 5.0 mg/dL (0.7-1.3) Estimated GFR (Cockcroft-Gault) 11.7 Glucose Level 133 mg/dL (70-99) Calcium Level 8.2 mg/dL (8.5-10.1) Glucose (Fingerstick) 84 mg/dL (70-99) Medications Current Medications Acetaminophen/ Hydrocodone Bitart (Lortab 5/325) 1 tab PRN Q4HRS PRN PO SEVERE PAIN; Start 06/17/19 at 12:30 Cefazolin Sodium 1 gm/Sodium Chloride 250 ml @ 250 mls/hr 1X ONCE IV Last administered on 06/17/19at 11:58; Start 06/17/19 at 12:00; Stop 06/17/19 at 12:59; Status DC Info (PHARMACY MONITORING -- do not chart) 1 each PRN DAILY PRN MC SEE COMMENTS; Start 06/17/19 at 12:00 Info (PHARMACY MONITORING -- do not chart) 1 each PRN DAILY PRN MC SEE COMMENTS; Start 06/17/19 at 12:00 Lidocaine HCl 20 ml STK-MED ONCE .ROUTE Last administered on 06/17/19at 11:58; Start 06/17/19 at 11:57; Stop 1/25/20 at 11:58; Status DC Sodium Chloride 1,000 ml @ 1,000 mls/hr Q1H PRN IV hypotension; Start 06/17/19 at 11:52; Stop 06/17/19 at 17:51; Status DC Vitals/I & O Vital Sign - Last 24 Hours 06/17/19 06/17/19 06/17/19 06/17/19 12:19 12:19 12:30 12:43 Temp 97.4 97.4 Pulse 16 16 Resp 18 16 B/P (MAP) 151/59 165/66 Pulse Ox 100 100 O2 Delivery Simple Mask Mask Simple Mask Room Air O2 Flow Rate 8 8 8 06/17/19 06/17/19 06/17/19 06/17/19 12:45 19:00 20:05 21:18 Temp 98.1 98.2 98.1 98.2 Pulse 16 67 67 Resp 16 18 B/P (MAP) 156/64 163/60 (94) 163/60 Pulse Ox 95 96 O2 Delivery Room Air Room Air Room Air 06/17/19 06/17/19 06/18/19 06/18/19 21:18 23:00 03:00 07:00 Temp 98.1 98.0 97.9 98.1 98.0 97.9 Pulse 67 71 60 65 Resp 18 18 18 B/P (MAP) 163/60 150/62 (91) 180/80 (113) 162/58 (92) Pulse Ox 94 100 91 O2 Delivery Room Air Room Air Room Air 06/18/19 06/18/19 06/18/19 08:00 08:05 08:05 Pulse 60 60 B/P (MAP) 180/80 180/80 O2 Delivery Room Air Intake and Output 06/17/19 06/17/19 06/18/19 15:00 23:00 07:00 Intake Total 230 ml 120 ml 0 ml Output Total 2 ml Balance 228 ml 120 ml 0 ml FADY HASSAN MD Jun 18, 2019 11:12
[2019-06-18] MEDS: MICAFUNGIN 100 MG in IV DEXTROSE 5% 100ML 100 ML IV SCH (11:55)
--- NOTE | 2019-06-18 12:47 | PDOC ---
PROGRESS NOTES Subjective Subjective He is without new complaints. He tolerated dialysis after surgery yesterday. Working with PT today. 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 Await final bone cultures. May increase activity with heel touch weight bearing only on the left. Comment Review of Relevant I have reviewed the following items kit (where applicable) has been applied. Labs Laboratory Tests Test 06/16/19 16:53 06/16/19 20:32 06/17/19 08:00 06/17/19 11:14 Glucose (Fingerstick) 119 mg/dL (70-99) 145 mg/dL (70-99) 120 mg/dL (70-99) 91 mg/dL (70-99) Test 06/17/19 14:00 06/17/19 17:28 06/17/19 20:09 06/18/19 04:30 White Blood Count 3.7 x10^3/uL (4.0-11.0) 3.6 x10^3/uL (4.0-11.0) Red Blood Count 2.80 x10^6/uL (4.30-5.70) 2.92 x10^6/uL (4.30-5.70) Hemoglobin 9.6 g/dL (13.0-17.5) 10.0 g/dL (13.0-17.5) Hematocrit 28.7 % (39.0-53.0) 29.8 % (39.0-53.0) Mean Corpuscular Volume 102 fL (79-100) 102 fL (79-100) Mean Corpuscular Hemoglobin 34 pg (25-35) 34 pg (25-35) Mean Corpuscular Hemoglobin Concent 34 g/dL (31-37) 34 g/dL (31-37) Red Cell Distribution Width 14.7 % (11.5-14.5) 14.9 % (11.5-14.5) Platelet Count 112 x10^3/uL (140-400) 113 x10^3/uL (140-400) Sodium Level 136 mmol/L (136-145) 136 mmol/L (136-145) Potassium Level 3.7 mmol/L (3.5-5.1) 3.6 mmol/L (3.5-5.1) Chloride Level 100 mmol/L (98-107) 100 mmol/L (98-107) Carbon Dioxide Level 26 mmol/L (21-32) 28 mmol/L (21-32) Anion Gap 10 (6-14) 8 (6-14) Blood Urea Nitrogen 41 mg/dL (8-26) 30 mg/dL (8-26) Creatinine 5.4 mg/dL (0.7-1.3) 5.0 mg/dL (0.7-1.3) Estimated GFR (Cockcroft-Gault) 10.7 11.7 Glucose Level 129 mg/dL (70-99) 133 mg/dL (70-99) Calcium Level 8.1 mg/dL (8.5-10.1) 8.2 mg/dL (8.5-10.1) Glucose (Fingerstick) 116 mg/dL (70-99) 153 mg/dL (70-99) Neutrophils (%) (Auto) 63 % (31-73) Lymphocytes (%) (Auto) 12 % (24-48) Monocytes (%) (Auto) 19 % (0-9) Eosinophils (%) (Auto) 5 % (0-3) Basophils (%) (Auto) 1 % (0-3) Neutrophils # (Auto) 2.3 x10^3/uL (1.8-7.7) Lymphocytes # (Auto) 0.4 x10^3/uL (1.0-4.8) Monocytes # (Auto) 0.7 x10^3/uL (0.0-1.1) Eosinophils # (Auto) 0.2 x10^3/uL (0.0-0.7) Basophils # (Auto) 0.0 x10^3/uL (0.0-0.2) Segmented Neutrophils % 73 % (35-66) Lymphocytes % 8 % (24-48) Monocytes % 16 % (0-10) Eosinophils % 3 % (0-5) Platelet Estimate Adequate (ADEQUATE) Test 06/18/19 07:43 06/18/19 11:15 Glucose (Fingerstick) 84 mg/dL (70-99) 117 mg/dL (70-99) Laboratory Tests Test 06/17/19 14:00 06/17/19 17:28 06/17/19 20:09 06/18/19 04:30 White Blood Count 3.7 x10^3/uL (4.0-11.0) 3.6 x10^3/uL (4.0-11.0) Red Blood Count 2.80 x10^6/uL (4.30-5.70) 2.92 x10^6/uL (4.30-5.70) Hemoglobin 9.6 g/dL (13.0-17.5) 10.0 g/dL (13.0-17.5) Hematocrit 28.7 % (39.0-53.0) 29.8 % (39.0-53.0) Mean Corpuscular Volume 102 fL (79-100) 102 fL (79-100) Mean Corpuscular Hemoglobin 34 pg (25-35) 34 pg (25-35) Mean Corpuscular Hemoglobin Concent 34 g/dL (31-37) 34 g/dL (31-37) Red Cell Distribution Width 14.7 % (11.5-14.5) 14.9 % (11.5-14.5) Platelet Count 112 x10^3/uL (140-400) 113 x10^3/uL (140-400) Sodium Level 136 mmol/L (136-145) 136 mmol/L (136-145) Potassium Level 3.7 mmol/L (3.5-5.1) 3.6 mmol/L (3.5-5.1) Chloride Level 100 mmol/L (98-107) 100 mmol/L (98-107) Carbon Dioxide Level 26 mmol/L (21-32) 28 mmol/L (21-32) Anion Gap 10 (6-14) 8 (6-14) Blood Urea Nitrogen 41 mg/dL (8-26) 30 mg/dL (8-26) Creatinine 5.4 mg/dL (0.7-1.3) 5.0 mg/dL (0.7-1.3) Estimated GFR (Cockcroft-Gault) 10.7 11.7 Glucose Level 129 mg/dL (70-99) 133 mg/dL (70-99) Calcium Level 8.1 mg/dL (8.5-10.1) 8.2 mg/dL (8.5-10.1) Glucose (Fingerstick) 116 mg/dL (70-99) 153 mg/dL (70-99) Neutrophils (%) (Auto) 63 % (31-73) Lymphocytes (%) (Auto) 12 % (24-48) Monocytes (%) (Auto) 19 % (0-9) Eosinophils (%) (Auto) 5 % (0-3) Basophils (%) (Auto) 1 % (0-3) Neutrophils # (Auto) 2.3 x10^3/uL (1.8-7.7) Lymphocytes # (Auto) 0.4 x10^3/uL (1.0-4.8) Monocytes # (Auto) 0.7 x10^3/uL (0.0-1.1) Eosinophils # (Auto) 0.2 x10^3/uL (0.0-0.7) Basophils # (Auto) 0.0 x10^3/uL (0.0-0.2) Segmented Neutrophils % 73 % (35-66) Lymphocytes % 8 % (24-48) Monocytes % 16 % (0-10) Eosinophils % 3 % (0-5) Platelet Estimate Adequate (ADEQUATE) Test 06/18/19 07:43 06/18/19 11:15 Glucose (Fingerstick) 84 mg/dL (70-99) 117 mg/dL (70-99) Medications Current Medications Meropenem 500 mg/ Sodium Chloride 50 ml @ 100 mls/hr DAILY IV ; Start 06/15/19 at 11:00; Stop 06/15/19 at 10:49; Status DC Vancomycin HCl (Vanco Per Pharmacy) 1 each PRN DAILY PRN MC SEE COMMENTS Last a dministered on 06/17/19at 12:11; Start 06/15/19 at 10:45; Stop 06/18/19 at 07:18; Status DC Micafungin Sodium 100 mg/Dextrose 100 ml @ 100 mls/hr Q24H IV Last administered on 06/18/19at 11:55; Start 06/15/19 at 12:00 Meropenem 1000 mg/ Sodium Chloride 100 ml @ 200 mls/hr DAILY IV Last administered on 06/18/19at 08:04; Start 06/15/19 at 10:45 Darbepoetin Huang (ARANESP for DIALYSIS PTS) 60 mcg WEEKLYHS SQ Last administered on 06/15/19at 22:32; Start 06/15/19 at 21:00 Sodium Chloride 1,000 ml @ 1,000 mls/hr Q1H PRN IV hypotension; Start 06/15/19 at 11:46; Stop 06/15/19 at 17:45; Status DC Albumin Human 200 ml @ 200 mls/hr 1X PRN PRN IV Hypotension; Start 06/15/19 at 12:00; Stop 06/15/19 at 17:59; Status DC Sodium Chloride 1,000 ml @ 400 mls/hr Q2H30M PRN IV PATENCY; Start 06/15/19 at 11:46; Stop 06/15/19 at 23:45; Status DC Info (PHARMACY MONITORING -- do not chart) 1 each PRN DAILY PRN MC SEE COMMENTS; Start 06/15/19 at 12:00; Status UNV Info (PHARMACY MONITORING -- do not chart) 1 each PRN DAILY PRN MC SEE COMMENTS; Start 06/15/19 at 12:00; Status Cancel Vancomycin HCl 750 mg/Sodium Chloride 250 ml @ 250 mls/hr QTUTHSA IV Last administered on 06/17/19at 17:35; Start 06/15/19 at 16:00; Stop 06/18/19 at 07:18; Status DC Sodium Polystyrene Sulfonate (Kayexalate) 30 gm 1X ONCE PO Last administered on 06/15/19at 17:21; Start 06/15/19 at 16:30; Stop 06/15/19 at 16:31; Status DC Lactobacillus Rhamnosus (Culturelle) 1 cap BID PO Last administered on 06/18/19at 08:05; Start 06/15/19 at 21:00 Acetaminophen (Tylenol) 500 mg PRN Q6HRS PRN PO MILD PAIN OR FEVER; Start 06/15/19 at 17:30 Amlodipine Besylate (Norvasc) 10 mg HS PO Last administered on 06/17/19at 21:18; Start 06/15/19 at 21:00 Carvedilol (Coreg) 12.5 mg DAILY PO Last administered on 06/18/19at 08:05; Start 06/16/19 at 09:00 Duloxetine HCl (Cymbalta) 30 mg DAILY PO Last administered on 06/18/19at 08:06; Start 06/16/19 at 09:00 Insulin Glargine (Lantus Syringe) 14 unit HS SQ Last administered on 06/17/19at 21:27; Start 06/15/19 at 21:00 Insulin Human Regular (HumuLIN R VIAL) low sliding scale TIDAC SQ ; Start 06/16/19 at 07:30; Status UNV Minoxidil (Loniten) 2.5 mg BID PO Last administered on 06/18/19at 08:05; Start 06/15/19 at 21:00 Tramadol HCl (Ultram) 50 mg PRN Q12HR PRN PO MODERATE PAIN; Start 06/15/19 at 17:30 Zolpidem Tartrate (Ambien) 5 mg PRN QHS PRN PO INSOMNIA; Start 06/15/19 at 17:30 Calcium Acetate (Phoslo) 667 mg TIDWMEALS PO Last administered on 06/18/19at 11:55; Start 06/15/19 at 18:00 Insulin Human Lispro (HumaLOG) 0-5 UNITS TIDWMEALS SQ Last administered on 06/16/19at 08:12; Start 06/15/19 at 18:00 Dextrose (Dextrose 50%-Water Syringe) 12.5 gm PRN Q15MIN PRN IV SEE COMMENTS; Start 06/15/19 at 17:30 Dextrose (Iv Dextrose 5%) 250 ml PRN Q15MIN PRN IV SEE COMMENTS; Start 06/15/19 at 17:30 Sodium Chloride 1,000 ml @ 1,000 mls/hr Q1H PRN IV hypotension; Start 06/16/19 at 07:18; Stop 06/16/19 at 13:17; Status DC Albumin Human 200 ml @ 200 mls/hr 1X PRN PRN IV Hypotension; Start 06/16/19 at 07:30; Stop 06/16/19 at 13:29; Status DC Acetaminophen (Tylenol) 500 mg 1X PRN PRN PO MILD PAIN / TEMP; Start 06/16/19 at 07:30; Stop 06/17/19 at 07:29; Status DC Diphenhydramine HCl (Benadryl) 25 mg 1X PRN PRN IV ITCHING; Start 06/16/19 at 07:30; Stop 06/17/19 at 07:29; Status DC Diphenhydramine HCl (Benadryl) 25 mg 1X PRN PRN IV ITCHING; Start 06/16/19 at 07:30; Stop 06/17/19 at 07:29; Status DC Sodium Chloride 1,000 ml @ 400 mls/hr Q2H30M PRN IV PATENCY; Start 06/16/19 at 07:18; Stop 06/16/19 at 19:17; Status DC Info (PHARMACY MONITORING -- do not chart) 1 each PRN DAILY PRN MC SEE COMMENTS; Start 06/16/19 at 07:30; Stop 06/17/19 at 12:03; Status DC Vancomycin HCl 500 mg/Sodium Chloride 100 ml @ 100 mls/hr 1X ONCE IV Last administered on 06/16/19at 15:32; Start 06/16/19 at 16:00; Stop 06/16/19 at 16:59; Status DC Multivitamins (Thera M Plus) 1 tab DAILY PO Last administered on 06/18/19at 08:06; Start 06/16/19 at 13:00 Ondansetron HCl (Zofran) 4 mg PRN Q6HRS PRN IV NAUSEA/VOMITING; Start 06/17/19 at 07:00; Stop 06/18/19 at 06:59; Status DC Fentanyl Citrate (Fentanyl 2ml Vial) 25 mcg PRN Q5MIN PRN IV MILD PAIN 1-3; Start 06/17/19 at 07:00; Stop 06/18/19 at 06:59; Status DC Fentanyl Citrate (Fentanyl 2ml Vial) 50 mcg PRN Q5MIN PRN IV MODERATE TO SEVERE PAIN; Start 06/17/19 at 07:00; Stop 06/18/19 at 06:59; Status DC Morphine Sulfate (Morphine Sulfate) 1 mg PRN Q10MIN PRN IV SEVERE PAIN 7-10; Start 06/17/19 at 07:00; Stop 06/18/19 at 06:59; Status DC Ringer's Solution 1,000 ml @ 30 mls/hr Q24H IV ; Start 06/17/19 at 07:00; Stop 06/17/19 at 18:59; Status DC Lidocaine HCl (Xylocaine-Mpf 1% 2ml Vial) 2 ml PRN 1X PRN ID PRIOR TO IV START; Start 06/17/19 at 07:00; Stop 06/18/19 at 06:59; Status DC Hydromorphone HCl (Dilaudid) 0.5 mg PRN Q10MIN PRN IV SEV PAIN, Second choice; Start 06/17/19 at 07:00; Stop 06/18/19 at 06:59; Status DC Prochlorperazine Edisylate (Compazine) 5 mg PACU PRN PRN IV NAUSEA, MRX1; Start 06/17/19 at 07:00; Stop 06/18/19 at 06:59; Status DC Propofol 20 ml @ As Directed STK-MED ONCE IV ; Start 06/17/19 at 11:01; Stop 06/17/19 at 11:01; Status DC Lidocaine HCl (Lidocaine Pf 2% Vial) 5 ml STK-MED ONCE .ROUTE ; Start 06/17/19 at 11:01; Stop 06/17/19 at 11:01; Status DC Cefazolin Sodium 1 gm/Sodium Chloride 250 ml @ 250 mls/hr 1X ONCE IV Last administered on 06/17/19at 11:58; Start 06/17/19 at 12:00; Stop 06/17/19 at 12:59; Status DC Sodium Chloride 1,000 ml @ 1,000 mls/hr Q1H PRN IV hypotension; Start 06/17/19 at 11:52; Stop 06/17/19 at 17:51; Status DC Info (PHARMACY MONITORING -- do not chart) 1 each PRN DAILY PRN MC SEE COMMENTS; Start 06/17/19 at 12:00 Info (PHARMACY MONITORING -- do not chart) 1 each PRN DAILY PRN MC SEE COMME NTS; Start 06/17/19 at 12:00 Lidocaine HCl 20 ml STK-MED ONCE .ROUTE Last administered on 06/17/19at 11:58; Start 06/17/19 at 11:57; Stop 06/17/19 at 11:58; Status DC Acetaminophen/ Hydrocodone Bitart (Lortab 5/325) 1 tab PRN Q4HRS PRN PO SEVERE PAIN; Start 06/17/19 at 12:30 Active Scripts Active Reported Tramadol Hcl 50 Mg Tablet 50 Mg PO PRN Q12HR PRN Ambien (Zolpidem Tartrate) 5 Mg Tablet 5 Mg PO PRN QHS PRN Culturelle (Lactobacillus Rhamnosus Gg) 1 Each Cap.sprink 1 Cap PO BID 30 Days Humalog (Insulin Lispro) 100 Unit/1 Ml Vial 0 SQ TIDAC Cymbalta (Duloxetine Hcl) 30 Mg Capsule.dr 1 Cap PO DAILY Calcium Acetate 667 Mg Tablet 1 Tab PO TID 30 Days Acetaminophen 500 Mg Tablet 1 Tab PO PRN Q6HRS PRN 15 Days Minoxidil 2.5 Mg Tablet 1 Tab PO BID Lantus (Insulin Glargine,Hum.rec.anlog) 100 Unit/1 Ml Vial 14 Unit SQ HS Amlodipine Besylate 10 Mg Tablet 10 Mg PO HS Carvedilol (Carvedilol) 12.5 Mg Tablet 12.5 Mg PO DAILY Cozaar (Losartan Potassium) 100 Mg Tablet 100 Mg PO DAILY06 Vitals/I & O Vital Sign - Last 24 Hours 06/17/19 06/17/19 06/17/19 06/17/19 19:00 20:05 21:18 21:18 Temp 98.2 98.2 Pulse 67 67 67 Resp 18 B/P (MAP) 163/60 (94) 163/60 163/60 Pulse Ox 96 O2 Delivery Room Air Room Air 06/17/19 06/18/19 06/18/19 06/18/19 23:00 03:00 07:00 08:00 Temp 98.1 98.0 97.9 98.1 98.0 97.9 Pulse 71 60 65 Resp 18 18 18 B/P (MAP) 150/62 (91) 180/80 (113) 162/58 (92) Pulse Ox 94 100 91 O2 Delivery Room Air Room Air Room Air Room Air 06/18/19 06/18/19 06/18/19 08:05 08:05 11:00 Temp 98.1 98.1 Pulse 60 60 59 Resp 18 B/P (MAP) 180/80 180/80 132/54 (80) Pulse Ox 100 O2 Delivery Room Air l Intake and Output 06/17/19 06/17/19 06/18/19 15:00 23:00 07:00 Intake Total 230 ml 120 ml 0 ml Output Total 2 ml Balance 228 ml 120 ml 0 ml ADIEL YORK MD Jun 18, 2019 12:47
[2019-06-18 15:00] VITALS: BP 138/56
[2019-06-18 19:00] VITALS: BP 150/62
[2019-06-18] MEDS: amLODIPine BESYLATE 10 MG TABLET PO SCH (21:10)
[2019-06-18] MEDS: INSULIN GLARGINE SYRINGE. SQ SCH (21:18)
[2019-06-18 23:00] VITALS: BP 156/54
[2019-06-19 03:00] VITALS: BP 151/59
[2019-06-19 06:16] LABS: BASO # 0.1 x10^3/uL (0.0-0.2); BASO % 2 % (0-3); EOS # 0.3 x10^3/uL (0.0-0.7); EOS % 7 % (0-3); HEMATOCRIT 29.9 % (39.0-53.0); LYMPH # 0.7 x10^3/uL (1.0-4.8); LYMPH % 18 % (24-48); MEAN CORPUSCULAR HEMOGLOBIN 34 pg (25-35); MEAN CORPUSCULAR HGB CONC 34 g/dL (31-37); MEAN CORPUSCULAR VOLUME 101 fL (79-100); MONO # 0.8 x10^3/uL (0.0-1.1); MONO % 21 % (0-9); NEUT % 52 % (31-73); PLATELET COUNT 120 x10^3/uL (140-400); RED BLOOD COUNT 2.96 x10^6/uL (4.30-5.70); RED CELL DISTRIBUTION WIDTH 14.2 % (11.5-14.5); WHITE BLOOD COUNT 3.8 x10^3/uL (4.0-11.0)
[2019-06-19 07:00] VITALS: BP 141/62
--- NOTE | 2019-06-19 07:35 | PDOC ---
SURGICAL PROGRESS NOTE Subjective Patient was seen and examined at the bedside this morning and is doing well. He had no complaints this morning. Vital Signs Vital Signs Date Time Temp Pulse Resp B/P (MAP) Pulse Ox O2 Delivery O2 Flow Rate FiO2 06/19/19 03:00 98.1 61 18 151/59 (89) 91 Room Air 98.1 I&O Intake and Output 06/19/19 06:59 Intake Total 400 ml Balance 400 ml Intake Oral 400 ml # Voids 2 # Bowel Movements 1 General: Alert, Oriented X3, Cooperative Extremities: Other (right second toe amputation site is clean, dry, and intact) Labs Laboratory Tests Test 06/17/19 08:00 06/17/19 11:14 06/17/19 14:00 06/17/19 17:28 Glucose (Fingerstick) 120 mg/dL (70-99) 91 mg/dL (70-99) 116 mg/dL (70-99) White Blood Count 3.7 x10^3/uL (4.0-11.0) Red Blood Count 2.80 x10^6/uL (4.30-5.70) Hemoglobin 9.6 g/dL (13.0-17.5) Hematocrit 28.7 % (39.0-53.0) Mean Corpuscular Volume 102 fL (79-100) Mean Corpuscular Hemoglobin 34 pg (25-35) Mean Corpuscular Hemoglobin Concent 34 g/dL (31-37) Red Cell Distribution Width 14.7 % (11.5-14.5) Platelet Count 112 x10^3/uL (140-400) Sodium Level 136 mmol/L (136-145) Potassium Level 3.7 mmol/L (3.5-5.1) Chloride Level 100 mmol/L (98-107) Carbon Dioxide Level 26 mmol/L (21-32) Anion Gap 10 (6-14) Blood Urea Nitrogen 41 mg/dL (8-26) Creatinine 5.4 mg/dL (0.7-1.3) Estimated GFR (Cockcroft-Gault) 10.7 Glucose Level 129 mg/dL (70-99) Calcium Level 8.1 mg/dL (8.5-10.1) Test 06/17/19 20:09 06/18/19 04:30 06/18/19 07:43 06/18/19 11:15 Glucose (Fingerstick) 153 mg/dL (70-99) 84 mg/dL (70-99) 117 mg/dL (70-99) White Blood Count 3.6 x10^3/uL (4.0-11.0) Red Blood Count 2.92 x10^6/uL (4.30-5.70) Hemoglobin 10.0 g/dL (13.0-17.5) Hematocrit 29.8 % (39.0-53.0) Mean Corpuscular Volume 102 fL (79-100) Mean Corpuscular Hemoglobin 34 pg (25-35) Mean Corpuscular Hemoglobin Concent 34 g/dL (31-37) Red Cell Distribution Width 14.9 % (11.5-14.5) Platelet Count 113 x10^3/uL (140-400) Neutrophils (%) (Auto) 63 % (31-73) Lymphocytes (%) (Auto) 12 % (24-48) Monocytes (%) (Auto) 19 % (0-9) Eosinophils (%) (Auto) 5 % (0-3) Basophils (%) (Auto) 1 % (0-3) Neutrophils # (Auto) 2.3 x10^3/uL (1.8-7.7) Lymphocytes # (Auto) 0.4 x10^3/uL (1.0-4.8) Monocytes # (Auto) 0.7 x10^3/uL (0.0-1.1) Eosinophils # (Auto) 0.2 x10^3/uL (0.0-0.7) Basophils # (Auto) 0.0 x10^3/uL (0.0-0.2) Segmented Neutrophils % 73 % (35-66) Lymphocytes % 8 % (24-48) Monocytes % 16 % (0-10) Eosinophils % 3 % (0-5) Platelet Estimate Adequate (ADEQUATE) Sodium Level 136 mmol/L (136-145) Potassium Level 3.6 mmol/L (3.5-5.1) Chloride Level 100 mmol/L (98-107) Carbon Dioxide Level 28 mmol/L (21-32) Anion Gap 8 (6-14) Blood Urea Nitrogen 30 mg/dL (8-26) Creatinine 5.0 mg/dL (0.7-1.3) Estimated GFR (Cockcroft-Gault) 11.7 Glucose Level 133 mg/dL (70-99) Calcium Level 8.2 mg/dL (8.5-10.1) Test 06/18/19 16:44 06/18/19 20:39 06/19/19 05:15 Glucose (Fingerstick) 233 mg/dL (70-99) 264 mg/dL (70-99) White Blood Count 3.8 x10^3/uL (4.0-11.0) Red Blood Count 2.96 x10^6/uL (4.30-5.70) Hemoglobin 10.0 g/dL (13.0-17.5) Hematocrit 29.9 % (39.0-53.0) Mean Corpuscular Volume 101 fL (79-100) Mean Corpuscular Hemoglobin 34 pg (25-35) Mean Corpuscular Hemoglobin Concent 34 g/dL (31-37) Red Cell Distribution Width 14.2 % (11.5-14.5) Platelet Count 120 x10^3/uL (140-400) Neutrophils (%) (Auto) 52 % (31-73) Lymphocytes (%) (Auto) 18 % (24-48) Monocytes (%) (Auto) 21 % (0-9) Eosinophils (%) (Auto) 7 % (0-3) Basophils (%) (Auto) 2 % (0-3) Neutrophils # (Auto) 2.0 x10^3/uL (1.8-7.7) Lymphocytes # (Auto) 0.7 x10^3/uL (1.0-4.8) Monocytes # (Auto) 0.8 x10^3/uL (0.0-1.1) Eosinophils # (Auto) 0.3 x10^3/uL (0.0-0.7) Basophils # (Auto) 0.1 x10^3/uL (0.0-0.2) Laboratory Tests Test 06/18/19 07:43 06/18/19 11:15 06/18/19 16:44 06/18/19 20:39 Glucose (Fingerstick) 84 mg/dL (70-99) 117 mg/dL (70-99) 233 mg/dL (70-99) 264 mg/dL (70-99) Test 06/19/19 05:15 White Blood Count 3.8 x10^3/uL (4.0-11.0) Red Blood Count 2.96 x10^6/uL (4.30-5.70) Hemoglobin 10.0 g/dL (13.0-17.5) Hematocrit 29.9 % (39.0-53.0) Mean Corpuscular Volume 101 fL (79-100) Mean Corpuscular Hemoglobin 34 pg (25-35) Mean Corpuscular Hemoglobin Concent 34 g/dL (31-37) Red Cell Distribution Width 14.2 % (11.5-14.5) Platelet Count 120 x10^3/uL (140-400) Neutrophils (%) (Auto) 52 % (31-73) Lymphocytes (%) (Auto) 18 % (24-48) Monocytes (%) (Auto) 21 % (0-9) Eosinophils (%) (Auto) 7 % (0-3) Basophils (%) (Auto) 2 % (0-3) Neutrophils # (Auto) 2.0 x10^3/uL (1.8-7.7) Lymphocytes # (Auto) 0.7 x10^3/uL (1.0-4.8) Monocytes # (Auto) 0.8 x10^3/uL (0.0-1.1) Eosinophils # (Auto) 0.3 x10^3/uL (0.0-0.7) Basophils # (Auto) 0.1 x10^3/uL (0.0-0.2) Assessment/Plan 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 His wound is healing appropriately at this time. I recommend dry dressings to the wound daily. He will need a forefoot offloading shoe for any type of ambulation. The patient can be discharged once stable from a medical standpoint. He will follow-up in our office in 2-3 weeks. Vascular surgery will sign off at this time. Please don't hesitate to call with questions. Shannan Dow DO, SHANNAN SAUCEDO DO Jun 19, 2019 07:35
[2019-06-19] MEDS: INSULIN LISPRO 300 UNITS/3 ML VIAL. SQ SCH ×3 (08:00→17:00)
[2019-06-19] MEDS: MINOXIDIL 2.5 MG TABLET PO SCH ×2 (08:22→20:39)
[2019-06-19] MEDS: MULTIVITAMIN with MINERAL TABLET. PO SCH (08:22)
[2019-06-19] MEDS: LACTOBACILLUS RHAMNOSUS GG 1 CAPSULE. PO SCH ×2 (08:22→20:39)
[2019-06-19] MEDS: DULoxetine HCL 30 MG CAPSULE.DR PO SCH (08:22)
[2019-06-19] MEDS: CALCIUM ACETATE 667 MG CAPSULE PO SCH ×3 (08:22→17:01)
[2019-06-19] MEDS: CARVEDILOL 12.5 MG TABLET. PO SCH (08:22)
[2019-06-19] MEDS: NORMAL SALINE IV SCH (08:23)
[2019-06-19] MEDS: MEROPENEM IV SCH (08:23)
--- NOTE | 2019-06-19 08:43 | PDOC ---
Infectious Disease Note Subjective Subjective Doing ok. Had less loose stool but still some. has no pain No F/C/S/N/V/SOA/pain. leg ok Vital Sign Vital Signs Vital Signs Date Time Temp Pulse Resp B/P (MAP) Pulse Ox O2 Delivery O2 Flow Rate FiO2 06/19/19 08:22 61 141/62 06/19/19 07:00 98.0 18 97 Room Air 98.0 Physical Exam PHYSICAL EXAM CONSTITUTIONAL: He is a pleasant gentleman. He is cooperative. He is laying in bed HEENT: Pupils are equal and reactive. Normal conjunctivae. Oral cavity, pharynx is clear. NECK: Supple. No JVD. LUNGS: Clear to auscultation bilaterally. HEART: S1, S2 with a soft murmur. ABDOMEN: Soft and nontender. No guarding or rebound. EXTREMITIES: Without clubbing or cyanosis. He has left upper extremity fistula that is unremarkable. Left great toe dressed post op. erythema of leg much better. He does have a Charcot joint. SKIN: Warm to touch without generalized rash. NEUROLOGIC: He is alert and responding to questions appropriately. PSYCHIATRIC: Affect is pleasant. Labs Lab Laboratory Tests Test 06/18/19 11:15 06/18/19 16:44 06/18/19 20:39 06/19/19 05:15 Glucose (Fingerstick) 117 mg/dL (70-99) 233 mg/dL (70-99) 264 mg/dL (70-99) White Blood Count 3.8 x10^3/uL (4.0-11.0) Red Blood Count 2.96 x10^6/uL (4.30-5.70) Hemoglobin 10.0 g/dL (13.0-17.5) Hematocrit 29.9 % (39.0-53.0) Mean Corpuscular Volume 101 fL (79-100) Mean Corpuscular Hemoglobin 34 pg (25-35) Mean Corpuscular Hemoglobin Concent 34 g/dL (31-37) Red Cell Distribution Width 14.2 % (11.5-14.5) Platelet Count 120 x10^3/uL (140-400) Neutrophils (%) (Auto) 52 % (31-73) Lymphocytes (%) (Auto) 18 % (24-48) Monocytes (%) (Auto) 21 % (0-9) Eosinophils (%) (Auto) 7 % (0-3) Basophils (%) (Auto) 2 % (0-3) Neutrophils # (Auto) 2.0 x10^3/uL (1.8-7.7) Lymphocytes # (Auto) 0.7 x10^3/uL (1.0-4.8) Monocytes # (Auto) 0.8 x10^3/uL (0.0-1.1) Eosinophils # (Auto) 0.3 x10^3/uL (0.0-0.7) Basophils # (Auto) 0.1 x10^3/uL (0.0-0.2) Test 06/19/19 07:41 Glucose (Fingerstick) 106 mg/dL (70-99) Objective Assessment Left great toe infection - s/p Closed Left distal first toe amputation through proximal phalanx 06/17. Pancytopenia - ? reactive vs ? Vanc- clinically well ? PAD CKD on HD Levofloxacin allergy - rash H/o Pasturella and Acinetobacter?Enterobacter DM COPD CAD Charcot foot Plan Plan of Care d/c iv antibiotics at discharge pt wants to go to rehab d/w MARIE MOYER MD Jun 19, 2019 08:43
--- NOTE | 2019-06-19 09:44 | PDOC ---
PROGRESS NOTES Subjective Subjective tired today Objective Objective Vital Signs Date Time Temp Pulse Resp B/P (MAP) Pulse Ox O2 Delivery O2 Flow Rate FiO2 06/19/19 08:22 61 141/62 06/19/19 07:20 Room Air 06/19/19 07:00 98.0 18 97 98.0 Intake and Output 06/19/19 07:00 Intake Total 400 ml Balance 400 ml Intake Oral 400 ml # Voids 2 # Bowel Movements 1 Physical Exam Abdomen: Soft, No tenderness Heart: Regular rate, Normal S1, Normal S2 Extremities: Other (right second toe amputation site is clean, dry, and intact) General: Alert, Oriented X3, Cooperative HEENT: PERRLA, EOMI, Mucous membr. moist/pink Lungs: Clear to auscultation, Normal air movement MUSCULOSKELETAL: No muscular tenderness noted, Full range of motion without pain Neuro: Normal speech, Strength at 5/5 X4 ext, Normal tone, Cranial nerves 3-12 NL Psych/Mental Status: Mental status NL, Mood NL Skin: Other (left first toe mal perforans ulcer with dry gangrene involving the distal tip of the toe to the level of the distal phalanx, resolving cellulitis involving the dorsal foot and ankle, no purulent drainage) Assessment Assessment IMPRESSION: 1. Osteo left big toe and left lower extremity cellulitis and has multiple other medical problems. A. Longstanding type 2 diabetes mellitus with neuropathy. B. Hypertension. C. Hyperlipidemia. D. End-stage renal disease, on hemodialysis .. PLAN: POD#2 PROCEDURE: Left distal first toe amputation through proximal phalanx. spoke with RN 3 antibiotics vanco+meropenum+micofengin. labs good pt want to think about going home or rehab by tomorrow after dialysis Comment Review of Relevant I have reviewed the following items kit (where applicable) has been applied. Labs Laboratory Tests Test 06/18/19 11:15 06/18/19 16:44 06/18/19 20:39 06/19/19 05:15 Glucose (Fingerstick) 117 mg/dL (70-99) 233 mg/dL (70-99) 264 mg/dL (70-99) White Blood Count 3.8 x10^3/uL (4.0-11.0) Red Blood Count 2.96 x10^6/uL (4.30-5.70) Hemoglobin 10.0 g/dL (13.0-17.5) Hematocrit 29.9 % (39.0-53.0) Mean Corpuscular Volume 101 fL (79-100) Mean Corpuscular Hemoglobin 34 pg (25-35) Mean Corpuscular Hemoglobin Concent 34 g/dL (31-37) Red Cell Distribution Width 14.2 % (11.5-14.5) Platelet Count 120 x10^3/uL (140-400) Neutrophils (%) (Auto) 52 % (31-73) Lymphocytes (%) (Auto) 18 % (24-48) Monocytes (%) (Auto) 21 % (0-9) Eosinophils (%) (Auto) 7 % (0-3) Basophils (%) (Auto) 2 % (0-3) Neutrophils # (Auto) 2.0 x10^3/uL (1.8-7.7) Lymphocytes # (Auto) 0.7 x10^3/uL (1.0-4.8) Monocytes # (Auto) 0.8 x10^3/uL (0.0-1.1) Eosinophils # (Auto) 0.3 x10^3/uL (0.0-0.7) Basophils # (Auto) 0.1 x10^3/uL (0.0-0.2) Test 06/19/19 07:41 Glucose (Fingerstick) 106 mg/dL (70-99) Vitals/I & O Vital Sign - Last 24 Hours 06/18/19 06/18/19 06/18/19 06/18/19 11:00 15:00 19:00 19:50 Temp 98.1 97.4 98.4 98.1 97.4 98.4 Pulse 59 61 63 Resp 18 18 18 B/P (MAP) 132/54 (80) 138/56 (83) 150/62 (91) Pulse Ox 100 95 94 O2 Delivery Room Air Room Air Room Air Room Air 06/18/19 06/18/19 06/18/19 06/19/19 21:10 21:12 23:00 03:00 Temp 98.2 98.1 98.2 98.1 Pulse 63 63 67 61 Resp 18 18 B/P (MAP) 150/62 150/62 156/54 (88) 151/59 (89) Pulse Ox 94 91 O2 Delivery Room Air Room Air 06/19/19 06/19/19 06/19/19 06/19/19 07:00 07:20 08:22 08:22 Temp 98.0 98.0 Pulse 61 61 61 Resp 18 B/P (MAP) 141/62 (88) 141/62 141/62 Pulse Ox 97 O2 Delivery Room Air Room Air Intake and Output 06/18/19 06/18/19 06/19/19 15:00 23:00 07:00 Intake Total 220 ml 180 ml Balance 220 ml 180 ml FADY HASSAN MD Jun 19, 2019 09:44
[2019-06-19 11:00] VITALS: BP 135/64
--- NOTE | 2019-06-19 11:35 | NUR ---
SW following. Discussed with RN, pt is from home with , does dialysis at [facility]. PT/OT recommending SNU. SW met with pt, pt does not want to go to SNU because he thinks he can manage okay at home with . Attempted to call , Alyssa, no answer. Pt also declining home health services. SW discussed with Ashok MATHIS, pt will follow in the wound clinic. SW to speak with pt's regarding wound care/ dressing changes and home health. Anticipate discharge home tomorrow (06/20/2019).
--- NOTE | 2019-06-19 12:00 | PDOC ---
Renal-Progress Notes Subjective Notes Notes SITTING UP History of Present Illness Hx of present illness STABLE Vitals Vitals Vital Signs Date Time Temp Pulse Resp B/P (MAP) Pulse Ox O2 Delivery O2 Flow Rate FiO2 06/19/19 11:00 97.4 60 18 135/64 (87) 98 Room Air 97.4 Weight Weight [ ] I.O. Intake and Output Intake and Output 06/19/19 07:00 Intake Total 400 ml Balance 400 ml Intake Oral 400 ml # Voids 2 # Bowel Movements 1 Labs Labs Laboratory Tests Test 06/18/19 16:44 06/18/19 20:39 06/19/19 05:15 06/19/19 07:41 Glucose (Fingerstick) 233 mg/dL (70-99) 264 mg/dL (70-99) 106 mg/dL (70-99) White Blood Count 3.8 x10^3/uL (4.0-11.0) Red Blood Count 2.96 x10^6/uL (4.30-5.70) Hemoglobin 10.0 g/dL (13.0-17.5) Hematocrit 29.9 % (39.0-53.0) Mean Corpuscular Volume 101 fL (79-100) Mean Corpuscular Hemoglobin 34 pg (25-35) Mean Corpuscular Hemoglobin Concent 34 g/dL (31-37) Red Cell Distribution Width 14.2 % (11.5-14.5) Platelet Count 120 x10^3/uL (140-400) Neutrophils (%) (Auto) 52 % (31-73) Lymphocytes (%) (Auto) 18 % (24-48) Monocytes (%) (Auto) 21 % (0-9) Eosinophils (%) (Auto) 7 % (0-3) Basophils (%) (Auto) 2 % (0-3) Neutrophils # (Auto) 2.0 x10^3/uL (1.8-7.7) Lymphocytes # (Auto) 0.7 x10^3/uL (1.0-4.8) Monocytes # (Auto) 0.8 x10^3/uL (0.0-1.1) Eosinophils # (Auto) 0.3 x10^3/uL (0.0-0.7) Basophils # (Auto) 0.1 x10^3/uL (0.0-0.2) Test 06/19/19 11:05 Glucose (Fingerstick) 99 mg/dL (70-99) Review of Systems Constitutional: yes: weakness Ears/Nose/Throat: Yes: no symptom reported Eyes: Yes: no symptom reported Pulmonary: Yes no symptom reported Cardiovascular: Yes no symptom reported Gastrointestional: Yes: no symptom reported Genitourinary: Yes: no symptom reported Musculoskeletal: Yes: no symptom reported Skin: Yes no symptom reported Psychiatric/Neurological: Yes: no symptom reported Endocrine: Yes: no symptom reported Physical Exam General Appearance: no apparent distress Skin: warm Respiratory: decreased breath sounds Heart: S1S2 Abdomen: soft Genitourinary: bladder flat Extremities: pulses present Neurology: alert Assessment Assessment IMP ESRD ANEMIA DM II HTN PAD WITH L GREAT TOE INFECTION PLAN ANTIBIOTICS MICHA WHEN NEEDED HD TOMORROW WILL FOLLOW ABELINO HORVATH MD Jun 19, 2019 12:00
[2019-06-19 15:00] VITALS: BP 139/65
--- NOTE | 2019-06-19 15:10 | NUR ---
Wound Care: Patient dressing to left great toe has been changed today by physician on post op day 2. Possible discharge tomorrow, will see patient tomorrow regarding wound care.
[2019-06-19 19:00] VITALS: BP 152/63
[2019-06-19] MEDS: amLODIPine BESYLATE 10 MG TABLET PO SCH (20:39)
[2019-06-19] MEDS: INSULIN GLARGINE SYRINGE. SQ SCH (20:47)
[2019-06-19 23:00] VITALS: BP 156/64
[2019-06-20 03:00] VITALS: BP 157/64
[2019-06-20 07:00] VITALS: BP 160/67
[2019-06-20] MEDS: INSULIN LISPRO 300 UNITS/3 ML VIAL. SQ SCH ×2 (08:00→11:32)
[2019-06-20] MEDS: DULoxetine HCL 30 MG CAPSULE.DR PO SCH (08:13)
[2019-06-20] MEDS: CARVEDILOL 12.5 MG TABLET. PO SCH (08:13)
[2019-06-20] MEDS: MULTIVITAMIN with MINERAL TABLET. PO SCH (08:14)
[2019-06-20] MEDS: MINOXIDIL 2.5 MG TABLET PO SCH (08:14)
[2019-06-20] MEDS: LACTOBACILLUS RHAMNOSUS GG 1 CAPSULE. PO SCH (08:14)
[2019-06-20] MEDS: CALCIUM ACETATE 667 MG CAPSULE PO SCH ×2 (08:14→11:32)
[2019-06-20] MEDS: MEROPENEM IV SCH (08:15)
[2019-06-20] MEDS: NORMAL SALINE IV SCH (08:15)
--- NOTE | 2019-06-20 08:20 | PDOC ---
Infectious Disease Note Subjective Subjective feeling good ROS ROS no n/v/d/sob/fever Vital Sign Vital Signs Vital Signs Date Time Temp Pulse Resp B/P (MAP) Pulse Ox O2 Delivery O2 Flow Rate FiO2 06/20/19 07:20 Room Air 06/20/19 03:00 97.8 64 18 157/64 (95 90 97.8 Physical Exam PHYSICAL EXAM CONSTITUTIONAL: He is a pleasant gentleman. He is cooperative. He is laying in bed HEENT: Pupils are equal and reactive. Normal conjunctivae. Oral cavity, pharynx is clear. NECK: Supple. No JVD. LUNGS: Clear to auscultation bilaterally. HEART: S1, S2 with a soft murmur. ABDOMEN: Soft and nontender. No guarding or rebound. EXTREMITIES: Without clubbing or cyanosis. He has left upper extremity fistula that is unremarkable. Left great toe amp site looks good SKIN: Warm to touch without generalized rash. NEUROLOGIC: He is alert and responding to questions appropriately. PSYCHIATRIC: Affect is pleasant. Labs Lab Laboratory Tests Test 06/19/19 11:05 06/19/19 20:17 06/20/19 07:22 Glucose (Fingerstick) 99 mg/dL (70-99) 154 mg/dL (70-99) 145 mg/dL (70-99) Micro ocedure Result ANAEROBIC-AEROBIC CULTURE PENDING ANAEROBIC RES 1 PENDING AEROBIC CULT PENDING AEROBIC RES 1 PENDING GRAM STAIN Final Final report GRAM STAIN RES 1 Final Comment No white blood cells seen. GRAM STAIN RES 2 Final No organisms seen Performed at: [facility] [address], [place], [place] [id number] Assistant Film Editor: HELDER Mauricio MD, Phone: [phone] Objective Assessment Left great toe infection - s/p Closed Left distal first toe amputation through proximal phalanx 06/17. Pancytopenia - ? reactive vs ? Vanc- clinically well ? PAD CKD on HD Levofloxacin allergy - rash H/o Pasturella and Acinetobacter?Enterobacter DM COPD CAD Charcot foot Plan Plan of Care d/c iv antibiotics po cefdinir for 5 days ok to d/c MARIE BATRES MD Jun 20, 2019 08:20
[2019-06-20] MEDS ORDERED: CEFDINIR 300 MG CAPSULE PO SCH (09:00)
--- NOTE | 2019-06-20 10:22 | DS ---
DATE OF DISCHARGE: 06/20/2019 DATE OF DISCHARGE: 06/20/2019 HOSPITAL COURSE: The patient is a 63-year-old male patient who was admitted with infected left big toe and left foot cellulitis. He was seen in consultation by the orthopedic surgeon as well as Infectious Disease specialist and the vascular surgeon. He underwent left distal first toe amputation through proximal phalanx for left distal first toe ulcer with gangrenous tip and suspected osteomyelitis, peripheral neuropathy, and chronic renal failure, on hemodialysis. He was treated initially with IV antibiotic in the form of vancomycin, meropenem, and micafungin. His operative culture did not show any growth and the patient is afebrile and hemodynamically stable. A decision was made to discharge him. I offered him to be discharged to a [facility] facility to continue with wound care and hemodialysis as an outpatient or home health and the patient declined both and would like to go home. PHYSICAL EXAMINATION: GENERAL: When I examined him this morning, he was resting slightly propped up in bed, having his scheduled hemodialysis, in no apparent distress. He was pale, but no jaundice, cyanosis, or thyromegaly. No jugular venous distention. No limb edema. VITAL SIGNS: His heart rate was 61, blood pressure was 160/67, temperature was 98.4, respiratory rate was 18, and oxygen saturation was 95% on room air. HEAD, EYES, EARS, NOSE, AND THROAT: Showed normocephalic and atraumatic. NECK: Supple. HEART: Showed normal first and second heart sounds. No gallop or murmur. CHEST: Clear to auscultation. No crepitation or rhonchi. ABDOMEN: Distended, soft, and nontender. NEUROLOGIC: He is awake, alert, and responding appropriately. All cranial nerves are intact. He moves extremities without difficulty. SKIN: The wound in his left foot is covered with dressing. His intake over the last 24 hours and output were incompletely recorded. LABORATORY DATA: Lab work as of yesterday showed a white cell count 3800, hemoglobin 10, hematocrit 29, MCV 101, and platelet count of 120,000. His chemistry is variable as hemodialysis dependent. His blood sugar was reasonably controlled. DISCHARGE MEDICATIONS: He was discharged home to continue on cefdinir 300 mg once a day for 5 more days, hydrocodone/APAP 5/325 mg one tablet every 4 hours as needed, multivitamin 1 tablet once a day, duloxetine 30 mg once a day, carvedilol 12.5 mg once a day, minoxidil 2.5 mg twice a day, Lantus 14 units at bedtime, amlodipine 10 mg once a day, lactobacillus rhamnosus 1 capsule twice a day, darbepoetin dimitri 60 mcg weekly, calcium acetate 667 mg 3 times a day with meals, Ambien 5 mg at bedtime, tramadol 50 mg, and acetaminophen 500 mg every 6 hours. FINAL DISCHARGE DIAGNOSES: 1. Left great toe infection, status post left distal first toe amputation through proximal phalanx. 2. Pancytopenia. 3. Peripheral arterial disease. 4. Chronic kidney disease, on hemodialysis. 5. History of Pasteurella/Enterobacter infection. 6. Type 2 diabetes mellitus, seems to be reasonably controlled. 7. Chronic obstructive pulmonary disease, clinically quiescent. 8. Coronary artery disease. The patient is chest pain free. 9. Charcot foot with severe diabetic peripheral neuropathy. The patient was discharged home and to continue wound care and hemodialysis as an outpatient. PIEDAD LAND MD DR: [place]/bernardo JOB#: [id number] / [id number]
--- NOTE | 2019-06-20 10:38 | PDOC ---
Renal-Progress Notes Subjective Notes Notes NO NEW COMPLAINTS History of Present Illness Hx of present illness STABLE Vitals Vitals Vital Signs Date Time Temp Pulse Resp B/P (MAP) Pulse Ox O2 Delivery O2 Flow Rate FiO2 06/20/19 08:14 61 160/67 06/20/19 07:20 Room Air 06/20/19 07:00 98.4 18 95 98.4 Weight Weight [ ] I.O. Intake and Output Intake and Output 06/20/19 07:00 Intake Total 560 ml Balance 560 ml Intake Oral 560 ml # Voids 1 Labs Labs Laboratory Tests Test 06/19/19 11:05 06/19/19 20:17 06/20/19 07:22 Glucose (Fingerstick) 99 mg/dL (70-99) 154 mg/dL (70-99) 145 mg/dL (70-99) Micro Micro Microbiology 06/17/19 Anaerobic/Aerobic Culture, Resulted Pending 06/17/19 Anaerobic Culture Result 1 (KIANA), Resulted Pending 06/17/19 Aerobic Culture, Resulted Pending 06/17/19 Aerobic Culture Result 1 (KIANA), Resulted Pending 06/17/19 Gram Stain - Final, Resulted 06/17/19 Gram Stain Result 1 (KIANA) - Final, Resulted 06/17/19 Gram Stain Result 2 (KIANA) - Final, Resulted Review of Systems Constitutional: yes: weakness Ears/Nose/Throat: Yes: no symptom reported Eyes: Yes: no symptom reported Pulmonary: Yes no symptom reported Cardiovascular: Yes no symptom reported Gastrointestional: Yes: no symptom reported Genitourinary: Yes: no symptom reported Musculoskeletal: Yes: no symptom reported Skin: Yes no symptom reported Psychiatric/Neurological: Yes: no symptom reported Endocrine: Yes: no symptom reported Physical Exam General Appearance: no apparent distress Skin: warm Respiratory: decreased breath sounds Heart: S1S2 Abdomen: soft Genitourinary: bladder flat Extremities: pulses present Neurology: alert Assessment Assessment IMP ESRD ANEMIA DM II HTN PAD WITH L GREAT TOE INFECTION PLAN ANTIBIOTICS MICHA WHEN NEEDED HD TODAY DID NOT GO WELL HE INFILTRATED D/C PLANS NOTED, OK TO D/C, LABS STABLE AND NO VOLUME OVERLOAD OK FOR NEXT OP HD ON WEDNESDAY WILL ALLOW INFILTRATION/[place] TO RESOLVE WILL FOLLOW ABELINO HORVATH MD Jun 20, 2019 10:38
[2019-06-20 11:00] VITALS: BP 167/67
--- NOTE | 2019-06-20 12:07 | NUR ---
SW following. Discussed with RN, pt has declined home health and prison facility upon discharge. Pt's also has declined services. Pt will discharge home with self care. No further SW needs.
--- NOTE | 2019-06-20 13:11 | NUR ---
Wound Care: Patient seen per wound care for left great toe amputation site. Dressing removed and surgical incision approximated with sutures, area cleansed, assessed, and pictured. Orders for dry dressing daily per Dr. Dow. Dressing applied and patient has Darco shoe. Patient educated on dressing changes and sent with extra dressing supplies. Patient v/u. Patient has scheduled follow up with Dr. Dow. Patient left on bedside as he gathered his belongings.
--- NOTE | 2019-06-20 13:15 | NUR ---
Pt. discharged to home with Rx, verbalized understanding of discharge instructions. L jolene saenz CDI.
--- NOTE | 2019-06-20 17:06 | PATHOLOGY ---
[facility] Accession Number: [id number] . 01 Material submitted: . toe - LEFT BIG TOE. Modifiers: left . 01 Clinical history: . Left foot wound, ESRD . 02 Diagnosis: Left first toe amputation: - Gangrenous necrosis and ulceration of toe with underlying acute cellulitis and focal acute osteomyelitis. - Proximal amputation margin viable and negative for inflammation. . (JPM:zahra; 06/20/2019) QMS 06/20/2019 1339 Local . 02 Electronically signed: . Roderick Cody MD, Pathologist NPI- [id number] . 01 Gross description: . The specimen is received in formalin, labeled "Babar Gil, left big toe" and consists of a disarticulated toe measuring 3.7 x 3.6 x 3.1 cm. A small portion of nail is present. The distal aspect of the toe is mummified with an extensive ulceration measuring 3.5 x 2.5 cm that is 0.7 cm from the skin soft tissue margin (inked black). The proximal bone margin is a mayo-brown smooth articular surface. Sectioning reveal the mummification/ulceration extends to the underlying bone which is mayo-yellow. [employer] sections are submitted as follows: . A1: Skin soft tissue margin and a segment of mummified tip A2: Toe, longitudinal section distal A3: Toe, longitudinal section proximal A2 and A3 will be submitted following the calcification. (SDY; 06/19/2019) SYU/SYU 06/19/2019 1252 Local . 02 Pathologist provided ICD-10: I96, L97.529, M86.172 . 02 CPT . 336657, [id number] Specimen Comment: A courtesy copy of this report has been sent to [phone] Specimen Comment: Report sent to Performed at: [address] [facility] [address], [place] [id number] MD Frederic Salguero MD Phone: [phone] Performed at: 02 [facility] [place] [address] [place], [place] [id number] MD Roderick Cody MD Phone: [phone]
== END 2019-06-20 13:40 | disposition home or self-care (01) | DRG 255 ==
LOC: 4 NORTH 08:51
PROVIDERS: ADMIT Internal Medicine; ATTEND Internal Medicine
PROC: 5A1D70Z Performance of Urinary Filtration, Intermittent, Less than 6 Hours Per Day (ICD-10-PCS; 2019-06-15)
PROC: 5A1D70Z Performance of Urinary Filtration, Intermittent, Less than 6 Hours Per Day (ICD-10-PCS; 2019-06-16)
PROC: 5A1D70Z Performance of Urinary Filtration, Intermittent, Less than 6 Hours Per Day (ICD-10-PCS; 2019-06-17)
PROC: 0Y6Q0Z3 Detachment at Left 1st Toe, Low, Open Approach (ICD-10-PCS; principal; 2019-06-17 11:00)
PROC: 5A1D70Z Performance of Urinary Filtration, Intermittent, Less than 6 Hours Per Day (ICD-10-PCS; 2019-06-20)
DX: E11.52 Type 2 diabetes mellitus with diabetic peripheral angiopathy with gangrene (principal); N18.6 End stage renal disease; L03.115 Cellulitis of right lower limb; I12.0 Hypertensive chronic kidney disease with stage 5 chronic kidney disease or end stage renal disease; D61.818 Other pancytopenia; L03.116 Cellulitis of left lower limb; M86.8X7 Other osteomyelitis, ankle and foot; E11.42 Type 2 diabetes mellitus with diabetic polyneuropathy; E11.621 Type 2 diabetes mellitus with foot ulcer; E11.610 Type 2 diabetes mellitus with diabetic neuropathic arthropathy; E11.3599 Type 2 diabetes mellitus with proliferative diabetic retinopathy without macular edema, unspecified eye; E11.22 Type 2 diabetes mellitus with diabetic chronic kidney disease; E78.5 Hyperlipidemia, unspecified; Z96.1 Presence of intraocular lens; I25.10 Atherosclerotic heart disease of native coronary artery without angina pectoris; J44.9 Chronic obstructive pulmonary disease, unspecified; H54.7 Unspecified visual loss; E03.9 Hypothyroidism, unspecified; E11.622 Type 2 diabetes mellitus with other skin ulcer; L97.529 Non-pressure chronic ulcer of other part of left foot with unspecified severity; M15.9 Polyosteoarthritis, unspecified; Z99.2 Dependence on renal dialysis; Z98.42 Cataract extraction status, left eye; Z87.891 Personal history of nicotine dependence; Z98.41 Cataract extraction status, right eye; Z88.7 Allergy status to serum and vaccine; L03.032 Cellulitis of left toe; Z88.8 Allergy status to other drugs, medicaments and biological substances; Z91.041 Radiographic dye allergy status; Z80.0 Family history of malignant neoplasm of digestive organs; Z82.49 Family history of ischemic heart disease and other diseases of the circulatory system; Z82.5 Family history of asthma and other chronic lower respiratory diseases
CPT/HCPCS: 36415; 80048; 80053; 80202; 82962; 85007; 85025; 85027; 87071; 87075; 87641; 93926; 93931; J0882; J1815; J2001; J2185; J2248; J2704; J3370; J7050; 97116; 97530; A4461; G0378; J7030